=== PATIENT | female | born 1990 | race Caucasian/White ===

== ENCOUNTER → 2019-03-03 | Outpatient (CLI) | payer MEDICAID, SELFPAY ==
[2019-03-03 10:16] VITALS: BMI 28.4
[2019-03-03 11:43] LABS: Absolute Lymphocyte Count 1.71 X10^3/uL (0.83-4.51); Absolute Neutrophil Count 5.2 X10^3/uL (2.0-7.7); Basophil# 0.03 X10^3/uL; Basophil% 0.4 % (0-1); Eosinophil# 0.09 X10^3/uL; Eosinophils% 1.2 % (0-5); Hematocrit 38.6 % (37-47); Hemoglobin 13.1 g/dL (12.0-15.0); Lymphocyte # 1.71 X10^3/ul (4.0); Lymphocyte % 22.6 % (19-41); Mean Corp Hgb Conc 33.9 g/dL (32-36); Mean Corpuscular Hgb 29.9 pg (27.0-32.0); Mean Corpuscular Volume 88.1 fL (81-99); Mean Platelet Vol. 11.2 fl (6.2-12.0); Monocyte# 0.51 X10^3/uL; Monocyte% 6.7 % (0-10); NRBC Flagged by Analyzer 0 % (0-5); Neutrophil # 5.19 X10^3/uL (2.7-7.7); Neutrophil % 68.6 % (47-70); Platelet Count 182 K/mm3 (150-450); Red Blood Count 4.38 M/mm3 (4.2-5.4); White Blood Count 7.6 K/mm3 (4.4-11.0)
[2019-03-03 13:01] LABS: HIV - WCH Non-Reactive (Nonreactive); Rubella IgG 179.2 IU/mL
[2019-03-03 18:18] LABS: Chlamydia Trachomatis by PCR Negative (Negative); Neisserai gonorrhoeae by PCR Negative (Negative); Probe Check PASS; Sample Adequacy Control PASS; Specimen Processing Control PASS
[2019-03-06 00:53] LABS: Rapid Plasmin Reagin (RPR) NONREACTIVE (NONREACTIVE)
[2019-03-06 13:12] LABS: HPV Reflexed? NOT INDICATED
== END | disposition home or self-care (01) ==
PROVIDERS: Nurse Practitioner Women's Health; Family Provider Preventive Medicine Occupational Medicine; PCP Preventive Medicine Occupational Medicine; Referring Provider Obstetrics & Gynecology; Visit Provider Obstetrics & Gynecology
DX: O09.71 Supervision of high risk pregnancy due to social problems, first trimester (principal); Z3A.00 Weeks of gestation of pregnancy not specified
CPT/HCPCS: 36415; 85025; 86592; 86703; 86762; 86850; 86900; 86901; 87086; 87088; 87491; 87591; 87624; 88175; G0145

== ENCOUNTER 2019-06-01 16:36 | Outpatient (CLI) | payer MEDICAID, SELFPAY ==
[2019-05-11 08:25] VITALS: BMI 28.4
[2019-06-01 18:18] VITALS: BP 121/63; PULSE 74; RESP 20; TEMP 36.5; O2SAT 96; BMI 28.0
[2019-06-01 19:09] VITALS: BMI 28.0
--- NOTE | 2019-06-01 19:50 | OB.TRI.PN ---
Progress Notes Date of Service: 06/01/19 Progress Note: 21 week abdominal trauma- fht present finish evaluation in ER Multi Select Codes - Urinary/Genital Urinary/Genital CPT Codes: Other Procedure See Report - no charge
== END 2019-06-01 19:20 | disposition home or self-care (01) ==
LOC: WPOUT 18:41 → WP 18:50
PROVIDERS: Family Provider Preventive Medicine Occupational Medicine; PCP Preventive Medicine Occupational Medicine; Visit Provider Obstetrics & Gynecology
DX: O26.892 Other specified pregnancy related conditions, second trimester (principal); Z3A.21 21 weeks gestation of pregnancy; S39.91XA Unspecified injury of abdomen, initial encounter
CPT/HCPCS: 59025; 59050; 99218; G0378

== ENCOUNTER 2019-06-01 19:29 | Emergency (ER) | payer MEDICAID, SELFPAY ==
[2019-06-01 19:09] VITALS: BMI 28.0
[2019-06-01 19:30] VITALS: BP 97/62; PULSE 78; RESP 20; TEMP 36.9; O2SAT 98; BMI 28.0
--- NOTE | 2019-06-01 20:30 | ED.RN ---
PER DR. ASHBY COLLECTED URINE TOX SCREEN. DR. BAILEY AWARE.
--- NOTE | 2019-06-01 20:31 | RAD_ITS ---
STUDY: X-RAY - RIGHT KNEE REASON FOR EXAM: Female, 28 years old. Pain, fall TECHNIQUE: 4 view(s) of the knee. COMPARISON: None. FINDINGS: Normal visualized distal femur. Normal visualized proximal tibia and fibula. Normal proximal tibiofibular articulation. Normal medial femorotibial compartment. Normal lateral femorotibial compartment. Normal patellofemoral articulation. The soft tissue structures are unremarkable. RAD/Knee 4 or More Views IMPRESSION: Normal x-ray examination of the knee. Electronically Signed: Rock Ventura DO at 21:21 EST Tel [phone], Service support ,
--- NOTE | 2019-06-01 20:31 | RAD_ITS ---
STUDY: X-RAY - PELVIS AND RIGHT HIP REASON FOR EXAM: Female, 28 years old. Pain TECHNIQUE: 3 views of the pelvis and hip. COMPARISON: None. FINDINGS: There is a non-specific bowel gas pattern. Normal visualized soft tissue structures. There is a fetus noted over the pelvic region. Normal bilateral iliac wings, sacroiliac joints and visualized sacrum. Normal bilateral superior and inferior pubic rami. Normal pubic symphysis. Normal bilateral ischial tuberosities. Normal visualized femoral head. Possible small cyst at the right femoral neck. Normal acetabulum. Normal hip joint. RAD/HIP, UNI W/ Pelvis 2-3 Views IMPRESSION: No acute bony injury of the pelvis and hip. Electronically Signed: Rock Ventura DO at 21:20 EST Tel [phone], Service support ,
--- NOTE | 2019-06-01 20:45 | RAD_ITS ---
STUDY: X-RAY CHEST REASON FOR EXAM: Female, 28 years old. Fall TECHNIQUE: Frontal and lateral views COMPARISON: None. FINDINGS: The lungs are clear and expanded. There is no demonstrated pleural abnormality. Normal size heart. Normal mediastinum and jeana. Normal visualized pulmonary arteries. Normal visualized aortic arch and descending thoracic aorta. Normal visualized thoracic spine. Normal visualized ribs, clavicles, and shoulders. There is no demonstrated abnormality of the visualized soft tissue structures of the upper abdomen. RAD/Chest PA and Lateral IMPRESSION: Normal x-ray examination of the chest. Electronically Signed: Rock Ventura DO at 21:12 EST Tel [phone], Service support ,
[2019-06-01 20:49] LABS: Amphetamine Urine VISTA NEGATIVE (<1000 ng/mL); Barbiturate Urine VISTA NEGATIVE (< 200 ng/mL); Benzodiazepine Urine VISTA NEGATIVE (< 200 ng/mL); Cocaine Urine VISTA NEGATIVE (< 300 ng/mL); Ecstacy Urine VISTA NEGATIVE (< 500 ng/mL); Methadone Urine VISTA NEGATIVE (< 300 ng/mL); PCP Urine VISTA NEGATIVE (< 25 ng/mL); THC Urine VISTA NEGATIVE (< 50 ng/mL); Vista UDS pH Range 6
--- NOTE | 2019-06-01 21:44 | ED.DCSUM_ITS ---
- ER Visit Summary Date of Service: 06/01/19 Chief Complaint: [Fall with injury to right side of her body including right knee and right hip.] History of Present Illness: The patient is a 28 F [presents to the emergency department after sustaining a fall this afternoon. 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 Patient denies loss of consciousness. Patient denies any neck pain. She denies paresthesias. Patient initially went up to [facility] and they evaluated the baby. She was sent to the emergency department for further evaluation of her injuries. Patient states that she is having too much pain to walk onto her right leg. Patient complains of pain in the right hip and right knee mostly. She denies any pain or foot. She denies any back pain. She denies any abdominal pain. She denies any shortness of breath. Patient is 21 weeks .] Physical Examination: [HEENT-PERRLA, EOMI. Cranial nerves II through XII grossly intact. TMs clear. Mucous membranes moist. No adenopathy. No external evidence of trauma to her head. Patient has no C-spine tenderness on palpation and she has normal active range of motion is painless. Cardiovascular-regular rate and rhythm without murmur or ectopy Lungs-clear to auscultation, chest wall stable without crepitus or subcu emphysema. Patient has some tenderness to palpation over the right upper posterior ribs near the axilla. Patient has some faint ecchymosis to this area. Abdomen-normoactive bowel sounds, soft, nontender, no rebound or rigidity, no peritoneal signs. Extremities-intact ?4, normal range of motion, normal pulses. Right leg-patient has diffuse tenderness over the right hip as well as the right knee. Patient has pain with range of motion in the hip and knee. She has some diffuse areas of ecchymosis and bruising to the lateral aspect of the right upper leg and lower leg. No obvious deformity. Neurovascular intact.] Test Results: [Chest x-ray obtained was normal. Patient also had x-rays of the right hip and pelvis as well as the right knee and all were negative for fractures.] Emergency Department Course and Treatment: [She was given Tylenol in the department.] Treatment Plan: [Patient will be given crutches and advised use Tylenol for discomfort. Patient use ice to the area. Patient to follow-up with her [facility] within the next 5 to 7 days.] Disposition: [Discharged home in stable condition] Impression: [Mechanical fall Back contusion Right hip contusion Right lower extremity contusion] This note was generated with [employer] dictation software. It may contain incorrect words, spelling, and punctuation that were not noted in review of the chart prior to signing ED Disposition - Plan for ED Patient: Referrals: Abad Cooper DO [Primary Care Provider] -
[2019-06-01] MEDS: Acetaminophen 325 MG Tablet 650 MG PO (21:57)
--- NOTE | 2019-06-01 22:12 | ED.DEP ---
ED Disposition - Plan for ED Patient: Instructions: FALL, Mechanical, CONTUSION, Lower Extremity, Chest Wall Contusion Referrals: Abad Cooper DO [Primary Care Provider] - 5-7 Days
[2019-06-01 22:21] VITALS: BP 101/68; PULSE 76; RESP 16; O2SAT 99
== END 2019-06-01 22:21 | disposition home or self-care (01) ==
PROVIDERS: Emergency Provider Emergency Medicine; Family Provider Preventive Medicine Occupational Medicine; PCP Preventive Medicine Occupational Medicine
DX: O26.892 Other specified pregnancy related conditions, second trimester (principal); Z3A.21 21 weeks gestation of pregnancy; S20.229A Contusion of unspecified back wall of thorax, initial encounter; S70.01XA Contusion of right hip, initial encounter; S80.11XA Contusion of right lower leg, initial encounter; W10.8XXA Fall (on) (from) other stairs and steps, initial encounter; S39.91XA Unspecified injury of abdomen, initial encounter
CPT/HCPCS: 59025; 59050; 71046; 73502; 73564; 80307; 99218; 99283; G0378

== ENCOUNTER → 2019-07-07 08:55 | Outpatient (CLI) | payer MEDICAID, SELFPAY ==
[2019-07-07 08:13] VITALS: BMI 28.0
[2019-07-07 09:19] LABS: Absolute Lymphocyte Count 1.98 X10^3/uL (0.83-4.51); Absolute Neutrophil Count 5.3 X10^3/uL (2.0-7.7); Basophil# 0.04 X10^3/uL; Basophil% 0.5 % (0-1); Eosinophil# 0.14 X10^3/uL; Eosinophils% 1.7 % (0-5); Hematocrit 36.5 % (37-47); Hemoglobin 11.9 g/dL (12.0-15.0); Lymphocyte # 1.98 X10^3/ul (4.0); Lymphocyte % 24.4 % (19-41); Mean Corp Hgb Conc 32.6 g/dL (32-36); Mean Corpuscular Hgb 28.9 pg (27.0-32.0); Mean Corpuscular Volume 88.6 fL (81-99); Mean Platelet Vol. 11.2 fl (6.2-12.0); Monocyte# 0.56 X10^3/uL; Monocyte% 6.9 % (0-10); NRBC Flagged by Analyzer 0 % (0-5); Neutrophil # 5.31 X10^3/uL (2.7-7.7); Neutrophil % 65.4 % (47-70); Platelet Count 164 K/mm3 (150-450); RBC Distribution Width CV 12.8 % (11.6-14.6); RBC Distribution Width SD 41.3 fl (35.1-43.9); Red Blood Count 4.12 M/mm3 (4.2-5.4); White Blood Count 8.1 K/mm3 (4.4-11.0)
[2019-07-07 09:32] LABS: Glucose Challenge Gest 1H 50g 122 mg/dL (70-140)
[2019-07-07 10:28] LABS: Hepatitis B Surface Antigen Non-Reactive (Nonreactive); Hepatitis C Antibody Non-Reactive (Nonreactive)
== END ==
PROVIDERS: Referring Provider Obstetrics & Gynecology; Visit Provider Obstetrics & Gynecology
DX: O09.71 Supervision of high risk pregnancy due to social problems, first trimester (principal); Z3A.00 Weeks of gestation of pregnancy not specified
CPT/HCPCS: 36415; 82950; 85025; 86803; 87340

== ENCOUNTER → 2019-07-28 16:24 | Outpatient (CLI) | payer MEDICAID, SELFPAY ==
[2019-07-28 08:58] VITALS: BMI 28.0
[2019-07-28 18:46] LABS: Amphetamine Urine VISTA NEGATIVE (<1000 ng/mL); Barbiturate Urine VISTA NEGATIVE (< 200 ng/mL); Benzodiazepine Urine VISTA NEGATIVE (< 200 ng/mL); Cocaine Urine VISTA NEGATIVE (< 300 ng/mL); Ecstacy Urine VISTA NEGATIVE (< 500 ng/mL); Methadone Urine VISTA NEGATIVE (< 300 ng/mL); PCP Urine VISTA NEGATIVE (< 25 ng/mL); THC Urine VISTA NEGATIVE (< 50 ng/mL); Vista UDS pH Range 7
== END ==
PROVIDERS: Referring Provider Nurse Practitioner Women's Health; Visit Provider Nurse Practitioner Women's Health
DX: Z34.90 Encounter for supervision of normal pregnancy, unspecified, unspecified trimester (principal)
CPT/HCPCS: 80307

== ENCOUNTER → 2019-09-15 16:31 | Outpatient (CLI) | payer MEDICAID, SELFPAY ==
[2019-09-15 13:36] VITALS: BMI 28.0
== END ==
PROVIDERS: Referring Provider Obstetrics & Gynecology; Visit Provider Obstetrics & Gynecology
DX: R30.0 Dysuria (principal); Z3A.36 36 weeks gestation of pregnancy
CPT/HCPCS: 87081; 87086; 87088

== ENCOUNTER 2019-09-28 13:06 | Outpatient (CLI) | payer MEDICAID, SELFPAY ==
[2019-09-22 10:24] VITALS: BMI 28.0
[2019-09-28 13:20] VITALS: BMI 30.5
[2019-09-28 13:34] VITALS: BP 101/66; PULSE 72; TEMP 36.9; O2SAT 98
--- NOTE | 2019-09-30 07:12 | OB.TRI.PN_ITS ---
Progress Notes Date of Service: 09/28/19 Progress Note: Patient presents for triage evaluation secondary to false labor FHT: 140 Moderate variability reactive no decelerations category I tracing [place]: irregular Contractions Assessment and plan: False labor reactive NST, reassuring maternal and status patient discharged to home to follow-up as scheduled. See problem list details for additional plan information. Multi Select Codes - Urinary/Genital Urinary/Genital CPT Codes: 79801-78 non-stress test Interp
== END 2019-09-28 15:35 | disposition home or self-care (01) ==
LOC: WPOUT 13:08 → OBT 13:08
PROVIDERS: Referring Provider Obstetrics & Gynecology; Visit Provider Obstetrics & Gynecology
DX: O47.9 False labor, unspecified (principal); Z3A.00 Weeks of gestation of pregnancy not specified
CPT/HCPCS: 59025; 59050; 99218; G0378

== ENCOUNTER 2019-10-03 02:01 | Outpatient (CLI) | payer MEDICAID, SELFPAY ==
[2019-09-29 12:08] VITALS: BMI 30.5
[2019-10-03 02:24] VITALS: TEMP 36.3; O2SAT 98
[2019-10-03 02:25] VITALS: BP 117/71; PULSE 70; BMI 31.1
[2019-10-03 04:00] LABS: ROM Internal Control Test YES-OK TO RESULT pt. (Internal QC); ROM Patient Test Negative (Negative)
--- NOTE | 2019-10-03 05:15 | OB.TRI.PN ---
Progress Notes Date of Service: 10/03/19 Progress Note: Patient presents for triage evaluation secondary to decreased movement FHT: 140 Moderate variability reactive no decelerations category I tracing [place]: no regular Contractions Assessment and plan: decreased movement Reactive NST, reassuring maternal and status patient discharged to home to follow-up as scheduled. See problem list details for additional plan information. Laboratory Studies: Laboratory Tests 10/03/19 Range/Units 03:35 Vag Amniotic Fld Detect Negative (Negative) Multi Select Codes - Urinary/Genital Urinary/Genital CPT Codes: 04340-86 non-stress test Interp
== END 2019-10-03 04:33 | disposition home or self-care (01) ==
LOC: WPOUT 02:09 → WP 02:09
PROVIDERS: Visit Provider Obstetrics & Gynecology
DX: O36.8190 Decreased fetal movements, unspecified trimester, not applicable or unspecified (principal); Z3A.00 Weeks of gestation of pregnancy not specified
CPT/HCPCS: 59025; 59050; 84112; 99218; G0378

== ENCOUNTER 2019-10-04 07:00 | Inpatient (IN) | payer MEDICAID, SELFPAY ==
[2019-10-03 02:25] VITALS: BMI 31.1
[2019-10-04] VITALS (54 sets, daily range): BP systolic 94–122; BP diastolic 55–83; PULSE 58–117; RESP 16; TEMP 36.2–37.9; O2SAT 83–100; BMI 31.1
--- NOTE | 2019-10-04 07:24 | HP.PCM_ITS ---
- Problem List (1) Active labor at term Status: Acute (2) Contraception management Status: Acute Qualifiers: Comment: plan PPTL, title 19 signed 08/14/19 (3) Depression Status: Acute Qualifiers: Comment: 06/09 zoloft- 100 mg, encouraged counseling (4) Supervision of high risk due to social problems Status: Acute Qualifiers: Comment: PRR TIANNA: 10/07/19 girl- [facility] PC: Carmita Melgoza, Concha Milton(does not have custody of any). Now with visitations with Concha, Spouse:Brian(Concha Monik) (5) Status: Acute Qualifiers: Comment: NIPT, carrier, and ntd screening declined. nl Anatomy US (6) History of abnormal cervical Pap smear Status: Acute (7) History of LEEP (loop electrosurgical excision procedure) of cervix complicating Status: Acute Qualifiers: History Date of Admission: 10/04/19 Final TIANNA: 10/07/19 Gestational age: 39 Weeks and 4 Days History of this : This is a 29 year-old, at 39w4d weeks gestational age presents in active labor with regular contractions. she Is 4 cm. She has had a complicated by social issues having lost custody of her other children. She is working currently to regain this custody. Medical History: Medical History (Last Reviewed 09/29/19 @ 11:53 by Margaret Sethi) Abnormal Pap smear of cervix R87.619 Beta hemolytic streptococcus urinary tract infection affecting O23.40, B95.5 Surgical History: Surgical History (Last Reviewed 09/29/19 @ 11:53 by Margaret Sethi) H/O LEEP Z98.890 Allergies No Known Allergies Allergy (Verified 09/29/19 11:52) Home Medications: Home Medications Hydroxyzine Pamoate [Vistaril] 50 mg PO TID PRN PRN 09/28/19 [Prenate DHA] 1 cap PO .daily 10/03/19 Famotidine 20 mg PO DAILY 10/03/19 Sertraline HCl [Zoloft] 50 mg PO DAILY 10/03/19 Smoking Status: Never smoker NST - FHR Rate Baby A Baseline: 130 Variability:: Moderate Accelerations:: 15 x 15 Decelerations:: None NST Reactive:: Yes FHR Category:: Category I Uterine Activity:: q 3-5 History Past Pregnancies: Past Pregnancies Pregancy History 5 Elective abortions Hx Para 4 Spontaneous abortions Hx # Term Pregnancies 4 Ectopic pregnancies Hx # Pregnancies Multiple births # of living children 4 Past Pregnancies Del. Date Name GA/Weeks Outcome Route Bth Weight Infant Gen Labor Lgth Anesthesia Del Locatn Provider FOB 01/21/09 Abad 38 live - full term 5 lbs 8 o z. Male epidural [facility] Rachel Melgoza 09/20/11 Carmita 39 live - full term 6 lbs 8 o z. [facility] Yoan 40 live - full term 7 lbs 7 o z. Male epidural Angelika Morgan 07/06/17 Concha 40 live - full term 5 lbs 10 oz. Female epidural [facility] Brian Labs: Social History Smoking Status Never smoker Expected Infant Delivery Method: Spontaneous Vaginal Review of Systems Constitutional: Denies: Fever, Malaise Eyes: Denies: Blurred vision, Vision Change HEENT: Denies: Head Aches, Visual Changes Cardiovascular: Denies: Chest Pain, Palpitations Respiratory: Denies: Cough, Shortness of Breath, Wheezing Gastrointestinal: Denies: Abdominal Pain, Diarrhea, Nausea, Vomiting Genitourinary: Denies: Dysuria, Hematuria Musculoskeletal: Denies: Joint Pain, Muscle pain Skin: Denies: Lesions, Rash Neurological: Denies: Blurred vision, Focal weakness, Headaches Psychiatric: Denies: Anxiety, Depression Endocrine: Denies: Heat/ Cold Intolerance Hematologic/ Lymphatic: Denies: Easy Bruising, Easy Bleeding Physical Exam Vitals: Vital Signs Temp Pulse BP Pulse Ox 97.2 F L 65 115/66 99 10/04/19 05:51 10/04/19 05:51 10/04/19 05:51 10/04/19 05:51 General: Alert, Cooperative, No apparent distress HEENT: Atraumatic, Normocephalic. Negative for: Thyromegaly, Lymphadenopathy Cardiovascular: Regular rate Lungs: Normal air movement Abdomen: Soft, Non Tender, Gravid Neurological: Deep Tendon Reflexes 2+/4 and Symmetrical, Neuro grossly intact. Negative for: Clonus [employer]: Normal external genitalia. Negative for: Vulvar lesions Estimated gestational size: Appropriate for gestational size Presentation: Cephalic Cervix Dilation (cm): 4 Station: -1 Effacement (%): 80 Assessment/Plan All Active Problems (Last Reviewed 09/29/19 @ 11:53 by Margaret Sethi) Active labor at term (Acute) Sciatica of left side (Acute) Segmental and somatic dysfunction of sacral region (Acute) Segmental and somatic dysfunction of lumbar region (Acute) Contraception management (Acute) Depression (Acute) Supervision of high risk due to social problems (Acute) (Acute) History of abnormal cervical Pap smear (Acute) History of LEEP (loop electrosurgical excision procedure) of cervix complicating (Acute) This is a 29 year-old, at 39w4d weeks gestational age presents IAL. Patient presents IAL, plan expectant management for , Pitocin/AROM if needed. Pain management: Plans epidural. GBS negative. Management of any complications: social service agency director consult I have reviewed the [facility] and made any clinically relevant updates.
[2019-10-04] MEDS: Lactated Ringers 500 ML 999 ML IV ×2 (07:32→09:10)
[2019-10-04 07:59] LABS: Absolute Lymphocyte Count 1.73 X10^3/uL (0.83-4.51); Absolute Neutrophil Count 7.4 X10^3/uL (2.0-7.7); Basophil# 0.06 X10^3/uL; Basophil% 0.6 % (0-1); Eosinophil# 0.07 X10^3/uL; Eosinophils% 0.7 % (0-5); Hematocrit 37.1 % (37-47); Hemoglobin 12.2 g/dL (12.0-15.0); Lymphocyte # 1.73 X10^3/ul (4.0); Lymphocyte % 17.3 % (19-41); Mean Corp Hgb Conc 32.9 g/dL (32-36); Mean Corpuscular Hgb 28.7 pg (27.0-32.0); Mean Corpuscular Volume 87.3 fL (81-99); Monocyte# 0.65 X10^3/uL; Monocyte% 6.5 % (0-10); NRBC Flagged by Analyzer 0 % (0-5); Neutrophil # 7.38 X10^3/uL (2.7-7.7); Neutrophil % 73.9 % (47-70); Platelet Count 179 K/mm3 (150-450); RBC Distribution Width CV 13.1 % (11.6-14.6); RBC Distribution Width SD 40.8 fl (35.1-43.9); Red Blood Count 4.25 M/mm3 (4.2-5.4)
[2019-10-04] MEDS: Lactated Ringers 1,000 ML 150 ML IV (08:02)
[2019-10-04] MEDS: fentaNYL-bupivacaine (epidural) 100 ML BAG EPIDURAL (08:31)
[2019-10-04] MEDS: Mag Hydrox/Al Hydrox/Simeth 30 ML UDC PO (08:55)
[2019-10-04 09:36] LABS: Amphetamine Urine VISTA NEGATIVE (<1000 ng/mL); Barbiturate Urine VISTA NEGATIVE (< 200 ng/mL); Benzodiazepine Urine VISTA NEGATIVE (< 200 ng/mL); Cocaine Urine VISTA NEGATIVE (< 300 ng/mL); Ecstacy Urine VISTA NEGATIVE (< 500 ng/mL); Methadone Urine VISTA NEGATIVE (< 300 ng/mL); PCP Urine VISTA NEGATIVE (< 25 ng/mL); THC Urine VISTA NEGATIVE (< 50 ng/mL); Vista UDS pH Range 6
[2019-10-04] MEDS: Oxytocin 30 units/NS 500 ml 30 UNITS/500 ML IV.SOLN 334 UNITS IV (11:21)
--- NOTE | 2019-10-04 11:30 | PCM.OPRPT ---
Problem List (1) Active labor at term Status: Acute (2) Contraception management Status: Acute Qualifiers: Comment: plan PPTL, title 19 signed 08/14/19 (3) Depression Status: Acute Qualifiers: Comment: 06/09 zoloft- 100 mg, encouraged counseling (4) Supervision of high risk due to social problems Status: Acute Qualifiers: Comment: PRR TIANNA: 10/07/19 girl- [place] [facility]: Carmita Melgoza, Concha Milton(does not have custody of any). Now with visitations with Concha, Spouse:Brian(Concha Monik) (5) Status: Acute Qualifiers: Comment: NIPT, carrier, and ntd screening declined. nl Anatomy US (6) History of abnormal cervical Pap smear Status: Acute (7) History of LEEP (loop electrosurgical excision procedure) of cervix complicating Status: Acute Qualifiers: Vaginal Delivery Maternal Presentation: Active Labor 29 yo present IAL 6 cm Amniotic Membrane Rupture Type: Spontaneous at home Amniotic Fluid Description: Clear Final TIANNA: 10/07/19 Gestational age: 39 Weeks and 4 Days Date of Procedure: 10/04/19 Pre-Operative Diagnosis: ial Post-Operative Diagnosis: same Surgery/ Procedure Performed: Spontaneous Vaginal Delivery Type of Anesthesia: Epidural Description of Procedure: Patient began pushing and delivered the head in the YOSELIN presentation. The head was delivered atraumatically . The anterior and posterior shoulders delivered without complication followed by the rest of the and the was placed on the maternal abdomen. Delayed cord clamping was employed for approximately 60 seconds. Cord was clamped and cut and gentle traction was applied to the cord and the placenta delivered spontaneously immediately following it was noted to be intact with three-vessel cord. The perineum and vagina were inspected and noted to have no laceration. EBL was 100 cc. Patient and infant tolerated delivery well. Presentation: YOSELIN Placental Delivery Description: Spontaneous Placenta Disposition: [facility] Cord Entanglement: None Estimated Blood Loss: 100 A gender: Female Episiotomy Description: None Laceration: None Medications given after delivery: IV Pitocin Complications: None
[2019-10-04] MEDS: Famotidine 20 MG Tablet PO (13:18)
[2019-10-04] MEDS: Naproxen 250 MG Tablet 500 MG PO ×2 (13:18→22:25)
[2019-10-04] MEDS: 0.9% Saline Lock 10 ML Syringe IV (13:57)
[2019-10-04] MEDS: Prenatal Vits Tablet 1 TABLET PO (15:53)
[2019-10-04] MEDS: Sertraline 50 MG Tablet PO (15:53)
--- NOTE | 2019-10-04 16:48 | NURSING ---
Epidural cath removed at 1600, blue tip intact.
[2019-10-04] MEDS: Acetaminophen 500 MG Tablet 1000 MG PO (17:11)
[2019-10-05 04:00] VITALS: BP 107/67; PULSE 61; RESP 16; TEMP 36.7
[2019-10-05] MEDS: Naproxen 250 MG Tablet 500 MG PO ×2 (06:27→15:13)
--- NOTE | 2019-10-05 06:43 | PCM.PN.OB ---
Patient Problems: Active and Suspected Problems (Last Reviewed 09/29/19 @ 11:53 by Margaret Sethi) Active labor at term (Acute) Subjective: doing well no complaints pain controlled no CP SOB N V ambulating well tolerating po lochia moderate, going well - Physical Exam Vitals/I&O's: Vital Signs Temp Pulse Resp BP Pulse Ox 98.0 F 61 16 107/67 100 10/05/19 04:00 10/05/19 04:00 10/05/19 04:00 10/05/19 04:00 10/04/19 16:00 Oxygen Delivery Method Room Air Weight: 170 lb Body Mass Index (BMI) 31.1 Intake and Output for Last 24 Hours 10/03/19 10/04/19 10/05/19 23:59 23:59 23:59 Intake Total 2605.67 / 2605.67 Output Total 625 / 625 Balance 1979. / 1979. General: Alert, Oriented x3 Laboratory Results 10/04/19 07:30: Urine Opiates Screen NEGATIVE, Urine Methadone Screen NEGATIVE, Ur Barbiturates Screen NEGATIVE, Ur Phencyclidine Scrn NEGATIVE, Ur Amphetamines Screen NEGATIVE, U Methamphetamin-MDMA NEGATIVE, U Benzodiazepines Scrn NEGATIVE, Urine Cocaine Screen NEGATIVE, U Cannabinoids Screen NEGATIVE, Ur Drug Screen Comment 10/04/19 07:32: WBC 10.0, RBC 4.25, Hgb 12.2, Hct 37.1, MCV 87.3, MCH 28.7, MCHC 32.9, RDW Std Deviation 40.8, RDW Coeff of Raúl 13.1, Plt Count 179, MPV 12.0, Immature Gran % (Auto) 1.000 H, Neut % (Auto) 73.9 H, Lymph % (Auto) 17.3 L, Turner % (Auto) 6.5, Eos % (Auto) 0.7, Baso % (Auto) 0.6, Absolute Neuts (auto) 7.4, Absolute Lymphs (auto) 1.73, Nucleated RBC % 0 10/04/19 07:32: Blood Type O POSITIVE, Antibody Screen NEGATIVE Current Medications Acetaminophen (Tylenol) 1,000 mg PO Q8H PRN PRN PRN Reason: Pain Score 1-3/10 Last Admin: 10/04/19 17:11 Dose: 1,000 mg Documented by: Bisacodyl (Dulcolax) 10 mg RECTAL UD PRN PRN Reason: If no BM Dibucaine (Dibucaine) 1 applic TOPICAL TID PRN PRN; Protocol PRN Reason: Discomfort Famotidine (Pepcid) 20 mg PO DAILY [facility] Last Admin: 10/04/19 13:18 Dose: 20 mg Documented by: Hydrocortisone (Hytone) 1 applic TOPICAL TID PRN PRN; Protocol PRN Reason: Discomfort Hydroxyzine Pamoate (Vistaril Pamoate Capsule) 50 mg PO TID PRN PRN PRN Reason: STRESS/ANXIETY Methylergonovine Maleate (Methergine) 0.2 mg IM X1 PRN PRN Reason: Excess bleeding/uterine atony Naproxen (Naprosyn) 500 mg PO Q8H PRN PRN PRN Reason: Pain Score 1-3/10 Last Admin: 10/05/19 06:27 Dose: 500 mg Documented by: Ondansetron HCl (Zofran) 4 mg IV Q4H PRN PRN PRN Reason: Nausea Oxycodone HCl (Oxyir) 5 - 10 mg PO Q4H PRN PRN PRN Reason: Pain Score 4-10/10 Multivit/Folic Acid/Iron (Prenatabs Fa) 1 tablet PO DAILY@1200 [facility] Last Admin: 10/04/19 15:53 Dose: 1 tablet Documented by: Senna/Docusate Sodium (Senokot-S, Ching-Colace) 1 - 2 tablet PO DAILY PRN PRN PRN Reason: Constipation Sertraline HCl (Zoloft) 50 mg PO DAILY [facility] Last Admin: 10/04/19 15:53 Dose: 50 mg Documented by: Simethicone (Mylicon) 80 mg PO PCHS PRN PRN Reason: Indigestion/Stomach pain Sodium Chloride () 5 - 15 ml IV UD PRN PRN Reason: SALINE FLUSH Last Admin: 10/04/19 13:57 Dose: 10 ml Documented by: Medical Necessity - Tobacco Use Smoking Status: Former smoker Assessment/Plan All Active Problems (Last Reviewed 09/29/19 @ 11:53 by Margaret Sethi) Active labor at term (Acute) Sciatica of left side (Acute) Segmental and somatic dysfunction of sacral region (Acute) Segmental and somatic dysfunction of lumbar region (Acute) Contraception management (Acute) Depression (Acute) Supervision of high risk due to social problems (Acute) (Acute) History of abnormal cervical Pap smear (Acute) History of LEEP (loop electrosurgical excision procedure) of cervix complicating (Acute) s/p PPD # 1 1. routine post delivery care 2. breast feeding- support given 3. rh positive 4. rubella immune
--- NOTE | 2019-10-05 06:44 | DCINST_ITS ---
Discharge Diet: No Restrictions Discharge Activity: Return to Normal Activity, May not drive while taking narcotic pain medications., May Shower May resume sexual activity in: 4-6 weeks Call your doctor if your incision/area has: Continuous Slow Oozing, Sudden Increased Bleeding, Increased Pain/ Swelling, Increased Redness, Foul Smelling Discharge Additional Instructions: If you experience any of the following, contact your healthcare provider. * Bleeding that soaks a pad every hour for 2 hours * Fever 100.4 or higher * Unrelieved incision or abdominal pain * Swelling, redness, discharge or bleeding from your incision or episiotomy site * Your incision begins to separate * Problems urinating (including inability to urinate or burning while urinating). * Visual changes * Severe headache * Flu-like symptoms * Pain or redness in one of both of your breasts * Pain, warmth, tenderness or swelling in your legs, especially the calf area * Frequent nausea and vomiting * Symptoms of depression or anxiety If you experience any of the following, call 911 or go to the nearest Emergency Room. * Chest pain * Problems breathing * Seizure activity * Partial or complete paralysis of a body part, slurred speech, weakness or drooping of the face, or a sudden inability to walk or hold your balance Allergies/Adverse Reactions: Allergies No Known Allergies Allergy (Verified 10/04/19 07:56) Medications to take at Discharge Hydroxyzine Pamoate [Vistaril] 50 mg PO TID PRN PRN 09/28/19 [Prenate DHA] 1 cap PO .daily 10/03/19 Famotidine 20 mg PO DAILY 10/03/19 Sertraline HCl [Zoloft] 50 mg PO DAILY 10/03/19 Naproxen [Naprosyn] 250 - 500 mg PO Q8H PRN PRN #30 tab 10/05/19 The following prescriptions were given: Naproxen [Naprosyn] 250 - 500 mg PO Q8H PRN PRN #30 tab PRN Reason: MILD PAIN Transmission Status: Pending to [facility]/pharmacy #[id number] Please Follow Up With: Courtney Kuhn MD - [phone] When: Call to make an appointment with your doctor in 6 weeks. If you had elevated Blood pressure or 4th degree laceration you will need to be seen in 2 weeks. Primary Care Physician: Care Physician,No Primary [Primary Care Provider] - Test Results: Test results from this visit will be discussed in further detail at your follow- up appointment, if applicable.
[2019-10-05 08:00] VITALS: BP 111/69; PULSE 61; RESP 16; TEMP 36.2
[2019-10-05] MEDS: Sertraline 50 MG Tablet PO (10:54)
[2019-10-05] MEDS: Acetaminophen 500 MG Tablet 1000 MG PO (10:54)
[2019-10-05] MEDS: Famotidine 20 MG Tablet PO (10:55)
[2019-10-05] MEDS: MedroxyPROGESTERone 150 MG/ML Syringe IM (11:54)
[2019-10-05 15:15] VITALS: BP 112/70; PULSE 61; RESP 16; TEMP 36.8
--- NOTE | 2019-10-05 16:15 | CASEMGMT ---
Social Work Assessment Labor and Delivery Unit Patient Address: [address] [place], [place] [address] [id number] Phone number: [phone] Date of Referral: 10.04.2019 Time of Referral: 1506 Referred By: Dr. Kuhn Date of Intervention: 10.05.2019 Time of Intervention: 1400 Reason for Referral: maternal history of depression and non-custody of older 4 children. History obtained from: medical records and mother of baby (MOB) Dana Bansal; father of baby (FOB) Brian Bansal presented at the end of the conversation. Household composition: MOB and FOB live in a 2-bedroom apartment. Home situation is reported to be adequate. Patient's parent/guardian status: MOB is age 29 female, to Brian Bansal a Prydeinig/ male for almost 4 years. MOB reports have been with FOB for 5 years in total. Between MOB and FOB there are 6 children. MOB has 3 from prior relationships, 2 with FOB, an FOB has one from a prior relationship. FOB?s child from prior relationship is Monik, who is 3. MOB?s minor children: Abad (born 01.21.2009) and Carmita (born 09.20.2011) are living with their father, MOB?s ex- Richard. Milton (Born 02.15.2014) is living with his father Eddie. Concha Bansal (born 07.06[birth year]2017), is currently in the custody of [facility], reportedly set to reunify back into MOB and FOB?s home by October 19, 2019. [place] baby, Beti Bansal, born on 10.04.2019. Medical History: MOB is G5, P4 to 5 after delivering Beti. MOB with care starting at 8 weeks, gap in care until 15 weeks but then regular thereafter. MOB reports sought out chiropractic help during for back issues. Reports to have an old knee injury that causes pain and makes it difficult to stand for long periods of time. Educational Status: No reported issues with reading, writing, or learning comprehension. Financial Status: FOB is the only adult working outside of the home right now, which is at [employer] in [place]. MOB reports she has started the application for disability due to the old knee injury. Infant Supplies: MOB reports to have needed baby supplies including bassinet, 2 [id number], clothing, diapers, wipes, and is planning to breastfeed. Childcare/Caregiver(s): MOB. Transportation: MACK does not currently have a license. Relies on FOB for transportation. There is one vehicle for the family. Programs/Agencies Involved: Active with [facility] for food and medical. Active with WIC. Active with [facility] for self and okay with [facility] for the baby. Children Services/Legal Issues: MOB?s license is suspended though reasoning not discussed. MOB reports to have court on 10.19.2019 for final reunification of Concha back into MOB?s and FOB?s home. MOB reports active case with [facility] due to Concha suffering a hairline fracture of the arm at 6 months of age, while in the care of the FOB. Concha reported rolled off the bed. MOB reports all the children were on MOB?s custody until that time when children services remove al of the children, with the older children going to respective fathers and Concha into foster care. MOB reports [facility] did come out to home over the summer because a neighbor called in with some lies. MOB had been watching the oldest two kids for the summer at that point. Behavioral Health Issues: Mental Health History: MOB reports history of depression, anxiety, that has been diagnosed with OCD in the past, and reportedly with bipolar disorder. MOB reports depression after Carmita, Yoan and Concha, and with this setting in sooner after each delivery. MOB reports have been on medication and this has been helpful though admits was so frustrated with life stressors a couple of weeks ago just stopped her medication of Zoloft. MOB reports has restarted medication as of this hospitalization. Plans to remain on medications in the period. Substance Use History: MOB reports as a teen tried marijuana but nothing as an adult. Denies use or abuse of other substances. Family History: Reports to have an aunt and uncle with history of substance use issues. MOB reports belief that FOB ochoa depression. Drug Screens: Maternal drug screens negative on , 07.28.2019, and 10.04.2019. Family/Social Stressors: Loss of custody of MOB?s oldest 4 children and dealing with children services for the last 2 years. MOB reports to be so close to reunifying with Concha and once this is done will be seeking out obtaining custody back of the older children. MOB reports have been feeling down with all the roadblocks, as well as worry about Concha being in foster care that MACK stopped her antidepressant 2 weeks ago. Limited finances right now due to only one income and MACK feels unable to work due to knee pain from an old work injury. Limited support system in the area. MOB reports to feel that DEANA comes home from work and want to play video games, so sometimes feels alone. Support Systems: MOB reports a limited support system due to MOB?s mom living out of town, MOB not really getting along with her sisters, and FOB working long hours. MOB reports FOB is supportive though. MOB reports to have a good friend named Patti, who is a counselor, and that has been encouraging MOB to seek out counseling. MOB admits her fear and distrust due to issues that have happened with children services impede MOB?s willingness to seek out help for self through professional avenues. Depression/Shaken Baby/Safe Sleeping: MOB and FOB educated to depression, risk factors, with signs and symptoms reviewed. Educated that fathers are at risk. Discussed ways to support each other?s, as well as importance of letting others know when struggling. Prior to FOB coming in she did identify the OBGYN as a person to go to if symptoms worsen. MOB accepted having list of counseling options and plans to remain on antidepressant medication. [place] Depression Screen (EDPS): Screened MOB privately before FOB's arrival. MOB with a score of 23 this date. Refer to attached link for further details. MACK admits she has been feeling down and frustrated the last week, mostly about not seeing her kids with the last 2 years has been hard, feeling like MACK is not whole without all her kids. MOB reports a lot of worry, and blames self unnecessarily. MOB reports was not real excited to have the baby over the weekend when MOB did but does indicate to be happy about Beti and to have a connection to the baby. MACK further explains that she just wasn?t excited due to not having other children around. MOB endorses on question 10, that ?sometime? over the last week has thought of harming self. MOB went to clarify that did not want to kill self but felt like she may be better off . No planning, intent, or attempts endorsed by MOB. MOB reports when these low thoughts would pop into MOB?s head that MOB stopped and thought about her kids, about her baby, and that thoughts of the kids would help MOB to keep moving forward. No reports of any suicidal ideation or intent currently. MOB does report intent to stay on antidepressant medications and reports as soon as the children services case is closed that will be willing to seek out counseling at [facility]. Despite MOB seemingly to talk freely with this technical proposal writer, the MOB reports fear of talking too much to others, afraid that all said will be held against MOB in getting her kids back. Addressed with MOB the importance of seeking out care and help, that ignoring the issue has a greater potential to impact ability to reunify with children or safely parent. Encouraged MOB that while it is no ones fault when mental health issues are present, but that it is each person's own responsibility in care and management. Educated MOB to the risk for psychosis considering history of Bipolar disorder. Educated to what this means. MOB then went on to share that for about 3 months she has felt a bit more suspicious a times, like someone is watching MOB, sometimes shadows pop into MOB?s view. MOB reports she has not talked about this due to embarrassment. Encouraged MOB that this is nothing to be embarrassed about. MOB endorsed that could talk to OBGYN if these thoughts and feelings pop up again for MOB. MOB able to identify coping skills as cleaning, crafting, scrapbooking, and just ordered beads to bead a new weeding gown to renew wedding vows next year. ASSESSMENT: Met with MOB alone in room, and then near the end joined by FOB. MOB talkative during social work visit, often expanding on conversation without 7th grade social studies teacher asking much in the way of questions. MOB forthcoming at the onset abut history of depression as well a stressor from dealing with children services. community organization worker provided much supportive listening, encouragement, reflection. Discussion about taking time for self-care and communication with support system. MOB does admit having a lot of anger towards children services, that records all conversations even when told not to and that does this with a disregard to the rules. MOB voices seeing this to help protect her children as MOB has had concerns that Chanel has not been well taken care of in foster care. Discussed with MOB that this technical proposal writer plans to touch base with the OBGYN regarding MOB?s depression screening and endorsed symptoms over the last couple of months. MOB states agreement to this. MOB held good eye contact, thought quite talkative speech was within normal limits. Future oriented (getting daughter back, talked of seeking out a law suit against [facility], and getting beads for a wedding dress for renewal of vows next year). Motor activities appropriate. Thought process logical, no evidence of internal stimuli observed, answered questions to topic at hand, more so preoccupied with frustration regarding how the case with [facility] has bene handled. MOB and FOB report to understand what safe sleeping is and gave appropriate responses on shaken baby prevention. FOB did express interest in knowing what signs to look for in , so some signs reviewed, as well a resource for such. No voiced concerns by nursing staff in chart or voiced or voiced to this technical proposal writer regarding mother/child interactions or bonding. Did leave the room to gather some additional resource information. Returned to the room and spoke with MOB and FOB again. This technical proposal writer presented resources and reviewed. MOB and FOB talkative again and with how hard it has been to have the other children out of the home and how frustrating that the construction technician has not signed the paper yet for reunification of Concha into the home. Supportive listening offered again. Encouraged self-care and open communication. Let MOB and FOB know that children services may come out to see the family at the home due to having an open case with at least one older child. Let family know that uncertain but this could happen, so that parents would be aware. PLAN: MOB and baby to home. [facility] [place], notifying of baby?s . [facility] resources list given and handouts on [facility], shaken baby prevention, and safe sleeping. depression packet that includes online and local resources, national hotlines and local hotline numbers. Due to open children services case for older child, plan to call [facility] services to alert to of baby. Call into Dr. Kuhn to update on MOB?s EDPS, for continuity of care when MOB follows up with doctor?s office in two weeks. -FREDRICK Obregon, BRADLEY LINEBACKER CREWMEMBER
--- NOTE | 2019-10-05 17:37 | CASEMGMT ---
Social Work Labor and Delivery Unit Spoke with Jessica from [facility] this date. Referral due to the family otherwise being involved with another child services protection agency with at least one older child, reported plan for reunification, but due to nature of reason for removal determined need to call and alert for baby returning to parental home. Brief maternal and infant histories reported. -FREDRICK Obregon, PRODUCTION UTILITY WORKER
--- NOTE | 2019-10-06 10:10 | CASEMGMT ---
Social Work Labor and Delivery Unit Spoke with Dr. Kuhn, reviewed summary of this typewriter aligner's meeting with the mother of baby on 10.05.2019. Updated to EDPS score and other symptoms MOB endorsed over the last three months. Updated to resources provided to MOB. [facility] referral submitted via the [facility]'s secure web based referral system. No other services requested or indicated. -JOSE Obregon, SOCIAL MEDIA DIRECTOR
== END 2019-10-05 15:50 | disposition home or self-care (01) | DRG 560 ==
LOC: WPOUT 07:06 → WP 07:06
PROVIDERS: Admitting Provider Obstetrics & Gynecology; Visit Provider Obstetrics & Gynecology
DX: O99.344 Other mental disorders complicating childbirth (principal); O36.8190 Decreased fetal movements, unspecified trimester, not applicable or unspecified; F32.9 Major depressive disorder, single episode, unspecified; Z87.891 Personal history of nicotine dependence; Z3A.39 39 weeks gestation of pregnancy; Z37.0 Single live birth; Z79.899 Other long term (current) drug therapy
CPT/HCPCS: 59025; 59050; 80307; 84112; 85025; 86850; 86900; 86901; 99218; J7120; A4216; G0378

== ENCOUNTER → 2022-10-04 | Outpatient (CLI) | payer MEDICAID, SELFPAY ==
[2022-10-04 16:08] LABS: Mucous, Urine 0 SEEN /hpf (<or=2+); Red Blood Cells-Urine 0 SEEN /hpf (0-5)
[2022-10-04 16:38] LABS: Basophil# 0.01 X10^3/uL; Basophil% 0.2 % (0-1); Eosinophil# 0.05 X10^3/uL; Eosinophils% 0.9 % (0-5); Hematocrit 36.6 % (37-47); Hemoglobin 12.8 g/dL (12.0-15.0); Lymphocyte % 20.5 % (19-41); Mean Corpuscular Hgb 29.5 pg (27.0-32.0); Mean Corpuscular Volume 84.3 fL (81-99); Mean Platelet Vol. 10.9 fl (6.2-12.0); Monocyte# 0.57 X10^3/uL; Monocyte% 9.7 % (0-10); NRBC Flagged by Analyzer 0 % (0-5); Neutrophil # 3.98 X10^3/uL (2.7-7.7); Neutrophil % 67.8 % (47-70); Platelet Count 181 K/mm3 (150-450); RBC Distribution Width CV 12.5 % (11.6-14.6); RBC Distribution Width SD 38.4 fl (35.1-43.9); Red Blood Count 4.34 M/mm3 (4.2-5.4); White Blood Count 5.9 K/mm3 (4.4-11.0)
[2022-10-04 16:45] LABS: Color, Urine Yellow (Yellow); Glucose, Dipstick Normal (Normal); Leukocyte Esterase-Dipstick 500 /ul (Negative); Nitrite-Dipstick Negative (Negative); Occult Blood-Urine 10 /ul (Negative); Protein-Dipstick 30 mg/dl (Negative); Specific Gravity, Urine 1.025 (1.002-1.030); Urine Bilirubin Dipstick Negative (Negative); Urine Clarity Sl. Cloudy (Clear); Urine Urobilinogen 4 mg/dl (Normal)
[2022-10-04 16:54] LABS: Ketone-Dipstick 150 mg/dl (Negative)
[2022-10-04 16:56] LABS: Bacteria 2+ /hpf (None Seen); Squamous Epithelial Cells - UA 10-25 SEEN /hpf (5-10); White Blood Cells 10-25 SEEN /hpf (0-5)
[2022-10-04 17:18] LABS: ALB/GLOB Ratio 0.7 RATIO (0.9-2.4); AST(SGOT) 31 U/L (15-37); Alanine Aminotransfer ALT/SGPT 30 U/L (13-56); Alkaline Phosphatase 81 U/L (45-117); Anion Gap 7 (5-15); BUN 7 mg/dL (7-18); BUN/Creat Ratio 15.1 RATIO (10-20); Calcium,Total 8.9 mg/dL (8.5-10.1); Chloride 105 mmol/L (98-107); Creatinine, Serum 0.46 mg/dL (0.55-1.02); EST Glomerular Filtration Rate 166 mL/min (>60); Est Glom Filt Rate - Afr Amer 201 mL/min (>60); Globulin 4.4 g/dL (2.2-4.2); Glucose 110 mg/dL (74-106); Potassium 3.3 mmol/L (3.5-5.1); Protein, Total 7.4 g/dL (6.4-8.2); Sodium Level 136 mmol/L (136-145)
[2022-10-04 18:14] LABS: Hemoglobin A1c 4.9 % (3.8-5.6)
== END | disposition home or self-care (01) ==
LOC: BIMLAB 16:06
PROVIDERS: Visit Provider Internal Medicine
DX: O21.9 Vomiting of pregnancy, unspecified (principal); O99.810 Abnormal glucose complicating pregnancy; Z3A.14 14 weeks gestation of pregnancy
CPT/HCPCS: 36415; 80053; 81001; 83036; 85025

== ENCOUNTER 2023-04-22 16:46 | Outpatient (RCR) | payer MEDICAID, SELFPAY ==
--- NOTE | 2023-04-22 18:24 | HP.PTEVAL_ITS ---
Patient's Visit Information Visit Information Visit Information: PATSY REYES is a 32 year old F referred to Physical Therapy by Dr. Elena Osorio MD with a diagnosis of LUMBAGO WITH SCIATICA ,RIGHT SIDE. Date of Evaluation: 04/22/23 Physical Therapist: Alton Finnegan, PT, Cert MDT, OCS Visit Plan Frequency: 2x /Week Duration: 4 Weeks Plan: PT INTERVETIONS SHARON EX'S ,DLS ,POSTURAL EX'S ,BODY MECHANICS AND MODALTIES FOR PAIN Subjective Subjective: This 32 y/o female presents to physical therapy with lumbar pain with radiculopathy right side. Patient has lumbar pain with radicular symptoms for ~ 1month from epidural from . Next day getting up walking around noticed pain in leg and paresthesia in right leg. Located right Lumbar quad and hamstring to knee. Seen DR last week and recommended PT and possible plan for MRI. No pain medication. Aggravating factors bending /lifting ,walking and standing. Alleviating factors sitting and resting. Symptoms affects sleeping . Coughing/sneezing -. Incontinence +. Patient has no abnormal night pain. Patient has h/o left knee pain. Patient pain affects affects QOL and function. 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 Pain Right Back: Pain Intensity (Out of 10): 6 Pain Intensity Range: 10 Right Lower Extremity: Pain Intensity (Out of 10): 6 Pain Intensity Range: 10 Objective Objective: POSTURE: mild forward posture NEURO: c/o paresthesia/tingling, reflexes L3-4,L4-5,L5-S1 3/3 SYMMTRICAL : symmetrical GAIT: reciprocal pattern mild forward posture antalgic gait MMT: quads/hams 4/5 ,hip flexion 4-/5 ,ankle 4/5 FLEXABLITY: hamstrings WFL LUMBAR ROM: flexion mod loss ,extension mod loss ,side glides min loss FLEXABILITY: hamstrings mod tight + SLR ,min tight on left Special Tests L/S Slump test left side: Negative L/S Slump test right side: Positive L/S Left Straight Leg Raise: Negative L/S Right Straight Leg Raise: Positive Balance/Special Test Scores Oswestry Low Back Score: 26 Goals Goal 1:: Patient to be I with HEP Goal Time Frame: 4-6 Weeks Goal 2:: Patient to be I with posture/body for ADLS Goal Time Frame: 4-6 Weeks Goal 3:: Patient to improve lumbar ROM for function of recovery to lift baby and perform ADLS Goal Time Frame: 4-6 Weeks Goal 4:: Patient to improve back oswestry by 5 points to improve QOL and function Goal Time Frame: 4-6 Weeks Goal 5:: Patient to demonstrate 50% improvement with increase function with less pain Goal Time Frame: 4-6 Weeks Rehabilitation Potential Physical Therapy Diagnosis: This patient has lumbar radiculopathy with pain with positioning ,motion testing , along with flexion affects ADL's and housework tasks thus will benefit from skilled PT Rehabilitation Potential: Good Anticipated Interventions Patient/Client Instruction: Educate patient on: Condition and Plan of Care For the Purpose of:: To decrease pain, To increase ROM, To improve muscle performance and motor function, To improve ability to perform ADL's, To increase tolerance to activity/condition/position, To improve ability of physical actions for home/community/work/leisure, To improve health of tissue, To decrease soft tissue restriction, To increase flexibility/ROM and To prevent re-injury Therapeutic Exercise to Include: Strength training, Body mechanics, Postural training, Flexibilty training, Dynamic Lumbar Stabilization and Sharon Exercises For the Purpose of:: To decrease pain, To increase ROM, To improve muscle performance and motor function, To improve ability to perform ADL's, To increase tolerance to activity/condition/position, To improve ability of physical actions for home/community/work/leisure, To improve health of tissue, To decrease soft tissue restriction, To increase flexibility/ROM and To prevent re-injury Manual Therapy Techniques to Include: Mobilization For the Purpose of:: To decrease pain and To increase ROM TENS: Yes IF ES: Yes Cryotherapy (ice pack, ice massage): Yes Thermo therapy (hot pack): Yes Ultrasound (thermal/non thermal): Yes For the Purpose of:: To decrease pain, To increase ROM, To improve nutrient del елена to tissue, To increase oxygenation perfusion, To improve health of tissue, To decrease soft tissue restriction and To increase flexibility/ROM Text: Thank you for the opportunity to evaluate your patient. For Medicare and Medicare HMO plans, please review the plan of care and approve it. It will need to be FAXED BACK to us at [phone] for Medicare purposes. For Medicare only, by signing this I certify the plan of care. Please let me know if there are questions or concerns regarding this plan of care. Physician Sign ature: Date:
--- NOTE | 2023-10-18 12:15 | HP.PT.NRP ---
Patient Information Patient Information: PATSY REYES was seen in my office for initial evaluation on 04/22/23. The following Plan of Care was established for this patient: POC Established Initial Frequency: 2x /Week Initial Duration: 4 Weeks Anticipated Interventions Patient/Client Instruction: Educate patient on: Condition and Plan of Care For the Purpose of:: To decrease pain, To increase ROM, To improve muscle performance and motor function, To improve ability to perform ADL's, To increase tolerance to activity/condition/position, To improve ability of physical actions for home/community/work/leisure, To improve health of tissue, To decrease soft tissue restriction, To increase flexibility/ROM and To prevent re-injury Therapeutic Exercise to Include: Strength training, Body mechanics, Postural training, Flexibilty training, Dynamic Lumbar Stabilization and Jana Exercises For the Purpose of:: To decrease pain, To increase ROM, To improve muscle performance and motor function, To improve ability to perform ADL's, To increase tolerance to activity/condition/position, To improve ability of physical actions for home/community/work/leisure, To improve health of tissue, To decrease soft tissue restriction, To increase flexibility/ROM and To prevent re-injury Manual Therapy Techniques to Include: Mobilization For the Purpose of:: To decrease pain and To increase ROM TENS: Yes IF ES: Yes Cryotherapy (ice pack, ice massage): Yes Thermo therapy (hot pack): Yes Ultrasound (thermal/non thermal): Yes For the Purpose of:: To decrease pain, To increase ROM, To improve nutrient delivery to tissue, To increase oxygenation perfusion, To improve health of tissue, To decrease soft tissue restriction and To increase flexibility/ROM Last Seen Last Seen: This patient was last seen in our office . Pertinent comments regarding their Physical therapy will appear below: Patient was seen for PT for lumbar pain with HEP and D/C At this point I will be discontinuing this patient from physical therapy. I would be happy to see this patient again in the future if found appropriate by the physician. Thank you! Alton Finnegan, PT, Cert MDT, OCS Balance/Gait/Functional tests Balance/Special Test Scores Oswestry Low Back Score: 26
== END 2023-04-22 19:00 | disposition home or self-care (01) ==
LOC: PT 16:46
PROVIDERS: PCP Internal Medicine; Referring Provider Internal Medicine; Visit Provider Internal Medicine
DX: M54.41 Lumbago with sciatica, right side (principal)
CPT/HCPCS: 97162

== ENCOUNTER → 2023-05-10 | Outpatient (CLI) | payer MEDICAID, SELFPAY ==
--- NOTE | 2023-05-10 07:29 | MRI_ITS ---
STUDY: MRI LUMBAR SPINE WITHOUT CONTRAST REASON FOR EXAM: Female, 32 years old. Pain after epidural TECHNIQUE: Standardized fat and water weighted pulse sequences were obtained in the sagittal and axial planes. COMPARISON: None FINDINGS: T10-T11, T11-T12 and T12-L1: (Sagittal only). Normal endplates. Normal disc height, hydration and morphology. No ventral extradural defects. Normal central canal and bilateral intervertebral neural foramina. Normal lumbar lordosis. There is no substantial scoliosis. Normal conus medullaris that terminates at the mid T12 vertebral body level. L1-2: Normal endplates. Normal disc height, hydration and morphology. Normal bilateral facet joints. Normal central canal and bilateral lateral recesses. Normal bilateral intervertebral neural foramina. L2-3: Normal endplates. Normal disc height, hydration and morphology. Normal bilateral facet joints. Normal central canal and bilateral lateral recesses. Normal bilateral intervertebral neural foramina. L3-4: Normal endplates. Normal disc height, hydration and morphology. Normal bilateral facet joints. Normal central canal and bilateral lateral recesses. Normal bilateral intervertebral neural foramina. L4-5: Normal endplates. Normal disc height, hydration and morphology. Normal bilateral facet joints. Normal central canal and bilateral lateral recesses. Normal bilateral intervertebral neural foramina. L5-S1: Normal endplates. Normal disc height, hydration and morphology. Normal bilateral facet joints. Normal central canal and bilateral lateral recesses. Normal bilateral intervertebral neural foramina. Normal visualized sacral ala. Normal visualized paraspinous soft tissue structures. MRI/Spine Lumbar (Routine) IMPRESSION: 1. Normal unenhanced MR examination of the lumbar spine. 2. No MRI evidence of epidural hematoma or epidural fluid collection in the lumbar spine from epidural steroid injection. Electronically Signed: Parrish Braun MD at 9:52 EDT ,
== END | disposition home or self-care (01) ==
LOC: MRI 07:14
PROVIDERS: PCP Internal Medicine; Referring Provider Internal Medicine; Visit Provider Internal Medicine
DX: M54.41 Lumbago with sciatica, right side (principal)
CPT/HCPCS: 72148

== ENCOUNTER 2023-05-28 15:18 | Inpatient (IN) | payer MEDICAID, SELFPAY ==
[2023-05-28 15:19] VITALS: BP 109/74; PULSE 57; RESP 18; TEMP 36.9; O2SAT 99
[2023-05-28 15:25] VITALS: BMI 28.1
--- NOTE | 2023-05-28 15:54 | US_ITS ---
INDICATION: ruq pain EXAMINATION: US Abdomen RUQ (limited) TECHNIQUE: Aguila-scale and color Doppler imaging was performed of the right upper abdominal quadrant. COMPARISON: None. Findings: The liver is homogenous and normal in echogenicity and echotexture. There is no evidence of contour nodularity. No focal hepatic mass is identified. The main portal vein is normal in size and patent demonstrating hepatopetal flow. The gallbladder is remarkable for mobile, layering stones, and is distended. Sonographic Barclay''s tenderness is appreciated. There is no evidence of intrahepatic biliary ductal dilatation. The CBD is nondilated measuring 7 mm at the level of the charles hepatis. The visualized portions of the pancreas are unremarkable without evidence of focal or diffuse enlargement. Specifically, the tail is obscured by overlying bowel gas. Right kidney measures 10.4 cm in length. It is normal in echogenicity. No focal renal lesion is identified. There is no evidence of hydronephrosis. US/Gallbladder IMPRESSION: Findings equivocal for acute cholecystitis with possible choledocholithiasis. Recommend MRCP. Electronically Signed: Booker Goins MD at 17:23 EST ,
--- NOTE | 2023-05-28 15:55 | EDS_ITS ---
HPI <KELY Wallace - Last Filed: 05/28/23 18:06> History of Present Illness Chief Complaint: Abd Pain Narrative Narrative: 32-year-old female presents with upper abdominal pain that woke her up around 3 AM this morning. She has had nausea and vomiting and persistent pain. She was seen at [facility] ED states she had a chest x-ray and blood work which showed normal. She was told it was gallstones and was discharged but states her pain is severe. She took ibuprofen but thinks she may have vomited it up. She is having loose stool today but no melena or hematochezia. No urinary symptoms. She has had similar bouts of upper abdominal pain over the last 2 months that were evaluated. No abdominal surgical history. She states she drinks alcohol a couple times a year. PFS <KELY Wallace - Last Filed: 05/28/23 18:06> [facility] Medical History (Updated 05/28/23 @ 18:06 by KELY Wallace) Abnormal Pap smear of cervix Beta hemolytic streptococcus urinary tract infection affecting Generalized headaches Home Medications ibuprofen 600 mg tablet 600 mg PO Q6H PRN PAIN OR FEVER 04/16/23 [History Last Taken Unknown] sertraline 50 mg tablet 50 mg PO DAILY #30 tabs 05/23/23 [Rx Last Taken 05/27/23] Allergy/AdvReac Type Severity Reaction Status Date / Time No Known Allergies Allergy Verified 05/28/23 15:19 Family History Grandmother Epileptic Surgical History H/O LEEP Social History household members: spouse and children number of children: 4 current occupational status: other 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 CVS: Negative for chest pain, syncope. Respiratory: Negative for shortness of breath, cough. GI: Positive for abdominal pain, nausea, vomiting, diarrhea. Negative for constipation, melena, hematochezia. : Negative for dysuria, hematuria or frequency. EXAM <KELY Wallace - Last Filed: 05/28/23 18:06> Physical Exam Narrative Exam Narrative: CONST: Patient appears uncomfortable and is crying in bed. EYES: Normal inspection. NECK: Normal inspection. RESP: No respiratory distress, CTAB. CVS: Regular rate and rhythm, no murmur, no gallop. ABD: Soft, tender in epigastric and RUQ, positive Barclay sign, no guarding or rebound. SKIN: Color normal, no rash, warm, dry, intact. EXTREMITIES: Normal appearance, no pedal edema. NEURO: Oriented x4. PSYCH: Normal affect. Const Vital Signs: 05/28/23 15:19 05/28/23 17:18 Temperature 98.4 F 98.1 F Temperature Source Temporal Temporal Pulse Rate 57 L 72 Respiratory Rate 18 16 Blood Pressure 109/74 122/64 H Blood Pressure Mean 85 83 Pulse Ox 99 99 Oxygen Delivery Method Room Air Room Air <Dr. Willie Koo DO - Last Filed: 05/28/23 18:54> Physical Exam Const Vital Signs: 05/28/23 15:19 05/28/23 17:18 Temperature 98.4 F 98.1 F Temperature Source Temporal Temporal Pulse Rate 57 L 72 Respiratory Rate 18 16 Blood Pressure 109/74 122/64 H Blood Pressure Mean 85 83 Pulse Ox 99 99 Oxygen Delivery Method Room Air Room Air MDM <KELY Wallace - Last Filed: 05/28/23 18:06> [facility] Narrative Medical decision making narrative: Patient presents with nausea and vomiting and epigastric pain she appears uncomfortable but nontoxic. Vital signs stable. Normal cardiopulmonary exam. Abdomen is soft with tenderness in the RUQ with positive Barclay sign. No peritoneal signs. Differential includes gallbladder etiology, GERD, pancreatitis. Labs show white count of 6.3, total bilirubin 3.4, AST 937, ALT 579, alk phos 229, lipase 33 concerning for choledocholithiasis. Ultrasound shows findings equivocal for acute cholecystitis with possible choledocholithiasis. I ordered IV Zosyn and consulted general surgery. Dr. Acuna recommended admission to medicine and a GI consult. GI is not on- call today but the surgeon texted him and states he willl do an ERCP in the morning. Case was discussed with the hospitalist for admission. Lab Data Attestation: I reviewed the patient's lab results. Labs: Laboratory Results - last 24 hr 05/28/23 05/28/23 16:00 17:17 WBC 6.3 RBC 4.59 Hgb 12.8 Hct 39.4 MCV 85.8 MCH 27.9 MCHC 32.5 RDW Std Deviation 41.7 RDW Coeff of Raúl 13.3 Plt Count 192 MPV 11.3 Immature Gran % (Auto) 0.300 Neut % (Auto) 76.6 H Lymph % (Auto) 11.1 L [place] % (Auto) 10.6 H Eos % (Auto) 0.8 Baso % (Auto) 0.6 Absolute Neuts (auto) 4.8 Absolute Lymphs (auto) 0.70 L Nucleated RBC % 0 Sodium 140 Potassium 3.4 L Chloride 109 H Carbon Dioxide 28.0 Anion Gap 3 L BUN 9 Creatinine 0.80 Estim Creat Clear Calc 80.59 Est GFR (MDRD) Af Amer 107 Est GFR (MDRD) Non-Af 89 BUN/Creatinine Ratio 11.3 Glucose 99 Calcium 9.3 Total Bilirubin 3.40 H AST 937 H ALT 579 H Alkaline Phosphatase 229 H Total Protein 7.9 Albumin 3.9 Globulin 4.0 Albumin/Globulin Ratio 1.0 Lipase 33 Serum , Qual NEGATIVE Urine Color Yellow Urine Clarity Clear Urine pH 6.5 Ur Specific [place] 1.010 Urine Protein Negative Urine Glucose (UA) Normal Urine Ketones Negative Urine Occult Blood Negative Urine Nitrite Negative Urine Bilirubin Negative Urine Urobilinogen 1 H Ur Leukocyte Esterase Negative Urine RBC 0 SEEN Urine WBC 0 SEEN Ur Squamous Epith Cells 0 SEEN Urine Bacteria 0 SEEN Urine Mucus 0 SEEN Radiography Diagnostic Testing: Clinical Impression(s) from Imaging Studies Gallbladder Ultrasound 05/28/23 15:54 IMPRESSION: Findings equivocal for acute cholecystitis with possible choledocholithiasis. Recommend MRCP. Electronically Signed: Booker Goins MD at 17:23 EST , ADDENDUM: 05/28/23 1834 IMPRESSION: Findings equivocal for acute cholecystitis with possible choledocholithiasis. Recommend MRCP. N.B. : Scarlett Silverio PA, PA, confirmed on 05/28/2023 18:27:25 (ET) that the healthcare facility has received the radiology report. Electronically Signed: Booker Goins MD at 17:23 EST , <Dr. Willie Koo, DO - Last Filed: 05/28/23 18:54> [facility] Lab Data Labs: Laboratory Results - last 24 hr 05/28/23 05/28/23 16:00 17:17 WBC 6.3 RBC 4.59 Hgb 12.8 Hct 39.4 MCV 85.8 MCH 27.9 MCHC 32.5 RDW Std Deviation 41.7 RDW Coeff of Raúl 13.3 Plt Count 192 MPV 11.3 Immature Gran % (Auto) 0.300 Neut % (Auto) 76.6 H Lymph % (Auto) 11.1 L [place] % (Auto) 10.6 H Eos % (Auto) 0.8 Baso % (Auto) 0.6 Absolute Neuts (auto) 4.8 Absolute Lymphs (auto) 0.70 L Nucleated RBC % 0 Sodium 140 Potassium 3.4 L Chloride 109 H Carbon Dioxide 28.0 Anion Gap 3 L BUN 9 Creatinine 0.80 Estim Creat Clear Calc 80.59 Est GFR (MDRD) Af Amer 107 Est GFR (MDRD) Non-Af 89 BUN/Creatinine Ratio 11.3 Glucose 99 Calcium 9.3 Total Bilirubin 3.40 H AST 937 H ALT 579 H Alkaline Phosphatase 229 H Total Protein 7.9 Albumin 3.9 Globulin 4.0 Albumin/Globulin Ratio 1.0 Lipase 33 Serum , Qual NEGATIVE Urine Color Yellow Urine Clarity Clear Urine pH 6.5 Ur Specific [place] 1.010 Urine Protein Negative Urine Glucose (UA) Normal Urine Ketones Negative Urine Occult Blood Negative Urine Nitrite Negative Urine Bilirubin Negative Urine Urobilinogen 1 H Ur Leukocyte Esterase Negative Urine RBC 0 SEEN Urine WBC 0 SEEN Ur Squamous Epith Cells 0 SEEN Urine Bacteria 0 SEEN Urine Mucus 0 SEEN Radiography Diagnostic Testing: Clinical Impression(s) from Imaging Studies Gallbladder Ultrasound 05/28/23 15:54 IMPRESSION: Findings equivocal for acute cholecystitis with possible choledocholithiasis. Recommend MRCP. Electronically Signed: Booker Goins MD at 17:23 EST , ADDENDUM: 05/28/23 1834 IMPRESSION: Findings equivocal for acute cholecystitis with possible choledocholithiasis. Recommend MRCP. N.B. : Scarlett Silverio PA, PA, confirmed on 05/28/2023 18:27:25 (ET) that the healthcare facility has received the radiology report. Electronically Signed: Booker Goins MD at 17:23 EST , Management Discussion w/another healthcare provider: Hospitalist and Plumber Pipe Fitting (Surgery ([place])) Treatment and Re-Evaluation :: I have personally performed a face to face assessment of the patient and have reviewed the DEREK Note. I performed a substantive portion of the visit including all aspects of the following. My gallardo findings include: History is patient presenting with right upper quadrant pain. Patient was seen earlier today at outside hospital diagnosed with gallstones treated and released. She notes continued pain and nausea and vomiting. Exam is patient appears mildly jaundiced. Tender in the right upper quadrant with guarding and rebound Medical Decison Making patient has evidence of obstruction on liver panel. She has evidence of cholelithiasis and positive Barclay's. Case discussed with jesús blackwood who discussed it with gastroenterology. Plan is a medical admission with plan for intervention tomorrow. Zosyn was administered as well as pain and nausea medication. Patient will remain n.p.o. Discharge Plan Triage Chief Complaint: Abd Pain ED Midlevel Provider: Scarlett Silverio ED Provider: Willie Koo Dx/Rx/DC Orders Clinical Impression: Transaminitis, Choledocholithiasis, Abdominal pain Primary Care Provider: Elena Osorio
[2023-05-28] MEDS: 0.9% Normal Saline (1000mL) 1,000 ML 999 ML IV ×2 (16:01→21:30)
[2023-05-28] MEDS: Morphine 4 MG/ML Syringe IV (16:02)
[2023-05-28] MEDS: Ondansetron 4 MG/2 ML Vial IV (16:02)
[2023-05-28 16:15] LABS: Absolute Neutrophil Count 4.8 X10^3/uL (2.0-7.7); Basophil# 0.04 X10^3/uL; Basophil% 0.6 % (0-1); Eosinophil# 0.05 X10^3/uL; Eosinophils% 0.8 % (0-5); Hematocrit 39.4 % (37-47); Hemoglobin 12.8 g/dL (12.0-15.0); Lymphocyte % 11.1 % (19-41); Mean Corp Hgb Conc 32.5 g/dL (32-36); Mean Corpuscular Hgb 27.9 pg (27.0-32.0); Mean Corpuscular Volume 85.8 fL (81-99); Mean Platelet Vol. 11.3 fl (6.2-12.0); Monocyte# 0.67 X10^3/uL; Monocyte% 10.6 % (0-10); NRBC Flagged by Analyzer 0 % (0-5); Neutrophil # 4.83 X10^3/uL (2.7-7.7); Neutrophil % 76.6 % (47-70); Platelet Count 192 K/mm3 (150-450); RBC Distribution Width CV 13.3 % (11.6-14.6); RBC Distribution Width SD 41.7 fl (35.1-43.9); Red Blood Count 4.59 M/mm3 (4.2-5.4); White Blood Count 6.3 K/mm3 (4.4-11.0)
[2023-05-28 16:35] LABS: AST(SGOT) 937 U/L (15-37); Alanine Aminotransfer ALT/SGPT 579 U/L (13-56); Albumin, Serum 3.9 g/dL (3.2-5.0); Alkaline Phosphatase 229 U/L (45-117); Anion Gap 3 (5-15); BUN 9 mg/dL (7-18); BUN/Creat Ratio 11.3 RATIO (10-20); Calcium,Total 9.3 mg/dL (8.5-10.1); Chloride 109 mmol/L (98-107); EST Glomerular Filtration Rate 89 mL/min (>60); Est Glom Filt Rate - Afr Amer 107 mL/min (>60); Estimated Creatinine Clearance 80.59 ml/min; Glucose 99 mg/dL (74-106); Lipase 33 U/L (13-75); Potassium 3.4 mmol/L (3.5-5.1); Protein, Total 7.9 g/dL (6.4-8.2); Sodium Level 140 mmol/L (136-145)
[2023-05-28 16:41] LABS: Internal QC Validated? YES +Cl - CLEAR BKGD; Pregnancy, Serum, hCG Quali. NEGATIVE Negative
[2023-05-28 17:18] VITALS: BP 122/64; PULSE 72; RESP 16; TEMP 36.7; O2SAT 99
[2023-05-28 17:26] LABS: Bacteria 0 SEEN /hpf (None Seen); Mucous, Urine 0 SEEN /hpf (<or=2+); Red Blood Cells-Urine 0 SEEN /hpf (0-5); Squamous Epithelial Cells - UA 0 SEEN /hpf (5-10); White Blood Cells 0 SEEN /hpf (0-5)
[2023-05-28 17:28] LABS: Color, Urine Yellow (Yellow); Glucose, Dipstick Normal (Normal); Ketone-Dipstick Negative (Negative); Leukocyte Esterase-Dipstick Negative /ul (Negative); Nitrite-Dipstick Negative (Negative); Occult Blood-Urine Negative /ul (Negative); Protein-Dipstick Negative (Negative); Urine Bilirubin Dipstick Negative (Negative); Urine Clarity Clear (Clear); Urine Urobilinogen 1 mg/dl (Normal); Urine pH 6.5 (5.0 - 8.0)
[2023-05-28] MEDS: Piperacil/Tazobactam 3.375 GM in 0.9% Normal Saline (50mL MB+) 50 ML IV ×2 (17:56→22:57)
--- NOTE | 2023-05-28 18:13 | HP.PCM.HOS_ITS ---
HPI - General General Date of Admission: 05/28/23 Date of Service: 05/28/23 Chief Complaint: Abdominal pain HPI Narrative PATSY REYES, is a 32-year-old female history of headaches, depression, and is 2 months and presently breast-feeding presented to [facility] 05/28/2023 with upper abdominal pain that woke her up at 3 AM and had nausea and persistent pain since that time. She was seen at [facility] ED and had chest x-ray and blood work which reportedly were unremarkable. She was told it was gallstones and discharged but due to severe pain she came back to the hospital here in [place]. She had similar bouts of upper abdominal pain over the past 1 month that were evaluated but does not have appear to have any intervention, and has no abdominal surgical history. In the ED she had a total bilirubin of 3.40, AST 937, ALT 579 with alk phos of 229. Gallbladder ultrasound remarkable for distention with layering stones and reports findings equivocal for acute cholecystitis with possible won docholithiasis. Surgery and GI contacted in ED and will see patient in consultation with plans for ERCP tomorrow. Hospitalist contacted for admission. Patient seen at bedside and reports still having some of the epigastric/right upper quadrant pain albeit it is better than it was initially and nausea at this time is a little bit better. She does report off-and-on epigastric/right upper quadrant pain for the past month with unremarkable work-up and said this time it has been persistent since 3 AM with the pain primarily epigastric to right side and stabbing in nature and after normal work-up in [place] ED she called her PCPs office who advised she come to a different emergency department so she presented here. Patient tearful as she has a 2-month-old at home and is breast- feeding but understands importance of admission. Does have some chronic headaches but nothing new, no burning on urination, has had some intermittent diarrhea over the past couple of days with nausea and emesis only since this morning. Since her epidural is had some intermittent right lower extremity weakness and has been in physical therapy for that. No other acute complaints. [facility] Medical History (Updated 05/28/23 @ 18:06 by KELY Wallace) Abnormal Pap smear of cervix Beta hemolytic streptococcus urinary tract infection affecting Generalized headaches Home Medications ibuprofen 600 mg tablet 600 mg PO Q6H PRN PAIN OR FEVER 04/16/23 [History Last Taken Unknown] sertraline 50 mg tablet 50 mg PO DAILY #30 tabs 05/23/23 [Rx Last Taken 05/27/23] Allergy/AdvReac Type Severity Reaction Status Date / Time No Known Allergies Allergy Verified 05/28/23 15:19 Family History Grandmother Epileptic Surgical History H/O LEEP Social History household members: spouse and children number of children: 4 current occupational status: other 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 Smoking Status: Never smoker Electronic Cigarette Use: not used alcohol intake: never substance use type: does not use what type of physical activity do you participate in: none seatbelt use: always do you feel safe at home: Yes 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 JOSE GARCIA Narrative General: Denies fever/chills HENT: Chronic headaches, denies stuffy nose, denies sore throat EYES: Denies changes in vision Resp: Denies cough, denies shortness of breath Cardiac: Denies chest pain GI: Epigastric/right upper quadrant pain, has had some intermittent diarrhea, had earlier nausea and emesis : Denies changes in urination Extremity: Denies swelling MSK: Some intermittent right leg weakness after her epidural 2 months ago Neuro: Denies any numbness/tingling Heme: Denies any bleeding or bruising Skin: Denies rashes Psychiatric: Anxious being away from her 2-month-old Vital Signs Vital Signs Vital Signs: 05/28/23 15:19 05/28/23 17:18 Temperature 98.4 F 98.1 F Temperature Source Temporal Temporal Pulse Rate 57 L 72 Respiratory Rate 18 16 Blood Pressure 109/74 122/64 H Blood Pressure Mean 85 83 Pulse Ox 99 99 Oxygen Delivery Method Room Air Room Air Weight Weight: 69.899 kg Body Mass Index (BMI) 28.1 Physical Exam Narrative General: Alert, oriented, no apparent distress HEENT: Atraumatic, normocephalic Eyes: Anicteric, normal conjunctiva, extraocular movements grossly intact Neck: Supple Respiratory: Clear to auscultation bilaterally, normal respiratory effort Cardiovascular: Regular rate and rhythm GI: Soft, tender in right upper quadrant/epigastrium without rebound, guarding, rigidity Extremities: No edema Musculoskeletal: Moving all extremities Neuro: No overt focal neurological deficits Skin: No rashes appreciated Psych: Tearful but cooperative Results Lab / Micro Data 05/28/23 16:00 05/28/23 16:00 Labs: Laboratory Results - last 24 hr 05/28/23 16:00: WBC 6.3, RBC 4.59, Hgb 12.8, Hct 39.4, MCV 85.8, MCH 27.9, MCHC 32.5, RDW Std Deviation 41.7, RDW Coeff of Raúl 13.3, Plt Count 192, MPV 11.3, Immature Gran % (Auto) 0.300, Neut % (Auto) 76.6 H, Lymph % (Auto) 11.1 L, [place] % (Auto) 10.6 H, Eos % (Auto) 0.8, Baso % (Auto) 0.6, Absolute Neuts (auto) 4.8, Absolute Lymphs (auto) 0.70 L, Nucleated RBC % 0, Sodium 140, Potassium 3.4 L, Chloride 109 H, Carbon Dioxide 28.0, Anion Gap 3 L, BUN 9, Creatinine 0.80, Estim Creat Clear Calc 80.59, Est GFR (MDRD) Af Amer 107, Est GFR (MDRD) Non-Af 89, BUN/Creatinine Ratio 11.3, Glucose 99, Calcium 9.3, Total Bilirubin 3.40 H, AST 937 H, ALT 579 H, Alkaline Phosphatase 229 H, Total Protein 7.9, Albumin 3.9, Globulin 4.0, Albumin/Globulin Ratio 1.0, Lipase 33, Serum , Qual NEGATIVE 05/28/23 17:17: Urine Color Yellow, Urine Clarity Clear, Urine pH 6.5, Ur Specific [place] 1.010, Urine Protein Negative, Urine Glucose (UA) Normal, Urine Ketones Negative, Urine Occult Blood Negative, Urine Nitrite Negative, Urine Bilirubin Negative, Urine Urobilinogen 1 H, Ur Leukocyte Esterase Negative, Urine RBC 0 SEEN, Urine WBC 0 SEEN, Ur Squamous Epith Cells 0 SEEN, Urine Bacteria 0 SEEN, Urine Mucus 0 SEEN Imagaing Radiology Impression Gallbladder Ultrasound 11/21/23 15:54 IMPRESSION: Findings equivocal for acute cholecystitis with possible choledocholithiasis. Recommend MRCP. Electronically Signed: Booker Goins MD at 17:23 EST , Assessment & Plan Assessment/Plan (1) Abdominal pain: (2) Choledocholithiasis: (3) Transaminitis: (4) Depression: QUALIFIERS: Depression Type: major depressive disorder Major depression recurrence: recurrent Active/Remission status: in remission of unspecified degree Qualified Code(s): F33.40 - Major depressive disorder, recurrent, in remission, unspecified (5) Generalized headaches: PLAN: Plan #Right upper quadrant pain with hyperbilirubinemia and transaminitis, concern for choledocholithiasis +/- acute cholecystitis -Right upper quadrant ultrasound equivocal for acute cholecystitis with possible choledocholithiasis -Lipase 33 -Given lab findings and imaging surgery was contacted who also discussed with GI and it was advised to admit for likely ERCP tomorrow -NPO, IVF -Zosyn -Pain and nausea control #Recent , actively breast-feeding -Patient with 2-month-old and has been actively breast-feeding, understands the importance of admission and work-up as well as medications for underlying problem #Hypokalemia -Replace -A.m. BMP #Depression Continue home Zoloft #DVT ppx: SCDs Akua Capellan MD Charges/Coding Visit Charges Inpatient E&M: 46851 Init Hosp L2
[2023-05-28 18:42] VITALS: BP 126/72; PULSE 70; RESP 16; TEMP 36.7; O2SAT 99
[2023-05-28 19:00] VITALS: BP 120/68; PULSE 68; RESP 16; TEMP 36.7; O2SAT 98
[2023-05-28 19:49] VITALS: BMI 28.2
[2023-05-28 20:08] VITALS: BP 110/68; PULSE 40; RESP 16; TEMP 36.7; O2SAT 96
[2023-05-28] MEDS: 0.9% Normal Saline (1000mL) 1,000 ML 75 ML IV (20:50)
--- NOTE | 2023-05-28 21:13 | NURSING ---
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 This WP RN provided a double breast pump to pt. pt educated on pump set up, pumping, milk collection, pumping frequency, and washing instructions. pt verbalized understanding. WP phone number left on pts white board in room and encouraged to call if questions arise.
[2023-05-28 21:15] VITALS: BP 108/62; PULSE 43
[2023-05-28] MEDS: 0.9% Normal Saline (250mL Bag) 250 ML 15 ML IV (22:58)
--- NOTE | 2023-05-28 23:00 | EX.PCM.CON.G ---
HPI Consult Data Date of Consult: 05/28/23 HPI Narrative Reason for Consultation: Choledocholithiasis HPI Narrative: PATSY REYES, is a 32 F who presents with severe abdominal pain. She has a past medical history of headaches, depression, and is 2 months and presently breast-feeding presented to [facility] 05/28/2023 with upper abdominal pain that woke her up at 3 AM and had nausea and persistent pain since that time. She was seen at [facility] ED and had chest x-ray and blood work which reportedly were unremarkable. She was told it was gallstones and discharged but due to severe pain she came back to the hospital here in [place]. She had similar bouts of upper abdominal pain over the past 1 month that were evaluated but does not have appear to have any intervention, and has no abdominal surgical history. In the ED she had a total bilirubin of 3.40, AST 937, ALT 579 with alk phos of 229. Gallbladder ultrasound remarkable for distention with layering stones and reports findings equivocal for acute cholecystitis with possible choledocholithiasis. Surgery and and myself was contacted in ED and will see patient in consultation with plans for ERCP tomorrow. Hospitalist contacted for admission. Patient seen at bedside and reports still having some of the epigastric/right upper quadrant pain albeit it is better than it was initially and nausea at this time is a little bit better. She does report off-and-on epigastric/right upper quadrant pain for the past month with unremarkable work-up and said this time it has been persistent since 3 AM with the pain primarily epigastric to right side and stabbing in nature and after normal work-up in [place] ED she called her PCPs office who advised she come to a different emergency department so she presented here. Patient tearful as she has a 2-month-old at home and is breast-feeding but understands importance of admission. She does have some chronic headaches but nothing new, no burning on urination, has had some intermittent diarrhea over the past couple of days with nausea and emesis only since this morning. Since her epidural is had some intermittent right lower extremity weakness and has been in physical therapy for that. No other acute complaints. [facility] Medical History Abnormal Pap smear of cervix Anxiety Asthma Beta hemolytic streptococcus urinary tract infection affecting Generalized headaches Non-smoker Home Medications ibuprofen 600 mg tablet 600 mg PO Q6H PRN PAIN OR FEVER 10/10/23 [History Last Taken Unknown] sertraline 50 mg tablet 50 mg PO DAILY #30 tabs 05/23/23 [Rx Last Taken 05/27/23] Allergy/AdvReac Type Severity Reaction Status Date / Time No Known Allergies Allergy Verified 05/28/23 15:19 Family History Grandmother Epileptic Surgical History H/O LEEP Social History household members: spouse and children number of children: 4 current occupational status: other 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 Smoking Status: Never smoker Electronic Cigarette Use: not used alcohol intake: never substance use type: does not use what type of physical activity do you participate in: none seatbelt use: always do you feel safe at home: Yes 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 GARCIA Narrative General: Denies fever/chills HENT: Chronic headaches, denies stuffy nose, denies sore throat EYES: Denies changes in vision Resp: Denies cough, denies shortness of breath Cardiac: Denies chest pain GI: Epigastric/right upper quadrant pain, has had some intermittent diarrhea, had earlier nausea and emesis : Denies changes in urination Extremity: Denies swelling MSK: Some intermittent right leg weakness after her epidural 2 months ago Neuro: Denies any numbness/tingling Heme: Denies any bleeding or bruising Skin: Denies rashes Psychiatric: Anxious being away from her 2-month-old Physical Exam Narrative General: Alert, Oriented x3, Cooperative, No apparent distress HEENT: Atraumatic, PERRLA, EOMI, Normocephalic Oral: Moist Mucosa Neck: Supple, No JVD Lungs: Clear to auscultation, Normal air movement, No rhonchi, No wheeze, No rales Cardiovascular: Regular rate, Regular Rhythm, Normal S1, Normal S2, No murmurs Abdomen: Soft, right upper quadrant tender, Non-Distended, No Hepato-splenomegaly Extremities: No edema, Capillary Refill Less than 3 Seconds Skin: No rashes, No breakdown Musculoskeletal: No Tenderness to Palpation of Joints or Extremities Neurological: Cranial nerves II-XII grossly intact, Motor Exam 5/5 strength throughout, Sensory exam intact to light touch and pain Psych/Mental Status: Normal Affect, Appropriate Lab / Micro Data 05/29/23 06:12 05/29/23 06:12 Labs: Laboratory Results - last 24 hr 05/28/23 16:00: WBC 6.3, RBC 4.59, Hgb 12.8, Hct 39.4, MCV 85.8, MCH 27.9, MCHC 32.5, RDW Std Deviation 41.7, RDW Coeff of Raúl 13.3, Plt Count 192, MPV 11.3, Immature Gran % (Auto) 0.300, Neut % (Auto) 76.6 H, Lymph % (Auto) 11.1 L, [place] % (Auto) 10.6 H, Eos % (Auto) 0.8, Baso % (Auto) 0.6, Absolute Neuts (auto) 4.8, Absolute Lymphs (auto) 0.70 L, Nucleated RBC % 0, Sodium 140, Potassium 3.4 L, Chloride 109 H, Carbon Dioxide 28.0, Anion Gap 3 L, BUN 9, Creatinine 0.80, Estim Creat Clear Calc 80.59, Est GFR (MDRD) Af Amer 107, Est GFR (MDRD) Non-Af 89, BUN/Creatinine Ratio 11.3, Glucose 99, Calcium 9.3, Total Bilirubin 3.40 H, AST 937 H, ALT 579 H, Alkaline Phosphatase 229 H, Total Protein 7.9, Albumin 3.9, Globulin 4.0, Albumin/Globulin Ratio 1.0, Lipase 33, Serum , Qual NEGATIVE 05/28/23 17:17: Urine Color Yellow, Urine Clarity Clear, Urine pH 6.5, Ur Specific [place] 1.010, Urine Protein Negative, Urine Glucose (UA) Normal, Urine Ketones Negative, Urine Occult Blood Negative, Urine Nitrite Negative, Urine Bilirubin Negative, Urine Urobilinogen 1 H, Ur Leukocyte Esterase Negative, Urine RBC 0 SEEN, Urine WBC 0 SEEN, Ur Squamous Epith Cells 0 SEEN, Urine Bacteria 0 SEEN, Urine Mucus 0 SEEN 05/29/23 06:12: WBC 4.8, RBC 3.96 L, Hgb 11.1 L, Hct 35.2 L, MCV 88.9, MCH 28.0, MCHC 31.5 L, RDW Std Deviation 44.4 H, RDW Coeff of Raúl 13.6, Plt Count 171, MPV 11.1, Immature Gran % (Auto) 0.400, Neut % (Auto) 77.2 H, Lymph % (Auto) 13.5 L, [place] % (Auto) 7.9, Eos % (Auto) 0.6, Baso % (Auto) 0.4, Absolute Neuts (auto) 3.7, Absolute Lymphs (auto) 0.65 L, Nucleated RBC % 0, Sodium 144, Potassium 3.5, Chloride 117 H, Carbon Dioxide 19.0 L, Anion Gap 8, BUN 15, Creatinine 0.70, Estim Creat Clear Calc 92.10, Est GFR (MDRD) Af Amer 124, Est GFR (MDRD) Non-Af 103, BUN/Creatinine Ratio 21.3 H, Glucose 74, Calcium 8.2 L, Total Bilirubin 4.80 H, AST 579 H, ALT 529 H, Alkaline Phosphatase 258 H, C-React Prot Ext Range 13.60 H, Total Protein 5.9 L, Albumin 3.0 L, Globulin 2.9, Albumin/Globulin Ratio 1.0 Imagaing Radiology Impression Gallbladder Ultrasound 05/28/23 15:54 IMPRESSION: Findings equivocal for acute cholecystitis with possible choledocholithiasis. Recommend MRCP. Electronically Signed: Booker Goins MD at 17:23 EST Reading Location ID and State: [address] [place] [address] Tel , Service support , ADDENDUM: 05/28/23 1834 IMPRESSION: Findings equivocal for acute cholecystitis with possible choledocholithiasis. Recommend MRCP. N.B. : Scarlett Silverio PA, PA, confirmed on 05/28/2023 18:27:25 (ET) that the healthcare facility has received the radiology report. Electronically Signed: Booker Goins MD at 17:23 EST , Assessment & Plan Assessment/Plan (1) Abdominal pain: QUALIFIERS: Abdominal location: right upper quadrant Qualified Code(s): R10.11 - Right upper quadrant pain (2) Choledocholithiasis: (3) Transaminitis: (4) Depression: QUALIFIERS: Depression Type: major depressive disorder Major depression recurrence: recurrent Active/Remission status: in remission of unspecified degree Qualified Code(s): F33.40 - Major depressive disorder, recurrent, in remission, unspecified (5) Generalized headaches: PLAN: Plan #Right upper quadrant pain with hyperbilirubinemia and transaminitis, concern for choledocholithiasis +/- acute cholecystitis -Right upper quadrant ultrasound equivocal for acute cholecystitis with possible choledocholithiasis -Lipase 33 -Given lab findings recommending admit for likely ERCP tomorrow -NPO, IVF -Zosyn -Pain and nausea control She was explained alternatives, risk, benefits include not withstanding abdominal pain, infection, bleeding, sepsis, perforation, post ERCP pancreatitis, and . She gave verbal and written consent for the procedure. She will have an ASA of 2 for the procedure. Charges/Coding Visit Charges Inpatient E&M: 47474 Init Hosp L3
[2023-05-29] VITALS (8 sets, daily range): BP systolic 100–110; BP diastolic 45–70; PULSE 56–101; RESP 16–18; TEMP 36.4–37.2; O2SAT 96–100; BMI 28.2
[2023-05-29] MEDS: Piperacil/Tazobactam 3.375 GM in 0.9% Normal Saline (50mL MB+) 50 ML IV ×3 (05:55→23:02)
[2023-05-29 06:30] LABS: Absolute Lymphocyte Count 0.65 X10^3/uL (0.83-4.51); Absolute Neutrophil Count 3.7 X10^3/uL (2.0-7.7); Basophil# 0.02 X10^3/uL; Basophil% 0.4 % (0-1); Eosinophil# 0.03 X10^3/uL; Eosinophils% 0.6 % (0-5); Hematocrit 35.2 % (37-47); Hemoglobin 11.1 g/dL (12.0-15.0); Lymphocyte # 0.65 X10^3/ul (0.83-4.51); Lymphocyte % 13.5 % (19-41); Mean Corp Hgb Conc 31.5 g/dL (32-36); Mean Corpuscular Volume 88.9 fL (81-99); Mean Platelet Vol. 11.1 fl (6.2-12.0); Monocyte# 0.38 X10^3/uL; Monocyte% 7.9 % (0-10); NRBC Flagged by Analyzer 0 % (0-5); Neutrophil % 77.2 % (47-70); Platelet Count 171 K/mm3 (150-450); RBC Distribution Width CV 13.6 % (11.6-14.6); RBC Distribution Width SD 44.4 fl (35.1-43.9); Red Blood Count 3.96 M/mm3 (4.2-5.4); White Blood Count 4.8 K/mm3 (4.4-11.0)
[2023-05-29 07:03] LABS: AST(SGOT) 579 U/L (15-37); Alanine Aminotransfer ALT/SGPT 529 U/L (13-56); Alkaline Phosphatase 258 U/L (45-117); Anion Gap 8 (5-15); BUN 15 mg/dL (7-18); BUN/Creat Ratio 21.3 RATIO (10-20); Calcium,Total 8.2 mg/dL (8.5-10.1); Chloride 117 mmol/L (98-107); EST Glomerular Filtration Rate 103 mL/min (>60); Est Glom Filt Rate - Afr Amer 124 mL/min (>60); Globulin 2.9 g/dL (2.2-4.2); Glucose 74 mg/dL (74-106); Potassium 3.5 mmol/L (3.5-5.1); Protein, Total 5.9 g/dL (6.4-8.2); Sodium Level 144 mmol/L (136-145)
--- NOTE | 2023-05-29 10:36 | PN.HOSP_ITS ---
Subjective Subjective Still with some right upper quadrant abdominal pain today though it is a little bit improved from yesterday Objective Data Objective Data Vital Signs: Vital Signs Temp Pulse Resp BP Pulse Ox O2 Del Method 98.7 F 70 16 105/54 L 97 Room Air 05/29/23 08:11 05/29/23 08:11 05/29/23 08:11 05/29/23 08:11 05/29/23 08:11 05/29/23 09:12 Oxygen Delivery Method Room Air Weight: 154 lb 5.177 oz Body Mass Index (BMI) 28.2 Intake & Output: Intake and Output for Last 24 Hours 05/28/23 05/29/23 05/30/23 03:59 03:59 03:59 Intake Total 2149 / 2149 Balance 2149 Lab / Micro Data 05/29/23 06:12 05/29/23 06:12 Labs: Laboratory Results - last 24 hr 05/28/23 16:00: WBC 6.3, RBC 4.59, Hgb 12.8, Hct 39.4, MCV 85.8, MCH 27.9, MCHC 32.5, RDW Std Deviation 41.7, RDW Coeff of Raúl 13.3, Plt Count 192, MPV 11.3, Immature Gran % (Auto) 0.300, Neut % (Auto) 76.6 H, Lymph % (Auto) 11.1 L, [place] % (Auto) 10.6 H, Eos % (Auto) 0.8, Baso % (Auto) 0.6, Absolute Neuts (auto) 4.8, Absolute Lymphs (auto) 0.70 L, Nucleated RBC % 0, Sodium 140, Potassium 3.4 L, Chloride 109 H, Carbon Dioxide 28.0, Anion Gap 3 L, BUN 9, Creatinine 0.80, Estim Creat Clear Calc 80.59, Est GFR (MDRD) Af Amer 107, Est GFR (MDRD) Non-Af 89, BUN/Creatinine Ratio 11.3, Glucose 99, Calcium 9.3, Total Bilirubin 3.40 H, AST 937 H, ALT 579 H, Alkaline Phosphatase 229 H, Total Protein 7.9, Albumin 3.9, Globulin 4.0, Albumin/Globulin Ratio 1.0, Lipase 33, Serum , Qual NEGATIVE 05/28/23 17:17: Urine Color Yellow, Urine Clarity Clear, Urine pH 6.5, Ur Specific [place] 1.010, Urine Protein Negative, Urine Glucose (UA) Normal, Urine Ketones Negative, Urine Occult Blood Negative, Urine Nitrite Negative, Urine Bilirubin Negative, Urine Urobilinogen 1 H, Ur Leukocyte Esterase Negative, Urine RBC 0 SEEN, Urine WBC 0 SEEN, Ur Squamous Epith Cells 0 SEEN, Urine Bacteria 0 SEEN, Urine Mucus 0 SEEN 05/29/23 06:12: WBC 4.8, RBC 3.96 L, Hgb 11.1 L, Hct 35.2 L, MCV 88.9, MCH 28.0, MCHC 31.5 L, RDW Std Deviation 44.4 H, RDW Coeff of Raúl 13.6, Plt Count 171, MPV 11.1, Immature Gran % (Auto) 0.400, Neut % (Auto) 77.2 H, Lymph % (Auto) 13.5 L, [place] % (Auto) 7.9, Eos % (Auto) 0.6, Baso % (Auto) 0.4, Absolute Neuts (auto) 3.7, Absolute Lymphs (auto) 0.65 L, Nucleated RBC % 0, Sodium 144, Potassium 3.5, Chloride 117 H, Carbon Dioxide 19.0 L, Anion Gap 8, BUN 15, Creatinine 0.70, Estim Creat Clear Calc 92.10, Est GFR (MDRD) Af Amer 124, Est GFR (MDRD) Non-Af 103, BUN/Creatinine Ratio 21.3 H, Glucose 74, Calcium 8.2 L, Total Bilirubin 4.80 H, AST 579 H, ALT 529 H, Alkaline Phosphatase 258 H, Total Protein 5.9 L, Albumin 3.0 L, Globulin 2.9, Albumin/Globulin Ratio 1.0 Radiography Diagnostic Testing: Radiology Impression Gallbladder Ultrasound 05/28/23 15:54 IMPRESSION: Findings equivocal for acute cholecystitis with possible choledocholithiasis. Recommend MRCP. Electronically Signed: Booker Goins MD at 17:23 EST , ADDENDUM: 05/28/23 1591 IMPRESSION: Findings equivocal for acute cholecystitis with possible choledocholithiasis. Recommend MRCP. N.B. : Scarlett Silverio PA, PA, confirmed on 05/28/2023 18:27:25 (ET) that the healthcare facility has received the radiology report. Electronically Signed: Booker Goins MD at 17:23 EST , Physical Exam Narrative General: Alert, Oriented x3, Cooperative, No apparent distress HEENT: Atraumatic, PERRLA, EOMI, Normocephalic Oral: Moist Mucosa Neck: Supple, No JVD Lungs: Clear to auscultation, Normal air movement, No rhonchi, No wheeze, No rales Cardiovascular: Regular rate, Regular Rhythm, Normal S1, Normal S2, No murmurs Abdomen: Soft, right upper quadrant tender, Non-Distended, No Hepato-splenomeg thierry Extremities: No edema, Capillary Refill Less than 3 Seconds Skin: No rashes, No breakdown Musculoskeletal: No Tenderness to Palpation of Joints or Extremities Neurological: Cranial nerves II-XII grossly intact, Motor Exam 5/5 strength throughout, Sensory exam intact to light touch and pain Psych/Mental Status: Normal Affect, Appropriate Assessment & Plan Assessment/Plan (1) Abdominal pain: (2) Choledocholithiasis: (3) Transaminitis: PLAN: Plan 1. Right upper quadrant abdominal pain with signs consistent of choledocholithiasis ? Continue with ERCP today ? N.p.o. ? IV fluids ? Continue with antibiotics pending ERCP evaluation ? Appreciate GI and general surgery's assistance ? She did give 2 months ago and is currently breast-feeding 2. Anxiety/depression ? Stable ? Continue with Zoloft DVT: SCDs Charges/Coding Visit Charges Inpatient E&M: 70232 Subs Hosp L2
--- NOTE | 2023-05-29 10:52 | CASEMGMT ---
DEV PENA Assessment: Face to Face with pt for initial transition planning/care coordination assessment. RN BECKY introduced self and role at [facility], pt voices understanding and consents to assessment. Pt is A&O x4 and answers all questions appropriately at this time. Pt lying in bed in no distress. Care providers, pharmacy, and demographics verified/updated. Admitting Dx: concern for cholecystitis with choledocholithiasis PCP:[place] Specialists:Pt report she will be seeing a counselor but does not know where. 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 Preferred [facility]acy: [facility] Insurance: [facility] Prescription Benefit: yes LNOK: Brian Bansal, ; Scarlett Wu, mother Living Arrangements: Pt lives with and 3 children in a two story home with 2 steps to enter. Pt reports she is I in ADL's and denies concerns at home. Transportation: Pt drives self and denies concerns with transportation. DME:denies HHC/SNF: denies hx of Pt states no concerns with going home at time of dc. Pt states she has been going to [facility] for outpt PT and would like to continue this. Pt denies any further homegoing needs. Pt states no further concerns/needs. CM to follow. Advised pt to ask CM if any further question/concerns/needs arise, voices understanding. Pt Goal: Home with resuming outpt PT at [facility] Plan: Home with resuming outpt PT at [facility]
--- NOTE | 2023-05-29 11:53 | NURSING ---
IBCLC calling to MS3 unit to speak with primary RN, Corina. Pt. has been using breast pump independently, and it is her 5th child. RN Corina also did not have any questions or concerns at this time for this IBCLC. Breast milk being stored in [facility] fridge until discharge or family needs it.
[2023-05-29] MEDS: 0.9% Normal Saline (1000mL) 1,000 ML 15 ML IV (13:12)
--- NOTE | 2023-05-29 14:30 | RAD_ITS ---
ERCP INDICATION: Abdominal pain TECHNIQUE: Utilizing fluoroscopic guidance ERCP was performed by weatherization specialist in normal fashion. 57.2 seconds of fluoroscopic time were utilized during the exam FINDINGS: 6 fluoroscopic guided images were obtained in the anterior projection during the study to document findings during the procedure. For more complete information recommend correlation with gastroenterology procedural notes. RAD/ERCP Biliary/Pancreas IMPRESSION: Fluoroscopic guided ERCP Electronically Signed: Grady Braun MD at 17:08 EST ,
--- NOTE | 2023-05-29 15:12 | CHAPLAIN ---
Type of Pastoral Visit ___ Initial Visit ___ Follow-up Visit ___ On-call Visit ___ General Patient Visit ___ Spiritual Assessment ___ Family Conference ___ Bereavement ___ Rapid Response ___ Code Blue ___ Other (describe below) Pastoral Care Referral From ___ Patient ___ Family ___ Nurse ___ Physician ___ Academic Dean ___ Brainer ___ Other (describe below) Sacrament/Intervention ___ Active listening ___ Anointing ___ Presybeterian ___ Bereavement ___ Communion ___ Brittany exploration ___ ___ Life review ___ Prayer ___ Reconciliation ___ Sacrament of Sick ___ Supportive presence ___ Wedding ___ Other (describe below) Pastoral Comments patient and bed were out of the room; left a calling card
--- NOTE | 2023-05-29 15:13 | OP.CCLET_ITS ---
05/29/2023 Elena Osorio Md Re : ERCP procedure for Dana Bansal Dear Jo This procedure was performed on Monday, May 29, 2023. My impressions and recommendations are as follows: Impressions : - The entire main bile duct was mildly dilated, with a stone causing an obstruction. - Choledocholithiasis was found. Complete removal was accomplished by biliary sphincterotomy and balloon extraction. - A biliary sphincterotomy was performed. - The biliary tree was swept. - One temporary stent was placed into the common bile duct. Recommendations : My findings are described in the full procedure note, which is enclosed. If I can be of further assistance, please feel free to contact me at . Sincerely, John Lei, 05/29/2023 3:13:12 PM This report has been signed electronically.
--- NOTE | 2023-05-29 15:13 | OP.ERCP_ITS ---
Patient Name: Dana Bansal Procedure Date: 05/29/2023 2:04 PM Date of : 1990 Age: 32 Procedure: ERCP Indications: Common bile duct stone(s), Abdominal pain of suspected biliary origin, Suspected bile duct stone(s), Elevated aspartate transaminase (AST), Elevated alanine transaminase (ALT), Elevated bilirubin, Elevated alkaline phosphatase Providers: John Lei DO Medicines: Monitored Anesthesia Care Patient Profile: This is a 32 year old female. Refer to note in patient chart for documentation of history and physical. Patient has symptoms of acute right upper quadrant abdominal pain and acute jaundice. This patient has no history of previous ERCP. Complications: No immediate complications. Procedure: Pre-Anesthesia Assessment: - Prior to the procedure, a History and Physical was performed, and patient medications and allergies were reviewed. The patient is competent. The risks and benefits of the procedure and the sedation options and risks were discussed with the patient. All questions were answered and informed consent was obtained. Patient identification and proposed procedure were verified by the physician in the pre-procedure area. Mental Status Examination: alert and oriented. Airway Examination: normal oropharyngeal airway and neck mobility. Respiratory Examination: clear to auscultation. CV Examination: normal. Prophylactic Antibiotics: The patient does not require prophylactic antibiotics. Prior Anticoagulants: The patient has taken no anticoagulant or antiplatelet agents. ASA Grade Assessment: II - A patient with mild systemic disease. After reviewing the risks and benefits, the patient was deemed in satisfactory condition to undergo the procedure. The anesthesia plan was to use monitored anesthesia care (MAC). Immediately prior to administration of medications, the patient was re-assessed for adequacy to receive sedatives. The heart rate, respiratory rate, oxygen saturations, blood pressure, adequacy of pulmonary ventilation, and response to care were monitored throughout the procedure. The physical status of the patient was re-assessed after the procedure. After obtaining informed consent, the scope was passed under direct vision. Throughout the procedure, the patient's blood pressure, pulse, and oxygen saturations were monitored continuously. The Duodenoscope was introduced through the mouth, and advanced to the duodenum and used to inject contrast into the bile duct. The ERCP was accomplished without difficulty. The patient tolerated the procedure well. Scope In: 2:37:42 PM Scope Out: 2:54:59 PM Total Procedure Duration Time 0 hours 17 minutes 17 seconds Findings: The marine propulsion technician film was normal. The esophagus was successfully intubated under direct vision. The scope was advanced to a normal major papilla in the descending duodenum without detailed examination of the pharynx, larynx and associated structures, and upper GI tract. The upper GI tract was grossly normal. The bile duct was deeply cannulated with the short-nosed traction sphincterotome. Contrast was injected. I personally interpreted the bile duct images. There was brisk flow of contrast through the ducts. Image quality was excellent. Contrast extended to the entire biliary tree. Opacification of the entire opacified area and main bile duct was successful. The maximum diameter of the ducts was 7 mm. The lower third of the main bile duct contained one stone, which was 3 mm in diameter. The main bile duct was mildly dilated and segmentally dilated, with a stone causing an obstruction. The largest diameter was 7 mm. Placement of a 0.035 inch x 260 cm angled Hydra Jagwire into the biliary tree was attempted. This passed successfully. A 5 mm biliary sphincterotomy was made with a braided traction (standard) sphincterotome using ERBE electrocautery. There was no post-sphincterotomy bleeding. The biliary tree was swept with a 12 mm balloon starting at the bifurcation. Sludge was swept from the duct. All stones were removed. One 10 Fr by 5 cm temporary stent was placed 5 cm into the common bile duct. Bile flowed through the stent. The stent was in good position. Impression: - The entire main bile duct was mildly dilated, with a stone causing an obstruction. - Choledocholithiasis was found. Complete removal was accomplished by biliary sphincterotomy and balloon extraction. - A biliary sphincterotomy was performed. - The biliary tree was swept. - One temporary stent was placed into the common bile duct. Procedure Code(s): --- Professional --- 06030, Endoscopic retrograde cholangiopancreatography (ERCP); with placement of endoscopic stent into biliary or pancreatic duct, including pre- and post-dilation and guide wire passage, when performed, including sphincterotomy, when performed, each stent [id number], Endoscopic retrograde cholangiopancreatography (ERCP); with removal of calculi/debris from biliary/pancreatic duct(s) 40475, 26, Endoscopic catheterization of the biliary ductal system, radiological supervision and interpretation CPT copyright 2021 [employer]. All rights reserved. The codes documented in this report are preliminary and upon tile ditcher review may be revised to meet current compliance requirements. John Lei DO 05/29/2023 3:13:12 PM This report has been signed electronically. Number of Addenda: 0 Note Initiated On: 05/29/2023 2:04 PM
[2023-05-29] MEDS: 0.9% Saline Lock 10 ML Syringe IV (16:28)
[2023-05-29] MEDS: Pantoprazole Sodium 40 MG in 0.9% Normal Saline (100mL MB+) 100 ML 330 MG IV ×2 (16:29→22:28)
[2023-05-29 17:07] LABS: Erythrocyte Sedimentation Rate 7 mm/hr (0-30)
[2023-05-29] MEDS: 0.9% Normal Saline (1000mL) 1,000 ML 250 ML IV ×2 (17:42→22:05)
[2023-05-29] MEDS: Acetaminophen 325 MG Tablet 650 MG PO (22:43)
[2023-05-30] MEDS: 0.9% Normal Saline (1000mL) 1,000 ML 250 ML IV ×2 (02:16→05:28)
[2023-05-30 03:00] VITALS: BP 128/70; PULSE 43; RESP 16; TEMP 37.1; O2SAT 97
[2023-05-30] MEDS: Morphine 2 MG/ML Syringe IV ×4 (05:20→18:08)
[2023-05-30] MEDS: Piperacil/Tazobactam 3.375 GM in 0.9% Normal Saline (50mL MB+) 50 ML IV ×3 (05:26→23:25)
[2023-05-30 06:28] LABS: Absolute Lymphocyte Count 0.93 X10^3/uL (0.83-4.51); Absolute Neutrophil Count 5.9 X10^3/uL (2.0-7.7); Basophil# 0.01 X10^3/uL; Basophil% 0.1 % (0-1); Eosinophil# 0.01 X10^3/uL; Eosinophils% 0.1 % (0-5); Hematocrit 32.1 % (37-47); Hemoglobin 10.1 g/dL (12.0-15.0); Lymphocyte # 0.93 X10^3/ul (0.83-4.51); Lymphocyte % 12.4 % (19-41); Mean Corp Hgb Conc 31.5 g/dL (32-36); Mean Corpuscular Hgb 27.9 pg (27.0-32.0); Mean Corpuscular Volume 88.7 fL (81-99); Mean Platelet Vol. 12.1 fl (6.2-12.0); Monocyte# 0.61 X10^3/uL; Monocyte% 8.1 % (0-10); NRBC Flagged by Analyzer 0 % (0-5); Neutrophil # 5.93 X10^3/uL (2.7-7.7); Neutrophil % 78.8 % (47-70); Platelet Count 156 K/mm3 (150-450); RBC Distribution Width SD 45.6 fl (35.1-43.9); Red Blood Count 3.62 M/mm3 (4.2-5.4); White Blood Count 7.5 K/mm3 (4.4-11.0)
[2023-05-30 06:57] LABS: ALB/GLOB Ratio 0.9 RATIO (0.9-2.4); AST(SGOT) 215 U/L (15-37); Alanine Aminotransfer ALT/SGPT 329 U/L (13-56); Albumin, Serum 2.7 g/dL (3.2-5.0); Alkaline Phosphatase 199 U/L (45-117); Anion Gap 3 (5-15); BUN 5 mg/dL (7-18); BUN/Creat Ratio 6.8 RATIO (10-20); Calcium,Total 7.6 mg/dL (8.5-10.1); Chloride 119 mmol/L (98-107); Creatinine, Serum 0.74 mg/dL (0.55-1.02); EST Glomerular Filtration Rate 97 mL/min (>60); Est Glom Filt Rate - Afr Amer 117 mL/min (>60); Estimated Creatinine Clearance 87.12 ml/min; Globulin 2.9 g/dL (2.2-4.2); Glucose 190 mg/dL (74-106); Potassium 3.7 mmol/L (3.5-5.1); Protein, Total 5.6 g/dL (6.4-8.2); Sodium Level 143 mmol/L (136-145)
--- NOTE | 2023-05-30 08:00 | PN.SURG_ITS ---
Subjective Subjective Patient had ERCP yesterday with Dr. Lei. Did previously discussed with Dr. Acuna possibly outpatient cholecystectomy if patient is doing well enough to be DC'd. Currently patient is still complaining of epigastric abdominal pain about the same. Patient's LFTs are improving. Objective Data Objective Data Vital Signs: Vital Signs Temp Pulse Resp BP Pulse Ox O2 Del Method 98.7 F 43 L 16 128/70 H 97 Room Air 05/30/23 03:00 05/30/23 03:00 05/30/23 03:00 05/30/23 03:00 05/30/23 03:00 05/30/23 05:50 Oxygen Delivery Method Room Air Weight: 154 lb 5.177 oz Body Mass Index (BMI) 28.2 Intake & Output: Intake and Output for Last 24 Hours 05/28/23 05/29/23 05/30/23 23:59 23:59 23:59 Intake Total 2099 / 2099 2753 / 3553 2750 / 2750 Balance 2099 / 2100 2753 / 3553 2750 / 2750 Lab / Micro Data 05/30/23 05:30 05/30/23 05:30 Labs: Laboratory Results - last 24 hr 05/29/23 06:12: ESR 7, C-React Prot Ext Range 13.60 H 05/30/23 05:30: WBC 7.5, RBC 3.62 L, Hgb 10.1 L, Hct 32.1 L, MCV 88.7, MCH 27.9, MCHC 31.5 L, RDW Std Deviation 45.6 H, RDW Coeff of Raúl 14.0, Plt Count 156, MPV 12.1 H, Immature Gran % (Auto) 0.500, Neut % (Auto) 78.8 H, Lymph % (Auto) 12.4 L, [place] % (Auto) 8.1, Eos % (Auto) 0.1, Baso % (Auto) 0.1, Absolute Neuts (auto) 5.9, Absolute Lymphs (auto) 0.93, Nucleated RBC % 0, Sodium 143, Potassium 3.7, Chloride 119 H, Carbon Dioxide 21.0, Anion Gap 3 L, BUN 5 L, Creatinine 0.74, Estim Creat Clear Calc 87.12, Est GFR (MDRD) Af Amer 117, Est GFR (MDRD) Non-Af 97, BUN/Creatinine Ratio 6.8 L, Glucose 190 H, Calcium 7.6 L, Total Bilirubin 1.30 H, AST 215 H, ALT 329 H, Alkaline Phosphatase 199 H, Total Protein 5.6 L, Albumin 2.7 L, Globulin 2.9, Albumin/Globulin Ratio 0.9 Radiography Diagnostic Testing: Radiology Impression Endo Retro Cholangiopancreatogram 05/29/23 14:30 IMPRESSION: Fluoroscopic guided ERCP Electronically Signed: Grady Braun MD at 17:08 EST , Physical Exam Const oriented x3 and no apparent distress Resp normal respiratory effort Cardio regular rate GI soft to palpation GI Narrative: Tender in epigastric, no peritoneal signs Inspection: Negative for abdominal distention Assessment & Plan Assessment/Plan (1) Cholelithiasis: (2) Choledocholithiasis: PLAN: Plan Plan to continue with clear diet and see how patient does with this. If patient's pain improves may be able to go home for an outpatient cholecystectomy if not may need 1 more urgently- can add for tomorrow. Continue to monitor LFTs currently trending down Continue IV Zosyn. Reviewed the anatomy with the patient and discussed the procedure: laparoscopic cholecystectomy with possible cholangiograms, possible open. Review risks including but not limited to bleeding, infection, hernia, bile leak, retained gallstones requiring another procedure ERCP- Endoscopic Retrograde Cholangiop ancreatography, injury to another organ (bile ducts, common bile duct, small bowel, etc.) and conversion to an open procedure. All questions were answered. Estella Jimenez M.D. Pager: [phone] [facility] [address] [place] [address], [facility], [address] [place] [address] Office: [phone]
--- NOTE | 2023-05-30 08:25 | PN.HOSP_ITS ---
Reason for Visit Reason for Visit: Abdominal pain Subjective Subjective Patient is a 32-year-old white female who presents emergency department on 05/28/2023 complaining of abdominal pain. On presentation she reported upper abdominal pain that woke her up at 3 AM on the morning of presentation that was associated with nausea. She had persistent pain ever since that point time and was seen in the [facility] ED and a chest x-ray and blood work which were reportedly unremarkable. She was told she had gallstones and was discharged home. Due to ongoing severe pain she came back to the hospital here in [place]. She had similar bouts of upper abdominal pain over the past 1 month. In the emergency department she was noted to have a total bilirubin of 3.4 with an AST of 937 and ALT of 579 with an alk phos of 229. Gallbladder ultrasound revealed remarkable distention with layering stones and reported findings is equivocal for acute cholecystitis with possible choledocholithiasis. General surgery and GI were consulted and an ERCP was done on on 05/29/2023 which revealed dilation of the entire main bile duct due to a stone. Biliary sphincterotomy and balloon extraction was performed with 1 temporary stent being placed in the common bile duct. Patient was placed on a clear liquid diet and tolerated this okay however she was complaining of ongoing pain and general surgery thought we ought to continue a clear liquid diet and monitor clinically for improvement in her pain over the next 24 hours. If her pain does not improve she may require surgical intervention for cholecystectomy. Patient stated she felt a little bit better this morning and was able to sit up however she ate some clear liquids and then started having worsening abdominal pain following. She was evaluated by general surgery this morning and the plan is to take her to the OR tomorrow for cholecystectomy to help with her pain. Objective Data Objective Data Vital Signs: Vital Signs Temp Pulse Resp BP Pulse Ox O2 Del Method 98.7 F 43 L 16 128/70 H 97 Room Air 05/30/23 03:00 05/30/23 03:00 05/30/23 03:00 05/30/23 03:00 05/30/23 03:00 05/30/23 05:50 Oxygen Delivery Method Room Air Weight: 70 kg Body Mass Index (BMI) 28.2 Intake & Output: Intake and Output for Last 24 Hours 05/28/23 05/29/23 05/30/23 23:59 23:59 23:59 Intake Total 2099 2753 / 3553 2750 / 2750 Balance 2099 2753 / 3553 2750 / 2750 Lab / Micro Data 05/30/23 05:30 05/30/23 05:30 Labs: Laboratory Results - last 24 hr 05/29/23 06:12: ESR 7, C-React Prot Ext Range 13.60 H 05/30/23 05:30: WBC 7.5, RBC 3.62 L, Hgb 10.1 L, Hct 32.1 L, MCV 88.7, MCH 27.9, MCHC 31.5 L, RDW Std Deviation 45.6 H, RDW Coeff of Raúl 14.0, Plt Count 156, MPV 12.1 H, Immature Gran % (Auto) 0.500, Neut % (Auto) 78.8 H, Lymph % (Auto) 12.4 L, [place] % (Auto) 8.1, Eos % (Auto) 0.1, Baso % (Auto) 0.1, Absolute Neuts (auto) 5.9, Absolute Lymphs (auto) 0.93, Nucleated RBC % 0, Sodium 143, Potassium 3.7, Chloride 119 H, Carbon Dioxide 21.0, Anion Gap 3 L, BUN 5 L, Creatinine 0.74, Estim Creat Clear Calc 87.12, Est GFR (MDRD) Af Amer 117, Est GFR (MDRD) Non-Af 97, BUN/Creatinine Ratio 6.8 L, Glucose 190 H, Calcium 7.6 L, Total Bilirubin 1.30 H, AST 215 H, ALT 329 H, Alkaline Phosphatase 199 H, Total Protein 5.6 L, Albumin 2.7 L, Globulin 2.9, Albumin/Globulin Ratio 0.9 Radiography Diagnostic Testing: Radiology Impression Endo Retro Cholangiopancreatogram 05/29/23 14:30 IMPRESSION: Fluoroscopic guided ERCP Electronically Signed: Grady Braun MD at 17:08 EST , Physical Exam Const alert, oriented x3, no apparent distress and well nourished Constitutional Narrative: Young, white female, sitting up in bed, appears somewhat uncomfortable, affect is slightly flat HEENT head/scalp atraumatic, moist oral mucous membranes and oropharynx normal Resp normal respiratory effort, no retractions, no use of accessory muscles and clear to auscultation bilaterally Auscultation: Negative for rales, rhonchi or wheezes Cardio regular rate, regular rhythm, S1 normal heart sound, S2 normal heart sound, no murmurs, no rub, no gallops and no clicks GI normal to inspection, nondistended, normoactive bowel sounds and soft to palpation GI Narrative: Tenderness noted in the epigastric and right upper quadrant region Extremity no clubbing, cyanosis or edema Extremity Narrative: Pedal pulses are 2+ Neuro oriented x3, moves all extremities and no focal motor deficits Speech: speech normal Psych Psych Narrative: Tearful at times Assessment & Plan Assessment/Plan (1) Choledocholithiasis: (2) Transaminitis: (3) Cholelithiasis: (4) Abdominal pain: QUALIFIERS: Abdominal location: right upper quadrant Qualified Code(s): R10.11 - Right upper quadrant pain (5) Anemia: (6) Hyperglycemia: PLAN: Plan Acute transaminitis due to acute choledocholithiasis with cholelithiasis -Lab is improving with reduction in bilirubin, AST, ALT, and alk phos however patient is still having considerable pain -Continue clear liquid diet -Ongoing evaluation for possible surgical intervention prior to discharge -If pain does not improve per discussion with general surgery plan will be for OR tomorrow -Continue IV Zosyn for now -Appreciate GI/general surgery input Abdominal pain -Secondary to the above -Ongoing monitoring and possible cholecystectomy prior to discharge depending on pain -Appreciate general surgery input Acute anemia -Hemoglobin has dropped since admission -Baseline appears between 12 and 13 -Current hemoglobin is 10.1 -Suspect may be somewhat dilutional as she is on IV fluids -Will decrease IV fluids to 75 cc/h from 250 cc/h -Repeat CBC in a.m. Acute hyperglycemia -Patient had hemoglobin A1c recently that was normal -Likely rest response -Continue to monitor Depression -Continue home sertraline DVT prophylaxis -Continue enoxaparin CODE STATUS Full code Charges/Coding Visit Charges Inpatient E&M: 60042 Subs Hosp L2
[2023-05-30 08:27] VITALS: BP 137/82; PULSE 61; RESP 16; TEMP 37; O2SAT 100
[2023-05-30] MEDS: Acetaminophen 325 MG Tablet 650 MG PO ×2 (08:55→20:05)
[2023-05-30] MEDS: 0.9% Saline Lock 10 ML Syringe IV ×3 (09:22→23:27)
[2023-05-30] MEDS: Sertraline 50 MG Tablet PO (09:34)
[2023-05-30] MEDS: Pantoprazole Sodium 40 MG in 0.9% Normal Saline (100mL MB+) 100 ML 330 MG IV ×2 (09:34→22:56)
[2023-05-30] MEDS: Enoxaparin 40 MG/0.4 ML Syringe SC (09:34)
[2023-05-30] MEDS: 0.9% Normal Saline (1000mL) 1,000 ML 75 ML IV ×2 (09:45→22:41)
[2023-05-30 14:21] VITALS: BP 127/81; PULSE 60; RESP 16; TEMP 37.3; O2SAT 99
--- NOTE | 2023-05-30 18:27 | EX.PCM.PN.GI ---
Subjective Subjective Patient underwent ERCP yesterday for obstructive jaundice. She had stone removed and stent placed. She is complaining of some abdominal pain. She remains on antibiotics and getting pain medicine. Objective Data Objective Data Vital Signs: Vital Signs Temp Pulse Resp BP Pulse Ox O2 Del Method 99.2 F H 60 16 127/81 H 99 Room Air 05/30/23 14:21 05/30/23 14:21 05/30/23 14:21 05/30/23 14:21 05/30/23 14:21 05/30/23 14:21 Oxygen Delivery Method Room Air Weight: 154 lb 5.177 oz Body Mass Index (BMI) 28.2 Intake & Output: Intake and Output for Last 24 Hours 05/28/23 05/29/23 05/30/23 23:59 23:59 23:59 Intake Total 2099 2753 / 3553 3910 / 3910 Balance 2099 2753 / 3553 3910 / 3910 Lab / Micro Data 05/30/23 05:30 05/30/23 05:30 Labs: Laboratory Results - last 24 hr 05/30/23 05:30: WBC 7.5, RBC 3.62 L, Hgb 10.1 L, Hct 32.1 L, MCV 88.7, MCH 27.9, MCHC 31.5 L, RDW Std Deviation 45.6 H, RDW Coeff of Raúl 14.0, Plt Count 156, MPV 12.1 H, Immature Gran % (Auto) 0.500, Neut % (Auto) 78.8 H, Lymph % (Auto) 12.4 L, [place] % (Auto) 8.1, Eos % (Auto) 0.1, Baso % (Auto) 0.1, Absolute Neuts (auto) 5.9, Absolute Lymphs (auto) 0.93, Nucleated RBC % 0, Sodium 143, Potassium 3.7, Chloride 119 H, Carbon Dioxide 21.0, Anion Gap 3 L, BUN 5 L, Creatinine 0.74, Estim Creat Clear Calc 87.12, Est GFR (MDRD) Af Amer 117, Est GFR (MDRD) Non-Af 97, BUN/Creatinine Ratio 6.8 L, Glucose 190 H, Calcium 7.6 L, Total Bilirubin 1.30 H, AST 215 H, ALT 329 H, Alkaline Phosphatase 199 H, Total Protein 5.6 L, Albumin 2.7 L, Globulin 2.9, Albumin/Globulin Ratio 0.9 Physical Exam Const alert, oriented x3, no apparent distress and well nourished HEENT head/scalp atraumatic, moist oral mucous membranes and oropharynx normal Resp normal respiratory effort, no retractions, no use of accessory muscles and clear to auscultation bilaterally Auscultation: Negative for rales, rhonchi or wheezes Cardio regular rate, regular rhythm, S1 normal heart sound, S2 normal heart sound, no murmurs, no rub, no gallops and no clicks GI normal to inspection, nondistended, normoactive bowel sounds and soft to palpation GI Narrative: Tenderness noted in the epigastric and right upper quadrant region Extremity no clubbing, cyanosis or edema Extremity Narrative: Pedal pulses are 2+ Neuro oriented x3, moves all extremities and no focal motor deficits Speech: speech normal Psych Psych Narrative: Tearful at times Assessment & Plan Assessment/Plan (1) Abdominal pain: QUALIFIERS: Abdominal location: right upper quadrant Qualified Code(s): R10.11 - Right upper quadrant pain (2) Choledocholithiasis: (3) Transaminitis: (4) Depression: QUALIFIERS: Depression Type: major depressive disorder Major depression recurrence: recurrent Active/Remission status: in remission of unspecified degree Qualified Code(s): F33.40 - Major depressive disorder, recurrent, in remission, unspecified (5) Generalized headaches: PLAN: Plan Right upper quadrant pain with hyperbilirubinemia and transaminitis secondary to choledocholithiasis and acute cholecystitis -Right upper quadrant ultrasound equivocal for acute cholecystitis with choledocholithiasis status post ERCP with stone removal and stent placement. -Continue IV fluids -Patient possibly scheduled for surgery tomorrow -Zosyn -Pain and nausea control Charges/Coding Visit Charges Inpatient E&M: [id number] [place] [address]
[2023-05-30 22:30] VITALS: BP 122/77; PULSE 60; RESP 16; TEMP 37.2; O2SAT 96
[2023-05-30] MEDS: Morphine 4 MG/ML Syringe IV (22:55)
[2023-05-30] MEDS: Ondansetron 4 MG/2 ML Vial IV (23:24)
[2023-05-31] VITALS (9 sets, daily range): BP systolic 105–156; BP diastolic 54–95; PULSE 50–73; RESP 16–18; TEMP 36.2–37.5; O2SAT 93–99; BMI 28.3
[2023-05-31] MEDS: Piperacil/Tazobactam 3.375 GM in 0.9% Normal Saline (50mL MB+) 50 ML IV ×2 (05:16→14:22)
[2023-05-31 05:50] LABS: Absolute Lymphocyte Count 1.41 X10^3/uL (0.83-4.51); Absolute Neutrophil Count 5.8 X10^3/uL (2.0-7.7); Basophil# 0.02 X10^3/uL; Basophil% 0.3 % (0-1); Eosinophil# 0.08 X10^3/uL; Hematocrit 30.2 % (37-47); Hemoglobin 9.5 g/dL (12.0-15.0); Lymphocyte # 1.41 X10^3/ul (0.83-4.51); Lymphocyte % 17.6 % (19-41); Mean Corp Hgb Conc 31.5 g/dL (32-36); Mean Corpuscular Hgb 27.9 pg (27.0-32.0); Mean Corpuscular Volume 88.8 fL (81-99); Mean Platelet Vol. 11.4 fl (6.2-12.0); Monocyte# 0.66 X10^3/uL; Monocyte% 8.3 % (0-10); NRBC Flagged by Analyzer 0 % (0-5); Neutrophil % 72.5 % (47-70); Platelet Count 147 K/mm3 (150-450); RBC Distribution Width CV 14.3 % (11.6-14.6); RBC Distribution Width SD 46.7 fl (35.1-43.9)
[2023-05-31 06:31] LABS: Internal QC Validated? YES +Cl - CLEAR BKGD; Pregnancy, Urine Negative Negative
[2023-05-31 06:39] LABS: AST(SGOT) 98 U/L (15-37); Alanine Aminotransfer ALT/SGPT 233 U/L (13-56); Albumin, Serum 2.7 g/dL (3.2-5.0); Alkaline Phosphatase 159 U/L (45-117); Anion Gap 3 (5-15); BUN 3 mg/dL (7-18); BUN/Creat Ratio 4.5 RATIO (10-20); Calcium,Total 7.5 mg/dL (8.5-10.1); Chloride 113 mmol/L (98-107); Creatinine, Serum 0.66 mg/dL (0.55-1.02); EST Glomerular Filtration Rate 110 mL/min (>60); Est Glom Filt Rate - Afr Amer 133 mL/min (>60); Globulin 2.8 g/dL (2.2-4.2); Glucose 113 mg/dL (74-106); Magnesium 1.5 mg/dL (1.6-2.6); Protein, Total 5.5 g/dL (6.4-8.2); Sodium Level 142 mmol/L (136-145)
--- NOTE | 2023-05-31 06:44 | PCM.PN.SRG ---
Subjective Subjective Patient still with epigastric tenderness will go for lap won this morning Objective Data Objective Data Vital Signs: Vital Signs Temp Pulse Resp BP Pulse Ox O2 Del Method 99.5 F H 50 L 18 124/74 H 96 Room Air 05/31/23 06:17 05/31/23 06:17 05/31/23 06:17 05/31/23 06:17 05/31/23 06:17 05/31/23 06:17 Oxygen Delivery Method Room Air Weight: 154 lb 5.177 oz Body Mass Index (BMI) 28.3 Intake & Output: Intake and Output for Last 24 Hours 05/29/23 05/30/23 05/31/23 23:59 23:59 23:59 Intake Total 2753 / 3553 5040 / 5040 620 / 620 Balance 2753 / 3553 5040 / 5040 620 / 620 Lab / Micro Data 05/31/23 05:05 05/31/23 05:05 Labs: Laboratory Results - last 24 hr 05/30/23 05:30: Sodium 143, Potassium 3.7, Chloride 119 H, Carbon Dioxide 21.0, Anion Gap 3 L, BUN 5 L, Creatinine 0.74, Estim Creat Clear Calc 87.12, Est GFR (MDRD) Af Amer 117, Est GFR (MDRD) Non-Af 97, BUN/Creatinine Ratio 6.8 L, Glucose 190 H, Calcium 7.6 L, Total Bilirubin 1.30 H, AST 215 H, ALT 329 H, Alkaline Phosphatase 199 H, Total Protein 5.6 L, Albumin 2.7 L, Globulin 2.9, Albumin/Globulin Ratio 0.9 05/31/23 05:05: WBC 8.0, RBC 3.40 L, Hgb 9.5 L, Hct 30.2 L, MCV 88.8, MCH 27.9, MCHC 31.5 L, RDW Std Deviation 46.7 H, RDW Coeff of Raúl 14.3, Plt Count 147 L, MPV 11.4, Immature Gran % (Auto) 0.300, Neut % (Auto) 72.5 H, Lymph % (Auto) 17.6 L, [place] % (Auto) 8.3, Eos % (Auto) 1.0, Baso % (Auto) 0.3, Absolute Neuts (auto) 5.8, Absolute Lymphs (auto) 1.41, Nucleated RBC % 0, Sodium 142, Potassium 3.0 L, Chloride 113 H, Carbon Dioxide 26.0, Anion Gap 3 L, BUN 3 L, Creatinine 0.66, Estim Creat Clear Calc 93.20, Est GFR (MDRD) Af Amer 133, Est GFR (MDRD) Non-Af 110, BUN/Creatinine Ratio 4.5 L, Glucose 113 H, Calcium 7.5 L, Phosphorus 2.0 L, Magnesium 1.5 L, Total Bilirubin 1.40 H, AST 98 H, ALT 233 H, Alkaline Phosphatase 159 H, Total Protein 5.5 L, Albumin 2.7 L, Globulin 2.8, Albumin/Globulin Ratio 1.0 05/31/23 06:00: Urine Test Negative Physical Exam Const oriented x3 and no apparent distress Resp normal respiratory effort Cardio regular rate GI soft to palpation GI Narrative: Tender in epigastric, no peritoneal signs Inspection: Negative for abdominal distention Assessment & Plan Assessment/Plan (1) Cholelithiasis: (2) Choledocholithiasis: PLAN: Plan Lap won this morning Reviewed the anatomy with the patient and discussed the procedure: laparoscopic cholecystectomy with possible cholangiograms, possible open. Review risks including but not limited to bleeding, infection, hernia, bile leak, retained gallstones requiring another procedure ERCP- Endoscopic Retrograde Cholangiopancreatography, injury to another organ (bile ducts, common bile duct, small bowel, etc.) and conversion to an open procedure. All questions were answered. Estella Jimenez M.D. Pager: [phone] [facility] [address] [place] [address], [address] [place] [address] Office: [phone]
[2023-05-31] MEDS: Magnesium 2 GM for ERAS IV (07:05)
[2023-05-31] MEDS: 0.9% Normal Saline (1000mL) 1,000 ML 15 ML IV (07:08)
--- NOTE | 2023-05-31 07:30 | GALL_PTH ---
PATIENT: PATSY REYES LOC: MS3 U#:[id number] AGE/SX: 32/F ROOM: MS315 RE05/28/[address]: Dr. Caitie Reeves DO : 1990 BED: 1 DIS: 05/31/2023 SPEC #: [id number] RECD: 05/31/23 10:21 STATUS: JEIMY REQ #: [id number] HUGH: 05/31/23 07:[address]: Estella Jimenez DEPT: SURGICAL PATHOLOGY RECD BY: Velia Gonzalez ENTERED: 05/31/23 14:34 SP TYPE: GALLBLADDE OTHR DR: MD Dr. Elena Onofre MD Dr. Kathryn Lee, DO Dr. Nicholas F Kotsonis, MD Dr. Paige Pierce, MD Tissues: Gallbladder, NOS Procedures: Surgery Specimen Level III Comments: @ Ordering doctor for III edited from to @ by ALANOD at 05/31/23 1523 @ Submitting doctor edited from to @ by RGOOD at 05/31/23 1523 HEADER OPERATION: Laparoscopic cholecystectomy with IOC PRE-OP DIAGNOSIS: Cholelithiasis, choledocholithiasis TISSUE SUBMITTED: Gallbladder MICROSCOPIC DIAGNOSIS Gallbladder, cholecystectomy: Chronic cholecystitis and cholelithiasis. AM:vannesa 06/03/2023 MICROSCOPIC DESCRIPTION Slides are reviewed. GROSS DESCRIPTION Received is one container labeled with the patient's name and designated gallbladder. The specimen consists of a gallbladder measuring 8.5 x 3.0 x 3.0 cm. The external surface is smooth and glistening. Focally, it is granular, hemorrhagic and contains cautery artifact. The lumen of the gallbladder contains yellow-green mucoid bile and multiple irregular chalky, yellow calculi ranging in size from <0.1 to 0.3 cm in greatest dimension. The mucosa is bile-stained and without any mass lesions. The gallbladder wall averages 0.4 cm in thickness and is free of mass lesions. Timekeeper Supervisor sections of the gallbladder and the cystic duct at margin of resection are submitted in one cassette. / AM:vannesa 05/31/2023 TC:3 CPT: 96135
[2023-05-31] MEDS: Potassium Chloride IVPB 40 MEQ 100 MEQ IV BOLUS ×3 (08:07→10:38)
[2023-05-31] MEDS: Sodium Phosphate/Na Biphos 21 MMOL in 0.9% Normal Saline (250mL Bag) 250 ML 84 MMOL IV (08:20)
[2023-05-31] MEDS: Bupivacaine Mpf 0.5% 30 ML VIAL (08:50)
--- NOTE | 2023-05-31 08:51 | OP.PCM_ITS ---
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 Post-Operative Diagnosis: Same Surgery/Procedure Performed:: Laparoscopic cholecystectomy Surgeon: Estella Jimenez health care technician: Basilio Panda Type of Anesthesia: General/Supplemental Anesthesiologist: Pawel Sparrow Special Medications: Zosyn 3.375 g IV every 8 hours for choledocholithiasis/acute cholecystitis Specimen's removed: Gallbladder and stones, intra-abdominal fluid Estimated Blood Loss (mL): 10 cc Description of Procedure: Indications: this is a 32 year-old female who developed abdominal pain/nausea/vomiting and on workup was found to have choledocholithiasis elevated LFTs status post ERCP with continued epigastric pain, cholelithiasis, with a normal common bile duct. Laparoscopic cholecystectomy was elected. Description procedure: The patient was placed on operating table in supine position. A timeout was completed verifying correct patient, procedure, site, position and special equipment prior to beginning procedure. General Anesthesia was induced. The abdomen was prepped and draped in usual sterile fashion. An incision was made in the natural skin line above the umbilicus. The fascia was elevated and incised. The peritoneum was elevated and incised. Entry into the peritoneum was confirmed visually and no bowel was noted in the vicinity of the incision. Brown trocar was placed. The abdomen was insufflated with carbon dioxide to a pressure of 12-15 mmHg. Patient tolerated insufflation well. The laparoscope was then inserted and abdomen inspected. No injuries from initial trocar placement were noted. Additional trochars were then inserted in the following locations 5 mm trocar in the epigastrium and 2 more 5 mm trochars along the right costal margin. The abdomen was inspected possible tannish fluid was found lateral to the liver upon getting the fluid out of with the lugi tube it was more of a yellowish color sent for deep culture likely just due to the inflammation. The table is placed in reverse Trendelenburg position with the right side up. The dome of the gallbladder was grasped with atraumatic grasper passed through the lateral port and retracted over the dome of the liver. Infundibulum was then grasped with atraumatic grasper through the midclavicular port and retracted to the right lower quadrant. This maneuver exposed Calot's triangle. The peritoneum overlying the gallbladder infundibulum was then incised and cystic duct and artery identified and circumferentially dissected. The cystic duct and artery were then doubly clipped and divided close to the gallbladder. The gallbladder then dissected from its peritoneal attachments by electrocautery. Hemostasis was checked and the gallbladder and contained stones were removed using the endoscopic retrieval bag through the umbilical port. The gallbladder is passed off table as specimen. The gallbladder fossa was irrigated with saline and hemostasis obtained. There is no evidence of bleeding from the gallbladder fossa or cystic artery leakage of bile from the cystic duct stump. Secondary trochars removed under direct vision. No bleeding was noted the trocar sites. The laparoscope was withdrawn and umbilical trocar removed. The abdomen was allowed to collapse. The fascia of the 12 mm trocar was closed with a [id number] 0 Vicryl suture. The skin was closed with sutures of 4-0 Monocryl and Steri-Strips. The patient was extubated. The patient tolerated procedure well and was taken to the postanesthesia care unit in stable condition. Complications none
--- NOTE | 2023-05-31 08:56 | DCINST_ITS ---
Discharge Instructions Diet Discharge Diet: Light diet - advance as tolerated Activity Discharge Activity: May Not Drive (while taking narcotic pain medications.) May shower in (days): 1 Lifting Restrictions: no lifting >20 lbs x 2 wks, no strenuous exercise for 4 wks Dressing / Incision Call your doctor if your incision/area has: Continuous Slow Oozing, Sudden Increased Bleeding, Increased Pain/ Swelling, Increased Redness, Foul Smelling Discharge and Swelling at the incision site Call your doctor if you observe: Fever of 101 or Higher Remove Dressing in: 2 days Cleanse incision/area with: Soap & Water Additional Dressing/Incision Instructions:: Steri-Strips will fall off in 7 to 10 days, if they do not fall off okay to remove after 10 days. Follow Up Care Please Follow Up With: Estella Jimenez MD When: Call the office for a follow-up appointment 2 weeks; after 5 PM and on the weekends call [phone] with any concerns. Test Results: Test results from this visit will be discussed in further detail at your follow- up appointment, if applicable. Discharge Plan Admission Admit Date/Time: 05/28/23 18:15 Attending Provider: Caitie Reeves Primary Care Provider: Elena Osorio Consulting Providers: Isaías Acuna; Akua Capellan; Jose Todd Discharge Orders/Prescriptions Prescriptions: New oxycodone-acetaminophen 5-325 mg tablet 1 - 2 tab PO Q6H PRN (Reason: pain) 3 Days Qty: 14 0RF Continued ibuprofen 600 mg tablet 600 mg PO Q6H PRN (Reason: PAIN OR FEVER) sertraline 50 mg tablet 50 mg PO DAILY Qty: 30 2RF Referrals / Follow Up: Elena Osorio MD [Primary Care Provider] -
[2023-05-31] MEDS: Sertraline 50 MG Tablet PO (10:38)
[2023-05-31] MEDS: Pantoprazole Sodium 40 MG in 0.9% Normal Saline (100mL MB+) 100 ML 330 MG IV (10:43)
[2023-05-31] MEDS: Potassium Chloride IVPB 40 MEQ 80 MEQ IV BOLUS (12:16)
--- NOTE | 2023-05-31 13:59 | DS.PCM_ITS ---
Providers Date of Admission: 05/28/23 Date of Discharge: 05/31/23 Primary Care Physician: Dr. Elena Osorio MD Consultations 05/28/23 20:21 Consult: Gastroenterology Routine Consulting Provider: [facility] Reason for Consult: concern for choledocholithiasis, elevated bili and transaminases, ?ercp EMERGENT Consult: No Notified: Yes Date Notified: 05/28/23 Time Notified: 20:22 Method of Notification: Text Consult: General Surgery Routine Consulting Provider: Isaías Acuna Reason for Consult: cholecystitis w/ concerns for choledocholithiasis EMERGENT Consult: No Notified: Yes Date Notified: 05/28/23 Time Notified: 18:18 Method of Notification: ED Physician Initiated Reason For Visit: CONCERN FOR CHOLECYSTITIS WITH CHOLEDOCOLITHIASIS Diagnosis Discharge Diagnosis (1) Cholelithiasis: Status: Acute Code(s): K80.20 - Calculus of gallbladder without cholecystitis without obstruction (2) Choledocholithiasis: Status: Acute Code(s): K80.50 - Calculus of bile duct without cholangitis or cholecystitis without obstruction Plan Acute transaminitis due to acute choledocholithiasis with cholelithiasis -Lab is improving with reduction in bilirubin, AST, ALT, and alk phos however patient is still having considerable pain -Continue clear liquid diet -Ongoing evaluation for possible surgical intervention prior to discharge -If pain does not improve per discussion with general surgery plan will be for OR tomorrow -Continue IV Zosyn for now -Appreciate GI/general surgery input Abdominal pain -Secondary to the above -Ongoing monitoring and possible cholecystectomy prior to discharge depending on pain -Appreciate general surgery input Acute anemia -Hemoglobin has dropped since admission -Baseline appears between 12 and 13 -Current hemoglobin is 10.1 -Suspect may be somewhat dilutional as she is on IV fluids -Will decrease IV fluids to 75 cc/h from 250 cc/h -Repeat CBC in a.m. Acute hyperglycemia -Patient had hemoglobin A1c recently that was normal -Likely rest response -Continue to monitor Depression -Continue home sertraline DVT prophylaxis -Continue enoxaparin CODE STATUS Full code Medications at Discharge Home Medications ibuprofen 600 mg tablet 600 mg PO Q6H PRN PAIN OR FEVER 04/16/23 sertraline 50 mg tablet 50 mg PO DAILY #30 tabs 05/23/23 amoxicillin 875 mg-potassium clavulanate 125 mg tablet 1 tab PO BID #10 tabs 05/31/23 oxycodone-acetaminophen 5 mg-325 mg tablet 1 - 2 tab PO Q6H PRN pain 3 days #14 tabs 05/31/23 Hospital Course Operations cholecystecomy Procedures - (Gallbladder ultrasound/ERCP) Summary of Care Provided Minutes Spent on Discharge: 33 Hospital Course: Ms Bansal is a 32-year-old white female who presented emergency department on 05/28/2023 complaining of abdominal pain. On presentation, she reported upper abdominal pain that woke her up at 3 AM on the morning of presentation that was associated with nausea. She had persistent pain ever since that point time and was seen in the [facility] ED and a chest x-ray and blood work which were reportedly unremarkable. She was told she had gallstones and was discharged home. Due to ongoing severe pain she came back to the hospital here in [place]. She had similar bouts of upper abdominal pain over the past 1 month. In the emergency department she was noted to have a total bilirubin of 3.4 with an AST of 937 and ALT of 579 with an alk phos of 229. Gallbladder ultrasound revealed remarkable distention with layering stones and reported findings is equivocal for acute cholecystitis with possible choledocholithiasis. General surgery and GI were consulted and an ERCP was done on on 05/29/2023 which revealed dilation of the entire main bile duct due to a stone. Biliary sphincterotomy and balloon extraction was performed with 1 temporary stent being placed in the common bile duct. Patient was placed on a clear liquid diet and tolerated this okay however she was complaining of ongoing pain and general surgery thought we ought to continue a clear liquid diet and monitor clinically for improvement in her pain over the next 24 hours. She unfortunately had persistent ongoing pain and was taken to the OR on the a.m. of 05/31/2023 at which time a laparoscopic cholecystectomy was performed. She tolerated the procedure quite well and was able to tolerate a regular diet following. Her pain was well-controlled and she felt ready to go home. I discussed the case with general surgery and they felt she was stable and she was discharged home in stable condition on 05/31/2023. She was discharged with medications for pain control and a 5-day course of Augmentin to complete antibiotic status post and placement. She will require follow-up with general surgery in 2 weeks and of asked her to follow-up with gastroenterology within the next 2 to 4 months. Of asked the patient to call to schedule appointments on 06/03/2023. Physical Exam Narrative Patient returned from surgery and states she is feeling better. Was able to eat and indicates her pain is fairly well-controlled. Will plan to discharge home. Const alert, oriented x3, no apparent distress and well nourished Constitutional Narrative: Overweight, young, white female, lying in bed sleeping, appears comfortable and nontoxic, awakens easily General Appearance: cooperative, comfortable, well kempt and well developed Exam Limitations: no limitations Nutritional Appearance: overweight HEENT normocephalic, head/scalp atraumatic, hearing grossly normal bilaterally, moist oral mucous membranes and oropharynx normal HEENT Narrative: Mallampati 2, no thrush Resp normal respiratory effort, no retractions, no use of accessory muscles and clear to auscultation bilaterally Auscultation: Negative for rales, rhonchi or wheezes Cardio regular rate, regular rhythm, S1 normal heart sound, S2 normal heart sound, no murmurs, no rub, no gallops and no clicks GI normal to inspection, nondistended, normoactive bowel sounds and soft to palpation GI Narrative: Mild diffuse tenderness related to postoperative tenderness but no focal pain and epigastric/right upper quadrant pain is resolved Extremity no clubbing, cyanosis or edema Extremity Narrative: Pedal pulses are 2+ Neuro oriented x3, moves all extremities and no focal motor deficits Speech: speech normal Psych affect normal Psych Narrative: Sleepy but affect is normal and patient seems less labile with regards to mood Weight / BMI Weight Weight: 70 kg Body Mass Index (BMI) 28.3 ABG / Lab / Microbiology Data 05/31/23 05:05 05/31/23 05:05 Laboratory: Laboratory Results - last 24 hr 05/31/23 05:05: WBC 8.0, RBC 3.40 L, Hgb 9.5 L, Hct 30.2 L, MCV 88.8, MCH 27.9, MCHC 31.5 L, RDW Std Deviation 46.7 H, RDW Coeff of Raúl 14.3, Plt Count 147 L, MPV 11.4, Immature Gran % (Auto) 0.300, Neut % (Auto) 72.5 H, Lymph % (Auto) 17.6 L, Otero % (Auto) 8.3, Eos % (Auto) 1.0, Baso % (Auto) 0.3, Absolute Neuts (auto) 5.8, Absolute Lymphs (auto) 1.41, Nucleated RBC % 0, Sodium 142, Potassium 3.0 L, Chloride 113 H, Carbon Dioxide 26.0, Anion Gap 3 L, BUN 3 L, Creatinine 0.66, Estim Creat Clear Calc 93.20, Est GFR (MDRD) Af Amer 133, Est GFR (MDRD) Non-Af 110, BUN/Creatinine Ratio 4.5 L, Glucose 113 H, Calcium 7.5 L, Phosphorus 2.0 L, Magnesium 1.5 L, Total Bilirubin 1.40 H, AST 98 H, ALT 233 H, Alkaline Phosphatase 159 H, Total Protein 5.5 L, Albumin 2.7 L, Globulin 2.8, Albumin/Globulin Ratio 1.0 05/31/23 06:00: Urine Test Negative Microbiology: Microbiology 05/31/23 08:17 Aspirate - Abdominal Gram Stain - Final D/C Instructions Discharge Diet: Light diet - advance as tolerated Discharge Activity: Return to Normal Activity Return to work on: 06/03/23 May shower in (days): 1 Call your doctor if your incision/area has: Continuous Slow Oozing, Sudden Increased Bleeding, Increased Pain/ Swelling, Increased Redness, Foul Smelling Discharge and Swelling at the incision site Call your doctor if you observe: Fever of 101 or Higher Cleanse incision/area with: Soap & Water Additional Dressing/Incision Instructions: Steri-Strips will fall off in 7 to 10 days, if they do not fall off okay to remove after 10 days. Please Follow Up With: Estella Jimenez MD When: Call the office for a follow-up appointment 2 weeks; after 5 PM and on the weekends call [phone] with any concerns. Meaningful Use Info Meaningful Use Diagnoses (Choose all that apply): None applicable Discharge Plan Admission Admit Date/Time: 05/28/23 18:15 Primary Reason for Your Visit: Abdominal pain Attending Provider: Caitie Reeves Primary Care Provider: Elena Osorio Consulting Providers: Isaías Acuna; Akua Capellan; Jose Todd Discharge Orders/Prescriptions Prescriptions: New oxycodone-acetaminophen 5-325 mg tablet 1 - 2 tab PO Q6H PRN (Reason: pain) 3 Days Qty: 14 0RF amoxicillin-pot clavulanate 875-125 mg tablet 1 tab PO BID Qty: 10 0RF Continued ibuprofen 600 mg tablet 600 mg PO Q6H PRN (Reason: PAIN OR FEVER) sertraline 50 mg tablet 50 mg PO DAILY Qty: 30 2RF Referrals / Follow Up: Elena Osorio MD [Primary Care Provider] - See Referral Note (As needed) Estella Jimenez MD [Med Staff - Active Staff] - Within 2 Weeks (Call office for appointment) John Lei DO [Med Staff - Active Staff] - Within 3 Months (call for appt on Saturday) Disposition Disposition (needs filled in before D/C Order can be placed): Home, Self Care Charges/Coding Visit Charges Inpatient E&M: 11999 Disch Hosp
--- NOTE | 2023-05-31 14:18 | CHAPLAIN ---
Type of Pastoral Visit _x__ Initial Visit ___ Follow-up Visit ___ On-call Visit ___ General Patient Visit ___ Spiritual Assessment ___ Family Conference ___ Bereavement ___ Rapid Response ___ Code Blue ___ Other (describe below) Pastoral Care Referral From _x__ Patient ___ Family ___ Nurse ___ Physician ___ Hospice Clinical Marketer ___ [employer] Worker ___ Other (describe below) Sacrament/Intervention _x__ Active listening ___ Anointing ___ Restoration ___ Bereavement ___ Communion _x__ Brittany exploration ___ _x__ Life review _x__ Prayer ___ Reconciliation ___ Sacrament of Sick _x__ Supportive presence ___ Wedding ___ Other (describe below) Pastoral Comments patient gives her reason for wanting to see the sys dir as still dealing with God taking my son 13 years ago when he was just six months old; pt relates her thoughts and anger; pt also suggests that 'there may be an explanation for that but I don't really want to accept it yet; pt gives much life review, including statements of being wounded in life; she speaks thoughtfully of her children and ; pt has a large family and acknowledges that she has good support; pt welcomes prayer and states that she has fond memories of going to [place] every Saturday and Saturday; pt was talkative and expressed thanks for the visit and support
[2023-05-31] MEDS: oxyCODONE 5 MG Tablet PO (14:22)
[2023-06-03 13:07] LABS: Anti-Centromere B Ab <0.2 AI (0.0-0.9); Anti-Chromatin <0.2 AI (0.0-0.9); Anti-Jo <0.2 AI (0.0-0.9); Anti-Mitochondrial AB <20.0 Units (0.0-20.0); Anti-Scleroderma-70 AB <0.2 AI (0.0-0.9); Anti-dsDNA Ab <1 IU/mL (0-9); RNP Ab <0.2 AI (0.0-0.9); SJOGREN'S Anti-SS-A test < 0.2 AI (0.0-0.9); SJOGREN'S Anti-SS-B test < 0.2 AI (0.0-0.9); Smith Ab <0.2 AI (0.0-0.9)
[2023-06-03 14:07] LABS: Albumin 2.9 g/dL (2.9-4.4); Alpha-1-Globulins 0.3 g/dL (0.0-0.4); Alpha-2-Globulins 0.6 g/dL (0.4-1.0); Anti-Smooth Muscle ABS 6 Units (0-19); Cytoplasmic Ab (C-ANCA) <1:20 titer (Neg:<1:20); Gamma Globulin 0.8 g/dL (0.4-1.8); HEPATITIS B SURFACE AG Negative (Negative); Hep C Antibodies Non Reactive (Non Reactive); Hepatitis A IgM Antibody Negative (Negative); Hepatitis B Core AB IgM Negative (Negative); Immunoglobulin A 204 mg/dL (87-352); Immunoglobulin G 854 mg/dL (586-1602); Immunoglobulin M 98 mg/dL (26-217); PROEL- TOTAL PROTEIN 5.3 g/dL (6.0-8.5); Perinuclear Ab (P-ANCA) <1:20 titer (Neg:<1:20)
== END 2023-05-31 16:00 | disposition home or self-care (01) | DRG 263 ==
LOC: ED 17:31 → MS3 18:38
PROVIDERS: Anesthesiology; Family Medicine; Internal Medicine Gastroenterology; Surgery; Admitting Provider Internal Medicine; Emergency Provider Emergency Medicine; PCP Internal Medicine; Visit Provider Internal Medicine
PROC: 0FC98ZZ Extirpation of Matter from Common Bile Duct, Via Natural or Artificial Opening Endoscopic (ICD-10-PCS; CPT 43260; principal; 2023-05-29 15:50)
PROC: 0FT44ZZ Resection of Gallbladder, Percutaneous Endoscopic Approach (ICD-10-PCS; CPT 47610; principal; 2023-05-31 07:10)
DX: K80.63 Calculus of gallbladder and bile duct with acute cholecystitis with obstruction (principal); D64.89 Other specified anemias; F33.40 Major depressive disorder, recurrent, in remission, unspecified; E87.6 Hypokalemia; F41.9 Anxiety disorder, unspecified; E66.3 Overweight; Z68.28 Body mass index [BMI] 28.0-28.9, adult; Z79.899 Other long term (current) drug therapy
CPT/HCPCS: 36415; 74330; 76000; 76705; 80053; 80074; 81001; 81025; 82784; 83516; 83690; 83735; 84100; 84165; 84703; 85025; 85652; 86140; 86225; 86235; 86256; 86334; 87070; 87075; 87205; 88304; 93005; 99284; J7030; J7050; A4216; J2405

== ENCOUNTER → 2023-06-04 | Outpatient (CLI) | payer MEDICAID, SELFPAY ==
[2023-06-04 12:16] LABS: Absolute Lymphocyte Count 1.81 X10^3/uL (0.83-4.51); Absolute Neutrophil Count 4.2 X10^3/uL (2.0-7.7); Basophil# 0.05 X10^3/uL; Basophil% 0.7 % (0-1); Eosinophil# 0.26 X10^3/uL; Eosinophils% 3.8 % (0-5); Hematocrit 38.7 % (37-47); Hemoglobin 12.2 g/dL (12.0-15.0); Lymphocyte # 1.81 X10^3/ul (0.83-4.51); Lymphocyte % 26.4 % (19-41); Mean Corp Hgb Conc 31.5 g/dL (32-36); Mean Platelet Vol. 12.1 fl (6.2-12.0); Monocyte# 0.45 X10^3/uL; Monocyte% 6.6 % (0-10); NRBC Flagged by Analyzer 0 % (0-5); Neutrophil # 4.24 X10^3/uL (2.7-7.7); Neutrophil % 61.8 % (47-70); Platelet Count 250 K/mm3 (150-450); RBC Distribution Width CV 13.4 % (11.6-14.6); RBC Distribution Width SD 43.5 fl (35.1-43.9); Red Blood Count 4.35 M/mm3 (4.2-5.4); White Blood Count 6.9 K/mm3 (4.4-11.0)
[2023-06-04 12:31] LABS: ALB/GLOB Ratio 0.9 RATIO (0.9-2.4); AST(SGOT) 22 U/L (15-37); Alanine Aminotransfer ALT/SGPT 107 U/L (13-56); Albumin, Serum 3.5 g/dL (3.2-5.0); Alkaline Phosphatase 140 U/L (45-117); Anion Gap 6 (5-15); BUN 6 mg/dL (7-18); BUN/Creat Ratio 9.1 RATIO (10-20); Chloride 106 mmol/L (98-107); Creatinine, Serum 0.66 mg/dL (0.55-1.02); EST Glomerular Filtration Rate 110 mL/min (>60); Est Glom Filt Rate - Afr Amer 134 mL/min (>60); Glucose 85 mg/dL (74-106); Potassium 4.2 mmol/L (3.5-5.1); Protein, Total 7.5 g/dL (6.4-8.2); Sodium Level 140 mmol/L (136-145)
== END | disposition home or self-care (01) ==
LOC: BIMLAB 11:11
PROVIDERS: PCP Internal Medicine; Referring Provider Internal Medicine; Visit Provider Internal Medicine
DX: K81.0 Acute cholecystitis (principal); Z90.49 Acquired absence of other specified parts of digestive tract
CPT/HCPCS: 36415; 80053; 85025

== ENCOUNTER → 2023-06-13 | Outpatient (CLI) | payer MEDICAID, SELFPAY ==
[2023-06-13 10:33] LABS: Absolute Lymphocyte Count 2.01 X10^3/uL (0.83-4.51); Absolute Neutrophil Count 4.2 X10^3/uL (2.0-7.7); Basophil# 0.06 X10^3/uL; Basophil% 0.8 % (0-1); Eosinophil# 0.24 X10^3/uL; Eosinophils% 3.3 % (0-5); Hematocrit 36.9 % (37-47); Hemoglobin 11.5 g/dL (12.0-15.0); Lymphocyte # 2.01 X10^3/ul (0.83-4.51); Mean Corp Hgb Conc 31.2 g/dL (32-36); Mean Corpuscular Hgb 27.2 pg (27.0-32.0); Mean Corpuscular Volume 87.2 fL (81-99); Mean Platelet Vol. 10.6 fl (6.2-12.0); Monocyte# 0.58 X10^3/uL; Monocyte% 8.1 % (0-10); NRBC Flagged by Analyzer 0 % (0-5); Neutrophil # 4.24 X10^3/uL (2.7-7.7); Neutrophil % 59.1 % (47-70); Platelet Count 318 K/mm3 (150-450); RBC Distribution Width CV 13.2 % (11.6-14.6); RBC Distribution Width SD 42.1 fl (35.1-43.9); Red Blood Count 4.23 M/mm3 (4.2-5.4); White Blood Count 7.2 K/mm3 (4.4-11.0)
[2023-06-13 11:02] LABS: ALB/GLOB Ratio 0.9 RATIO (0.9-2.4); AST(SGOT) 25 U/L (15-37); Alanine Aminotransfer ALT/SGPT 44 U/L (13-56); Albumin, Serum 3.5 g/dL (3.2-5.0); Alkaline Phosphatase 125 U/L (45-117); Anion Gap 3 (5-15); BUN 9 mg/dL (7-18); BUN/Creat Ratio 13.2 RATIO (10-20); Calcium,Total 8.5 mg/dL (8.5-10.1); Chloride 110 mmol/L (98-107); Creatinine, Serum 0.68 mg/dL (0.55-1.02); EST Glomerular Filtration Rate 107 mL/min (>60); Est Glom Filt Rate - Afr Amer 129 mL/min (>60); Globulin 3.9 g/dL (2.2-4.2); Glucose 84 mg/dL (74-106); Potassium 4.2 mmol/L (3.5-5.1); Protein, Total 7.4 g/dL (6.4-8.2); Sodium Level 140 mmol/L (136-145); Thyroid Stim Hormone (TSH) 1.32 uIU/mL (0.358-3.74)
[2023-06-13 11:10] LABS: Vitamin D,25 Hydroxy 12.7 ng/mL
== END | disposition home or self-care (01) ==
LOC: PAVLAB 10:15
PROVIDERS: PCP Internal Medicine; Visit Provider Physician Assistant
DX: F41.9 Anxiety disorder, unspecified (principal); F32.1 Major depressive disorder, single episode, moderate; R07.9 Chest pain, unspecified
CPT/HCPCS: 36415; 80053; 82306; 84443; 85025

== ENCOUNTER → 2023-06-20 | Outpatient (CLI) | payer MEDICAID, SELFPAY ==
--- NOTE | 2023-06-20 10:19 | ECHOD_ITS ---
Reason For Study: CHEST PAIN Procedure This was a 2D Doppler, Color Flow transthoracic echocardiogram. Exam performed in department. Left Ventricle Normal LV size. The estimated ejection fraction is 60 %. No evidence for diastolic dysfunction. No regional wall motion abnormalities noted. Right Ventricle Normal RV size. Normal systolic function. Atria Normal left atrium. Normal right atrium. No doppler evidence for ASD. Mitral Valve There is no mitral valve stenosis. No mitral valve insufficiency. Tricuspid Valve There is no tricuspid stenosis. No tricuspid valve insufficiency. Unable to estimate RV systolic pressure due to inadequate jet, pulmonary artery pressure probably normal. Aortic Valve Trisinus/trileaflet aortic valve. There is no aortic stenosis. No aortic valve insufficiency. Pulmonic Valve There is no pulmonic valvular stenosis. No pulmonic valve insufficiency. Great Vessels Normal aortic root. Pericardium/Pleural No pericardial effusion. MMode/2D Measurements & Calculations LVIDd: 4.5 cm IVSd: 0.73 cm Ao root diam: 3.2 cm LVIDs: 2.8 cm LVPWd: 0.71 cm FS: 36.9 % LAV(MOD-bp): 33.0 ml LVAd ap4: 23.4 cm2 LVAd ap2: 19.1 cm2 LAV(MOD-bp) Indexed: 19.0 ml/m2 LVLd ap4: 7.1 cm LVLd ap2: 7.2 cm LAV(MOD-sp2): 32.7 ml EDV(MOD-sp4): 64.2 ml EDV(MOD-sp2): 45.4 ml LAV(MOD-sp4): 29.6 ml EDV(sp4-el): 65.3 ml EDV(sp2-el): 43.2 ml LVAs ap4: 12.5 cm2 LVAs ap2: 10.7 cm2 LVLs ap4: 5.7 cm LVLs ap2: 5.6 cm ESV(MOD-sp4): 23.7 ml ESV(MOD-sp2): 18.6 ml ESV(sp4-el): 23.3 ml ESV(sp2-el): 17.4 ml EF(MOD-sp4): 63.1 % EF(MOD-sp2): 59.0 % EF(sp4-el): 64.3 % SV(MOD-sp4): 40.5 ml SV(MOD-sp2): 26.8 ml SV(sp4-el): 42.0 ml LA dimension(2D): 3.2 cm LA A4 area: 12.0 cm2 RA A4 area: 9.3 cm2 TAPSE: 2.4 cm Time Measurements MV dec time: 0.20 sec Doppler Measurements & Calculations MV E max laron: 75.9 cm/sec Lat Peak E' Laron: 16.0 cm/sec Med Peak E' Laron: 12.8 cm/sec MV A max laron: 56.2 cm/sec E/E' lat: 4.7 E/E' med: 5.9 MV E/A: 1.4 MV V2 max: 96.4 cm/sec MV P1/2t max laron: 97.6 cm/sec Ao V2 max: 104.5 cm/sec MV max P.7 mmHg MV P1/2t: 53.8 msec Ao max P.4 mmHg MV V2 mean: 53.7 cm/sec MV dec slope: 531.3 cm/sec2 Ao V2 mean: 83.5 cm/sec MV mean P.3 mmHg Ao mean P.0 mmHg MV V2 VTI: 26.6 cm MVA(P1/2t): 4.1 cm2 Ao V2 VTI: 24.2 cm AV (velocity ratio): 0.80 LV V1 max: 90.8 cm/sec PA V2 max: 119.2 cm/sec LV V1 max P.3 mmHg PA V2 mean: 79.8 cm/sec LV V1 mean P.9 mmHg LV V1 mean: 65.3 cm/sec LV V1 VTI: 19.3 cm ECHO/Echo Complete Interpretation Summary The estimated ejection fraction is 60 %. No evidence for diastolic dysfunction. Ordering Physician: Elena Osorio Referring Physician: Elena Osorio Performed By: Rut Medrano, RDCS, RVT
== END | disposition home or self-care (01) ==
LOC: CVS 10:16
PROVIDERS: PCP Internal Medicine; Referring Provider Internal Medicine; Visit Provider Internal Medicine
DX: R07.9 Chest pain, unspecified (principal)
CPT/HCPCS: 93306

== ENCOUNTER 2023-06-22 13:02 | Emergency (ER) | payer MEDICAID, SELFPAY ==
[2023-06-22 13:03] VITALS: BP 113/83; PULSE 108; RESP 15; TEMP 36.3; O2SAT 96
--- NOTE | 2023-06-22 13:10 | EKG12_ITS ---
Test Reason : cp Blood Pressure : / mmHG Vent. Rate : 087 BPM Atrial Rate : 087 BPM P-R Int : 124 ms QRS Dur : 076 ms QT Int : 348 ms P-R-T Axes : 018 073 058 degrees QTc Int : 418 ms Sinus rhythm with Premature atrial complexes Otherwise normal ECG Confirmed by MORENA HOLT, JAMIE ([id number]), map editor PATSY SCHWAB ([id number]) on 06/24/2023 1:21:24 PM Referred By: Stephani Confirmed By:JAMIE BERG MD
--- NOTE | 2023-06-22 14:24 | EX.ED.DYSGE1 ---
HPI <KELY Batres - Last Filed: 06/22/23 18:22> History of Present Illness Chief Complaint: Chest Pain Narrative Narrative: Patient presenting today due to pain below her right breast that started early this afternoon. She reports that the pain is a sharp tight and constant pain. The pain is waxing and waning, when it is severe it is hard for her to take a deep breath but she denies feeling short of breath. She reports that over the past several days she has felt nauseous, weak, lightheaded, has a headache, and has had multiple episodes of vomiting. She reports all of her children are sick with similar symptoms. She reports a recent cholecystectomy on 05/31/2023. She denies any surgical complications or postop complications. She denies any fever, chills, hematemesis, blood in stool, cardiac history, and history of blood clots. PFSH <KELY Batres - Last Filed: 06/22/23 18:22> PFS Medical History Abnormal Pap smear of cervix Anxiety Asthma Beta hemolytic streptococcus urinary tract infection affecting Cholecystectomy planned Choledocholithiasis Cholelithiasis Depression Generalized headaches Non-smoker Home Medications ibuprofen 600 mg tablet 600 mg PO Q6H PRN PAIN OR FEVER 04/16/23 [History Last Taken Unknown] sertraline 50 mg tablet 50 mg PO DAILY #30 tabs 05/23/23 [Rx Last Taken 06/22/23] docusate sodium 100 mg capsule 100 mg PO BID #20 caps 06/04/23 [Rx Last Taken Unknown] esomeprazole magnesium 20 mg capsule,delayed release (Nexium) 20 mg PO DAILY #20 caps 06/04/23 [Rx Last Taken Unknown] cholecalciferol (vitamin D3) 125 mcg (5,000 unit) capsule 125 mcg PO DAILY 8 weeks #56 caps 06/13/23 [Rx Last Taken Unknown] ondansetron 4 mg disintegrating tablet 4 mg PO Q8H PRN PRN Nausea #10 tabs 06/22/23 [Rx Last Taken Unknown] sumatriptan succinate 25 mg tablet (Imitrex) 25 mg PO Q2H PRN migraine headache #8 tabs 06/22/23 [Rx Last Taken Unknown] Allergy/AdvReac Type Severity Reaction Status Date / Time No Known Allergies Allergy Verified 06/22/23 13:05 Family History Grandmother Epileptic Surgical History H/O LEEP Social History household members: spouse and children number of children: 4 current occupational status: other 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 Smoking Status: Never smoker Electronic Cigarette Use: not used alcohol intake: never substance use type: does not use what type of physical activity do you participate in: none seatbelt use: always do you feel safe at home: Yes 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 <KELY Batres - Last Filed: 06/22/23 18:22> ROS ED Constitutional Constitutional ED: Denies chills or fever(s) Eyes Eyes: Denies blurry vision or diplopia Cardiovascular Cardiovascular: Reports chest pain; Denies palpitations Respiratory/Chest Respiratory/Chest: Reports dyspnea; Denies cough Gastrointestinal Gastrointestinal: Reports diarrhea and nausea; Denies abdominal pain or vomiting Genitourinary Genitourinary ED: Denies dysuria, hematuria or urinary urgency Musculoskeletal Musculoskeletal: Denies arthralgias or myalgias Integumentary Denies rash Neurologic Neurologic: Denies weakness EXAM <KELY Batres - Last Filed: 06/22/23 18:22> Physical Exam Const Vital Signs: 06/22/23 13:03 06/22/23 14:21 06/22/23 16:35 Temperature 97.4 F L Temperature Source Temporal Pulse Rate 108 H 74 Respiratory Rate 15 17 Respiratory Effort Normal Non-Labored Blood Pressure 113/83 H 115/69 Blood Pressure Mean 93 84 Pulse Ox 96 96 Oxygen Delivery Method Room Air Room Air 06/22/23 18:15 Temperature Temperature Source Pulse Rate 68 Respiratory Rate 15 Respiratory Effort Blood Pressure 124/79 H Blood Pressure Mean 94 Pulse Ox 98 Oxygen Delivery Method Positive well nourished, well developed and no apparent distress General Appearance ED: well developed HEENT Reports normocephalic and head/scalp atraumatic Mouth ED: Yes moist mucous membranes normal Eyes PERRL and EOMs intact bilaterally Neck full ROM and supple Chest Wall inspection of chest normal Chest Narrative: Slight tenderness below the right breast Resp normal respiratory effort and clear to auscultation bilaterally Cardio regular rate and regular rhythm GI soft to palpation, non-tender, non-distended and no masses Back/Spine normal ROM and normal to inspection Extremity normal to inspection and full ROM Neuro oriented x3, CN's II-XII intact bilaterally, moves all extremities, no focal motor deficits and no sensory deficits noted Sensorium / Orientation: awake and alert Psych mental status grossly normal and thought process normal Skin no rashes or lesions noted and no wounds <Dr. Delgado Gutierrez MD - Last Filed: 06/22/23 14:54> Physical Exam Const Vital Signs: 06/22/23 13:03 06/22/23 14:21 06/22/23 16:35 Temperature 97.4 F L Temperature Source Temporal Pulse Rate 108 H 74 Respiratory Rate 15 17 Respiratory Effort Normal Non-Labored Blood Pressure 113/83 H 115/69 Blood Pressure Mean 93 84 Pulse Ox 96 96 Oxygen Delivery Method Room Air Room Air 06/22/23 18:15 Temperature Temperature Source Pulse Rate 68 Respiratory Rate 15 Respiratory Effort Blood Pressure 124/79 H Blood Pressure Mean 94 Pulse Ox 98 Oxygen Delivery Method MDM <KELY Batres - Last Filed: 06/22/23 18:22> [facility] Narrative Medical decision making narrative: Patient presenting due to pain below her right breast that started this afternoon suddenly. She reports that she has had nausea, vomiting, diarrhea over the past several days as all of her children are sick with similar symptoms. However, she did recently have her gallbladder removed at the end of May. Patient is slightly tachycardic at 108 bpm, given this, D-dimer was obtained to rule out PE. Labs obtained to rule out leukocytosis, anemia, electrolyte abnormality, hepatobiliary etiology, and ACS. She will be given IV fluids, Reglan, and Toradol. Tenderness to her right lower rib cage without any crepitus, consistent with chest wall strain. On reexamination she reports improvement of her symptoms, she is no longer tachycardic. Chest x-ray does not show any acute cardiopulmonary abnormality. CBC unremarkable, D-dimer WNL, CMP shows a bilirubin of 1.7, this was normal on 06/13. Given this, right upper quadrant ultrasound will be obtained. This shows no evidence of bile duct distention. She does have a history of migraines after a head injury that occurred several years ago. I will give her a prescription for Imitrex and she has been encouraged to follow-up with her PCP for further treatment. I have also encouraged her to follow-up with her surgeon regarding the bilirubin elevation. She will be discharged home in stable condition and is comfortable with plan. Lab Data Attestation: I reviewed the patient's lab results. Labs: Laboratory Results - last 24 hr 06/22/23 14:39 WBC 5.6 RBC 4.80 Hgb 13.5 Hct 41.6 MCV 86.7 MCH 28.1 MCHC 32.5 RDW Std Deviation 41.3 RDW Coeff of Raúl 13.2 Plt Count 238 MPV 11.2 Immature Gran % (Auto) 0.400 Neut % (Auto) 62.5 Lymph % (Auto) 24.7 [place] % (Auto) 10.7 H Eos % (Auto) 1.3 Baso % (Auto) 0.4 Absolute Neuts (auto) 3.5 Absolute Lymphs (auto) 1.38 Nucleated RBC % 0 D-Dimer Quant (PE/DVT) 0.28 Sodium 139 Potassium 3.5 Chloride 108 H Carbon Dioxide 26.0 Anion Gap 5 BUN 14 Creatinine 0.72 Estim Creat Clear Calc 89.54 Est GFR (MDRD) Af Amer 122 Est GFR (MDRD) Non-Af 101 BUN/Creatinine Ratio 19.6 Glucose 116 H Calcium 9.1 Total Bilirubin 1.70 H AST 23 ALT 34 Alkaline Phosphatase 125 H Troponin I High Sens 6 Total Protein 7.7 Albumin 3.8 Globulin 3.9 Albumin/Globulin Ratio 1.0 Lipase 24 Radiography Diagnostic Testing: Clinical Impression(s) from Imaging Studies Chest X-Ray 06/22/23 15:21 IMPRESSION: Normal x-ray examination of the chest. Electronically Signed: Lee Guzman MD at 15:57 EST , Gallbladder Ultrasound 06/22/23 15:24 IMPRESSION: No definite acute abnormality status post cholecystectomy. No evidence of bile duct distention. Electronically Signed: Lee Guzman MD at 18:04 EST , EKG Initial EKG: Comments: 87 bpm, sinus rhythm with PACs, no ST elevation, reviewed and interpreted by attending ED physician <Dr. Delgado Gutierrez MD - Last Filed: 06/22/23 14:54> [facility] Lab Data Labs: Laboratory Results - last 24 hr 06/22/23 14:39 WBC 5.6 RBC 4.80 Hgb 13.5 Hct 41.6 MCV 86.7 MCH 28.1 MCHC 32.5 RDW Std Deviation 41.3 RDW Coeff of Raúl 13.2 Plt Count 238 MPV 11.2 Immature Gran % (Auto) 0.400 Neut % (Auto) 62.5 Lymph % (Auto) 24.7 [place] % (Auto) 10.7 H Eos % (Auto) 1.3 Baso % (Auto) 0.4 Absolute Neuts (auto) 3.5 Absolute Lymphs (auto) 1.38 Nucleated RBC % 0 D-Dimer Quant (PE/DVT) 0.28 Sodium 139 Potassium 3.5 Chloride 108 H Carbon Dioxide 26.0 Anion Gap 5 BUN 14 Creatinine 0.72 Estim Creat Clear Calc 89.54 Est GFR (MDRD) Af Amer 122 Est GFR (MDRD) Non-Af 101 BUN/Creatinine Ratio 19.6 Glucose 116 H Calcium 9.1 Total Bilirubin 1.70 H AST 23 ALT 34 Alkaline Phosphatase 125 H Troponin I High Sens 6 Total Protein 7.7 Albumin 3.8 Globulin 3.9 Albumin/Globulin Ratio 1.0 Lipase 24 Radiography Diagnostic Testing: Clinical Impression(s) from Imaging Studies Chest X-Ray 06/22/23 15:21 IMPRESSION: Normal x-ray examination of the chest. Electronically Signed: Lee Guzman MD at 15:57 EST , Gallbladder Ultrasound 06/22/23 15:24 IMPRESSION: No definite acute abnormality status post cholecystectomy. No evidence of bile duct distention. Electronically Signed: Lee Guzman MD at 18:04 EST , Treatment and Re-Evaluation Comments:: I have personally performed a face to face assessment of the patient and have reviewed the DEREK Note. I performed a substantive portion of the visit including all aspects of the following. My gallardo findings include: History is right-sided chest discomfort that is worse with very deep inspiration but not regular tidal breaths. No cough or dyspnea. Has had vomiting and diarrhea as have had multiple family members in this past week and she has been dealing with a headache, she has been having recurrent headaches for the past 10 years since she had head injury, has not discussed this with her PCP but they are debilitating when she has them, often last a week or 2, associated with photophobia and nausea sometimes vomiting. She has had that headache for the past week. No abdominal pain. Exam is tender right anterior lower chest wall inframammary without crepitance, reproducing the patient's pain. Abdomen soft nontender nondistended no tenderness at the ribs of the costal margin. No subcutaneous emphysema. Equal breath sounds bilaterally. Conversive in full sentences. Medical Decison Making mild resting tachycardia in triage. More likely due to mild dehydration, but given the pleuritic nature of the discomfort, recent cholecystectomy, and also possibility of lower lobe pneumonia, we are obtaining cardiac workup, D-dimer to evaluate for pulmonary embolism, chest x-ray to rule out pneumonia, and liver enzymes to rule out biliary obstruction/process. Highest on the differential is musculoskeletal intercostal strain due to lots of recent vomiting. Will also treat her headache that is consistent with a migraine. We discussed follow-up regarding this. Other additions or changes: [None] Discharge Plan Triage Chief Complaint: Chest Pain ED Midlevel Provider: Minal Hawk ED Provider: Delgado Gutierrez Dx/Rx/DC Orders Clinical Impression: Chest wall muscle strain, Acquired hyperbilirubinemia Instructions: ED Chest Wall Strain Prescriptions: New sumatriptan succinate [Imitrex] 25 mg tablet 25 mg PO Q2H PRN (Reason: migraine headache) Qty: 8 0RF Rx Instructions: do not exceed 8 doses per 24 hrs ondansetron 4 mg tablet,disintegrating 4 mg PO Q8H PRN PRN (Reason: Nausea) Qty: 10 0RF No Action ibuprofen 600 mg tablet 600 mg PO Q6H PRN (Reason: PAIN OR FEVER) sertraline 50 mg tablet 50 mg PO DAILY Qty: 30 2RF docusate sodium 100 mg capsule 100 mg PO BID Qty: 20 0RF esomeprazole magnesium [Nexium] 20 mg capsule,delayed release(DR/EC) 20 mg PO DAILY Qty: 20 0RF cholecalciferol (vitamin D3) 125 mcg (5,000 unit) capsule 125 mcg PO DAILY 56 Days Qty: 56 0RF Primary Care Provider: Elena Osorio Referrals: Elena Osorio MD [Primary Care Provider] - 5-7 Days Activity Restrictions/Additional Instructions: Please follow-up with your surgeon given your elevated bilirubin level. Return for any worsening of your symptoms. Disposition Disposition: Home, Self Care Discharge Date/Time: 06/22/23 18:17
[2023-06-22] MEDS: 0.9% Normal Saline (1000mL) 1,000 ML 999 ML IV (14:37)
[2023-06-22] MEDS: Ketorolac 15 MG/ML Vial IV (14:37)
[2023-06-22 14:50] LABS: Absolute Lymphocyte Count 1.38 X10^3/uL (0.83-4.51); Absolute Neutrophil Count 3.5 X10^3/uL (2.0-7.7); Basophil# 0.02 X10^3/uL; Basophil% 0.4 % (0-1); Eosinophil# 0.07 X10^3/uL; Eosinophils% 1.3 % (0-5); Hematocrit 41.6 % (37-47); Hemoglobin 13.5 g/dL (12.0-15.0); Lymphocyte # 1.38 X10^3/ul (0.83-4.51); Lymphocyte % 24.7 % (19-41); Mean Corp Hgb Conc 32.5 g/dL (32-36); Mean Corpuscular Hgb 28.1 pg (27.0-32.0); Mean Corpuscular Volume 86.7 fL (81-99); Mean Platelet Vol. 11.2 fl (6.2-12.0); Monocyte% 10.7 % (0-10); NRBC Flagged by Analyzer 0 % (0-5); Neutrophil % 62.5 % (47-70); Platelet Count 238 K/mm3 (150-450); RBC Distribution Width CV 13.2 % (11.6-14.6); RBC Distribution Width SD 41.3 fl (35.1-43.9); White Blood Count 5.6 K/mm3 (4.4-11.0)
[2023-06-22 15:04] LABS: D-Dimer Quantitative (DVT/PE) 0.28 FEU/ug/m (0.27-0.49)
[2023-06-22 15:08] LABS: AST(SGOT) 23 U/L (15-37); Alanine Aminotransfer ALT/SGPT 34 U/L (13-56); Albumin, Serum 3.8 g/dL (3.2-5.0); Alkaline Phosphatase 125 U/L (45-117); Anion Gap 5 (5-15); BUN 14 mg/dL (7-18); BUN/Creat Ratio 19.6 RATIO (10-20); Calcium,Total 9.1 mg/dL (8.5-10.1); Chloride 108 mmol/L (98-107); Creatinine, Serum 0.72 mg/dL (0.55-1.02); EST Glomerular Filtration Rate 101 mL/min (>60); Est Glom Filt Rate - Afr Amer 122 mL/min (>60); Estimated Creatinine Clearance 89.54 ml/min; Globulin 3.9 g/dL (2.2-4.2); Glucose 116 mg/dL (74-106); Potassium 3.5 mmol/L (3.5-5.1); Protein, Total 7.7 g/dL (6.4-8.2); Sodium Level 139 mmol/L (136-145); Troponin-I HS 6 pg/mL (3.0-54.0)
[2023-06-22] MEDS: Metoclopramide 10 MG/2 ML Vial 5 MG IV (15:20)
--- NOTE | 2023-06-22 15:21 | RAD_ITS ---
STUDY: X-RAY CHEST REASON FOR EXAM: Female, 32 years old. chest pain TECHNIQUE: Single AP portable view of the chest. COMPARISON: 06/01/2019. FINDINGS: The lungs are clear and expanded. There is no demonstrated pleural abnormality. Normal size heart. Normal mediastinum and jeana. Normal visualized pulmonary arteries. Normal visualized aortic arch and descending thoracic aorta. Normal visualized thoracic spine. Normal visualized ribs, clavicles, and shoulders. There is no demonstrated abnormality of the visualized soft tissue structures of the upper abdomen. RAD/Chest 1 View (Portable) IMPRESSION: Normal x-ray examination of the chest. Electronically Signed: Lee Guzman MD at 15:57 EST ,
--- NOTE | 2023-06-22 15:24 | US_ITS ---
STUDY: ABDOMINAL ULTRASOUND - RIGHT UPPER QUADRANT REASON FOR VISIT: Female, 32 years old pain, elevated bilirubin reason cholecystectomy. TECHNIQUE: Ultrasound evaluation of the right upper quadrant was performed with real-time and static mendenhall-scale imaging. TECHNICAL QUALITY: Limited. Examination limited due to a combination of factors including obesity and bowel gas. COMPARISON: 05/28/2023. FINDINGS: Liver: The liver measures 16.1 cm. There is normal echogenicity of the liver. The bile ducts are within normal limits. There is hepatic color flow. The direction of portal flow is hepatopetal. There is no demonstrated mass lesion. Gallbladder: The patient is status post cholecystectomy. Common Bile Duct (C.B.D.): The common bile duct measures 4 mm. Echogenic structure consistent with common bile duct stent seen. Pancreas: Normal size of the head, body and tail of the pancreas. There is normal echogenicity of the pancreas. There is no demonstrated pancreatic mass or cyst. Right Kidney: Normal size of the right kidney. The right kidney measures 10.1 cm. Normal renal cortex. The right cortex measures 1.1 cm. There is no demonstrated renal mass or cyst. There is no right hydronephrosis. US/Gallbladder IMPRESSION: No definite acute abnormality status post cholecystectomy. No evidence of bile duct distention. Electronically Signed: Lee Guzman MD at 18:04 EST ,
[2023-06-22 15:42] LABS: Lipase 24 U/L (13-75)
[2023-06-22 16:35] VITALS: BP 115/69; PULSE 74; RESP 17; O2SAT 96
[2023-06-22 18:15] VITALS: BP 124/79; PULSE 68; RESP 15; O2SAT 98
== END 2023-06-22 18:17 | disposition home or self-care (01) ==
PROVIDERS: Physician Assistant; Emergency Provider Emergency Medicine; PCP Internal Medicine; Visit Provider Emergency Medicine
DX: S29.011A Strain of muscle and tendon of front wall of thorax, initial encounter (principal); F41.9 Anxiety disorder, unspecified; F32.A Depression, unspecified; Z79.899 Other long term (current) drug therapy; E80.7 Disorder of bilirubin metabolism, unspecified
CPT/HCPCS: 71045; 76705; 80053; 83690; 84484; 85025; 85379; 93005; 96374; 96375; 99283; J7030; A4216

== ENCOUNTER 2023-09-02 07:56 | Day surgery (SDC) | payer MEDICAID, SELFPAY ==
[2023-09-02] VITALS (7 sets, daily range): BP systolic 105–135; BP diastolic 58–91; PULSE 51–94; RESP 16; TEMP 36.1–36.6; O2SAT 99–100; BMI 29.4
--- NOTE | 2023-09-02 08:08 | EKG12_ITS ---
Test Reason : PRE OP Blood Pressure : / mmHG Vent. Rate : 050 BPM Atrial Rate : 050 BPM P-R Int : 144 ms QRS Dur : 078 ms QT Int : 438 ms P-R-T Axes : 015 061 044 degrees QTc Int : 399 ms Sinus bradycardia Otherwise normal ECG When compared with ECG of 22-JUN-2023 13:10, Premature atrial complexes are no longer Present Vent. rate has decreased BY 37 BPM T wave inversion now evident in Anterior leads Confirmed by EMILIA HOLT, SUSHILA ([id number]), newspaper managing editor PATSY SCHWAB ([id number]) on 09/09/2023 2:15:24 PM Referred By: John Lei Confirmed By:MARIYA NIETO MD
[2023-09-02 08:21] LABS: Internal QC Validated? YES +Cl - CLEAR BKGD; Pregnancy, Urine Negative Negative; Record Kit Lot#,Urine Preg HCG0000718086
--- OUTSIDE RECORDS SUMMARY | 2023-09-02 08:21 | XMS RPT_ITS | CCD ---
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 Name Role Phone CONSUELO HURTADO Unavailable Unavailable ANGELIKA MONREAL Unavailable Unavailable ANGELIKA MONREAL Unavailable Unavailable ANGELIKA MONREAL Unavailable Unavailable [facility] Unavailable U navailable Mian Brock Unavailable Unavailable Irene Hook Unavailable Unavailable Katya Yeager Unavailable Unavail able Angelika Monreal Unavailable Unavailable Angelika Monreal Attending Unavailable Angelika Monreal Primary Care Unavailable Angelika Monreal Consulting Unavailable Katya Yeager Attending Unavailab le Family Physician Unavailable Primary Care Lizzie vailable Family Physician Unavailable Consulting Lizzie vailable PHYSICIAN, NONE Primary Care Physician Unavailab le Unavailable Primary Care Provider Unavailabl e PROVIDER, UNKNOWN Attending Unavailable PROVIDER, UNKNOWN Admitting Unavailable NAZARIO MALIK Attending Unavailable PHYSICIAN, NONE Primary Care Unavailable Austin RIVERA - RUMA, Rambo Primary Care Provider [phone] Avila 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-RUMA, Rambo A Primary Care Provider [phone] Avila 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 - RUMA, Rambo Primary Care Provider [phone] CRIS ADAMS Referring Unavailable DESIREE BRASHER Attending Unavailable AUSTIN, RAMBO A Primary Care Unavailable RADHA AGUILAR Attending Unavailable CRIS ADAMS Referring Unavailable AVILA, RAMOB A Primary Care Unavailable RADHA AGUILAR Referring Unavailable AVILA, RAMBO A Primary Care Unavailable RADHA AGUILAR Attending Unavailable AUSTIN, RAMBO Primary Care Unavailable YAJAIRA AMOR Attending Unavailable KOSTAS, CRIS Attending Unavailable SEDLAK, WENDY Attending Unavailable AVILA, RAMBO Primary Care Unavailable FELIPE GARCIA Attending Unavailable AVILA, RAMBO Primary Care Unavailable FELIPE GARCIA Referring Unavailable AVILA, RAMBO Primary Care Unavailable YAJAIRA AMOR C Attending Unavailable SARA AMORNA C Admitting Unavailable KOSTAS, CRIS Admitting Unavailable AVILA, RAMBO Primary Care Unavailable KOSTAS, CRIS Attending Unavailable SEDLAK, WENDY Attending Unavailable AVILA, RAMBO Primary Care Unavailable AVILA, RAMBO Primary Care Unavailable SEDLAK, WENDY Attending Unavailable AVILA, RAMBO Primary Care Unavailable SAFFELL, CELESTE Attending Unavailable AVILA, RAMBO Primary Care Unavailable KOSTAS, CRIS Attending Unavailable AVILA, RAMBO Primary Care Unavailable SHELLEY FERGUSON Referring Unavailable AVILA, RAMBO Primary Care Unavailable SHELLEY FERGUSON Referring Unavailable AVILA, RAMBO Primary Care Unavailable OSMAN BRENNAN Referring Unavailable KOSTAS, CRIS Attending Unavailable KOSTAS, CRIS Admitting Unavailable AVILA, RAMBO Primary Care Unavailable AVILA, RAMBO Primary Care Unavailable WELLOCKSHELLEY Attending Unavailable ALAS RADHA Attending Unavailable AVILA, RAMBO Primary Care Unavailable ALAS, RADHA Admitting Unavailable AVILA, RAMBO Primary Care Unavailable WELLOCK, SHELLEY Attending Unavailable AVILA, RAMBO Primary Care Unavailable DOM BROWN Attending Unavailable SAFFELL, CELESTE Attending Unavailable AVILA, RAMBO Primary Care Unavailable SAFFELL, CELESTE Attending Unavailable AVILA, RAMBO Primary Care Unavailable SAFFELL, CELESTE Attending Unavailable AVILA, RAMBO Primary Care Unavailable AVILA, RAMBO Primary Care Unavailable AMANDA COELLO Attending Unavailable AVILA, RAMBO Primary Care Unavailable AVILA, RAMBO Primary Care Unavailable SEDLAK, WENDY Attending Unavailable SEDLAK, WENDY Referring Unavailable AVILA, RAMBO Primary Care Unavailable SAFFELL, CELESTE Attending Unavailable SAFFELL, CELESTE Attending Unavailable AVILA, RAMBO Primary Care Unavailable SAFFELL, CELESTE Attending Unavailable AVILA, RAMBO Primary Care Unavailable AVILA, RAMBO Primary Care Unavailable KOSTAS, CRIS Attending Unavailable AVILA, RAMBO Primary Care Unavailable KOSTAS, CRIS Attending Unavailable MARTA CEBALLOS Referring Unavailabl e AVILA, RAMBO Primary Care Unavailable AVILA, RAMBO Primary Care Unavailable AVILA, RAMBO Primary Care Unavailable SAFFELL, CELESTE Attending Unavailable AVILA, RAMBO Primary Care Unavailable SAFFELL, CELESTE Attending Unavailable RILEY JOY Attending Unavailable RAMBO AVILA Primary Care Unavailable WENYD THIBODEAUX Attending Unavailable MARTA CEBALLOS Attending Unavailkami e RAMBO AVILA [facility] Unavailable Medications Current Medications Medication Drug Class(es) Dates Sig (Normalized) Sig (Original) amoxicillin 500 mg oral capsule (1 source) Penicillin-class Antibacterial Start: 06-19-2022 End: 06-29-2022 amoxicillin 500 mg oral capsule Dose : 500 mg = 1 cap(s), Oral, BID, X 10 day(s), # 20 cap(s), 0 Refill(s), 06/29/22 13:39:00 EST, Pharyngitis Start Date: 06/19/22 Stop Date: 06/29/22 Status: Ordered Blood Glucose Monitoring Suppl kit (20 sources) Start: 01-17-2023 Blood Glucose Monitoring Suppl kit Indications: Abnormal glucose tolerance affecting , antepartum , 29 weeks gestation of Check blood sugar 4 times daily and prn 1 kit 0 01/17/2023 Suspended Completed/Discontinued Medications Medication Drug Class(es) Dates Sig (Normalized) Sig (Original) acetaminophen 325 mg oral tablet (20 sources) Start: 03-21-2023 End: 03-22-2023 take 1 tablet by mouth every six hours as needed 650 mg, Oral, Every 6 hours PRN, other, pain (1-10), Starting on Rachel 03/21/23 at 0641 Give in addition to any other pain medication ordered at same time for any pain indication. &n bsp;Maximum dose of acetaminophen is 4000 mg from all sources in 24 hours. A lternate ibuprofen and acetaminophen every 3 hours. G enedina ibuprofen first in the sequence. Problems Active Problems Problem Classification Problem Date Documented Date Episodic/Chronic Abdominal pain (4 sources) Upper abdominal pain; Translations: [Upper abdominal pain, unspecified] Onset: 04-25-2023 04-25-2023 Episodic Administrative/socia l admission (1 source) Discussed with patient; Translations: [Other specified counseling] Onset: 11-14-2022 11-14-2022 Episodic Anxiety disorders (4 sources) Anxiety; Translations: [Anxiety disorder, unspecified] Onset: 04-25-2023 04-25-2023 Chronic Biliary tract disease (4 sources) Cholelithiasis without obstruction; Translations: [Calculus of gallbladder without cholecystitis without obstruction] Onset: 04-25-2023 04-25-2023 Episodic Coagulation and hemorrhagic disorders (3 sources) Thrombocytopenic disorder; Translations: [Thrombocytopenia, unspecified] Onset: 01-14-2023 04-08-2023 Chronic Diabetes or abnormal glucose tolerance complicating ; childbirth; or the puerperium (20 sources) Abnormal glucose tolerance in mother complicating , childbirth AND/OR puerperium; Translations: [Abnormal glucose complicating ] Onset: 01-14-2023 Resolved: 04-08-2023 01-14-2023 Episodic Immunizations and screening for infectious disease (2 sources) Encounter for screening for human papillomavirus (HPV); Translations: [Encounter for screening for human papillomavirus (HPV)] Onset: 05-05-2018 Episodic Menstrual disorders (2 sources) Amenorrhea, unspecified; Translations: [Amenorrhea, unspecified] Onset: 08-24-2022 Chronic Miscellaneous mental health disorders (1 source) depression; Translations: [ depression] 04-08-2023 Episodic Nonspecific chest pain (6 sources) Chest wall pain; Translations: [Other chest pain] Onset: 04-25-2023 04-25-2023 Episodic Other complications of (5 sources) High risk ; Translations: [Supervision of high risk , unspecified, first trimester] Episodic Other complications of (1 source) ultrasound scan abnormal; Translations: [Abnormal ultrasonic finding on screening of mother] 11-14-2022 Episodic Other complications of (1 source) Anxiety; Translations: [Other mental disorders complicating the puerperium] 04-08-2023 Episodic Other complications of (2 sources) Supervision of with grand multiparity, unspecified trimester; Translations: [Supervision of with grand multiparity, unspecified trimester] Onset: 09-07-2022 Episodic Other complications of (2 sources) Other diseases of the blood and blood-forming organs and certain disorders involving the immune mechanism complicating , unspecified trimester; Translations: [Other diseases of the blood and blood-forming organs and certain disorders involving the immune mechanism complicating , unspecified trimester] Onset: 01-14-2023 Episodic Other complications of (2 sources) Low weight gain in , third trimester; Translations: [Low weight gain in , third trimester] Onset: 01-14-2023 Episodic Other female genital disorders (2 sources) Vaginal bleeding; Translations: [Vaginal Bleeding] Onset: 02-23-2023 Chronic Other and delivery including normal (20 sources) Patient encounter status; Translations: [Encounter for supervision of normal , unspecified, unspecified trimester] Onset: 09-07-2022 Resolved: 04-08-2023 09-07-2022 Episodic Other screening for suspected conditions (not mental disorders or infectious disease) (9 sources) Unspecified abnormal cytological findings in specimens from cervix uteri; Translations: [Patient encounter status] Onset: 05-05-2018 Episodic Other upper respiratory infections (1 source) Acute pharyngitis; Translations: [Acute pharyngitis, unspecified] Onset: 06-19-2022 Episodic Otitis media and related conditions (1 source) Acute suppurative otitis media without spontaneous rupture of ear drum; Translations: [Acute suppurative otitis media without spontaneous rupture of ear drum, bilateral] Episodic Residual codes; unclassified (1 source) Gestation period, 29 weeks; Translations: [29 weeks gestation of ] 01-17-2023 Episodic Residual codes; unclassified (3 sources) Gestation period, 35 weeks; Translations: [35 weeks gestation of ] Onset: 03-01-2023 03-01-2023 Episodic Residual codes; unclassified (6 sources) Gestation period, 37 weeks; Translations: [37 weeks gestation of ] Onset: 03-15-2023 03-15-2023 Episodic Residual codes; unclassified (18 sources) Gestation period, 38 weeks; Translations: [38 weeks gestation of ] Onset: 03-20-2023 Resolved: 04-08-2023 03-20-2023 Episodic Residual codes; unclassified (1 source) 38 weeks gestation of ; Translations: [38 weeks gestation of ] Onset: 03-20-2023 Episodic Residual codes; unclassified (2 sources) Genetic carrier of other disease; 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] Onset: 01-14-2023 Episodic Residual codes; unclassified (1 source) 37 weeks gestation of ; Translations: [37 weeks gestation of ] Onset: 03-15-2023 Episodic Residual codes; unclassified (1 source) 35 weeks gestation of ; Translations: [35 weeks gestation of ] Onset: 03-01-2023 Episodic Unclassified (1 source) High grade intrepith lesion cyto smr crvx (HGSIL) / R87.613(ICD-10) Onset: 08-26-2017 Unclassified (1 source) Moderate cervical dysplasia / N87.1(ICD-10) Onset: 06-25-2017 Unclassified (2 sources) [employer]MED SECURITY PROFESSIONAL VISIT Onset: 05-05-2018 Unclassified (2 sources) Laboring; Translations: [Laboring] Onset: 03-13-2023 Unclassified (2 sources) Routine Visit; Translations: [Routine Visit] Onset: 03-04-2023 Unclassified (2 sources) Decreased Movement; Translations: [Decreased Movement] Onset: 02-23-2023 Unclassified (2 sources) Weakness, Gen; Translations: [Weakness, Gen] Onset: 02-10-2023 Past or Other Problems Problem Classification Problem Date Documented Da te Episodic/Chronic Cancer of cervix (1 source) High grade squamous intraepithelial lesion on cytologic smear of cervix (HGSIL); Translations: [High grade intrepith lesion cyto smr crvx (HGSIL)] Onset: 8 Episodic Contraceptive and procreative management (2 sources) Encounter for removal of intrauterine contraceptive device; Translations: [Encounter for removal of intrauterine contraceptive device] Onset: 2 Episodic Other complications of (20 sources) care: grand multiparity; Translations: [Supervision of with grand multiparity, unspecified trimester] Onset: 3 Resolved: 3 09-07-2022 Episodic Other complications of (20 sources) Hyperemesis gravidarum; Translations: [Vomiting of , unspecified] Onset: 3 Resolved: 3 09-07-2022 Episodic Other complications of (20 sources) Headache; Translations: [Other specified related conditions, unspecified trimester] Onset: 2 Resolved: 3 09-07-2022 Episodic Other complications of (2 sources) ; Translations: [ with inconclusive viability, not applicable or unspecified] Onset: 3 Episodic Other complications of (20 sources) Low maternal weight gain; Translations: [Low weight gain in , third trimester] Onset: 3 Resolved: 3 01-14-2023 Episodic Other complications of (20 sources) Heartburn; Translations: [Other specified related conditions, unspecified trimester] Onset: 3 Resolved: 3 01-14-2023 Episodic Other complications of (20 sources) Pain in female pelvis; Translations: [Other specified related conditions, unspecified trimester] Onset: 3 Resolved: 3 01-14-2023 Episodic Other complications of (20 sources) Thrombocytopenic disorder; Translations: [Other diseases of the blood and blood-forming organs and certain disorders involving the immune mechanism complicating , unspecified trimester] Onset: 3 Resolved: 3 01-14-2023 Episodic Other complications of (19 sources) Vaginal discharge; Translations: [Other specified related conditions, third trimester] Onset: 3 Resolved: 3 03-18-2023 Episodic Other complications of (2 sources) Supervision of high risk , unspecified, third trimester; Translations: [Supervision of high risk , unspecified, third trimester] Onset: 3 Episodic Other complications of (2 sources) Other specified related conditions, unspecified trimester; Translations: [Other specified related conditions, unspecified trimester] Onset: 3 Episodic Other complications of (2 sources) Supervision of high risk , unspecified, first trimester; Translations: [Supervision of high risk , unspecified, first trimester] Onset: 3 Episodic Other complications of (2 sources) Vomiting of , unspecified; Translations: [Vomiting of , unspecified] Onset: 3 Episodic Other complications of (1 source) with inconclusive viability, not applicable or unspecified; Translations: [ with inconclusive viability, not applicable or unspecified] Onset: 3 Episodic Other female genital disorders (1 source) Moderate cervical dysplasia; Translations: [Moderate cervical dysplasia] Onset: 7 Episodic Other gastrointestinal disorders (2 sources) Heartburn; Translations: [Heartburn] Onset: 3 Episodic Residual codes; unclassified (3 sources) Gestation period, 19 weeks; Translations: [19 weeks gestation of ] Onset: 3 Episodic Residual codes; unclassified (2 sources) Gestation period, 23 weeks; Translations: [23 weeks gestation of ] Onset: 3 Episodic Residual codes; unclassified (20 sources) Carrier of fragile X chromosome; 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] Onset: 3 01-14-2023 Episodic Residual codes; unclassified (2 sources) Gestation period, 28 weeks; Translations: [28 weeks gestation of ] Onset: 3 01-14-2023 Episodic Residual codes; unclassified (20 sources) Insomnia; Translations: [Insomnia, unspecified] Onset: 3 Resolved: 3 01-28-2023 Episodic Residual codes; unclassified (2 sources) Gestation period, 33 weeks; Translations: [33 weeks gestation of ] Onset: 3 02-18-2023 Episodic Residual codes; unclassified (1 source) 33 weeks gestation of ; Translations: [33 weeks gestation of ] Onset: 3 Episodic Residual codes; unclassified (2 sources) Insomnia, unspecified; Translations: [Insomnia, unspecified] Onset: 3 Episodic Residual codes; unclassified (1 source) 28 weeks gestation of ; Translations: [28 weeks gestation of ] Onset: 3 Episodic Residual codes; unclassified (1 source) 23 weeks gestation of ; Translations: [23 weeks gestation of ] Onset: 3 Episodic Residual codes; unclassified (1 source) 19 weeks gestation of ; Translations: [19 weeks gestation of ] Onset: 3 Episodic Residual codes; unclassified (2 sources) 10 weeks gestation of ; Translations: [10 weeks gestation of ] Onset: 3 Episodic Screening and history of mental health and substance abuse codes (20 sources) H/O: depression; Translations: [Personal history of other mental and behavioral disorders] Onset: 09-07-2022 Episodic Results Test Name Value Interpretation Reference Range Facil ity Vital Signs Date Time Vital Sign Value Performing Clinician Yasmeen desouza 04-25-2023 15:55-0400 Diastolic blood pressure 66 mm[Hg] Shelley Ferguson MD Work Phone: [facility] 04-25-2023 15:55-0400 Heart rate 49 /min Shelley Ferguson MD Work Phone: [facility] 04-25-2023 15:55-0400 Respiratory rate 16 /min Shelley Ferguson MD Work Phone: [facility] 04-25-2023 15:55-0400 SaO2% (BldA) [Mass fraction] 99 % Shelley Ferguson MD Work Phone: [facility] 04-25-2023 15:55-0400 Systolic blood pressure 124 mm[Hg] Shelley Ferguson MD Work Phone: [facility] 04-25-2023 11:09-0400 Body mass index (BMI) [Ratio] 27.44 kg/m2 Shelley Ferguson MD Work Phone: [facility] 04-25-2023 11:09-0400 Body temperature 98.2 [degF] Shelley Ferguson MD Work Phone: [facility] 04-25-2023 11:09-0400 Body weight 68.04 kg Shelley Ferguson MD Work Phone: [facility] 04-25-2023 07:51-0400 Diastolic blood pressure 76 mm[Hg] Osman Gombash DO Work Phone: [facility] 04-25-2023 07:51-0400 Heart rate 45 /min Osman Gombash DO Work Phone: [facility] 04-25-2023 07:51-0400 SaO2% (BldA) [Mass fraction] 100 % Osman Gombash DO Work Phone: [facility] 04-25-2023 07:51-0400 Systolic blood pressure 124 mm[Hg] Osman Brennan DO Work Phone: [facility] [employer] 04-25-2023 05:56-0400 Respiratory rate 15 /min Osman Brennan DO Work Phone: [facility] [employer] 04-08-2023 13:20-0400 Body mass index (BMI) [Ratio] 27.55 kg/m2 Celeste Saffell 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 Work Phone: [facility] [employer] 04-08-2023 13:20-0400 Body weight 68.31 kg Celeste Saffell 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 Work Phone: [facility] [employer] 04-08-2023 13:20-0400 Diastolic blood pressure 80 mm[Hg] Celeste Saffell 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 Work Phone: [facility] [employer] 04-08-2023 13:20-0400 Heart rate 87 /min Celeste Jeffyfell 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 Work Phone: [facility] [employer] 04-08-2023 13:20-0400 Systolic blood pressure 110 mm[Hg] Celeste Jeffyfell 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 Work Phone: [facility] [employer] 03-22-2023 07:32-0400 Body temperature 97.5 [degF] Cris Adams MD Work Phone: [facility] [employer] 03-22-2023 07:32-0400 Diastolic blood pressure 67 mm[Hg] Cris Adams MD Work Phone: [facility] [employer] 03-22-2023 07:32-0400 Heart rate 68 /min Cris Adams MD Work Phone: [facility] [employer] 03-22-2023 07:32-0400 Respiratory rate 18 /min Cris Adams MD Work Phone: [facility] [employer] 03-22-2023 07:32-0400 SaO2% (BldA) [Mass fraction] 100 % Cris Adams MD Work Phone: [facility] [employer] 03-22-2023 07:32-0400 Systolic blood pressure 106 mm[Hg] Cris Adams MD Work Phone: [facility] [employer] 03-20-2023 14:38-0400 Body height 157.5 cm Cris Adams MD Work Phone: [facility] [employer] 03-20-2023 14:38-0400 Body mass index (BMI) [Ratio] 29.81 kg/m2 Cris Adams MD Work Phone: [facility] [employer] 03-20-2023 14:38-0400 Body weight 73.94 kg Cris Adams MD Work Phone: [facility] [employer] 03-18-2023 11:51-0400 Body mass index (BMI) [Ratio] 29.92 kg/m2 Celeste Saffell 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 Work Phone: [facility] [employer] 03-18-2023 11:51-0400 Body weight 74.21 kg Celeste Saffell 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 Work Phone: [facility] [employer] 03-18-2023 11:51-0400 Diastolic blood pressure 84 mm[Hg] Celeste Saffell 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 Work Phone: [facility] [employer] 03-18-2023 11:51-0400 Heart rate 60 /min Celeste Saffell 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 Work Phone: [facility] [employer] 03-18-2023 11:51-0400 Systolic blood pressure 114 mm[Hg] Celeste Saffell 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 Work Phone: [facility] [employer] 03-15-2023 08:42-0400 Body mass index (BMI) [Ratio] 29.89 kg/m2 Wendy Sedlak 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 CNM Work Phone: [facility] [employer] 03-15-2023 08:42-0400 Body weight 74.12 kg Wendy Sedlak 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 CN[employer] Work Phone: [facility] [employer] 03-15-2023 08:42-0400 Diastolic blood pressure 72 mm[Hg] Wendy Sedlak 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 CN[employer] Work Phone: [facility] [employer] 03-15-2023 08:42-0400 Systolic blood pressure 116 mm[Hg] Wendy Crouchk 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 CN[employer] Work Phone: [facility] [employer] 03-13-2023 18:21-0400 Diastolic blood pressure 69 mm[Hg] Cris Adams MD Work Phone: [facility] [employer] 03-13-2023 18:21-0400 Heart rate 98 /min Cris Adams MD Work Phone: [facility] [employer] 03-13-2023 18:21-0400 Systolic blood pressure 114 mm[Hg] Cris Adams MD Work Phone: [facility] [employer] 03-13-2023 18:20-0400 Body temperature 98.1 [degF] Cris Adams MD Work Phone: [facility] [employer] 03-13-2023 18:20-0400 Respiratory rate 20 /min Cris Adams MD Work Phone: [facility] [employer] 03-01-2023 13:00-0400 Body mass index (BMI) [Ratio] 29.41 kg/m2 Wendy Crouchk 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 CN[employer] Work Phone: [facility] [employer] 03-01-2023 13:00-0400 Body weight 72.94 kg Wendy Crouchk 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 CNM Work Phone: [facility] [employer] 03-01-2023 13:00-0400 Diastolic blood pressure 74 mm[Hg] Wendy Crouchk 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 CN[employer] Work Phone: [facility] [employer] 03-01-2023 13:00-0400 Heart rate 76 /min Wendy Crouchk 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 CN[employer] Work Phone: [facility] [employer] 03-01-2023 13:00-0400 Systolic blood pressure 107 mm[Hg] Wendy Crouchk 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 Work Phone: [facility] [employer] 02-23-2023 17:00-0400 Heart rate 82 /min Yajaira Amor MD Work Phone: [facility] [employer] 02-18-2023 08:53-0400 Body mass index (BMI) [Ratio] 29.08 kg/m2 Marta Ceballos MD Work Phone: [facility] [employer] 02-18-2023 08:53-0400 Body weight 72.12 kg Marta Ceballos MD Work Phone: [facility] [employer] 02-18-2023 08:53-0400 Diastolic blood pressure 75 mm[Hg] Marta Ceballos MD Work Phone: [facility] [employer] 02-18-2023 08:53-0400 Heart rate 70 /min Marta Ceballos MD Work Phone: [facility] [employer] 02-18-2023 08:53-0400 Systolic blood pressure 113 mm[Hg] Marta Ceballos MD Work Phone: [facility] [employer] 02-10-2023 14:35-0400 Heart rate 80 /min Radha Alas DO Work Phone: [facility] [employer] 02-10-2023 14:35-0400 SaO2% (BldA) [Mass fraction] 99 % Radha Alas DO Work Phone: [facility] [employer] 02-10-2023 13:48-0400 Diastolic blood pressure 74 mm[Hg] Radha Alas DO Work Phone: [facility] [employer] 02-10-2023 13:48-0400 Systolic blood pressure 106 mm[Hg] Radha Alas DO Work Phone: [facility] [employer] 02-06-2023 13:31-0400 Body mass index (BMI) [Ratio] 29.08 kg/m2 Yajaira Amor MD Work Phone: [facility] [employer] 02-06-2023 13:31-0400 Body weight 72.12 kg Yajaira Amor MD Work Phone: [facility] [employer] 02-06-2023 13:31-0400 Diastolic blood pressure 82 mm[Hg] Yajaira Amor MD Work Phone: [facility] [employer] 02-06-2023 13:31-0400 Systolic blood pressure 124 mm[Hg] Yajaira Amor MD Work Phone: [facility] [employer] 01-14-2023 07:58-0400 Body mass index (BMI) [Ratio] 29.04 kg/m2 Celeste Saffell 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 Work Phone: [facility] [employer] 01-14-2023 07:58-0400 Body weight 72.03 kg Celeste Saffell 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 Work Phone: [facility] [employer] 01-14-2023 07:58-0400 Diastolic blood pressure 65 mm[Hg] Celeste Saffell 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 Work Phone: [facility] [employer] 01-14-2023 07:58-0400 Heart rate 67 /min Celeste Saffell 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 Work Phone: [facility] [employer] 01-14-2023 07:58-0400 Systolic blood pressure 103 mm[Hg] Celeste Saffell 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 Work Phone: [facility] [employer] 12-07-2022 10:23-0400 Body mass index (BMI) [Ratio] 27.98 kg/m2 Cris Adams MD Work Phone: [facility] [employer] 12-07-2022 10:23-0400 Body weight 69.4 kg Cris Adams MD Work Phone: [facility] [employer] 12-07-2022 10:23-0400 Diastolic blood pressure 59 mm[Hg] Cris Adams MD Work Phone: [facility] [employer] 12-07-2022 10:23-0400 Heart rate 74 /min Cris Adams MD Work Phone: [facility] [employer] 12-07-2022 10:23-0400 Systolic blood pressure 94 mm[Hg] Cris Adams MD Work Phone: [facility] [employer] 11-06-2022 12:21-0400 Body mass index (BMI) [Ratio] 27.62 kg/m2 Cris Adams MD Work Phone: [facility] [employer] 11-06-2022 12:21-0400 Body weight 68.49 kg Cris Adams MD Work Phone: [facility] [employer] 11-06-2022 12:21-0400 Diastolic blood pressure 64 mm[Hg] Cris Adams MD Work Phone: [facility] [employer] 11-06-2022 12:21-0400 Heart rate 88 /min Cris Adams MD Work Phone: [facility] [employer] 11-06-2022 12:21-0400 Systolic blood pressure 104 mm[Hg] Cris Adams MD Work Phone: [facility] [employer] 10-18-2022 09:01-0400 Body mass index (BMI) [Ratio] 27.44 kg/m2 Amanda Coello MD Work Phone: [facility] [employer] 10-18-2022 09:01-0400 Body weight 68.04 kg Amanda Coello MD Work Phone: [facility] [employer] 10-18-2022 09:01-0400 Diastolic blood pressure 76 mm[Hg] Amanda Coello MD Work Phone: [facility] [employer] 10-18-2022 09:01-0400 Heart rate 68 /min Amanda Coello MD Work Phone: [facility] [employer] 10-18-2022 09:01-0400 Systolic blood pressure 116 mm[Hg] Amanda Coello MD Work Phone: [facility] [employer] 06-19-2022 13:02-0500 Body temperature 98.6 [degF] NAZARIO KING VILLALOBOS [facility] 06-19-2022 13:02-0500 Diastolic Blood Pressure Non-Invasive 84 1 NAZARIO ALIRIOErika [facility] 06-19-2022 13:02-0500 Heart rate 67 /min NAZARIO MALIK DO [facility] 06-19-2022 13:02-0500 Respiratory rate 20 /min NAZARIO MALIK DO [facility] 06-19-2022 13:02-0500 Systolic Blood Pressure Non-Invasive 124 1 [facility] VILLALOBOS [facility] 06-18-2021 18:39-0500 Body height 157.5 cm Nael Mccollum MD Work Phone: [facility] 06-18-2021 18:39-0500 Body mass index (BMI) [Ratio] 29.26 kg/m2 Nael Mccollum MD Work Phone: [facility] 06-18-2021 18:39-0500 Body temperature 98.01 [degF] Nael Mccollum MD Work Phone: [facility] 06-18-2021 18:39-0500 Body weight 72.58 kg Nael Mccollum MD Work Phone: [facility] 06-18-2021 18:39-0500 Diastolic blood pressure 86 mm[Hg] Nael Mccollum MD Work Phone: [facility] 06-18-2021 18:39-0500 Heart rate 64 /min Nael Mccollum MD Work Phone: [facility] 06-18-2021 18:39-0500 Respiratory rate 14 /min Nael Mccollum MD Work Phone: [facility] 06-18-2021 18:39-0500 SaO2% (BldA) [Mass fraction] 100 % Nael Mccollum MD Work Phone: [facility] 06-18-2021 18:39-0500 Systolic blood pressure 156 mm[Hg] Nael Mccollum MD Work Phone: [facility] 04-22-2021 22:02-0400 Body temperature 98.42 [degF] VICKI DRUMMOND MD [facility] 04-22-2021 22:02-0400 Diastolic blood pressure 79 mm[Hg] VICKI DRUMMOND MD [facility] 04-22-2021 22:02-0400 Heart rate 68 /min VICKI DRUMMOND MD [facility] 04-22-2021 22:02-0400 Respiratory rate 20 /min VICKI DRUMMOND MD [facility] 04-22-2021 22:02-0400 Systolic blood pressure 118 mm[Hg] VICKI DRUMMOND MD [facility] Encounters Encounter Date Encounter Type Care Provider Facility Start: 05-28-2023 End: 05-29-2023 Emergency department patient visit [facility] Start: 05-28-2023 End: 05-28-2023 Subsequent hospital visit by physician [facility] Radiology Procedures Date Procedure Procedure Detail Performing Clinician Start: 05-28-2023 Radiologic exam ches t single view Felipe Garcia MD Work Phone: Start: 04-25-2023 Us abdominal real ti me w/image limited Shelley Ferguson MD Work Phone: Start: 04-25-2023 Ct abdomen & pelvis w/contrast material Shelley Ferguson MD Work Phone: Start: 04-25-2023 Radiologic exam ches t single view Osman Maiash DO Work Phone: Start: 04-25-2023 End: 04-25-2023 Comprehensive metabolic panel Osman A Gombash DO Work Phone: Start: 04-25-2023 Ecg routine ecg w/le ast 12 lds trcg only w/o i&r Osman A Gombash DO Work Phone: Start: 03-20-2023 Glucose quantitative blood xcpt reagent strip Cris Adams MD Work Phone: Start: 03-20-2023 Antibody screen RAMBO TAVERA KRISTI Plan of Treatment Date Care Activity Detail Author Start: 2051 RSV Immunization aged 60 or older (1 - 1-dose 60+ series) RSV Immunization aged 60 or older (1 - 1-dose 60+ series) [facility] Start: 2041 Zoster Vaccines (1 of 2) Zoster Vaccines (1 of 2) [facility] Start: 02-06-2027 Screening for malignant neoplasm of cervix [facility] Start: 02-06-2025 Screening for malignant neoplasm of cervix Pap Smear [facility] Start: 05-07-2023 End: 05-07-2023 ambulatory 05/07/2023 10:45 AM EDT Visit [facility] [address] [place] [address] Cris Adams MD [address] [place], [place] [id number] [facility] Start: 04-22-2023 End: 04-22-2023 ambulatory 04/22/2023 9:40 AM EDT [facility] [address] [place] [address] Celeste Randle, 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 [address] [place] [address] [address] [place], [place] [id number] [facility] Start: 04-08-2023 End: 04-08-2024 CBC panel - Blood by Automated count CBC Lab Routine Thrombocytopenia (HCC) Expected: 04/08/2023, Expires: 04/08/2024 [facility] Work Phone: Immunizations Immunization Date Immunization Notes Care Provider Fa cili 03-21-2023 diphtheria, tetanus toxoids and acellular pertussis vaccine, unspecified formulation Cris Adams MD Work Phone: [facility] Work Phone: 03-21-2023 measles, mumps and rubella virus vaccine Cris Adams MD Work Phone: [facility] [employer] NEGATED: Highlighted row has not occurred!03-21-2023 RHO(D) immune globulin - IM Cris Adams MD Work Phone: [facility] Payers Date Payer Category Payer Unknown [id number] 2022 Medicaid [id number] 2021 Unknown [facility] [id number] 2021-Present [address] [place] [address] [id number] 2013 Unknown [id number] 1991 Unknown [id number] 1991 Unknown [id number] 1991 Unknown [id number] 1991 Unknown [id number] 1991 Unknown [id number] 1991 Unknown [id number] 1991 Unknown [id number] 1991 Unknown [id number] 1991 Unknown [id number] 1991 Unknown [id number] Unknown [id number] Unknown [id number] Social History Date Type Detail Facility Start: 09-22-2018 End: 11-14-2022 Never smoked tobacco (finding) [facility] Sex Assigned At Female [facility] Start: 06-16-2021 End: 11-14-2022 Tobacco use and exposure Smokeless tobacco [facility]-user [facility] Work Phone: Start: 06-18-2021 End: 05-28-2023 Alcohol intake Ex-drinker (finding) [facility] Work Phone: Start: 1990 Sex Assigned At Not on file S [facility] Work Phone: Start: 10-08-2022 End: 03-20-2023 Exposure to SARS-CoV-2 (event) Not sure [facility] Start: [facility]-10-2022 [facility] Start: 07-27-2022 Alcohol intake Current drinke r of alcohol (finding) [facility] History of tobacco use Passive smoker [facility] Start: 11-14-2022 End: 04-08-2023 History of Social function [facility] Start: 11-14-2022 End: 04-08-2023 Tobacco use panel [facility] The thought of mesfini ng myself has occurred to me Sometimes [facility] How often to you hav e a drink containing alcohol? Never [facility] How many standard dr inks containing alcohol do you have on a typical day? Patient does not drink [facility] Medical Equipment Procedure Code Equipment Code Equipment Origin al Text Equipment Identifier Dates Use as instructed [id number] Start: 01-17-2023 End: 03-22-2023 Check blood suga r 4 times daily and prn [id number] Start: 01-17-2023 Functional Status Date Assessment Result Facility 06-19-2022 Functional Status Independent [email or web address] 06-19-2022 Functional Status Standard Safet y ID band on, Call device within reach, Bed in low position, Wheels locked [facility] Mental Status Date Assessment Result Facility 06-19-2022 Mental Status Orientation Oriented x 4 [facility] Clinical Notes 04-23-2021 to 04-25-2023 Shelley Ferguson MD - 04/25/2023 11:02 AM Selam Lui RN - 04/25/2023 11:02 AM Selam Lui RN - 04/25/2023 11:02 AM Jordy Ferguson MD - 04/25/2023 11:02 AM EDT Note Date & Type Note Facility 04-25-2023 Note 1. Gallbladder dilat ation with trace gallbladder wall thickening. Consider further evaluation with ultrasound if acute cholecystitis is a clinical concern. 2. Trace periportal edema. 3. Mild to moderate amount retained colonic stool. Report Dictated on Electronically Signed By: Zhang Borges MD Electronically Signed Date/Time: 04/25/2023 2:11 PM EDT [facility] EMERGENCY DEPARTMENT RADIOLOGY SYSTEM 04-25-2023 Emergency department Note EMERGENCY DEPARTMENT ENCOUNTER Pt Name: Dana Bansal Birthdate 1990 Date of evaluation: 04/25/2023 ED Provider: Shelley Ferguson MD CHIEF COMPLAINT Chief Complaint Patient presents with Abdominal Pain HISTORY OF PRESENT ILLNESS (Location/Symptom, Timing/Onset, Context/Setting, Quality, Duration, Modifying Factors, Severity) Note limiting factors. I wore appropriate PPE for the entirety of this encounter. HPI Dana Bansal is a 32 y.o. who presents to the emergency department with epigastric abdominal pain, I saw her earlier this morning and when she was there for chest pain at that time and had a completely normal work-up. She went home, slept and then woke up and still had pain so she came back. Of note when I entered the room she was sleeping Nursing Notes were reviewed. Limitations to history: None Outside historians: EMS REVIEW OF SYSTEMS Review of Systems Pertinent positives and negatives as per HPI PAST MEDICAL HISTORY Past Medical History: Diagnosis Date Anxiety Depression SURGICAL HISTORY No past surgical history on file. CURRENT MEDICATIONS Previous Medications ACETAMINOPHEN (TYLENOL) 325 MG TABLET Take by mouth. BLOOD GLUCOSE MONITORING SUPPL KIT Check blood sugar 4 times daily and prn ELASTIC BANDAGES & SUPPORTS (FUTURO ABDOMINAL SUPPORT) MISC Wear as needed Size medium ESOMEPRAZOLE (NEXIUM) [address] CAPSULE Take 1 capsule (20 mg) by mouth every morning (before breakfast). Do not open capsule. HYDROCORTISONE 2.5 % OINTMENT Apply topically 2 times daily. To affected area IBUPROFEN 600 MG TABLET Take 1 tablet (600 mg) by mouth every 6 hours as needed for mild pain (1-3) for up to 7 days. LANCETS MICRO THIN 33G MISC Check blood sugar 4 times daily and prn 27-1 MG TABLET Take 1 tablet by mouth daily. SERTRALINE (ZOLOFT) 25 MG TABLET Take 1 tablet (25 mg) by mouth daily. ALLERGIES Patient has no known allergies. FAMILY HISTORY Family History Problem Relation Name Age of Onset Ovarian cancer Neg Hx Breast cancer Neg Hx Colon cancer Neg Hx Uterine cancer Neg Hx SOCIAL HISTORY Social History Socioeconomic History Marital status: Tobacco Use Smoking status: Never Smokeless tobacco: Never Vaping Use Vaping Use: Never used Substance and Sexual Activity Alcohol use: Not Currently Drug use: Not Currently Sexual activity: Not Currently Partners: Male Comment: recent SCREENINGS PHYSICAL EXAM ED Triage Vitals [04/25/23 1109] Temp Heart Rate Resp BP 36.8 C (98.2 F) 52 16 121/75 SpO2 Temp Source Heart Rate Source Patient Position 100 % Oral Monitor Sitting BP Location FiO2 (%) Right arm -- Physical Exam Minimally tender in the epigastrium, heart regular rate and rhythm DIAGNOSTIC RESULTS RADIOLOGY (Per Emergency Physician): Interpretation per the Radiologist below, if available at the time of this note: US abdomen limited Final Result Cholelithiasis. Report Dictated on Electronically Signed By: Conner Morris DO Electronically Signed Date/Time: 04/25/2023 3:[address] abdomen pelvis w contrast Final Result 1. Gallbladder dilatation with trace gallbladder wall thickening. Consider further evaluation with ultrasound if acute cholecystitis is a clinical concern. 2. Trace periportal edema. 3. Mild to moderate amount retained colonic stool. Report Dictated on Electronically Signed By: Zhang Borges MD Electronically Signed Date/Time: 04/25/2023 2:11 PM EDT LABS: Labs Reviewed - No data to display All other labs were within normal range or not returned as of this dictation. EMERGENCY DEPARTMENT COURSE and DIFFERENTIAL DIAGNOSIS/MDM: Vitals: Vitals: 04/25/23 1130 04/25/23 1200 04/25/23 1230 04/25/23 1330 BP: 125/75 122/80 124/68 121/67 BP Location: Right arm Right arm Patient Position: Lying Lying Pulse: 50 (!) 48 (!) 48 (!) 46 Resp: 16 16 Temp: TempSrc: SpO2: 100% 99% 98% 98% Weight: Medications - No data to display MDM elements: The patient presented with chief complaint of with epigastric abdominal pain, was seen earlier this morning with chest pain and normal work-up and felt better after GI cocktail Motrin and Ativan. The differential diagnosis associated with this patient's presentation includes epigastric pain, gastritis, peptic ulcer disease. Our workup consisted of ordering/reviewing: CT abdomen pelvis. To aid in management, I performed an independent interpretation of CT scan(s) interpreted by me shows some gallbladder wall thickening and some distention, ultrasound to rule out cholecystitis shows no evidence of cholecystitis but does show cholelithiasis. The patient will be Discharged. Patient is in agreement with this plan. Referred patient for outpatient surgical evaluation. PROCEDURES: Unless otherwise noted below, none Procedures CRITICAL CARE TIME None FINAL IMPRESSION 1. Calculus of gallbladder without cholecystitis without obstruction 2. Pain of upper abdomen DISPOSITION Discharge 04/25/2023 03:36:14 PM PATIENT REFERRED TO: Felipe Galarza MD [address] [place] [address] DISCHARGE MEDICATIONS: New Prescriptions No medications on file (Comment: Please note this report has been produced using speech recognition software and may contain errors related to that system including errors in grammar, punctuation, and spelling, as well as words and phrases that may be inappropriate. If there are any questions or concerns please feel free to contact the dictating provider for clarification.) Shelley Ferguson MD (electronically signed) Emergency Medicine Provider Shelley Ferguson MD 04/25/23 1539 [facility] with complaint of abd pain. States she was seen here earlier this morning for chest pain. Had a full workup and was discharged home. Pt states burning abd pain across her abdomen after she got home from ER. Pain is diffuse. Denies nausea, vomiting, diarrhea, urinary symptoms. Pt is 1 month post- after vaginal delivery. Denies and vaginal discharge or bleeding at this time. Rates pain 10/10. Pt is tearful during triage. Alert and oriented x 4 . Skin warm and dry. Respirations even and unlabored documented in this encounter [facility] 04-25-2023 Emergency department Triage note [facility] with complaint of abd pain. States she was seen here earlier this morning for chest pain. Had a full workup and was discharged home. Pt states burning abd pain across her abdomen after she got home from ER. Pain is diffuse. Denies nausea, vomiting, diarrhea, urinary symptoms. Pt is 1 month post- after vaginal delivery. Denies and vaginal discharge or bleeding at this time. Rates pain 10/10. Pt is tearful during triage. Alert and oriented x 4 . Skin warm and dry. Respirations even and unlabored [facility] 04-25-2023 Physician Emergency department Note EMERGENCY DEPARTMENT ENCOUNTER Pt Name: Dana Bansal Birthdate 1990 Date of evaluation: 04/25/2023 ED Provider: Shelley Ferguson MD CHIEF COMPLAINT Chief Complaint Patient presents with Abdominal Pain HISTORY OF PRESENT ILLNESS (Location/Symptom, Timing/Onset, Context/Setting, Quality, Duration, Modifying Factors, Severity) Note limiting factors. I wore appropriate PPE for the entirety of this encounter. HPI Dana Bansal is a 32 y.o. who presents to the emergency department with epigastric abdominal pain, I saw her earlier this morning and when she was there for chest pain at that time and had a completely normal work-up. She went home, slept and then woke up and still had pain so she came back. Of note when I entered the room she was sleeping Nursing Notes were reviewed. Limitations to history: None Outside historians: EMS REVIEW OF SYSTEMS Review of Systems Pertinent positives and negatives as per HPI PAST MEDICAL HISTORY Past Medical History: Diagnosis Date Anxiety Depression SURGICAL HISTORY No past surgical history on file. CURRENT MEDICATIONS Previous Medications ACETAMINOPHEN (TYLENOL) 325 MG TABLET Take by mouth. BLOOD GLUCOSE MONITORING SUPPL KIT Check blood sugar 4 times daily and prn ELASTIC BANDAGES & SUPPORTS (FUTURO ABDOMINAL SUPPORT) MISC Wear as needed Size medium ESOMEPRAZOLE (NEXIUM) [address] CAPSULE Take 1 capsule (20 mg) by mouth every morning (before breakfast). Do not open capsule. HYDROCORTISONE 2.5 % OINTMENT Apply topically 2 times daily. To affected area IBUPROFEN 600 MG TABLET Take 1 tablet (600 mg) by mouth every 6 hours as needed for mild pain (1-3) for up to 7 days. LANCETS MICRO THIN 33G MISC Check blood sugar 4 times daily and prn 27-1 MG TABLET Take 1 tablet by mouth daily. SERTRALINE (ZOLOFT) 25 MG TABLET Take 1 tablet (25 mg) by mouth daily. ALLERGIES Patient has no known allergies. FAMILY HISTORY Family History Problem Relation Name Age of Onset Ovarian cancer Neg Hx Breast cancer Neg Hx Colon cancer Neg Hx Uterine cancer Neg Hx SOCIAL HISTORY Social History Socioeconomic History Marital status: Tobacco Use Smoking status: Never Smokeless tobacco: Never Vaping Use Vaping Use: Never used Substance and Sexual Activity Alcohol use: Not Currently Drug use: Not Currently Sexual activity: Not Currently Partners: Male Comment: recent SCREENINGS PHYSICAL EXAM ED Triage Vitals [04/25/23 1109] Temp Heart Rate Resp BP 36.8 C (98.2 F) 52 16 121/75 SpO2 Temp Source Heart Rate Source Patient Position 100 % Oral Monitor Sitting BP Location FiO2 (%) Right arm -- Physical Exam Minimally tender in the epigastrium, heart regular rate and rhythm DIAGNOSTIC RESULTS RADIOLOGY (Per Emergency Physician): Interpretation per the Radiologist below, if available at the time of this note: US abdomen limited Final Result Cholelithiasis. Report Dictated on Electronically Signed By: Conner Morris DO Electronically Signed Date/Time: 04/25/2023 3:[address] abdomen pelvis w contrast Final Result 1. Gallbladder dilatation with trace gallbladder wall thickening. Consider further evaluation with ultrasound if acute cholecystitis is a clinical concern. 2. Trace periportal edema. 3. Mild to moderate amount retained colonic stool. Report Dictated on Electronically Signed By: Zhang Borges MD Electronically Signed Date/Time: 04/25/2023 2:11 PM EDT LABS: Labs Reviewed - No data to display All other labs were within normal range or not returned as of this dictation. EMERGENCY DEPARTMENT COURSE and DIFFERENTIAL DIAGNOSIS/MDM: Vitals: Vitals: 04/25/23 1130 04/25/23 1200 04/25/23 1230 04/25/23 1330 BP: 125/75 122/80 124/68 121/67 BP Location: Right arm Right arm Patient Position: Lying Lying Pulse: 50 (!) 48 (!) 48 (!) 46 Resp: 16 16 Temp: TempSrc: SpO2: 100% 99% 98% 98% Weight: Medications - No data to display MDM elements: The patient presented with chief complaint of with epigastric abdominal pain, was seen earlier this morning with chest pain and normal work-up and felt better after GI cocktail Motrin and Ativan. The differential diagnosis associated with this patient's presentation includes epigastric pain, gastritis, peptic ulcer disease. Our workup consisted of ordering/reviewing: CT abdomen pelvis. To aid in management, I performed an independent interpretation of CT scan(s) interpreted by me shows some gallbladder wall thickening and some distention, ultrasound to rule out cholecystitis shows no evidence of cholecystitis but does show cholelithiasis. The patient will be Discharged. Patient is in agreement with this plan. Referred patient for outpatient surgical evaluation. PROCEDURES: Unless otherwise noted below, none Procedures CRITICAL CARE TIME None FINAL IMPRESSION 1. Calculus of gallbladder without cholecystitis without obstruction 2. Pain of upper abdomen DISPOSITION Discharge 04/25/2023 03:36:14 PM PATIENT REFERRED TO: Felipe Galarza MD [address] [place] [address] DISCHARGE MEDICATIONS: New Prescriptions No medications on file (Comment: Please note this report has been produced using speech recognition software and may contain errors related to that system including errors in grammar, punctuation, and spelling, as well as words and phrases that may be inappropriate. If there are any questions or concerns please feel free to contact the dictating provider for clarification.) Shelley Ferguson MD (electronically signed) Emergency Medicine Provider Shelley Ferguson MD 04/25/23 1539 [facility] 04-25-2023 Emergency department Note EMERGENCY DEPARTMENT ENCOUNTER Pt Name: Dana Bansal Birthdate 1990 Date of evaluation: 04/25/2023 ED Provider: Osman Brennan DO CHIEF COMPLAINT Chief Complaint Patient presents with Chest Pain HISTORY OF PRESENT ILLNESS (Location/Symptom, Timing/Onset, Context/Setting, Quality, Duration, Modifying Factors, Severity) Note limiting factors. I wore appropriate PPE for the entirety of this encounter. HPI Dana Bansal is a 32 y.o. female who presents to the emergency department with sharp substernal chest pain. Woke up with the pain this morning. Associated with some mild shortness of breath. Patient delivered child 1 month ago. Has had an uncomplicated course. States pushing on her chest resolves the pain. Denies any other fevers chills radiation symptoms, abdominal pain nausea vomiting, lower extremity edema, headaches or weakness or numbness. Nursing Notes were reviewed. REVIEW OF SYSTEMS 14 systems reviewed and otherwise acutely negative except as in the IGIUG[facility]. PAST MEDICAL HISTORY Past Medical History: Diagnosis Date Anxiety Depression SURGICAL HISTORY No past surgical history on file. CURRENT MEDICATIONS Previous Medications ACETAMINOPHEN (TYLENOL) 325 MG TABLET Take by mouth. BLOOD GLUCOSE MONITORING SUPPL KIT Check blood sugar 4 times daily and prn ELASTIC BANDAGES & SUPPORTS (FUTURO ABDOMINAL SUPPORT) MISC Wear as needed Size medium ESOMEPRAZOLE (NEXIUM) [address] CAPSULE Take 1 capsule (20 mg) by mouth every morning (before breakfast). Do not open capsule. HYDROCORTISONE 2.5 % OINTMENT Apply topically 2 times daily. To affected area LANCETS MICRO THIN 33G MISC Check blood sugar 4 times daily and prn 27-1 MG TABLET Take 1 tablet by mouth daily. SERTRALINE (ZOLOFT) 25 MG TABLET Take 1 tablet (25 mg) by mouth daily. ALLERGIES Patient has no known allergies. FAMILY HISTORY Family History Problem Relation Name Age of Onset Ovarian cancer Neg Hx Breast cancer Neg Hx Colon cancer Neg Hx Uterine cancer Neg Hx SOCIAL HISTORY Social History Socioeconomic History Marital status: Tobacco Use Smoking status: Never Smokeless tobacco: Never Vaping Use Vaping Use: Never used Substance and Sexual Activity Alcohol use: Not Currently Drug use: Not Currently Sexual activity: Not Currently Partners: Male Comment: recent SCREENINGS PHYSICAL EXAM ED Triage Vitals Temp Heart Rate Resp BP -- 04/25/2356 04/25/2356 04/25/23 0558 58 15 (!) 122/99 SpO2 Temp src Heart Rate Source Patient Position 04/25/23555 -- -- -- 100 % BP Location FiO2 (%) -- -- CONSTITUTIONAL: AOx4, no apparent distress, appears stated age HEAD: normocephalic, atraumatic EYES: PERRL, EOMI ENT: moist mucous membranes, uvula midline NECK: supple, symmetric BACK: symmetric LUNGS: clear to auscultation bilaterally CARDIOVASCULAR: regular rate and rhythm, no murmurs, rubs or gallops ABDOMEN: soft, non-tender, non-distended with normal active bowel sounds : deferred NEUROLOGIC: MAEx4, no focal sensory or motor deficits MUSCULOSKELETAL: no clubbing, cyanosis or edema SKIN: no exposed rash DIAGNOSTIC RESULTS Procedures/EKG: EKG was reviewed by myself. Physician EKG interpretation can be found in [facility] RADIOLOGY (Per Emergency Physician): Interpretation per the Radiologist below, if available at the time of this note: XR chest 1 view Final Result No acute cardiopulmonary abnormality identified. Report Dictated on Electronically Signed By: Booker Torres MD Electronically Signed Date/Time: 04/25/2023 6:37 AM EDT ED BEDSIDE ULTRASOUND: Performed by ED Physician - none LABS: Labs Reviewed CBC WITH AUTO DIFFERENTIAL - Abnormal Result Value Auto WBC 7.4 RBC 4.77 Hemoglobin 13.3 Hematocrit 41.3 MCV 86.6 MCH 27.9 MCHC 32.2 RDW 13.0 Platelets 222 MPV 11.3 Neutrophils Relative 47.4 Lymphocytes Relative 38.8 Monocytes Relative 9.5 Eosinophils Relative 3.4 Basophils Relative 0.5 Immature Grans % 0.4 (*) Neutrophils Absolute 3.5 Lymphocytes Absolute 2.9 Monocytes Absolute 0.7 Eosinophils Absolute 0.3 Basophils Absolute 0.0 Immature Grans Absolute 0.0 BASIC METABOLIC PANEL - Normal SODIUM 142 POTASSIUM 3.8 CHLORIDE 106 CARBON DIOXIDE 25 UREA NITROGEN 17 CREATININE 0.71 GLUCOSE 70 CALCIUM 9.3 ANION GAP 11 eGFR >90.0 TROPONIN, WITH SERIAL REFLEX - Normal TROPONIN I <0.012 Narrative: Patients with high levels of Biotin oral intake (ie >5 mg/day) may have falsely decreased Troponin levels. NT PRO BNP - Normal NT PRO BNP 72 LIPASE HEPATIC FUNCTION PANEL D-DIMER,QUANTITATIVE All other labs were within normal range or not returned as of this dictation. EMERGENCY DEPARTMENT COURSE and DIFFERENTIAL DIAGNOSIS/MDM: Vitals: Vitals: 04/25/23 0556 04/25/23557 BP: (!) 122/99 Pulse: 58 Resp: 15 SpO2: 100% EMERGENCY DEPARTMENT COURSE and DIFFERENTIAL DIAGNOSIS/MDM: Vitals: Vitals: 04/25/23 0556 04/25/23557 BP: (!) 122/99 Pulse: 58 Resp: 15 SpO2: 100% The patient presented with a chief complaint of chest pain. Woke up with sharp substernal chest pain this morning. Pushing on the substernal border resolves the pain. Patient states she had a history of pericarditis approximately 16 years ago.. The differential diagnosis associated with this patient's presentation includes pericarditis, myocarditis, heart failure, ACS, GERD, musculoskeletal pain. Our workup consisted of ordering/reviewing EKG which showed a sinus bradycardia with no ischemic changes. No signs of pericarditis. No signs or symptoms of eclampsia or preeclampsia. PERC negative pain seems very musculoskeletal in nature, feels better when pushing the area of concern. Possibly GERD related as well. Will administer aspirin Maalox and Pepcid, check CBC, BMP, troponin, BNP and reassess.. CBC, BMP, troponin, BNP normal. Patient with no improvement after Maalox, Pepcid, aspirin. Patient does not wish to try NSAIDs due to breast-feeding. On reevaluation the patient states the pain has traveled somewhat more down into her abdomen. We will add on hepatic function test, lipase as well as a D-dimer. Patient signed out to oncoming physician for final disposition. Diagnostic tests considered but not performed: External records reviewed: Inpatient notes delivery note reviewed from 03/20/2023 Diagnostics interpreted by me: EKG(s) no ischemic changes Discussions with other clinicians: none Chronic conditions impacting care: Anxiety, prior history reported of pericarditis Social determinants of health affecting care: none ED Medications managed: Medications aspirin chewable tablet 324 mg (324 mg Oral Given 04/25/23616) aluminum & magnesium hydroxide-simethicone (Mylanta) 200-200-20 MG/5ML oral suspension 10 mL (10 mL Oral Given 04/25/23616) famotidine (Pepcid) tablet 20 mg (20 mg Oral Given 04/25/23616) CONSULTS: None PROCEDURES: Unless otherwise noted below, none Procedures Patients symptoms are consistent with sepsis, severe sepsis, or septic shock (If yes use .sepsiscoremeasure ): FINAL IMPRESSION 1. Chest pain, unspecified type DISPOSITION/PLAN Signout to oncoming physician PATIENT REFERRED TO: No follow-up provider specified. DISCHARGE MEDICATIONS: New Prescriptions No medications on file (Comment: Please note this report has been produced using speech recognition software and may contain errors related to that system including errors in grammar, punctuation, and spelling, as well as words and phrases that may be inappropriate. If there are any questions or concerns please feel free to contact the dictating provider for clarification.) Osman Brennan DO (electronically signed) Emergency Medicine Provider Osman Brennan DO 04/25/23652 Emergency Department Encounter Location: [facility] ED Patient: Dana Bansal : 1990 Date of evaluation: 04/25/2023 ED Provider: Shelley Ferguson MD Time received sign-out: 0700 Dana Bansal was checked out to me by Dr Brennan. Please see his/her initial documentation for details of the patient's initial ED presentation, physical exam and completed studies. In brief, Dana Bansal is a 32 y.o. adult that presented to the emergency department with chest pain in the midline, anxiety, 6wks ppm. After her first she had pericarditis, this was her sixth . Nonpleuritic, no leg swelling I have reviewed and interpreted all of the currently available lab results and diagnostics from this visit: Results for orders placed or performed during the hospital encounter of 04/25/23 Basic metabolic panel Result Value Ref Range SODIUM 142 135 - 145 mmol/L POTASSIUM 3.8 3.5 - 5.1 mmol/L CHLORIDE 106 98 - 107 mmol/L CARBON DIOXIDE 25 22 - 30 mmol/L UREA NITROGEN 17 7 - 17 mg/dL CREATININE 0.71 0.52 - 1.04 mg/dL GLUCOSE 70 70 - 100 mg/dL CALCIUM 9.3 8.4 - 10.4 mg/dL ANION GAP 11 3 - 13 mmol/L eGFR >90.0 >60.0 mL/min/1.73m*2 CBC auto differential Result Value Ref Range Auto WBC 7.4 3.6 - 10.7 10*3/uL RBC 4.77 3.8 - 5.20 10*6/uL Hemoglobin 13.3 11.7 - 16.0 g/dL Hematocrit 41.3 35.0 - 47.0 % MCV 86.6 80.0 - 98.0 fL MCH 27.9 26.0 - 34.0 pg MCHC 32.2 32.0 - 36.0 % RDW 13.0 11.5 - 14.5 % Platelets 222 140 - 440 10*3/uL MPV 11.3 7.4 - 12.4 fL Neutrophils Relative 47.4 40.0 - 80.0 % Lymphocytes Relative 38.8 20.0 - 40.0 % Monocytes Relative 9.5 2.0 - 10.0 % Eosinophils Relative 3.4 1.0 - 6.0 % Basophils Relative 0.5 0.0 - 2.0 % Immature Grans % 0.4 (H) <=0.0 % Neutrophils Absolute 3.5 1.8 - 7.0 10*3/uL Lymphocytes Absolute 2.9 1.0 - 4.3 10*3/uL Monocytes Absolute 0.7 0.0 - 0.8 10*3/uL Eosinophils Absolute 0.3 0.0 - 0.5 10*3/uL Basophils Absolute 0.0 0.0 - 0.2 10*3/uL Immature Grans Absolute 0.0 <=0.0 10*3/uL Troponin, with Serial Reflex Result Value Ref Range TROPONIN I <0.012 <0.034 ng/mL NT PRO BNP Result Value Ref Range NT PRO BNP 72 <20 - 100 pg/mL Lipase Result Value Ref Range LIPASE 135 23 - 300 U/L Hepatic function panel Result Value Ref Range BILIRUBIN, TOTAL 0.5 0.2 - 1.3 mg/dL BILIRUBIN, DIRECT 0.0 0.0 - 0.3 mg/dL ALKALINE PHOSPHATASE 114 38 - 126 U/L AST (SGOT) 33 15 - 46 U/L ALT 22 0 - 34 U/L ALBUMIN 4.4 3.5 - 5.0 g/dL TOTAL PROTEIN 8.2 6.3 - 8.2 g/dL D-dimer, quantitative Result Value Ref Range D-DIMER, INNOVANCE 0.49 <0.50 mg/L ECG 12 lead Result Value Ref Range Heart Rate 53 bpm QRSD Interval 85 ms QT Interval 417 ms QTC Interval 391 ms P Wheeler 31 degrees QRS Wheeler 81 degrees T Wave Wheeler 60 degrees AL Interval 159 ms XR chest 1 view Final Result No acute cardiopulmonary abnormality identified. Report Dictated on Electronically Signed By: Booker Torres MD Electronically Signed Date/Time: 04/25/2023 6:37 AM EDT Final ED Course and MDM: In brief, Dana Bansal is a 32 y.o. whose care was signed out to me by the outgoing provider. In brief, labs are unremarkable including negative D-dimer and troponin, chest x-ray interpreted by me shows no acute abnormality, EKG interpreted by me shows no obvious evidence of pericarditis, see [facility] for full interpretation. Patient was given oral Ativan and Motrin as well as GI cocktail and she feels better. She is comfortable going home, will discharge with oral ibuprofen for the potential that this could be pericarditis despite the normal EKG since she has a history of this in the past. I do think there is an anxiety component as she feels much better after the Ativan HEART score 0 Medications aspirin chewable tablet 324 mg (324 mg Oral Given 04/25/23616) aluminum & magnesium hydroxide-simethicone (Mylanta) 200-200-20 MG/5ML oral suspension 10 mL (10 mL Oral Given 04/25/23616) famotidine (Pepcid) tablet 20 mg (20 mg Oral Given 04/25/23 0617) ibuprofen tablet 600 mg (600 mg Oral Given 04/25/23 0716) LORazepam (Ativan) tablet 1 mg (1 mg Oral Given 04/25/23 0716) I Shelley Ferguson MD am the curriculum and assessment coordinator of record. Final Impression 1. Chest wall pain 2. Anxiety DISPOSITION Discharge 04/25/2023 08:00:00 AM (Please note that portions of this note may have been completed with a voice recognition program. Efforts were made to edit the dictations but occasionally words are mis-transcribed.) Shelley Ferguson MD Acute Care [facility] Shelley Ferguson MD 04/25/23758 Shelley Ferguson MD 04/25/23758 Shelley Ferguson MD 04/25/23800 Pt comes into ED for central chest pain rating 10/10. Pt states the pain began 2 days ago which lasted 20 min. Then it reoccurred tonight which lasted the whole night. Pt states she has had a recent sep 14. PT a/ox3 documented in this encounter [facility] 04-25-2023 Emergency department Triage note Pt comes into ED for central chest pain rating 10/10. Pt states the pain began 2 days ago which lasted 20 min. Then it reoccurred tonight which lasted the whole night. Pt states she has had a recent sep 14. PT a/ox3 [facility] 04-25-2023 Physician Emergency department Note EMERGENCY DEPARTMENT ENCOUNTER Pt Name: Dana Bansal Birthdate 1990 Date of evaluation: 04/25/2023 ED Provider: Osman Brennan DO CHIEF COMPLAINT Chief Complaint Patient presents with Chest Pain HISTORY OF PRESENT ILLNESS (Location/Symptom, Timing/Onset, Context/Setting, Quality, Duration, Modifying Factors, Severity) Note limiting factors. I wore appropriate PPE for the entirety of this encounter. HPI Dana Bansal is a 32 y.o. female who presents to the emergency department with sharp substernal chest pain. Woke up with the pain this morning. Associated with some mild shortness of breath. Patient delivered child 1 month ago. Has had an uncomplicated course. States pushing on her chest resolves the pain. Denies any other fevers chills radiation symptoms, abdominal pain nausea vomiting, lower extremity edema, headaches or weakness or numbness. Nursing Notes were reviewed. REVIEW OF SYSTEMS 14 systems reviewed and otherwise acutely negative except as in the IGI[facility]. PAST MEDICAL HISTORY Past Medical History: Diagnosis Date Anxiety Depression SURGICAL HISTORY No past surgical history on file. CURRENT MEDICATIONS Previous Medications ACETAMINOPHEN (TYLENOL) 325 MG TABLET Take by mouth. BLOOD GLUCOSE MONITORING SUPPL KIT Check blood sugar 4 times daily and prn ELASTIC BANDAGES & SUPPORTS (FUTURO ABDOMINAL SUPPORT) MISC Wear as needed Size medium ESOMEPRAZOLE (NEXIUM) [address] CAPSULE Take 1 capsule (20 mg) by mouth every morning (before breakfast). Do not open capsule. HYDROCORTISONE 2.5 % OINTMENT Apply topically 2 times daily. To affected area LANCETS MICRO THIN 33G MISC Check blood sugar 4 times daily and prn 27-1 MG TABLET Take 1 tablet by mouth daily. SERTRALINE (ZOLOFT) 25 MG TABLET Take 1 tablet (25 mg) by mouth daily. ALLERGIES Patient has no known allergies. FAMILY HISTORY Family History Problem Relation Name Age of Onset Ovarian cancer Neg Hx Breast cancer Neg Hx Colon cancer Neg Hx Uterine cancer Neg Hx SOCIAL HISTORY Social History Socioeconomic History Marital status: Tobacco Use Smoking status: Never Smokeless tobacco: Never Vaping Use Vaping Use: Never used Substance and Sexual Activity Alcohol use: Not Currently Drug use: Not Currently Sexual activity: Not Currently Partners: Male Comment: recent SCREENINGS PHYSICAL EXAM ED Triage Vitals Temp Heart Rate Resp BP -- 04/25/23 0556 04/25/23 0556 04/25/23 0558 58 15 (!) 122/99 SpO2 Temp src Heart Rate Source Patient Position 04/25/23555 -- -- -- 100 % BP Location FiO2 (%) -- -- CONSTITUTIONAL: AOx4, no apparent distress, appears stated age HEAD: normocephalic, atraumatic EYES: PERRL, EOMI ENT: moist mucous membranes, uvula midline NECK: supple, symmetric BACK: symmetric LUNGS: clear to auscultation bilaterally CARDIOVASCULAR: regular rate and rhythm, no murmurs, rubs or gallops ABDOMEN: soft, non-tender, non-distended with normal active bowel sounds : deferred NEUROLOGIC: MAEx4, no focal sensory or motor deficits MUSCULOSKELETAL: no clubbing, cyanosis or edema SKIN: no exposed rash DIAGNOSTIC RESULTS Procedures/EKG: EKG was reviewed by myself. Physician EKG interpretation can be found in [facility] RADIOLOGY (Per Emergency Physician): Interpretation per the Radiologist below, if available at the time of this note: XR chest 1 view Final Result No acute cardiopulmonary abnormality identified. Report Dictated on Electronically Signed By: Booker Torres MD Electronically Signed Date/Time: 04/25/2023 6:37 AM EDT ED BEDSIDE ULTRASOUND: Performed by ED Physician - none LABS: Labs Reviewed CBC WITH AUTO DIFFERENTIAL - Abnormal Result Value Auto WBC 7.4 RBC 4.77 Hemoglobin 13.3 Hematocrit 41.3 MCV 86.6 MCH 27.9 MCHC 32.2 RDW 13.0 Platelets 222 MPV 11.3 Neutrophils Relative 47.4 Lymphocytes Relative 38.8 Monocytes Relative 9.5 Eosinophils Relative 3.4 Basophils Relative 0.5 Immature Grans % 0.4 (*) Neutrophils Absolute 3.5 Lymphocytes Absolute 2.9 Monocytes Absolute 0.7 Eosinophils Absolute 0.3 Basophils Absolute 0.0 Immature Grans Absolute 0.0 BASIC METABOLIC PANEL - Normal SODIUM 142 POTASSIUM 3.8 CHLORIDE 106 CARBON DIOXIDE 25 UREA NITROGEN 17 CREATININE 0.71 GLUCOSE 70 CALCIUM 9.3 ANION GAP 11 eGFR >90.0 TROPONIN, WITH SERIAL REFLEX - Normal TROPONIN I <0.012 Narrative: Patients with high levels of Biotin oral intake (ie >5 mg/day) may have falsely decreased Troponin levels. NT PRO BNP - Normal NT PRO BNP 72 LIPASE HEPATIC FUNCTION PANEL D-DIMER,QUANTITATIVE All other labs were within normal range or not returned as of this dictation. EMERGENCY DEPARTMENT COURSE and DIFFERENTIAL DIAGNOSIS/MDM: Vitals: Vitals: 04/25/2356 04/25/23 0558 BP: (!) 122/99 Pulse: 58 Resp: 15 SpO2: 100% EMERGENCY DEPARTMENT COURSE and DIFFERENTIAL DIAGNOSIS/MDM: Vitals: Vitals: 04/25/23 0556 04/25/23 0558 BP: (!) 122/99 Pulse: 58 Resp: 15 SpO2: 100% The patient presented with a chief complaint of chest pain. Woke up with sharp substernal chest pain this morning. Pushing on the substernal border resolves the pain. Patient states she had a history of pericarditis approximately 16 years ago.. The differential diagnosis associated with this patient's presentation includes pericarditis, myocarditis, heart failure, ACS, GERD, musculoskeletal pain. Our workup consisted of ordering/reviewing EKG which showed a sinus bradycardia with no ischemic changes. No signs of pericarditis. No signs or symptoms of eclampsia or preeclampsia. PERC negative pain seems very musculoskeletal in nature, feels better when pushing the area of concern. Possibly GERD related as well. Will administer aspirin Maalox and Pepcid, check CBC, BMP, troponin, BNP and reassess.. CBC, BMP, troponin, BNP normal. Patient with no improvement after Maalox, Pepcid, aspirin. Patient does not wish to try NSAIDs due to breast-feeding. On reevaluation the patient states the pain has traveled somewhat more down into her abdomen. We will add on hepatic function test, lipase as well as a D-dimer. Patient signed out to oncoming physician for final disposition. Diagnostic tests considered but not performed: External records reviewed: Inpatient notes delivery note reviewed from 03/20/2023 Diagnostics interpreted by me: EKG(s) no ischemic changes Discussions with other clinicians: none Chronic conditions impacting care: Anxiety, prior history reported of pericarditis Social determinants of health affecting care: none ED Medications managed: Medications aspirin chewable tablet 324 mg (324 mg Oral Given 04/25/23616) aluminum & magnesium hydroxide-simethicone (Mylanta) 200-200-20 MG/5ML oral suspension 10 mL (10 mL Oral Given 04/25/23616) famotidine (Pepcid) tablet 20 mg (20 mg Oral Given 04/25/23616) CONSULTS: None PROCEDURES: Unless otherwise noted below, none Procedures Patients symptoms are consistent with sepsis, severe sepsis, or septic shock (If yes use .sepsiscoremeasure ): FINAL IMPRESSION 1. Chest pain, unspecified type DISPOSITION/PLAN Signout to oncoming physician PATIENT REFERRED TO: No follow-up provider specified. DISCHARGE MEDICATIONS: New Prescriptions No medications on file (Comment: Please note this report has been produced using speech recognition software and may contain errors related to that system including errors in grammar, punctuation, and spelling, as well as words and phrases that may be inappropriate. If there are any questions or concerns please feel free to contact the dictating provider for clarification.) Osman Brennan DO (electronically signed) Emergency Medicine Provider Osman Brennan DO 04/25/23 0653 [employer] Phone: 04-25-2023 Physician Emergency department Note Emergency Department Encounter Location: [facility] ED Patient: Dana Bansal : 1990 Date of evaluation: 04/25/2023 ED Provider: Shelley Ferguson MD Time received sign-out: 0700 Dana Bansal was checked out to me by Dr Brennan. Please see his/her initial documentation for details of the patient's initial ED presentation, physical exam and completed studies. In brief, Dana Bansal is a 32 y.o. adult that presented to the emergency department with chest pain in the midline, anxiety, 6wks ppm. After her first she had pericarditis, this was her sixth . Nonpleuritic, no leg swelling I have reviewed and interpreted all of the currently available lab results and diagnostics from this visit: Results for orders placed or performed during the hospital encounter of 04/25/23 Basic metabolic panel Result Value Ref Range SODIUM 142 135 - 145 mmol/L POTASSIUM 3.8 3.5 - 5.1 mmol/L CHLORIDE 106 98 - 107 mmol/L CARBON DIOXIDE 25 22 - 30 mmol/L UREA NITROGEN 17 7 - 17 mg/dL CREATININE 0.71 0.52 - 1.04 mg/dL GLUCOSE 70 70 - 100 mg/dL CALCIUM 9.3 8.4 - 10.4 mg/dL ANION GAP 11 3 - 13 mmol/L eGFR >90.0 >60.0 mL/min/1.73m*2 CBC auto differential Result Value Ref Range Auto WBC 7.4 3.6 - 10.7 10*3/uL RBC 4.77 3.8 - 5.20 10*6/uL Hemoglobin 13.3 11.7 - 16.0 g/dL Hematocrit 41.3 35.0 - 47.0 % MCV 86.6 80.0 - 98.0 fL MCH 27.9 26.0 - 34.0 pg MCHC 32.2 32.0 - 36.0 % RDW 13.0 11.5 - 14.5 % Platelets 222 140 - 440 10*3/uL MPV 11.3 7.4 - 12.4 fL Neutrophils Relative 47.4 40.0 - 80.0 % Lymphocytes Relative 38.8 20.0 - 40.0 % Monocytes Relative 9.5 2.0 - 10.0 % Eosinophils Relative 3.4 1.0 - 6.0 % Basophils Relative 0.5 0.0 - 2.0 % Immature Grans % 0.4 (H) <=0.0 % Neutrophils Absolute 3.5 1.8 - 7.0 10*3/uL Lymphocytes Absolute 2.9 1.0 - 4.3 10*3/uL Monocytes Absolute 0.7 0.0 - 0.8 10*3/uL Eosinophils Absolute 0.3 0.0 - 0.5 10*3/uL Basophils Absolute 0.0 0.0 - 0.2 10*3/uL Immature Grans Absolute 0.0 <=0.0 10*3/uL Troponin, with Serial Reflex Result Value Ref Range TROPONIN I <0.012 <0.034 ng/mL NT PRO BNP Result Value Ref Range NT PRO BNP 72 <20 - 100 pg/mL Lipase Result Value Ref Range LIPASE 135 23 - 300 U/L Hepatic function panel Result Value Ref Range BILIRUBIN, TOTAL 0.5 0.2 - 1.3 mg/dL BILIRUBIN, DIRECT 0.0 0.0 - 0.3 mg/dL ALKALINE PHOSPHATASE 114 38 - 126 U/L AST (SGOT) 33 15 - 46 U/L ALT 22 0 - 34 U/L ALBUMIN 4.4 3.5 - 5.0 g/dL TOTAL PROTEIN 8.2 6.3 - 8.2 g/dL D-dimer, quantitative Result Value Ref Range D-DIMER, INNOVANCE 0.49 <0.50 mg/L ECG 12 lead Result Value Ref Range Heart Rate 53 bpm QRSD Interval 85 ms QT Interval 417 ms QTC Interval 391 ms P Wheeler 31 degrees QRS Wheeler 81 degrees T Wave Wheeler 60 degrees AL Interval 159 ms XR chest 1 view Final Result No acute cardiopulmonary abnormality identified. Report Dictated on Electronically Signed By: Booker Torres MD Electronically Signed Date/Time: 04/25/2023 6:37 AM EDT Final ED Course and MDM: In brief, Dana Bansal is a 32 y.o. whose care was signed out to me by the outgoing provider. In brief, labs are unremarkable including negative D-dimer and troponin, chest x-ray interpreted by me shows no acute abnormality, EKG interpreted by me shows no obvious evidence of pericarditis, see [facility] for full interpretation. Patient was given oral Ativan and Motrin as well as GI cocktail and she feels better. She is comfortable going home, will discharge with oral ibuprofen for the potential that this could be pericarditis despite the normal EKG since she has a history of this in the past. I do think there is an anxiety component as she feels much better after the Ativan HEART score 0 Medications aspirin chewable tablet 324 mg (324 mg Oral Given 04/25/23616) aluminum & magnesium hydroxide-simethicone (Mylanta) 200-200-20 MG/5ML oral suspension 10 mL (10 mL Oral Given 04/25/23616) famotidine (Pepcid) tablet 20 mg (20 mg Oral Given 04/25/23616) ibuprofen tablet 600 mg (600 mg Oral Given 04/25/23715) LORazepam (Ativan) tablet 1 mg (1 mg Oral Given 04/25/23715) I Shelley Ferguson MD am the curriculum and assessment coordinator of record. Final Impression 1. Chest wall pain 2. Anxiety DISPOSITION Discharge 04/25/2023 08:00:00 AM (Please note that portions of this note may have been completed with a voice recognition program. Efforts were made to edit the dictations but occasionally words are mis-transcribed.) Shelley Ferguson MD [employer] Shelley Ferguson MD 04/25/23758 Shelley Ferguson MD 04/25/239 Shelley Ferguson MD 04/25/23800 [facility] 04-08-2023 History of Presen t illness Narrative VISIT Dana Bansal is a 32 y.o. female Presents today for routine visit S/P Vaginal, Spontaneous Delivery on 03/21/23 of female infant (Jeff Rosenberg) who is doing well. She is accompanied by her baby. Patient with B/L labial lacerations that were not repaired. Patient is breast feeding without any problems. She denies any breast lumps, redness, edema or signs of infection on the breast. Depression score 18. Patient denies SI/HI even though she answered sometimes to the question in the screen. Just feels like the blues and also has some anxiety. She has a lot of stress from multiple social situations. Does not have support of her partner. He doesn't believe in PPD. She came alone today so she could discuss treatment with medication. She has been on Zoloft in the past with good results. Declines counseling at this time. May consider in the future. Declined flu vaccine. H/O thrombocytopenia. CBC ordered. SUBJECTIVE: Patient had a Vaginal, Spontaneous Delivery. Denies problems with voiding, BM's, eating or drinking. Patient is breast feeding. Patient's bleeding is: no bleeding. Occ spotting Patient is not sexually active. Patient plans vasectomy for contraception. Partner scheduled for vasectomy 04/26. She would also like a mirena IUD. She has had one in the past. depression screening: positive REVIEW OF SYSTEMS: Review of Systems Constitutional: Negative for fever. Genitourinary: Negative for difficulty urinating, frequency, menstrual problem, pelvic pain, vaginal bleeding, vaginal discharge and vaginal pain. Psychiatric/Behavioral: Negative for self-injury and suicidal ideas. The patient is nervous/anxious. Depression symptoms PHYSICAL EXAM: BP 110/80 Pulse 87 Wt 150 lb 9.6 oz (68.3 kg) LMP 06/26/2022 (Exact Date) Yes BMI 27.55 kg/m Physical Exam Vitals reviewed. Constitutional: Appearance: Normal appearance. Neurological: Mental Status: She is alert. Psychiatric: Mood and Affect: Mood normal. Behavior: Behavior normal. Thought Content: Thought content normal. Judgment: Judgment normal. ASSESSMENT/PLAN: Dana was seen today for care. Diagnoses and all orders for this visit: care and examination (Primary) Thrombocytopenia (HCC) - CBC; Future - CBC depression - sertraline (Zoloft) 25 MG tablet; Take 1 tablet (25 mg) by mouth daily. anxiety - sertraline (Zoloft) 25 MG tablet; Take 1 tablet (25 mg) by mouth daily. Signs and symptoms of breast and uterine infection discussed. Advised patient to contact the office with signs of infection. Patient would like to go back on Zoloft. Zoloft 25mg sent to pharmacy. Advised to contact patient is symptoms worsen with medication. She is aware it may take 2 weeks to notice a difference and that full therapeutic effect can take up to 6 weeks. Advised can increase dose as needed every 2 weeks. She declined counseling. RTO 2 weeks for recheck. To ER with any thoughts of harming herself, baby or others. Did not have patient sign mirena form prior to leaving office. Will have her sign next visit or have her come to office to sign if she prefers. H/O thrombocytopenia. CBC ordered. RTO 2 weeks for PPD and anxiety check. Contact the office with any questions or concerns prior to next scheduled visit. Patient agrees with plan of care. Follow up in about 2 weeks (around 04/22/2023) for visit PP depression. MIGUEL Durant CNP documented in this encounter [facility] 03-22-2023 Note Department of Obstet rics and Gynecology Delivery Discharge Summary Admission on 03/20/2023 9:16 AM Reason for admission: active labor Intrapartum Course: Her labor course consisted of AROM and pitocin. Patient progressed to complete and delivered spontaneously. 38w2d PC-01 Indications for Delivery: Was patient delivered between 37w0d - [id number]? No Surgical Operations & Procedures: Date of delivery: 03/21/2023 Delivery Type: Vaginal, Spontaneous Delivery Anesthesia: Epidural anesthesia Laceration(s): labial Delivery Complications: none EBL: 100 cc Pertinent Findings & Procedures: Information for the patient's : Ayah Bansal [[id number]] female 7 lb 5.6 oz (3.335 kg) Apgars: Information for the patient's : Ayah Bansal [[id number]] Course: Uncomplicated Infant: girl Blood Type/Rh: O Antibody Screen: No results found for: LABANTI Rubella: No results found for: RUBELLAIGG Contraception: no method : no VTE Prophylaxis: Not Indicated Meds: Medication List START taking these medications ibuprofen 600 MG tablet Take 1 tablet (600 mg) by mouth every 6 hours as needed for moderate pain (4-6) for up to 10 days. CHANGE how you take these medications 27-1 MG tablet Take 1 tablet by mouth daily. What changed: Another medication with the same name was removed. Continue taking this medication, and follow the directions you see here. CONTINUE taking these medications acetaminophen 325 MG tablet Commonly known as: Tylenol Blood Glucose Monitoring Suppl kit Check blood sugar 4 times daily and prn esomeprazole [address] capsule Commonly known as: NexIUM Take 1 capsule (20 mg) by mouth every morning (before breakfast). Do not open capsule. Futuro Abdominal Support misc Wear as needed Size medium hydrocortisone 2.5 % ointment Apply topically 2 times daily. To affected area Lancets Micro Thin 33G misc Check blood sugar 4 times daily and prn STOP taking these medications doxylamine 25 MG tablet Commonly known as: Unisom SleepTabs Glucose Meter Test test strip Generic drug: glucose blood magnesium oxide 400 mg tablet Commonly known as: Mag-Ox metoclopramide 10 MG tablet Commonly known as: Reglan ondansetron ODT 4 MG disintegrating tablet Commonly known as: Zofran-ODT Where to Get Your Medications These medications were sent to [id number] - [place] [address] [id number] ibuprofen 600 MG tablet Activity: Activity as tolerated Diet: Regular diet Follow up Care: Follow up appointment in 2 weeks with OBGYN Condition on discharge: Stable Discharge to: Home Discharge date: 03/22/2023 Discharge Dx: s/p Instructions to Patient:: Pelvic Rest (no intercourse, tampons, douching, etc) x 6 weeks Specific discharge instruction printed 38 weeks gestation of [Z3A.38] Patient Active Problem List Diagnosis care, antepartum Grand multiparity, antepartum, unspecified trimester Nausea and vomiting of , antepartum Headache in , antepartum History of depression History of anxiety Carrier of fragile X chromosome Poor weight gain of , third trimester Heartburn during , antepartum Pelvic pressure in Thrombocytopenia affecting (HCC) Abnormal glucose tolerance affecting , antepartum Insomnia Vaginal discharge during in third trimester 38 weeks gestation of Comments: Home care, Follow-up care and control were reviewed. Signs and symptoms of mastitis and Post Depression were reviewed. The patient is to notify her physician if any of these occur. Amanda Coello MD on 03/22/2023 at 12:09 PM [facility] 03-22-2023 History of Presen t illness Narrative Pt discharged to private residence at this time with all belongings. Patient is wheeled off the unit in wheel chair with on lap. Significant other is with patient. Nutrition rescreen completed. Chart reviewed. 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 DARIELA Benavidez Images from the original note were not included. VAGINAL DELIVERY POST DAY # 1 Dana Bansal, 32 y.o. This patient was seen & examined today. Her was complicated by: Patient Active Problem List Diagnosis care, antepartum Grand multiparity, antepartum, unspecified trimester Nausea and vomiting of , antepartum Headache in , antepartum History of depression History of anxiety Carrier of fragile X chromosome Poor weight gain of , third trimester Heartburn during , antepartum Pelvic pressure in Thrombocytopenia affecting (HCC) Abnormal glucose tolerance affecting , antepartum Insomnia Vaginal discharge during in third trimester 38 weeks gestation of Today she is doing well without any chief complaint. Her lochia is light. She denies Headache, Chest Pain, Vision Changes, and Shortness of Breath. She is ambulating well. She is tolerating solids. Vital Signs: Vitals: 03/21/23 0625 03/21/23 0641 03/21/23 0944 03/21/23 1914 BP: 94/62 101/67 107/63 114/79 BP Location: Left arm Patient Position: Sitting Pulse: 68 79 Resp: 16 16 Temp: 36.8 C (98.3 F) 36.2 C (97.2 F) TempSrc: Temporal Temporal SpO2: 97% 100% Weight: Height: Physical Exam: GENERAL APPEARANCE: alert, well appearing, in no apparent distress ABDOMEN : benign non-tender, without masses or organomegaly palpable EXTREMITIES: no redness or tenderness in the calves or thighs, trace edema NEUROLOGIC: alert, oriented, normal speech, no focal findings or movement disorder noted UTERUS : normal size, well involuted, firm, non-tender Lab: Lab Results Component Value Date HGB 12.7 03/20/2023 Lab Results Component Value Date HCT 38.2 03/20/2023 O Antibody Screen: No results found for: LABANTI No results found for: RUBELLAIGG LABOR DELIVERY ??? SCD's ONLY (labor through ambulation) SCD's PLUS Prophylactic Anticoagulation until discharge SCD's PLUS Prophylactic Anticoagulation for 6 weeks SCD's PLUS Therapeutic Anticoagulation for 6 weeks Vaginal Delivery [] BMI ? 40 kg/m2 Delivery All patients Vaginal Delivery [] BMI ? 40 kg/m2 AND [] Antepartum hospitalization ? 72 hours within the past month Delivery 1 Major Risk Factor: [] BMI ? 35 kg/m2 [] Low Risk Thrombophilia [] PPH+RBCs, IR, or operation [] Infection+Antibiotics [] Antepartum hospitalization ? 72 hours within the past month [] PMH: Sickle Cell, SLE, Cardiac Dz, Active IBD, Active Cancer, Nephrotic Syndrome OR 2 Minor Risk Factors: [] Multiple gestation [] Age > 40 [] PPH ? 1,000cc [] (+)FMH of VTE [] Smoker [] Preeclampsia [] BMI ? 40 kg/m2 AND [] Low Risk Thrombophilia OR ANY OF THE FOLLOWING: [] High Risk Thrombophilia without prior VTE [] Low Risk Thrombophilia with (+)FMH of VTE [] Any single prior VTE ANY OF THE FOLLOWING: [] Already on LMWH/UFH [] Multiple prior VTE [] High Risk Thrombophilia with prior VTE Low Risk Thrombophilia: FVL (heterozygous), Prothrombin (heterozygous), Protein C, Protein S High Risk Thrombophilia: FVL (homozygous), Prothrombin (homozygous), FVL+Prothrombin (heterozygous), Antithrombin III, APLS Assessment/Plan: Dana Bansal is PPD # 1 s/p Care - Doing well, VSS - Female - breast feeding - Contraception: Per Private Attending - Encourage ambulation - VTE Prophylaxis: Not Indicated Abnormal GTT - Abnormal 1 hr - Trending Bgs at home - POCT Glucose 84 on admission Gestational Thrombocytopenia - Plts 139 on admission Disposition: Continue current care. Based on my clinical assessment, this patient is safe for self discharge (does not need transport by wheelchair) if she so chooses. Provider's Name: MD Genie Peña MD 03/22/2023, 5:49 AM Images from the original note were not included. Labor Progress Note Date: 03/20/2023 Time: 4:57 PM Subjective: Dana Bansal is a 32 y.o. female at 38w1d admitted for active labor Complications: Carrier for fragile c Abnormal gtt SVE on admission: /-3 GBS: []Pos [x]Neg []Unknown Cx: /-3 FHP: defer FHT: Cat I Navarino: q4min A/P: 1. Cat I with moderate variability and spontaneous accelerations. Patient had to get two epidurals. Now comfortable. Discussed AROM in 1 hour. Shes agreeable. Cx:/-3 FHP: defer FHT: Cat I Navarino: rare min A/P: 1. Active. FHR Cat I with a baseline of 120 's, moderate variability, accelerations present, and no decelerations. Patient unaugmented at this time. AROM without difficulty. BP's normotensive. Continue to monitor. CCM. Dr Adams updated at this time. Ailyn Shultz DO 03/20/2023 6:49 PM Cx: unchanged FHP: defer FHT: Cat I Navarino: q 6 min A/P: 1. Active FHR Cat I with a baseline of 120 's, moderate variability, accelerations present, and no decelerations. Pitocin ordered to to start at this time. Continue to titrate per protocol. BP's normotensive Continue to monitor. KYLE Shultz, 03/20/2023 9:19 PM Cx: defer FHT: Cat I Navarino: q 5 min A/P: 1. Active. FHT Cat I, baseline 120 moderate variability and spontaneous accelerations, no decelerations noted. FHT not archiving starting at 0015, Paper strips of FHT running in room, reviewed strip at this time in room, Cat I. Pitocin at 4 ml/hr. Bps NT. Cx: unchanged FHP: defer FHT: Cat I Navarino: poorly tracing A/P: 1. Active FHR Cat I with a baseline of 125 's, moderate variability, accelerations present, and no decelerations. Pitocin at 6cc/hr. IUPC placed at this time without difficulty. Continue to titrate per protocol. BP's normotensive. Continue to monitor. [facility] Ailyn Shultz, 03/21/2023 1:37 AM Cx: 4/80/-2 FHP: defer FHT: Cat I Navarino: q 2 min A/P: 1. Active. FHT Cat II for rare variable decelerations, baseline 125, reassuring with moderate variability and spontaneous accelerations. SVE 4 cm dilated, does feel stretchier and and thinner. Pitcoin at 8 ml/hr. MVUs 136. BPS NT. Patient repositioned to left side at this time. Will continue to monitor. Cx:9.5/90/-1 FHP: defer FHT: Cat II Navarino:2-3min A/P: 1. Active FHR Cat II for intermittent late decelerations. Overall reassuring with moderate variability and baseline of 120's. Patient uncomfortable and progressed to 9.[address] Adams notified. Anesthesia to redose epidural. Pitocin at 8cc/hr. Continue to titrate per protocol. BP's normotensive. Continue to monitor. [facility] Celio Nelson, 03/21/2023 5:23 AM Patient progressed to complete and delivered spontaneously. See delivery note for details. Celio Nelson DO 03/21/2023 6:38 AM Pt. Requested epidural, upon arrival to room, pt. IV not working, Replaced under ultrasound guidance successfully. Fluid bolus started. Epidural attempt unsuccessful. Pt. Stated she would like to take a break and try again later. Department of Obstetrics and Gynecology Labor and Delivery Triage Note CHIEF COMPLAINT: R/o Labor HISTORY OF PRESENT ILLNESS: The patient is a 32 y.o. 38w1d. OB History 6 Para 5 Term 5 AB Living 5 SAB IAB Ectopic Multiple Live Births 5 Patient presents with a chief complaint as above. Endorses Ctx that began at 0700 and are now q1-2 mins. Reports she is very painful. Denies DFM/VB/LOF/RUIZ/Vision Changes/Chest Pain/SOB Estimated Due Date: Estimated Date of Delivery: 04/02/23 PAST MEDICAL HISTORY: Past Medical History: Diagnosis Date Anxiety Depression PAST SURGICAL HISTORY: No past surgical history on file. SOCIAL HISTORY: reports that she has never smoked. She has never used smokeless tobacco. She reports that she does not currently use alcohol. She reports that she does not currently use drugs. MEDICATIONS: Prior to Admission medications Medication Sig Start Date End Date Taking? Authorizing Provider acetaminophen (Tylenol) 325 MG tablet Take by mouth. Historical Provider, Blood Glucose Monitoring Suppl kit Check blood sugar 4 times daily and prn 01/17/23 MIGUEL Doshi CNP doxylamine (Unisom SleepTabs) 25 MG tablet Take 1 tablet (25 mg) by mouth Nightly. Patient not taking: Reported on 03/20/2023 01/28/23 MIGUEL Doshi CNP doxylamine (Unisom) 25 MG tablet Take 1 tablet (25 mg) by mouth Nightly as needed for sleep. 07/27/22 03/15/23 MIGUEL Tinsley CNM Elastic Bandages & Supports (Futuro Abdominal Support) misc Wear as needed Size medium 01/14/23 MIGUEL Doshi CNP esomeprazole (NexIUM) [address] capsule Take 1 capsule (20 mg) by mouth every morning (before breakfast). Do not open capsule. 02/18/23 02/18/24 Marta Ceballos MD glucose blood (Glucose Meter Test) test strip Use as instructed 01/17/23 MIGUEL Doshi CNP hydrocortisone 2.5 % ointment Apply topically 2 times daily. To affected area 11/06/22 Cris Adams MD Lancets Micro Thin 33G misc Check blood sugar 4 times daily and prn 01/17/23 MIGUEL Doshi CNP magnesium oxide (Mag-Ox) 400 mg tablet Take 1 tablet (400 mg) by mouth daily. Patient not taking: Reported on 03/20/2023 01/17/23 MIGUEL Doshi CNP metoclopramide (Reglan) 10 MG tablet Take 1 tablet (10 mg) by mouth every 6 hours as needed (Headache and nausea and vomiting. Take with tylenol for headache). Take with tylenol for a headache Patient not taking: Reported on 03/20/2023 01/17/23 MIGUEL Doshi CNP ondansetron ODT (Zofran-ODT) 4 MG disintegrating tablet Take 1 tablet (4 mg) by mouth every 8 hours as needed for nausea or vomiting for up to 5 doses. Patient not taking: Reported on 03/20/2023 08/15/22 Dom Brown MD 27-1 MG tablet Take 1 tablet by mouth daily. 10/10/22 MIGUEL Doshi CNP Vit-Fe Fumarate-FA ( Vitamins) 28-0.8 MG tablet Take 1 tablet by mouth daily. Patient not taking: Reported on 03/20/2023 10/10/22 10/10/23 MIGUEL Doshi CNP CARE: Complicated by: Migraines, Hx anxiety/depression, thrombocytopenia, abnormal 1 hr GTT REVIEW OF SYSTEMS: Pertinent items are noted in HPI. APPEARANCE: Pain: Yes: plan for epidural on admission PHYSICAL EXAM: Vital Signs: VS wnl-reviewed/Respirations normal effort There were no vitals filed for this visit. Abdomen: soft, NT, ND, no rebound/guarding Uterus: gravid/non-tender LE Edema: trace heart rate: Category I Cervix: 70/-3 Contraction frequency: q1-2mins per patient Membranes: Intact RESULTS: NST: Reactive GENERAL LABS: No results found for this or any previous visit (from the past 24 hour(s)). TRIAGE COURSE: Pt presented for r/o labor. Initial SVE 70/-3 unchanged from office. Vertex positioning confirmed on BSUS. FHT is Cat I and reactive. 2 hour recheck was 80/-3. Pt is still uncomfortable and amenable to additional 2 hour recheck. Genie Dukes MD 03/20/2023 11:51 AM Recheck SVE per Dr. Solares 80/-3. Plan for admission to L&D. IMPRESSION: Active Labor Pain assessment and plan: None DISCUSSED WITH PNC PROVIDER: Dr. Adams DISPOSITION: Admit to L&D documented in this encounter [facility] 03-22-2023 Hospital course Narrative Department of Obstetrics and Gynecology Delivery Discharge Summary Admission on 03/20/2023 9:16 AM Reason for admission: active labor Intrapartum Course: Her labor course consisted of AROM and pitocin. Patient progressed to complete and delivered spontaneously. 38w2d PC-01 Indications for Delivery: Was patient delivered between 37w0d - [id number]? No Surgical Operations & Procedures: Date of delivery: 03/21/2023 Delivery Type: Vaginal, Spontaneous Delivery Anesthesia: Epidural anesthesia Laceration(s): labial Delivery Complications: none EBL: 100 cc Pertinent Findings & Procedures: Information for the patient's : Ayah Bansal [[id number]] female 7 lb 5.6 oz (3.335 kg) Apgars: Information for the patient's : Ayah Bansal [[id number]] Course: Uncomplicated Infant: girl Blood Type/Rh: O Antibody Screen: No results found for: LABANTI Rubella: No results found for: RUBELLAIGG Contraception: no method : no VTE Prophylaxis: Not Indicated Meds: Medication List START taking these medications ibuprofen 600 MG tablet Take 1 tablet (600 mg) by mouth every 6 hours as needed for moderate pain (4-6) for up to 10 days. CHANGE how you take these medications 27-1 MG tablet Take 1 tablet by mouth daily. What changed: Another medication with the same name was removed. Continue taking this medication, and follow the directions you see here. CONTINUE taking these medications acetaminophen 325 MG tablet Commonly known as: Tylenol Blood Glucose Monitoring Suppl kit Check blood sugar 4 times daily and prn esomeprazole [address] capsule Commonly known as: NexIUM Take 1 capsule (20 mg) by mouth every morning (before breakfast). Do not open capsule. Futuro Abdominal Support misc Wear as needed Size medium hydrocortisone 2.5 % ointment Apply topically 2 times daily. To affected area Lancets Micro Thin 33G misc Check blood sugar 4 times daily and prn STOP taking these medications doxylamine 25 MG tablet Commonly known as: Unisom SleepTabs Glucose Meter Test test strip Generic drug: glucose blood magnesium oxide 400 mg tablet Commonly known as: Mag-Ox metoclopramide 10 MG tablet Commonly known as: Reglan ondansetron ODT 4 MG disintegrating tablet Commonly known as: Zofran-ODT Where to Get Your Medications These medications were sent to [id number] - [place], [place] - [address] [facility] [id number] ibuprofen 600 MG tablet Activity: Activity as tolerated Diet: Regular diet Follow up Care: Follow up appointment in 2 weeks with OBGYN Condition on discharge: Stable Discharge to: Home Discharge date: 03/22/2023 Discharge Dx: s/p Instructions to Patient:: Pelvic Rest (no intercourse, tampons, douching, etc) x 6 weeks Specific discharge instruction printed 38 weeks gestation of [Z3A.38] Patient Active Problem List Diagnosis care, antepartum Grand multiparity, antepartum, unspecified trimester Nausea and vomiting of , antepartum Headache in , antepartum History of depression History of anxiety Carrier of fragile X chromosome Poor weight gain of , third trimester Heartburn during , antepartum Pelvic pressure in Thrombocytopenia affecting (HCC) Abnormal glucose tolerance affecting , antepartum Insomnia Vaginal discharge during in third trimester 38 weeks gestation of Comments: Home care, Follow-up care and control were reviewed. Signs and symptoms of mastitis and Post Depression were reviewed. The patient is to notify her physician if any of these occur. Amanda Coello MD on 03/22/2023 at 12:09 PM documented in this encounter [facility] 03-22-2023 Hospital Discharg e instructions Amanda Coello MD - 03/22/2023 12:08 PM EDT Thank you for allowing us to care of you at [facility]. This time can be one of many emotional ups and downs and many changes in your life. In these first weeks try to take good care of yourself because you will likely feel very tired. It may take 4 to 6 weeks to feel like yourself again, and possibly longer if you had a . FOLLOW-UP: Your follow-up care is a gallardo part of your treatment and safety. Follow-up with your OB provider in 4 weeks or as specified by your OB provider. If you had high blood pressure, visit your OB provider within 3-5 days after being home. Most women's blood pressure will return to pre- levels after delivery. However, some patients continue to have problems with their blood pressure, and some even get worse. Very high blood pressure can lead to seizures or stroke which can be life threatening. If ordered by your provider, take your blood pressure at home and call your OB provider if you have a high reading. Your OB provider can write you a prescription for a blood pressure monitor if you do not have one. Be sure to make and go to all appointments, and call your OB provider if you are having problems. It's also a good idea to know your test results and keep a list of the medicines you take. BLEEDING Vaginal bleeding will decrease in amount over the next few weeks. Bleeding may seed cone picker and then decrease again around 7-10 days . Use pads instead of tampons for the bloody flow that may last as long as 2 weeks. You will notice that as your activity increases, your flow may increase. Call your provider if you are saturating one maxi pad in an hour & passing large clots for 3 hours or more. ACTIVITY NO SEXUAL activity for 6 weeks or until advised by your OB provider; Nothing in vagina: intercourse, tampons, or douching. Begin to think about your reproductive life plan. Talk to your OB provider about if and when you would like another baby in the future. The recommendation for safe spacing is 18-24 months. Showering is okay; NO tub baths, swimming, or hot tubs. Gradually increase your activity. Resume exercise regimen only after advised by your )OB provider. Avoid lifting anything heavier than ten pounds or a gallon of milk for six weeks. Avoid driving 1 week for vaginal delivery and 2 weeks for section, or longer if you are on prescription pain medicine unless otherwise instructed by your OB provider. Rise slowly from a lying to sitting and then a standing position. Climb stairs carefully. You may feel tired or have a lack of energy. You may continue your vitamin to replenish nutrients post-delivery. Nap when whenever you can to catch up on sleep. EMOTIONS You may feel esteves, sad, teary, & overwhelmed for the first 2 weeks ; however, feelings of depression may occur any time within the first year after delivery. Contact your OB provider if you feel you may be showing signs of depression, or have thoughts of harming yourself or anyone. WOUND CARE For Vaginal Delivery: Shower daily, and cleanse your perineum (bottom) with mild soap from front to back. Use the plastic squirt bottle until bleeding stops each time you use the restroom instead of wiping with toilet paper. Ease soreness of hemorrhoids and the area between your vagina and rectum with ice compresses or witch karan pads. If used, stitches will dissolve in 4-6 weeks on their own. You may use a sitz bath or soak in a clean tub with drain open and water running for comfort. Kegel exercises will help restore bladder control. To do these tighten your muscles as if you were stopping your urine flow. Hold for a few seconds and then relax. Do these throughout the day. For Section Delivery: Keep your incision clean and dry. If you had steri-strips you may remove these once they start falling off. If you have boyd they need to be removed 3-10 daysafter delivery. If you have steri-strips, remove after 7 - 10 days. Do not wear clothing that irritates the incision line. If your incision is in a crease that is not dry, use a hair-dryer to dry the area 3 times a day. If you develop fever, shaking chills, redness, swelling, drainage or discharge from your wound, or if your wound looks like it is coming apart call your provider immediately. BREAST CARE If you develop a warm, red, tender area on your breast or develop a fever contact your OB provider. If your breasts become engorged ask your provider because treatment can vary according to your needs. DIET & CONSTIPATION Eat a well-balanced diet focusing on foods high in fiber and protein such as: whole grain cereals and breads, fruits and vegetables and legumes (eg, beans, lentils) Drink 8-10 glasses of fluids daily, especially water. Limit caffeine. To avoid constipation you may take a mild [id number] stool softener (such as colace) as recommended by your OB provider. SWELLING Try to keep your legs elevated when you are sitting or lying down. Stay hydrated and take walks. If you had high blood pressure, weigh yourself at the same time each day. Write down your weight and take the record to your OB provider appointment. MEDICATIONS Take all medications prescribed for you exactly as ordered. Don't take any drugs not prescribed to you or over the counter medicines unless recommended by your provider. Don't smoke. WHEN TO CALL THE OB PROVIDER Signs of infection, including fever and chills Increased bleeding: soaking more than one pad an hour or passing clots the size of an egg or larger. Wounds that become red, swollen or drain pus Vaginal discharge that smells foul New pain, swelling, or tenderness in your legs Pain that you can't control with the medications you've been given Pain, burning, urgency or frequency of urination, or persistent bleeding in the urine Cough, shortness of breath, or serious difficulty catching your breath Chest pain or pain in the upper right area of your belly Headache (very painful) or vision changes like blurry or double vision, seeing spots or 'auras' Swelling that is worse or weight gain of more than 3 pounds in 3 days Depression, suicidal thoughts, or feelings of harming someone else Breasts that are hot, red and accompanied by fever Any cracking or bleeding from the nipple or areola (the dark-colored area of the breast) You may have been given a magnet with similar information. If so, we encourage you to use it on your refrigerator as a reminder of when to call your OB provider. In case of an emergency, call 911 immediately. documented in this encounter [facility] 03-22-2023 Miscellaneous Notes This is mom's sixth baby. She nursed them all for 1 year each, the last baby she baby she nursed for 1 1/2. Mom has breast pump for home. Shown section of Taking Care of Yourself and Baby' Booklet. Reviewed baby-led, cue based feedings (8-12x/day), how to know baby is getting enough, output parameters and milk storage guidelines. Discussed engorgement, plugged ducts and mastitis. Patient encouraged to seek help JENNIFER for any concerns. phone number and [facility] Support Group information shared from booklet. Mom voiced understanding. No further questions. Instructed mom on hand expression and demonstrated spoon feeding. Observed mom latching baby, latches and nurses with good suck and swallow ratio. Images from the original note were not included. Notified by RN that patient was having severe abdominal pain and cramping. She was given Tylenol, ibuprofen, oxycodone, flexeril, and a lidocaine patch. She has been using heating pad with little relief. Pain is likely 2/2 to after pains as patient is . She reports that she experienced pain like this during her last but states that this pain is more severe. She is also . Upon assessment, she was sitting in bed baby and stated that her pain was improved from earlier. Describes it as a cramping pain that comes and goes. Abdominal exam was appropriately tender for state. She reported that palpation did not worsen the pain she was having. Low suspicion for infection as a cause for her pain at this time. Denies fevers, chills, N/V. VSS, afebrile. Pain is most likely due to after pains. Questions and concerns addressed. Patient reassured. Will continue to closely monitor. Celio Nelson DO 03/21/2023 11:38 PM Date: 03/21/2023 Name: Dana Bansal : Formerly [facility] Patient Information Primary Caregiver: Self Accompanied by/Relationship: S/O;Family Marital Status: Support System: SO/Family Synagogue/Cultural Factors: none Activities of Daily Living Communication: See demographics Living Arrangements Current Residence: Private residence Lives With: S/O; Family Support System: S/O; Family Income Information Income Source: Employed Financial Resource Strain How hard is it for you to pay for the very basics like food, housing, medical care and heating? N/A Housing Stability In the last 12 months, was there a time when you did not have a steady place to sleep or slept in a snf (including now)? No Transportation Needs Has the lack of Transportation kept you from medical appointments? No In the past 12 months, has the lack of transportation kept you from meetings, work, or from getting things needed for daily living? No Food Insecurity Within the past 12 months, have you worried that your food would run out before you got the money to buy more? No Stress Do you feel stress - tense, restless, nervous, or anxious, or unable to sleep at night because you mind is troubled all the time? Mood stable Referral To Financial Resources: N/A Community Resources: Admission folder given upon admission to PP Unit Social Work: N/A CLP: N/A Medical Information- 32 year old admitted for active labor at 38/1 weeks. Vaginal delivery. Discharge Plan Home or Community Resources: Admission folder given upon admission to PP unit Equipment: N/A Education Given: [employer] Education- ( safe sleep, depression, post warning signs) Additional Information: Patient is independent and has insurance. Mental Health Services: Resources in discharge folder Equipment: Developmental Delay: N/A Children's Services: N/A Images from the original note were not included. Vaginal Delivery Note Department of Obstetrics and Gynecology Patient: Dana Bansal : 1990 Date of delivery: 03/21/2023 Pre-operative Diagnosis: Dana Bansal at 38w2d 1. Term 2. Carrier for Fragile X 3. Abnormal GTT 4. Gestational Thrombocytopenia Post-operative Diagnosis: Live Born female Delivering Rn Utilization Management Um & Tax Analyst(s): Dr. Adams; Dr. Nelson Infant Information: Information for the patient's : Ayah Bansal [[id number]] Information for the patient's : Ayah Bansal [[id number]] Description: normal Meconium Noted: No Anesthesia: epidural anesthesia Complications: None Application and Delivery: Dana Bansal at 38w2d admitted for active labor. Her labor course consisted of AROM and pitocin. Patient progressed to complete and delivered spontaneously. She was known to be GBS negative. After pushing with contractions the head delivered Cephalic, right occiput anterior over an intact perineum. A nuchal cord was not present. The anterior, then posterior shoulder delivered easily and atraumatically followed by the rest of the . The was placed on the maternal abdomen and attended by the RN for evaluation. The was stimulated and dried. The cord was clamped and cut. The delivery of the placenta was spontaneous and appeared intact. Pitocin was started. The vagina was swept of all clots and debris. The perineum and vagina were evaluated. Bilateral labial lacerations were identified, found to be hemostatic, and did not require repair. All counts were correct. Mother and baby tolerated procedure well. No uterotonics were required during delivery. EBL: 100ml QBL: VTE Prophylaxis: Not Indicated LABOR DELIVERY ??? SCD's ONLY (labor through ambulation) SCD's PLUS Prophylactic Anticoagulation until discharge SCD's PLUS Prophylactic Anticoagulation for 6 weeks SCD's PLUS Therapeutic Anticoagulation for 6 weeks Vaginal Delivery [] BMI ? 40 kg/m2 Delivery All patients Vaginal Delivery [] BMI ? 40 kg/m2 AND [] Antepartum hospitalization ? 72 hours within the past month Delivery 1 Major Risk Factor: [] BMI ? 35 kg/m2 [] Low Risk Thrombophilia [] PPH+RBCs, IR, or operation [] Infection+Antibiotics [] Antepartum hospitalization ? 72 hours within the past month [] PMH: Sickle Cell, SLE, Cardiac Dz, Active IBD, Active Cancer, Nephrotic Syndrome OR 2 Minor Risk Factors: [] Multiple gestation [] Age > 40 [] PPH ? 1,000cc [] (+)FMH of VTE [] Smoker [] Preeclampsia [] BMI ? 40 kg/m2 AND [] Low Risk Thrombophilia OR ANY OF THE FOLLOWING: [] High Risk Thrombophilia without prior VTE [] Low Risk Thrombophilia with (+)FMH of VTE [] Any single prior VTE ANY OF THE FOLLOWING: [] Already on LMWH/UFH [] Multiple prior VTE [] High Risk Thrombophilia with prior VTE Low Risk Thrombophilia: FVL (heterozygous), Prothrombin (heterozygous), Protein C, Protein S High Risk Thrombophilia: FVL (homozygous), Prothrombin (homozygous), FVL+Prothrombin (heterozygous), Antithrombin III, APLS Delivery Summary: Specimen: None Blood Type and Rh: O pos Rubella Immunity Status: Immune Celio Nelson DO 03/21/2023, 6:28 AM Associated attestation - Cris Adams MD - 03/22/2023 5:50 PM EDT Procedures or Surgery: I was present for all gallardo elements of the procedure or surgery as described in the resident note. documented in this encounter [facility] 03-22-2023 Obstetrics Note This is mom's sixth baby. She nursed them all for 1 year each, the last baby she baby she nursed for 1 1/2. Mom has breast pump for home. Shown section of Taking Care of Yourself and Baby' Booklet. Reviewed baby-led, cue based feedings (8-12x/day), how to know baby is getting enough, output parameters and milk storage guidelines. Discussed engorgement, plugged ducts and mastitis. Patient encouraged to seek help JENNIFER for any concerns. phone number and [facility] Support Group information shared from booklet. Mom voiced understanding. No further questions. Instructed mom on hand expression and demonstrated spoon feeding. Observed mom latching baby, latches and nurses with good suck and swallow ratio. T [facility] 03-21-2023 Note Formatting of this n ote might be different from the original. Images from the original note were not included. Notified by RN that patient was having severe abdominal pain and cramping. She was given Tylenol, ibuprofen, oxycodone, flexeril, and a lidocaine patch. She has been using heating pad with little relief. Pain is likely 2/2 to after pains as patient is . She reports that she experienced pain like this during her last but states that this pain is more severe. She is also . Upon assessment, she was sitting in bed baby and stated that her pain was improved from earlier. Describes it as a cramping pain that comes and goes. Abdominal exam was appropriately tender for state. She reported that palpation did not worsen the pain she was having. Low suspicion for infection as a cause for her pain at this time. Denies fevers, chills, N/V. VSS, afebrile. Pain is most likely due to after pains. Questions and concerns addressed. Patient reassured. Will continue to closely monitor. Celio Nelson DO 03/21/2023 11:38 PM T [facility] 03-21-2023 Note Formatting of this n ote might be different from the original. Images from the original note were not included. Notified by RN that patient was having severe abdominal pain and cramping. She was given Tylenol, ibuprofen, oxycodone, flexeril, and a lidocaine patch. She has been using heating pad with little relief. Pain is likely 2/2 to after pains as patient is . She reports that she experienced pain like this during her last but states that this pain is more severe. She is also . Upon assessment, she was sitting in bed baby and stated that her pain was improved from earlier. Describes it as a cramping pain that comes and goes. Abdominal exam was appropriately tender for state. She reported that palpation did not worsen the pain she was having. Low suspicion for infection as a cause for her pain at this time. Denies fevers, chills, N/V. VSS, afebrile. Pain is most likely due to after pains. Questions and concerns addressed. Patient reassured. Will continue to closely monitor. Celio Nelson DO 03/21/2023 11:38 PM [facility] 03-21-2023 Note Formatting of this n ote might be different from the original. Date: 03/21/2023 Name: Dana Bansal : Formerly [facility] Patient Information Primary Caregiver: Self Accompanied by/Relationship: S/O;Family Marital Status: Support System: SO/Family Synagogue/Cultural Factors: none Activities of Daily Living Communication: See demographics Living Arrangements Current Residence: Private residence Lives With: S/O; Family Support System: S/O; Family Income Information Income Source: Employed Financial Resource Strain How hard is it for you to pay for the very basics like food, housing, medical care and heating? N/A Housing Stability In the last 12 months, was there a time when you did not have a steady place to sleep or slept in a snf (including now)? No Transportation Needs Has the lack of Transportation kept you from medical appointments? No In the past 12 months, has the lack of transportation kept you from meetings, work, or from getting things needed for daily living? No Food Insecurity Within the past 12 months, have you worried that your food would run out before you got the money to buy more? No Stress Do you feel stress - tense, restless, nervous, or anxious, or unable to sleep at night because you mind is troubled all the time? Mood stable Referral To Financial Resources: N/A Community Resources: Admission folder given upon admission to PP Unit Social Work: N/A CLP: N/A Medical Information- 32 year old admitted for active labor at 38/1 weeks. Vaginal delivery. Discharge Plan Home or Community Resources: Admission folder given upon admission to PP unit Equipment: N/A Education Given: [employer] Education- ( safe sleep, depression, post warning signs) Additional Information: Patient is independent and has insurance. Mental Health Services: Resources in discharge folder Equipment: Developmental Delay: N/A Children's Services: N/A [facility] 03-21-2023 Note Formatting of this n ote might be different from the original. Date: 03/21/2023 Name: Dana Bansal : Formerly [facility] Patient Information Primary Caregiver: Self Accompanied by/Relationship: S/O;Family Marital Status: Support System: SO/Family Synagogue/Cultural Factors: none Activities of Daily Living Communication: See demographics Living Arrangements Current Residence: Private residence Lives With: S/O; Family Support System: S/O; Family Income Information Income Source: Employed Financial Resource Strain How hard is it for you to pay for the very basics like food, housing, medical care and heating? N/A Housing Stability In the last 12 months, was there a time when you did not have a steady place to sleep or slept in a snf (including now)? No Transportation Needs Has the lack of Transportation kept you from medical appointments? No In the past 12 months, has the lack of transportation kept you from meetings, work, or from getting things needed for daily living? No Food Insecurity Within the past 12 months, have you worried that your food would run out before you got the money to buy more? No Stress Do you feel stress - tense, restless, nervous, or anxious, or unable to sleep at night because you mind is troubled all the time? Mood stable Referral To Financial Resources: N/A Community Resources: Admission folder given upon admission to PP Unit Social Work: N/A CLP: N/A Medical Information- 32 year old admitted for active labor at 38/1 weeks. Vaginal delivery. Discharge Plan Home or Community Resources: Admission folder given upon admission to PP unit Equipment: N/A Education Given: [employer] Education- ( safe sleep, depression, post warning signs) Additional Information: Patient is independent and has insurance. Mental Health Services: Resources in discharge folder Equipment: Developmental Delay: N/A Children's Services: N/A [facility] 03-21-[address] Solares and Dr. Drew notified IV removed d/t infiltration. Pt difficult IV access and had multiple attempts prior to US guided IV placement on admission. Pt currently refusing IV at this time. VB stable at this time. Per Dr. Drew pt does not need IV replaced at this time if VB remains stable. [facility] 03-21-[address] Solares and Dr. Drew notified IV removed d/t infiltration. Pt difficult IV access and had multiple attempts prior to US guided IV placement on admission. Pt currently refusing IV at this time. VB stable at this time. Per Dr. Drew pt does not need IV replaced at this time if VB remains stable. documented in this encounter [facility] 03-21-2023 Labor and deliver y summary note Images from the original note were not included. Vaginal Delivery Note Department of Obstetrics and Gynecology Patient: Dana Bansal : 1990 Date of delivery: 03/21/2023 Pre-operative Diagnosis: Dana Bansal at 38w2d 1. Term 2. Carrier for Fragile X 3. Abnormal GTT 4. Gestational Thrombocytopenia Post-operative Diagnosis: Live Born female Delivering Rn Utilization Management Um & Tax Analyst(s): Dr. Adams; Dr. Nelson Infant Information: Information for the patient's : Ayah Bansal [[id number]] Information for the patient's : Ayah Bansal [[id number]] Description: normal Meconium Noted: No Anesthesia: epidural anesthesia Complications: None Application and Delivery: Dana Bansal at 38w2d admitted for active labor. Her labor course consisted of AROM and pitocin. Patient progressed to complete and delivered spontaneously. She was known to be GBS negative. After pushing with contractions the head delivered Cephalic, right occiput anterior over an intact perineum. A nuchal cord was not present. The anterior, then posterior shoulder delivered easily and atraumatically followed by the rest of the infant. The was placed on the maternal abdomen and attended by the RN for evaluation. The was stimulated and dried. The cord was clamped and cut. The delivery of the placenta was spontaneous and appeared intact. Pitocin was started. The vagina was swept of all clots and debris. The perineum and vagina were evaluated. Bilateral labial lacerations were identified, found to be hemostatic, and did not require repair. All counts were correct. Mother and baby tolerated procedure well. No uterotonics were required during delivery. EBL: 100ml QBL: VTE Prophylaxis: Not Indicated LABOR DELIVERY ??? SCD's ONLY (labor through ambulation) SCD's PLUS Prophylactic Anticoagulation until discharge SCD's PLUS Prophylactic Anticoagulation for 6 weeks SCD's PLUS Therapeutic Anticoagulation for 6 weeks Vaginal Delivery [] BMI ? 40 kg/m2 Delivery All patients Vaginal Delivery [] BMI ? 40 kg/m2 AND [] Antepartum hospitalization ? 72 hours within the past month Delivery 1 Major Risk Factor: [] BMI ? 35 kg/m2 [] Low Risk Thrombophilia [] PPH+RBCs, IR, or operation [] Infection+Antibiotics [] Antepartum hospitalization ? 72 hours within the past month [] PMH: Sickle Cell, SLE, Cardiac Dz, Active IBD, Active Cancer, Nephrotic Syndrome OR 2 Minor Risk Factors: [] Multiple gestation [] Age > 40 [] PPH ? 1,000cc [] (+)FMH of VTE [] Smoker [] Preeclampsia [] BMI ? 40 kg/m2 AND [] Low Risk Thrombophilia OR ANY OF THE FOLLOWING: [] High Risk Thrombophilia without prior VTE [] Low Risk Thrombophilia with (+)FMH of VTE [] Any single prior VTE ANY OF THE FOLLOWING: [] Already on LMWH/UFH [] Multiple prior VTE [] High Risk Thrombophilia with prior VTE Low Risk Thrombophilia: FVL (heterozygous), Prothrombin (heterozygous), Protein C, Protein S High Risk Thrombophilia: FVL (homozygous), Prothrombin (homozygous), FVL+Prothrombin (heterozygous), Antithrombin III, APLS Delivery Summary: Specimen: None Blood Type and Rh: O pos Rubella Immunity Status: Immune Celio Nelson DO 03/21/2023, 6:28 AM Associated attestation - Cris Adams MD - 03/22/2023 5:50 PM EDT Procedures or Surgery: I was present for all gallardo elements of the procedure or surgery as described in the resident note. [facility] 03-20-2023 Note Labor Progress Note Date: 03/20/2023 Time: 4:57 PM Subjective: Dana Bansal is a 32 y.o. female at 38w1d admitted for active labor Complications: Carrier for fragile c Abnormal gtt SVE on admission: /-3 GBS: []Pos [x]Neg []Unknown Cx: /-3 FHP: defer FHT: Cat I Navarino: q4min A/P: 1. Cat I with moderate variability and spontaneous accelerations. Patient had to get two epidurals. Now comfortable. Discussed AROM in 1 hour. Shes agreeable. Cx:/-3 FHP: defer FHT: Cat I Navarino: rare min A/P: 1. Active. FHR Cat I with a baseline of 120 's, moderate variability, accelerations present, and no decelerations. Patient unaugmented at this time. AROM without difficulty. BP's normotensive. Continue to monitor. CCM. Dr Adams updated at this time. Ailyn Shultz DO 03/20/2023 6:49 PM Cx: unchanged FHP: defer FHT: Cat I Navarino: q 6 min A/P: 1. Active FHR Cat I with a baseline of 120 's, moderate variability, accelerations present, and no decelerations. Pitocin ordered to to start at this time. Continue to titrate per protocol. BP's normotensive Continue to monitor. KYLE Shultz DO 03/20/2023 9:19 PM Cx: defer FHT: Cat I Navarino: q 5 min A/P: 1. Active. FHT Cat I, baseline 120 moderate variability and spontaneous accelerations, no decelerations noted. FHT not archiving starting at 0015, Paper strips of FHT running in room, reviewed strip at this time in room, Cat I. Pitocin at 4 ml/hr. Bps NT. Cx: unchanged FHP: defer FHT: Cat I Navarino: poorly tracing A/P: 1. Active FHR Cat I with a baseline of 125 's, moderate variability, accelerations present, and no decelerations. Pitocin at 6cc/hr. IUPC placed at this time without difficulty. Continue to titrate per protocol. BP's normotensive. Continue to monitor. KYLE Shultz DO 03/21/2023 1:37 AM Cx: 4/80/-2 FHP: defer FHT: Cat I Navarino: q 2 min A/P: 1. Active. FHT Cat II for rare variable decelerations, baseline 125, reassuring with moderate variability and spontaneous accelerations. SVE 4 cm dilated, does feel stretchier and and thinner. Pitcoin at 8 ml/hr. MVUs 136. BPS NT. Patient repositioned to left side at this time. Will continue to monitor. Cx:9.5/90/-1 FHP: defer FHT: Cat II Navarino:2-3min A/P: 1. Active FHR Cat II for intermittent late decelerations. Overall reassuring with moderate variability and baseline of 120's. Patient uncomfortable and progressed to 9.[address] Adams notified. Anesthesia to redose epidural. Pitocin at 8cc/hr. Continue to titrate per protocol. BP's normotensive. Continue to monitor. [facility] Celio Nelson, DO 03/21/2023 5:23 AM Patient progressed to complete and delivered spontaneously. See delivery note for details. Celio Nelson, DO 03/21/2023 6:38 AM [facility] 03-20-2023 Note Epidural Block Time Out: 03/20/2023 4:26 PM Patient location during procedure: OB Start time: 03/20/2023 4:28 PM End time: 03/20/2023 4:46 PM Reason for block: labor analgesia Staffing Performed: PAVING MACHINE OPERATOR Resident/PAVING MACHINE OPERATOR: MIGUEL Cartagena CRNA Performed by: IMGUEL Cartagena CRNA Authorized by: MIGUEL Cartagena CRNA Preanesthetic Checklist Completed: patient identified, IV checked, site marked, risks and benefits discussed, surgical consent, monitors and equipment checked, pre-op evaluation, timeout performed, IV bolus and anesthesia consent given Block Placement Patient position: sitting Prep: ChloraPrep Sterility prep: drape, gloves, cap, hand and mask Sedation level: no sedation Patient monitoring: heart rate Approach: midline Location: lumbar Lumbar location: L3-L4 Epidural Loss of resistance technique: saline Guidance: landmark technique Needle Needle type: Tara Needle gauge: 17 G Needle length: 9 cm Needle insertion depth: 6 cm Catheter type: multi-orifice Catheter size: 19 G Catheter at skin depth: 11 cm Catheter securement method: surgical tape, liquid medical adhesive and clear occlusive dressing Test dose: negative Medications Administered lidocaine-EPINEPHrine (Xylocaine W/EPI) 1.5 %-1:[id number] injection - Epidural 3 mL - 03/20/2023 4:35:00 PM 2 mL - 03/20/2023 4:37:00 PM ropivacaine (Naropin) 0.2 % epidural bolus - Epidural 6 mL - 03/20/2023 4:42:00 PM 6 mL - 03/20/2023 4:46:00 PM Assessment Block outcome: pain improved Number of attempts: 1 Procedure assessment: patient tolerated procedure well with no immediate complications [facility] 03-20-2023 Note Patient: Dana hubbard Procedure Information Date: 03/20/23 Procedure: Labor Analgesia Relevant Problems Anesthesia (+) History of anxiety (+) History of depression Neuro/Psych (+) Headache in , antepartum Other (+) 38 weeks gestation of Clinical information reviewed: Allergies Meds Physical Exam Airway Mallampati: II TM distance: >3 FB Neck ROM: full Mouth Open: normal Cardiovascular Dental dentition normal Pulmonary Abdominal Anesthesia Plan patient is NPO appropriate Any family history or previous problems with anesthesia no ASA 2 epidural Any family history or previous problems with anesthesia no The patient is not a current smoker. Anesthetic plan and risks discussed with patient. Use of blood products discussed with who consented to blood products. Additional Equipment Requests [facility] 03-20-2023 Note Obstetrical History and Physical CHIEF COMPLAINT: Active Labor HISTORY OF PRESENT ILLNESS: The patient is a 32 y.o. female at 38w1d OB History 6 Para 5 Term 5 AB Living 5 SAB IAB Ectopic Multiple Live Births 5 Patient presents with a chief complaint as above and is being admitted for active phase labor Denies DFM/VB/LOF/RUIZ/EpigastricPain/Vi sual changes Estimated Due Date: Estimated Date of Delivery: 04/02/23 -01 [facility]. Current EGA is 38w1d Is this patient being delivered between 63u0n-39i0t weeks with an acceptable medical indication (obstetric, maternal, and/or )? YES: This patient is between 26r4i-19l7z and DOES have an acceptable indication(s) for delivery: (rambo all that apply) OBSTETRIC INDICATIONS: Active, early, or spontaneous labor, INDICATIONS: N/A: indications not applicable to this patient. See obstetrical or maternal, N/A: maternal indications not applicable for this patient. See or obstetrical CARE: Complications: See Below PAST OB HISTORY: OB History Para Term AB Living 6 5 5 5 SAB IAB Ectopic Multiple Live Births 5 # Outcome Date GA Lbr Sarwat/2nd Weight Sex Delivery Anes PTL Lv 6 Current 5 Term 10/04/19 7 lb 6 oz (3.345 kg) F Vag-Spont EPI N MYESHA 4 Term 05/06/17 5 lb 10 oz (2.551 kg) F Vag-Spont EPI N MYESHA 3 Term 02/15/14 7 lb 7 oz (3.374 kg) M Vag-Spont EPI N MYESHA Comments: GBS + 2 Term 09/20/11 6 lb 8 oz (2.948 kg) F Vag-Spont EPI N MYESHA 1 Term 01/21/09 5 lb 8 oz (2.495 kg) M Vag-Spont EPI N MYESHA Detailed OB History G1 - uncomplicated G2 - uncomplicated G3 - uncomplicated G4 - uncomplicated G5 - uncomplicated G6 Current Past Medical History: Past Medical History: Diagnosis Date Anxiety Depression Past Surgical History: No past surgical history on file. Allergies: Patient has no known allergies. Social History: Social History Socioeconomic History Marital status: Spouse name: Not on file Number of children: Not on file Years of education: Not on file Highest education level: Not on file Occupational History Not on file Tobacco Use Smoking status: Never Smokeless tobacco: Never Vaping Use Vaping Use: Never used Substance and Sexual Activity Alcohol use: Not Currently Drug use: Not Currently Sexual activity: Yes Partners: Male Comment: Currently Other Topics Concern Not on file Social History Narrative Not on file Social Determinants of Health Financial Resource Strain: Not on file Food Insecurity: Not on file Transportation Needs: Not on file Physical Activity: Not on file Stress: Not on file Social Connections: Not on file Intimate Partner Violence: Not on file Housing Stability: Not on file Family History: Family History Problem Relation Name Age of Onset Ovarian cancer Neg Hx Breast cancer Neg Hx Colon cancer Neg Hx Uterine cancer Neg Hx Medications Prior to Admission: Medications Prior to Admission Medication Sig Dispense Refill Last Dose acetaminophen (Tylenol) 325 MG tablet Take by mouth. Blood Glucose Monitoring Suppl kit Check blood sugar 4 times daily and prn 1 kit 0 doxylamine (Unisom SleepTabs) 25 MG tablet Take 1 tablet (25 mg) by mouth Nightly. (Patient not taking: Reported on 03/20/2023) 30 tablet 1 More than a month doxylamine (Unisom) 25 MG tablet Take 1 tablet (25 mg) by mouth Nightly as needed for sleep. 30 tablet 5 Elastic Bandages & Supports (Futuro Abdominal Support) misc Wear as needed Size medium 1 each 0 esomeprazole (NexIUM) [address] capsule Take 1 capsule (20 mg) by mouth every morning (before breakfast). Do not open capsule. 30 capsule 11 glucose blood (Glucose Meter Test) test strip Use as instructed 200 each 2 hydrocortisone 2.5 % ointment Apply topically 2 times daily. To affected area 20 g 0 Lancets Micro Thin 33G misc Check blood sugar 4 times daily and prn 200 each 2 magnesium oxide (Mag-Ox) 400 mg tablet Take 1 tablet (400 mg) by mouth daily. (Patient not taking: Reported on 03/20/2023) 30 tablet 2 More than a month metoclopramide (Reglan) 10 MG tablet Take 1 tablet (10 mg) by mouth every 6 hours as needed (Headache and nausea and vomiting. Take with tylenol for headache). Take with tylenol for a headache (Patient not taking: Reported on 03/20/2023) 30 tablet 1 More than a month ondansetron ODT (Zofran-ODT) 4 MG disintegrating tablet Take 1 tablet (4 mg) by mouth every 8 hours as needed for nausea or vomiting for up to 5 doses. (Patient not taking: Reported on 03/20/2023) 5 tablet 0 More than a month 27-1 MG tablet Take 1 tablet by mouth daily. 30 tablet 3 03/19/2023 Vit-Fe Fumarate-FA ( Vitamins) 28-0.8 MG tablet Take 1 tablet by mouth daily. (Patient not taking: Reported on 03/20/2023) 30 tablet 3 More than a month REVIEW OF SYSTEMS: Const: Negative GLORIA (more content not included)... [facility] 03-20-2023 History and physical note Obstetrical History and Physical CHIEF COMPLAINT: Active Labor HISTORY OF PRESENT ILLNESS: The patient is a 32 y.o. female at 38w1d OB History 6 Para 5 Term 5 AB Living 5 SAB IAB Ectopic Multiple Live Births 5 Patient presents with a chief complaint as above and is being admitted for active phase labor Denies DFM/VB/LOF/RUIZ/EpigastricPain/Vi sual changes Estimated Due Date: Estimated Date of Delivery: 04/02/23 PC-01 [facility]. Current EGA is 38w1d Is this patient being delivered between 59a1j-19y4b weeks with an acceptable medical indication (obstetric, maternal, and/or )? YES: This patient is between 13h2n-36v0j and DOES have an acceptable indication(s) for delivery: (rambo all that apply) OBSTETRIC INDICATIONS: Active, early, or spontaneous labor, INDICATIONS: N/A: indications not applicable to this patient. See obstetrical or maternal, N/A: maternal indications not applicable for this patient. See or obstetrical CARE: Complications: See Below PAST OB HISTORY: OB History Para Term AB Living 6 5 5 5 SAB IAB Ectopic Multiple Live Births 5 # Outcome Date GA Lbr Sarwat/2nd Weight Sex Delivery Anes PTL Lv 6 Current 5 Term 10/04/19 7 lb 6 oz (3.345 kg) F Vag-Spont EPI N MYESHA 4 Term 05/06/17 5 lb 10 oz (2.551 kg) F Vag-Spont EPI N MYESHA 3 Term 02/15/14 7 lb 7 oz (3.374 kg) M Vag-Spont EPI N MYESHA Comments: GBS + 2 Term 09/20/11 6 lb 8 oz (2.948 kg) F Vag-Spont EPI N MYESHA 1 Term 01/21/09 5 lb 8 oz (2.495 kg) M Vag-Spont EPI N MYESHA Detailed OB History G1 - uncomplicated G2 - uncomplicated G3 - uncomplicated G4 - uncomplicated G5 - uncomplicated G6 Current Past Medical History: Past Medical History: Diagnosis Date Anxiety Depression Past Surgical History: No past surgical history on file. Allergies: Patient has no known allergies. Social History: Social History Socioeconomic History Marital status: Spouse name: Not on file Number of children: Not on file Years of education: Not on file Highest education level: Not on file Occupational History Not on file Tobacco Use Smoking status: Never Smokeless tobacco: Never Vaping Use Vaping Use: Never used Substance and Sexual Activity Alcohol use: Not Currently Drug use: Not Currently Sexual activity: Yes Partners: Male Comment: Currently Other Topics Concern Not on file Social History Narrative Not on file Social Determinants of Health Financial Resource Strain: Not on file Food Insecurity: Not on file Transportation Needs: Not on file Physical Activity: Not on file Stress: Not on file Social Connections: Not on file Intimate Partner Violence: Not on file Housing Stability: Not on file Family History: Family History Problem Relation Name Age of Onset Ovarian cancer Neg Hx Breast cancer Neg Hx Colon cancer Neg Hx Uterine cancer Neg Hx Medications Prior to Admission: Medications Prior to Admission Medication Sig Dispense Refill Last Dose acetaminophen (Tylenol) 325 MG tablet Take by mouth. Blood Glucose Monitoring Suppl kit Check blood sugar 4 times daily and prn 1 kit 0 doxylamine (Unisom SleepTabs) 25 MG tablet Take 1 tablet (25 mg) by mouth Nightly. (Patient not taking: Reported on 03/20/2023) 30 tablet 1 More than a month doxylamine (Unisom) 25 MG tablet Take 1 tablet (25 mg) by mouth Nightly as needed for sleep. 30 tablet 5 Elastic Bandages & Supports (Futuro Abdominal Support) misc Wear as needed Size medium 1 each 0 esomeprazole (NexIUM) [address] capsule Take 1 capsule (20 mg) by mouth every morning (before breakfast). Do not open capsule. 30 capsule 11 glucose blood (Glucose Meter Test) test strip Use as instructed 200 each 2 hydrocortisone 2.5 % ointment Apply topically 2 times daily. To affected area 20 g 0 Lancets Micro Thin 33G misc Check blood sugar 4 times daily and prn 200 each 2 magnesium oxide (Mag-Ox) 400 mg tablet Take 1 tablet (400 mg) by mouth daily. (Patient not taking: Reported on 03/20/2023) 30 tablet 2 More than a month metoclopramide (Reglan) 10 MG tablet Take 1 tablet (10 mg) by mouth every 6 hours as needed (Headache and nausea and vomiting. Take with tylenol for headache). Take with tylenol for a headache (Patient not taking: Reported on 03/20/2023) 30 tablet 1 More than a month ondansetron ODT (Zofran-ODT) 4 MG disintegrating tablet Take 1 tablet (4 mg) by mouth every 8 hours as needed for nausea or vomiting for up to 5 doses. (Patient not taking: Reported on 03/20/2023) 5 tablet 0 More than a month 27-1 MG tablet Take 1 tablet by mouth daily. 30 tablet 3 03/19/2023 Vit-Fe Fumarate-FA ( Vitamins) 28-0.8 MG tablet Take 1 tablet by mouth daily. (Patient not taking: Reported on 03/20/2023) 30 tablet 3 More than a month REVIEW OF SYSTEMS: Const: Negative HEENT: Negative Resp: Negative CVS: Negative GI: Negative : Negative MSK: Negative Breast: Negative Skin: Negative Heme/Lymph:Negative Endo: Negative Neuro: Negative Psych: Negative PHYSICAL EXAM: Vitals: 03/20/23 0936 BP: 109/75 Pulse: 91 Resp: 22 Temp: 36.9 C (98.5 F) TempSrc: Oral General appearance: awake, alert, cooperative, no apparent distress, and appears stated age Neurologic: Awake, alert, oriented to name, place and time. Lungs: No increased work of breathing, good air exchange Abdomen: Soft, non tender, gravid, consistent with her gestational age Sterile Speculum Exam: Membranes: Intact HSV Lesions:not applicable Cervix: 4/80/-3 Contraction frequency: q1-2mins per patient Labs: CBC: No results found for: WBC, RBC, HGB, HCT, MCV, MCH, MCHC, RDW, PLT, MPV Blood Type/Rh: No results found for: RH Group B Strep: No components found for: GRPBPCR Fetus: EFW: 3312g (57%), AC 73% by 03/18 US Presentation: vertex by U/S Huitron Score: 8 0 1 2 3 Position Posterior Mid Anterior - Consistency Firm Medium Soft - Effacement 0-30% 40-50% 60-70% 80% or > Dilation 0cm 1-2cm 3-4cm 5cm or > Station -3 -2 -1, 0 +1, +2 LABOR DELIVERY ??? SCD's ONLY (labor through ambulation) SCD's PLUS Prophylactic Anticoagulation until discharge SCD's PLUS Prophylactic Anticoagulation for 6 weeks SCD's PLUS Therapeutic Anticoagulation for 6 weeks Vaginal Delivery [] BMI ? 40 kg/m2 Delivery All patients Vaginal Delivery [] BMI ? 40 kg/m2 AND [] Antepartum hospitalization ? 72 hours within the past month Delivery 1 Major Risk Factor: [] BMI ? 35 kg/m2 [] Low Risk Thrombophilia [] PPH+RBCs, IR, or operation [] Infection+Antibiotics [] Antepartum hospitalization ? 72 hours within the past month [] PMH: Sickle Cell, SLE, Cardiac Dz, Active IBD, Active Cancer, Nephrotic Syndrome OR 2 Minor Risk Factors: [] Multiple gestation [] Age > 40 [] PPH ? 1,000cc [] (+)FMH of VTE [] Smoker [] Preeclampsia [] BMI ? 40 kg/m2 AND [] Low Risk Thrombophilia OR ANY OF THE FOLLOWING: [] High Risk Thrombophilia without prior VTE [] Low Risk Thrombophilia with (+)FMH of VTE [] Any single prior VTE ANY OF THE FOLLOWING: [] Already on LMWH/UFH [] Multiple prior VTE [] High Risk Thrombophilia with prior VTE Low Risk Thrombophilia: FVL (heterozygous), Prothrombin (heterozygous), Protein C, Protein S High Risk Thrombophilia: FVL (homozygous), Prothrombin (homozygous), FVL+Prothrombin (heterozygous), Antithrombin III, APLS ASSESSMENT AND PLAN: 1. 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 Genie Dukes MD 03/20/2023, 2:01 PM T [facility] 03-20-2023 History and physical note Obstetrical History and Physical CHIEF COMPLAINT: Active Labor HISTORY OF PRESENT ILLNESS: The patient is a 32 y.o. female at 38w1d OB History 6 Para 5 Term 5 AB Living 5 SAB IAB Ectopic Multiple Live Births 5 Patient presents with a chief complaint as above and is being admitted for active phase labor Denies DFM/VB/LOF/RUIZ/EpigastricPain/Vi sual changes Estimated Due Date: Estimated Date of Delivery: 04/02/23 PC-01 [facility]. Current EGA is 38w1d Is this patient being delivered between 81e1n-76r4z weeks with an acceptable medical indication (obstetric, maternal, and/or )? YES: This patient is between 48j0n-13k6x and DOES have an acceptable indication(s) for delivery: (rambo all that apply) OBSTETRIC INDICATIONS: Active, early, or spontaneous labor, INDICATIONS: N/A: indications not applicable to this patient. See obstetrical or maternal, N/A: maternal indications not applicable for this patient. See or obstetrical CARE: Complications: See Below PAST OB HISTORY: OB History Para Term AB Living 6 5 5 5 SAB IAB Ectopic Multiple Live Births 5 # Outcome Date GA Lbr Sarwat/2nd Weight Sex Delivery Anes PTL Lv 6 Current 5 Term 10/04/19 7 lb 6 oz (3.345 kg) F Vag-Spont EPI N MYESHA 4 Term 05/06/17 5 lb 10 oz (2.551 kg) F Vag-Spont EPI N MYESHA 3 Term 02/15/14 7 lb 7 oz (3.374 kg) M Vag-Spont EPI N MYESHA Comments: GBS + 2 Term 09/20/11 6 lb 8 oz (2.948 kg) F Vag-Spont EPI N MYESHA 1 Term 01/21/09 5 lb 8 oz (2.495 kg) M Vag-Spont EPI N MYESHA Detailed OB History G1 - uncomplicated G2 - uncomplicated G3 - uncomplicated G4 - uncomplicated G5 - uncomplicated G6 Current Past Medical History: Past Medical History: Diagnosis Date Anxiety Depression Past Surgical History: No past surgical history on file. Allergies: Patient has no known allergies. Social History: Social History Socioeconomic History Marital status: Spouse name: Not on file Number of children: Not on file Years of education: Not on file Highest education level: Not on file Occupational History Not on file Tobacco Use Smoking status: Never Smokeless tobacco: Never Vaping Use Vaping Use: Never used Substance and Sexual Activity Alcohol use: Not Currently Drug use: Not Currently Sexual activity: Yes Partners: Male Comment: Currently Other Topics Concern Not on file Social History Narrative Not on file Social Determinants of Health Financial Resource Strain: Not on file Food Insecurity: Not on file Transportation Needs: Not on file Physical Activity: Not on file Stress: Not on file Social Connections: Not on file Intimate Partner Violence: Not on file Housing Stability: Not on file Family History: Family History Problem Relation Name Age of Onset Ovarian cancer Neg Hx Breast cancer Neg Hx Colon cancer Neg Hx Uterine cancer Neg Hx Medications Prior to Admission: Medications Prior to Admission Medication Sig Dispense Refill Last Dose acetaminophen (Tylenol) 325 MG tablet Take by mouth. Blood Glucose Monitoring Suppl kit Check blood sugar 4 times daily and prn 1 kit 0 doxylamine (Unisom SleepTabs) 25 MG tablet Take 1 tablet (25 mg) by mouth Nightly. (Patient not taking: Reported on 03/20/2023) 30 tablet 1 More than a month doxylamine (Unisom) 25 MG tablet Take 1 tablet (25 mg) by mouth Nightly as needed for sleep. 30 tablet 5 Elastic Bandages & Supports (Futuro Abdominal Support) misc Wear as needed Size medium 1 each 0 esomeprazole (NexIUM) [address] capsule Take 1 capsule (20 mg) by mouth every morning (before breakfast). Do not open capsule. 30 capsule 11 glucose blood (Glucose Meter Test) test strip Use as instructed 200 each 2 hydrocortisone 2.5 % ointment Apply topically 2 times daily. To affected area 20 g 0 Lancets Micro Thin 33G misc Check blood sugar 4 times daily and prn 200 each 2 magnesium oxide (Mag-Ox) 400 mg tablet Take 1 tablet (400 mg) by mouth daily. (Patient not taking: Reported on 03/20/2023) 30 tablet 2 More than a month metoclopramide (Reglan) 10 MG tablet Take 1 tablet (10 mg) by mouth every 6 hours as needed (Headache and nausea and vomiting. Take with tylenol for headache). Take with tylenol for a headache (Patient not taking: Reported on 03/20/2023) 30 tablet 1 More than a month ondansetron ODT (Zofran-ODT) 4 MG disintegrating tablet Take 1 tablet (4 mg) by mouth every 8 hours as needed for nausea or vomiting for up to 5 doses. (Patient not taking: Reported on 03/20/2023) 5 tablet 0 More than a month 27-1 MG tablet Take 1 tablet by mouth daily. 30 tablet 3 03/19/2023 Vit-Fe Fumarate-FA ( Vitamins) 28-0.8 MG tablet Take 1 tablet by mouth daily. (Patient not taking: Reported on 03/20/2023) 30 tablet 3 More than a month REVIEW OF SYSTEMS: Const: Negative HEENT: Negative Resp: Negative CVS: Negative GI: Negative : Negative MSK: Negative Breast: Negative Skin: Negative Heme/Lymph:Negative Endo: Negative Neuro: Negative Psych: Negative PHYSICAL EXAM: Vitals: 03/20/23 0936 BP: 109/75 Pulse: 91 Resp: 22 Temp: 36.9 C (98.5 F) TempSrc: Oral General appearance: awake, alert, cooperative, no apparent distress, and appears stated age Neurologic: Awake, alert, oriented to name, place and time. Lungs: No increased work of breathing, good air exchange Abdomen: Soft, non tender, gravid, consistent with her gestational age Sterile Speculum Exam: Membranes: Intact HSV Lesions:not applicable Cervix: 4/80/-3 Contraction frequency: q1-2mins per patient Labs: CBC: No results found for: WBC, RBC, HGB, HCT, MCV, MCH, MCHC, RDW, PLT, MPV Blood Type/Rh: No results found for: RH Group B Strep: No components found for: GRPBPCR Fetus: EFW: 3312g (57%), AC 73% by 03/18 US Presentation: vertex by U/S Huitron Score: 8 0 1 2 3 Position Posterior Mid Anterior - Consistency Firm Medium Soft - Effacement 0-30% 40-50% 60-70% 80% or > Dilation 0cm 1-2cm 3-4cm 5cm or > Station -3 -2 -1, 0 +1, +2 LABOR DELIVERY ??? SCD's ONLY (labor through ambulation) SCD's PLUS Prophylactic Anticoagulation until discharge SCD's PLUS Prophylactic Anticoagulation for 6 weeks SCD's PLUS Therapeutic Anticoagulation for 6 weeks Vaginal Delivery [] BMI ? 40 kg/m2 Delivery All patients Vaginal Delivery [] BMI ? 40 kg/m2 AND [] Antepartum hospitalization ? 72 hours within the past month Delivery 1 Major Risk Factor: [] BMI ? 35 kg/m2 [] Low Risk Thrombophilia [] PPH+RBCs, IR, or operation [] Infection+Antibiotics [] Antepartum hospitalization ? 72 hours within the past month [] PMH: Sickle Cell, SLE, Cardiac Dz, Active IBD, Active Cancer, Nephrotic Syndrome OR 2 Minor Risk Factors: [] Multiple gestation [] Age > 40 [] PPH ? 1,000cc [] (+)FMH of VTE [] Smoker [] Preeclampsia [] BMI ? 40 kg/m2 AND [] Low Risk Thrombophilia OR ANY OF THE FOLLOWING: [] High Risk Thrombophilia without prior VTE [] Low Risk Thrombophilia with (+)FMH of VTE [] Any single prior VTE ANY OF THE FOLLOWING: [] Already on LMWH/UFH [] Multiple prior VTE [] High Risk Thrombophilia with prior VTE Low Risk Thrombophilia: FVL (heterozygous), Prothrombin (heterozygous), Protein C, Protein S High Risk Thrombophilia: FVL (homozygous), Prothrombin (homozygous), FVL+Prothrombin (heterozygous), Antithrombin III, APLS ASSESSMENT AND PLAN: 1. 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 Genie Dukes MD 03/20/2023, 2:01 PM documented in this encounter [facility] 03-18-2023 Evaluation + Plan note Associated Problem(s): Vaginal discharge during in third trimester ? LOF clear in color x 24 hour. Thinks its probably urine. Denies vaginal itching odor or burning Normal EKATERINA SSE negative Vag culture and urine culture collected Will notify patient of lab results and any indicated treatment. [facility] 03-18-2023 Miscellaneous Notes Associated Problem(s): Vaginal discharge during in third trimester ? LOF clear in color x 24 hour. Thinks its probably urine. Denies vaginal itching odor or burning Normal EKATERINA SSE negative Vag culture and urine culture collected Will notify patient of lab results and any indicated treatment. documented in this encounter [facility] 03-18-2023 History of Presen t illness Narrative PLAN: care, antepartum Patient advised to call with labor contractions, LOF, bleeding or decreased movement GBS negative RH+ Previously declined Tdap Prelim US: Single live IUP in a vertex presentation. Cardiac activity and movement are present. EFW is 3312gr = 7lbs 5oz, 57% (Jonathan). EKATERINA = 15.2cm. anatomy appears normal BS normal at home Elective IOL at 39 weeks scheduled next week MAUDE 1 week Abnormal glucose tolerance affecting , antepartum Reports normal BS at home Thrombocytopenia affecting (HCC) Platelets [id number] 03/04/23 CBC ordered Poor weight gain of , third trimester Prelim US normal growth: Single live IUP in a vertex presentation. Cardiac activity and movement are present. EFW is 3312gr = 7lbs 5oz, 57% (Jonathan). EKATERINA = 15.2cm. anatomy appears normal Vaginal discharge 3rd trimester ? LOF clear in color x 24 hour. Thinks its probably urine. Denies vaginal itching odor or burning Normal EKATERINA SSE negative Vag culture and urine culture collected Will notify patient of lab results and any indicated treatment. ASSESSESMENT: Diagnosis Plan 1. High-risk supervision, third trimester POCT urinalysis dipstick manually resulted Urine culture 2. Grand multiparity, antepartum, unspecified trimester 3. Poor weight gain of , third trimester 4. Thrombocytopenia affecting (HCC) CBC 5. Vaginal discharge during in third trimester Sureswab(R) Advanced Vaginitis Plus, TMA ([facility]) 6. Abnormal glucose tolerance affecting , antepartum 7. 37 weeks gestation of POCT urinalysis dipstick manually resulted Urine culture Sureswab(R) Advanced Vaginitis Plus, TMA ([facility]) She is here for 37w6d OB visit accompanied by her partner and daughter. Denies cramping, or bleeding. She is having contractions off and on. ? LOF clear in color x 24 hour. Thinks its probably urine. Denies vaginal itching odor or burning. Prelim US results reviewed with patient and partner: Single live IUP in a vertex presentation. Cardiac activity and movement are present. EFW is 3312gr = 7lbs 5oz, 57% (Jonathan). EKATERINA = 15.2cm. anatomy appears normal, as noted above. PHYSICAL EXAM: BP 114/84 Pulse 60 Wt 163 lb 9.6 oz (74.2 kg) LMP 06/26/2022 (Exact Date) BMI 29.92 kg/m I have reviewed her pertinent history, lab results, medications and problem list. See episode for any changes. Well appearing, Alert & oriented Skin warm & dry Normal range of motion in all extremities. Abdomen soft nontender Normal resp effort Cervix 2+/70%/-3 EXTERNAL GENITALIA: Normal. VAGINA: Normal, no lesions. White vaginal discharge noted Negative pooling, Nitrazine and ferning. Vag culture done CERVIX: Cervical exam 2+/70%/-3 MIGUEL Durant CNP 03/18/23 No follow-ups on file. documented in this encounter [facility] 03-15-2023 History of Presen t illness Narrative She is here for 37w3d OB visit. Denies cramping leaking or bleeding or LOF PHYSICAL EXAM: BP 116/72 Wt 163 lb 6.4 oz (74.1 kg) LMP 06/26/2022 (Exact Date) BMI 29.89 kg/m I have reviewed her pertinent history, lab results, medications and problem list. See episode for any changes. Denies cramping leaking or bleeding or LOF Well appearing, Alert & oriented Skin warm & dry Normal range of motion in all extremities. Abdomen soft nontender Normal resp effort ASSESSESMENT: Diagnosis Plan 1. Grand multiparity, antepartum, unspecified trimester Urine culture 2. Thrombocytopenia affecting (HCC) 3. Abnormal glucose tolerance affecting , antepartum 4. Poor weight gain of , third trimester 5. Carrier of fragile X chromosome 6. 37 weeks gestation of PLAN: Patient Active Problem List Diagnosis care, antepartum Grand multiparity, antepartum, unspecified trimester Nausea and vomiting of , antepartum Headache in , antepartum History of depression History of anxiety Carrier of fragile X chromosome Poor weight gain of , third trimester Heartburn during , antepartum Pelvic pressure in Thrombocytopenia affecting (HCC) Abnormal glucose tolerance affecting , antepartum Insomnia Grand multiparity, antepartum, unspecified trimester Having a couple of painful ctx per hour for 3 days. Denies lof or bleeding. Is having urinary frequency and urgency. Urine cx sent. GBS neg IOL scheduled for 39 wks. Poor weight gain of , third trimester Growth us nv MIGUEL Tinsley CNM 03/15/23 Follow up in about 1 week (around 03/22/2023) for MAUDE. documented in this encounter [facility] 03-15-2023 Evaluation + Plan note Associated Problem(s): Poor weight gain of , third trimester Growth us nv [facility] 03-15-2023 Miscellaneous Notes Associated Problem(s): Poor weight gain of , third trimester Growth us nv Associated Problem(s): Grand multiparity, antepartum, unspecified trimester Having a couple of painful ctx per hour for 3 days. Denies lof or bleeding. Is having urinary frequency and urgency. Urine cx sent. GBS neg IOL scheduled for 39 wks. documented in this encounter [facility] 03-15-2023 Evaluation + Plan note Associated Problem(s): Grand multiparity, antepartum, unspecified trimester Having a couple of painful ctx per hour for 3 days. Denies lof or bleeding. Is having urinary frequency and urgency. Urine cx sent. GBS neg IOL scheduled for 39 wks. [facility] 03-13-2023 Nurse Note Discharged to home with copy of homegoing instructions Verbalizes understanding. No acute distress noted [facility] 03-13-2023 Nurse Note Discharged to home with copy of homegoing instructions Verbalizes understanding. No acute distress noted documented in this encounter [facility] 03-13-2023 Hospital Discharg e instructions Joselyn Sky DO - 03/13/2023 8:59 PM EDT Follow up appointment with your doctor/family services worker - {Blank single:09779:: Keep next scheduled appointment , Call office for appointment in days , Call office to be seen tomorrow } Activity - {Blank single:90343:: Normal Activity , Bedrest , Pelvic Rest , Off feet as much as possible } Call your doctor/family services worker if you have: - leaking fluid - vaginal bleeding - regular contractions: {Blank single:83975:: Every 5 minutes or closer for one hour , More than 6 contractions in one hour } - decreased movement - worsening abdominal (belly) pain - headache, blurry vision, increased swelling, upper abdominal pain If you are going home with contractions that are uncomfortable/painful- we recommend these coping strategies: rhythmic breathing, hydrotherapy, imagery or visualization, gentle massage, walking and changing your position. Treatment Verification: Dana Bansal was assessed on Labor and Delivery for a related visit on 03/13/23 . Joselyn Sky DO [facility] documented in this encounter [facility] 03-13-2023 Telephone encounter Note S: Patient spoke with [facility] nurse regarding pain and vaginal pressure. B: Sent patient to this morning; unable to find ride. A: Patient is calling back with worsening symptoms from this morning. She has increased, severe, constant abdominal cramping with occasional sharp pains to the low back. She now has developed what she believes is a migraine or headache with nausea to the point she feels like vomiting. Baby continues to be active. She is having increased vaginal pressure with standing and ambulating. R: Advised Labor and Delivery evaluation this morning. Discussed if her cannot take her then at this point she may need to call EMS. Patient is at 's work, waiting for him to clock out and then they are heading to [facility] Labor and delivery. Second level triage with Dr. Coello, via phone and she agreed with evaluation in the labor and delivery and that sometimes patient's just want to hear it from the physician. Called patient back and she is in agreement and is heading to hospital now. No further needs at this time. Reason for Disposition [1] SEVERE headache AND [2] not relieved with acetaminophen (e.g., Tylenol) Protocols used: - Abdominal Pain Greater Than 20 Weeks [id number] [facility] 03-13-2023 Miscellaneous Notes S: Patient spoke with [facility] nurse regarding pain and vaginal pressure. B: Sent patient to this morning; unable to find ride. A: Patient is calling back with worsening symptoms from this morning. She has increased, severe, constant abdominal cramping with occasional sharp pains to the low back. She now has developed what she believes is a migraine or headache with nausea to the point she feels like vomiting. Baby continues to be active. She is having increased vaginal pressure with standing and ambulating. R: Advised Labor and Delivery evaluation this morning. Discussed if her cannot take her then at this point she may need to call EMS. Patient is at 's work, waiting for him to clock out and then they are heading to [facility] Labor and delivery. Second level triage with Dr. Coello, via phone and she agreed with evaluation in the labor and delivery and that sometimes patient's just want to hear it from the physician. Called patient back and she is in agreement and is heading to hospital now. No further needs at this time. Reason for Disposition [1] SEVERE headache AND [2] not relieved with acetaminophen (e.g., Tylenol) Protocols used: - Abdominal Pain Greater Than 20 Weeks [id number] documented in this encounter [facility] 03-13-2023 Telephone encounter Note S: Patient spoke with [facility] nurse regarding moderate to severe abdominal pian. B: Onset of symptoms/concern 2 am this morning. A: Patient is 37 weeks with an estimated due date of 04/02/23. Patient is experiencing some cramping pain in her lower left side that began at 2 am. Pain is constant and moderate until she stands to walk and the pain becomes severe, takes her breath away and she has tears. Upon standing and walking patient has increased vaginal pressure. Baby is moving and when she moves pain increases. She has had increased urination. She said this does not feel like her last deliveries and labor. Denies rupture of membranes or vaginal bleeding. Unsure if she lost the mucus plug. R: Advised evaluation in Labor and Delivery. Patient is going to have sister or friend come and get her as is not home until 5 this evening. No further needs at this time. Reason for Disposition Having contractions or other symptoms of labor (such as vaginal pressure) and 37 or more weeks (i.e., term ) MODERATE-SEVERE abdominal pain Protocols used: - Abdominal Pain Greater Than 20 Weeks [id number], - [id number] [facility] 03-13-2023 Miscellaneous Notes S: Patient spoke with [facility] nurse regarding moderate to severe abdominal pian. B: Onset of symptoms/concern 2 am this morning. A: Patient is 37 weeks with an estimated due date of 04/02/23. Patient is experiencing some cramping pain in her lower left side that began at 2 am. Pain is constant and moderate until she stands to walk and the pain becomes severe, takes her breath away and she has tears. Upon standing and walking patient has increased vaginal pressure. Baby is moving and when she moves pain increases. She has had increased urination. She said this does not feel like her last deliveries and labor. Denies rupture of membranes or vaginal bleeding. Unsure if she lost the mucus plug. R: Advised evaluation in Labor and Delivery. Patient is going to have sister or friend come and get her as is not home until 5 this evening. No further needs at this time. Reason for Disposition Having contractions or other symptoms of labor (such as vaginal pressure) and 37 or more weeks (i.e., term ) MODERATE-SEVERE abdominal pain Protocols used: - Abdominal Pain Greater Than 20 Weeks [id number], - [id number] documented in this encounter [facility] 03-01-2023 Evaluation + Plan note Associated Problem(s): Thrombocytopenia affecting (HCC) Recheck plt today [facility] 03-01-2023 Evaluation + Plan note Associated Problem(s): Abnormal glucose tolerance affecting , antepartum BS have been normal at home BLTL consent signed today Is wanting 39 wk iol GBS nv Has growth us scheduled in 2 wks. [facility] 03-01-2023 Miscellaneous Notes Associated Problem(s): Thrombocytopenia affecting (HCC) Recheck plt today Associated Problem(s): Abnormal glucose tolerance affecting , antepartum BS have been normal at home BLTL consent signed today Is wanting 39 wk iol GBS nv Has growth us scheduled in 2 wks. documented in this encounter [facility] 03-01-2023 Miscellaneous Notes Associated Problem(s): Thrombocytopenia affecting (HCC) Recheck plt today Associated Problem(s): Abnormal glucose tolerance affecting , antepartum BS have been normal at home BLTL consent signed today Is wanting 39 wk iol GBS nv Has growth us scheduled in 2 wks. Addended by: RAMOS WORTHINGTON on: 03/04/2023 10:49 AM Modules accepted: Orders documented in this encounter [facility] 03-01-2023 History of Presen t illness Narrative She is here for 35w3d OB visit. Denies cramping leaking or bleeding or LOF PHYSICAL EXAM: BP 107/74 Pulse 76 Wt 160 lb 12.8 oz (72.9 kg) LMP 06/26/2022 (Exact Date) BMI 29.41 kg/m I have reviewed her pertinent history, lab results, medications and problem list. See episode for any changes. Denies cramping leaking or bleeding or LOF Well appearing, Alert & oriented Skin warm & dry Normal range of motion in all extremities. Abdomen soft nontender Normal resp effort ASSESSESMENT: Diagnosis Plan 1. Grand multiparity, antepartum, unspecified trimester 2. Thrombocytopenia affecting (HCC) CBC CBC 3. Abnormal glucose tolerance affecting , antepartum 4. Carrier of fragile X chromosome 5. 35 weeks gestation of PLAN: Patient Active Problem List Diagnosis care, antepartum Grand multiparity, antepartum, unspecified trimester Nausea and vomiting of , antepartum Headache in , antepartum History of depression History of anxiety Carrier of fragile X chromosome Poor weight gain of , third trimester Heartburn during , antepartum Pelvic pressure in Thrombocytopenia affecting (HCC) Abnormal glucose tolerance affecting , antepartum Insomnia Abnormal glucose tolerance affecting , antepartum BS have been normal at home BLTL consent signed today Is wanting 39 wk iol GBS nv Has growth us scheduled in 2 wks. Thrombocytopenia affecting (HCC) Recheck plt today MIGUEL Tinsley CNM 03/01/23 Follow up in about 1 week (around 03/08/2023) for MAUDE. documented in this encounter [facility] 03-01-2023 History of Presen t illness Narrative She is here for 35w3d OB visit. Denies cramping leaking or bleeding or LOF PHYSICAL EXAM: BP 107/74 Pulse 76 Wt 160 lb 12.8 oz (72.9 kg) LMP 06/26/2022 (Exact Date) BMI 29.41 kg/m I have reviewed her pertinent history, lab results, medications and problem list. See episode for any changes. Denies cramping leaking or bleeding or LOF Well appearing, Alert & oriented Skin warm & dry Normal range of motion in all extremities. Abdomen soft nontender Normal resp effort ASSESSESMENT: Diagnosis Plan 1. Grand multiparity, antepartum, unspecified trimester 2. Thrombocytopenia affecting (HCC) CBC CBC 3. Abnormal glucose tolerance affecting , antepartum 4. Carrier of fragile X chromosome 5. 35 weeks gestation of PLAN: Patient Active Problem List Diagnosis care, antepartum Grand multiparity, antepartum, unspecified trimester Nausea and vomiting of , antepartum Headache in , antepartum History of depression History of anxiety Carrier of fragile X chromosome Poor weight gain of , third trimester Heartburn during , antepartum Pelvic pressure in Thrombocytopenia affecting (HCC) Abnormal glucose tolerance affecting , antepartum Insomnia Abnormal glucose tolerance affecting , antepartum BS have been normal at home BLTL consent signed today Is wanting 39 wk iol GBS nv Has growth us scheduled in 2 wks. Thrombocytopenia affecting (HCC) Recheck plt today MIGUEL Tinsley CNM 03/01/23 Follow up in about 1 week (around 03/08/2023) for MAUDE. documented in this encounter [facility] 03-01-2023 Note Addended by: RAMOS WORTHINGTON on: 03/04/2023 10:49 AM Modules accepted: Orders [facility] 02-23-2023 Hospital Discharg e instructions Wendy Merritt MD - 02/23/2023 5:44 PM EDT Follow up appointment with your doctor/family services worker - Keep next scheduled appointment Activity - Normal Activity Call your doctor/family services worker if you have: - leaking fluid - vaginal bleeding - regular contractions: Every 5 minutes or closer for one hour - decreased movement - worsening abdominal (belly) pain - headache, blurry vision, increased swelling, upper abdominal pain If you are going home with contractions that are uncomfortable/painful- we recommend these coping strategies: rhythmic breathing, hydrotherapy, imagery or visualization, gentle massage, walking and changing your position. Treatment Verification: Dana Bansal was assessed on Labor and Delivery for a related visit on @[email or web address]. Wendy Merritt MD [facility] documented in this encounter [facility] 02-23-2023 History of Presen t illness Narrative Images from the original note were not included. Department of Obstetrics and Gynecology Labor and Delivery Triage Note CHIEF COMPLAINT: VB HISTORY OF PRESENT ILLNESS: The patient is a 32 y.o. 34w4d. OB History 6 Para 5 Term 5 AB Living 5 SAB IAB Ectopic Multiple Live Births 5 Patient presents with a chief complaint as above. Noted to have few spots of bright red vaginal bleeding with wiping. Stated that there has been changes in movements as she is now 34 weeks and feels baby has grown. She is still getting kick counts. She has occasional cramping noted, no change from previous. She denies contractions. Denies DFM/VB/LOF/CTX Estimated Due Date: Estimated Date of Delivery: 04/02/23 PAST MEDICAL HISTORY: Past Medical History: Diagnosis Date Anxiety Depression PAST SURGICAL HISTORY: No past surgical history on file. SOCIAL HISTORY: Social History Socioeconomic History Marital status: Tobacco Use Smoking status: Never Smokeless tobacco: Never Vaping Use Vaping Use: Never used Substance and Sexual Activity Alcohol use: Not Currently Drug use: Not Currently Sexual activity: Yes Partners: Male Comment: Currently MEDICATIONS: No current facility-administered medications for this encounter. CARE: Complicated by: gestational thrombocytopenia REVIEW OF SYSTEMS: Pertinent items are noted in HPI. APPEARANCE: Pain: No PHYSICAL EXAM: Vital Signs: VS wnl-reviewed/Respirations normal effort BP 111/73 HR 74 Abdomen: soft, gravid, nontender, nondistended, no abnormal masses, no epigastric pain Uterus: gravid/non-tender LE Edema: trace Speculum Exam: no pooling of fluid seen, no vaginal bleeding noted heart rate: Category I Cervix: Visually 2cm Contraction frequency: none Membranes: Intact TRIAGE COURSE: Patient with no vaginal bleeding noted on exam. FHT reactive and Cat 1. RH+. ESSION: Bleeding and Decreased Movement Pain assessment and plan: None DISCUSSED WITH [facility] PROVIDER: Dr. Amor DISPOSITION: Discharge to Home Associated attestation - Marta Ceballos MD - 02/23/2023 9:10 PM EDT Procedures or Surgery: I was present for all gallardo elements of the procedure or surgery as described in the resident note. documented in this encounter [facility] 02-18-2023 History of Presen t illness Narrative PLAN: No problem-specific Assessment & Plan notes found for this encounter. ASSESSESMENT: Diagnosis Plan 1. care, antepartum 2. Grand multiparity, antepartum, unspecified trimester 3. 33 weeks gestation of 4. Encounter for follow-up ultrasound of anatomy US OB follow up transabdominal approach She is here for 33w6d OB visit. Denies cramping, leaking of fluid, or bleeding PHYSICAL EXAM: BP 113/75 Pulse 70 Wt 159 lb (72.1 kg) LMP 06/26/2022 (Exact Date) BMI 29.08 kg/m I have reviewed her pertinent history, lab results, medications and problem list. See episode for any changes. Well appearing, Alert & oriented Skin warm & dry Normal range of motion in all extremities. Abdomen soft nontender Normal resp effort Marta Ceballos MD 02/18/23 Follow up in about 2 weeks (around 03/04/2023) for MAUDE. documented in this encounter [facility] 02-10-2023 Hospital Discharg e instructions Neyda Mcmullen MD - 02/10/2023 4:03 PM EDT Follow up appointment with your doctor/family services worker - Keep next scheduled appointment Activity - Normal Activity Call your doctor/family services worker if you have: - leaking fluid - vaginal bleeding - regular contractions: More than 6 contractions in one hour - decreased movement - worsening abdominal (belly) pain - headache, blurry vision, increased swelling, upper abdominal pain If you are going home with contractions that are uncomfortable/painful- we recommend these coping strategies: rhythmic breathing, hydrotherapy, imagery or visualization, gentle massage, walking and changing your position. Treatment Verification: Dana Bansal was assessed on Labor and Delivery for a related visit on 02/10/23 . Neyda Mcmullen MD [facility] documented in this encounter [facility] 02-10-2023 History of Presen t illness Narrative Department of Obstetrics and Gynecology Labor and Delivery Triage Note CHIEF COMPLAINT: Restless legs/arms HISTORY OF PRESENT ILLNESS: The patient is a 32 y.o. 32w5d. OB History 6 Para 5 Term 5 AB Living 5 SAB IAB Ectopic Multiple Live Births 5 Patient presents with a chief complaint as above. Patient says that she has been having restless legs and arms for the past few days. States that it feels better in a cool room compared to the hot room. However has not gotten much relief from movement, warm bath, and other conservative measures that she tried at home. Patient has been trending blood sugars for abnormal 1 hour glucose tolerance test and states that her fastings have been between 88 and 90, and her 1 hour postprandials have been less than 140. Denies DFM/VB/LOF/CTX Estimated Due Date: Estimated Date of Delivery: 04/02/23 PAST MEDICAL HISTORY: Past Medical History: Diagnosis Date Anxiety Depression PAST SURGICAL HISTORY: No past surgical history on file. SOCIAL HISTORY: reports that she has never smoked. She has never used smokeless tobacco. She reports that she does not currently use alcohol. She reports that she does not currently use drugs. MEDICATIONS: Prior to Admission medications Medication Sig Start Date End Date Taking? Authorizing Provider Blood Glucose Monitoring Suppl kit Check blood sugar 4 times daily and prn 01/17/23 MIGUEL Doshi CNP doxylamine (Unisom SleepTabs) 25 MG tablet Take 1 tablet (25 mg) by mouth Nightly. 01/28/23 MIGUEL Doshi CNP doxylamine (Unisom) 25 MG tablet Take 1 tablet (25 mg) by mouth Nightly as needed for sleep. 07/27/22 02/06/23 MIGUEL Tinsley CNM Elastic Bandages & Supports (Futuro Abdominal Support) misc Wear as needed Size medium 01/14/23 MIGUEL Doshi CNP famotidine (Pepcid) 20 MG tablet Take 1 tablet (20 mg) by mouth 2 times daily. 01/14/23 MIGUEL Doshi CNP glucose blood (Glucose Meter Test) test strip Use as instructed 01/17/23 MIGUEL Doshi CNP hydrocortisone 2.5 % ointment Apply topically 2 times daily. To affected area 11/06/22 Cris Adams MD Lancets Micro Thin 33G [facility] Check blood sugar 4 times daily and prn 01/17/23 MIGUEL Doshi CNP magnesium oxide (Mag-Ox) 400 mg tablet Take 1 tablet (400 mg) by mouth daily. 01/17/23 MIGUEL Doshi CNP metoclopramide (Reglan) 10 MG tablet Take 1 tablet (10 mg) by mouth every 6 hours as needed (Headache and nausea and vomiting. Take with tylenol for headache). Take with tylenol for a headache 01/17/23 MIGUEL Doshi CNP metroNIDAZOLE (Metrogel) 0.75 % vaginal gel Insert into the vagina daily for 5 days. 02/07/23 02/12/23 Yajaira Amor MD ondansetron ODT (Zofran-ODT) 4 MG disintegrating tablet Take 1 tablet (4 mg) by mouth every 8 hours as needed for nausea or vomiting for up to 5 doses. 2/8/23 Dom Brown MD 27-1 MG tablet Take 1 tablet by mouth daily. 10/10/22 MIGUEL Doshi CNP Vit-Fe Fumarate-FA ( Vitamins) 28-0.8 MG tablet Take 1 tablet by mouth daily. 10/10/22 10/10/23 MIGUEL Doshi CNP CARE: Complicated by: Abnormal glucose tolerance test, gestational thrombocytopenia REVIEW OF SYSTEMS: Pertinent items are noted in HPI. APPEARANCE: Pain: No PHYSICAL EXAM: Vital Signs: VS wnl-reviewed/Respirations normal effort Vitals: 02/10/23 1420 02/10/23 1425 02/10/23 1430 02/10/23 1435 BP: Pulse: 75 74 66 80 SpO2: 100% 100% 100% 99% Abdomen: soft, NT, ND, no rebound/guarding Uterus: gravid/non-tender LE Edema: trace Speculum Exam: Defer heart rate: Category I Cervix: Deferred Contraction frequency: Irritable Membranes: Intact RESULTS: Procedures GENERAL LABS: Recent Results (from the past 24 hour(s)) POCT glucose meter Collection Time: 02/10/23 1:46 PM Result Value Ref Range Glucose 103 (H) 70 - 100 mg/dL ECG 12 lead Collection Time: 02/10/23 2:24 PM Result Value Ref Range Heart Rate 70 bpm QRSD Interval 85 ms QT Interval 361 ms QTC Interval 388 ms P Wheeler 25 degrees QRS Wheeler 26 degrees T Wave Wheeler -19 degrees AL Interval 140 ms TRIAGE COURSE: Patient seen and examined. Vertex on bedside ultrasound. Blood glucose on admission was 107. Low concern for hypoglycemia or DKA. Will obtain an EKG due to complaint of weakness. We will also offer patient Vistaril as there may be an anxiety component to her symptoms. Celio Girard Omar, DO 02/10/2023 3:19 PM Pt desires to go home at this time, declined vistaril. Given overall reassuring clinical status, and no concerning signs, will discharge home with return precautions. IMPRESSION: Restless leg Pain assessment and plan: None DISCUSSED WITH PNC PROVIDER: Dr. Adams DISPOSITION: Discharge to Home Associated attestation - Brianna Mcmullen MD - 02/10/2023 4:15 PM EDT Hospital Care (Independent): I independently saw and evaluated the patient. I agree with the findings and plan of care as documented in the resident's note. documented in this encounter [facility] 02-10-2023 Telephone encounter Note S: Patient called the clinical access center with complaint of weakness B: 32 weeks , she feels shaky A:Multi , complaint of feeling weak and shaky with decreased movement. She denies abdominal pain , cramping or leaking fluid. R: She is going to L&D for evaluation, Patient instructed to call back with worsening symptoms, concerns or questions. Reason for Disposition [1] 23 or more weeks AND [2] baby moving less today by kick count (e.g., kick count < 5 in 1 hour or < 10 in 2 hours) Protocols used: - Decreased or Abnormal [id number] [facility] 02-10-2023 Miscellaneous Notes S: Patient called the clinical access center with complaint of weakness B: 32 weeks , she feels shaky A:Multi , complaint of feeling weak and shaky with decreased movement. She denies abdominal pain , cramping or leaking fluid. R: She is going to L&D for evaluation, Patient instructed to call back with worsening symptoms, concerns or questions. Reason for Disposition [1] 23 or more weeks AND [2] baby moving less today by kick count (e.g., kick count < 5 in 1 hour or < 10 in 2 hours) Protocols used: - Decreased or Abnormal [id number] documented in this encounter [facility] 02-06-2023 Evaluation + Plan note Associated Problem(s): Pelvic pressure in -acute visit for pelvic pressure -cx closed, +FM -+vaginal discharge, swab collected -urine culture sent -triage precautions reviewed -keep next scheduled appt [facility] 02-06-2023 Miscellaneous Notes Associated Problem(s): Pelvic pressure in -acute visit for pelvic pressure -cx closed, +FM -+vaginal discharge, swab collected -urine culture sent -triage precautions reviewed -keep next scheduled appt documented in this encounter [facility] 02-06-2023 Miscellaneous Notes Associated Problem(s): Pelvic pressure in -acute visit for pelvic pressure -cx closed, +FM -+vaginal discharge, swab collected -urine culture sent -triage precautions reviewed -keep next scheduled appt Addended by: YAJAIRA AMOR on: 02/07/2023 03:19 PM Modules accepted: Orders documented in this encounter [facility] 02-06-2023 History of Presen t illness Narrative PLAN: Pelvic pressure in -acute visit for pelvic pressure -cx closed, +FM -+vaginal discharge, swab collected -urine culture sent -triage precautions reviewed -keep next scheduled appt ASSESSESMENT: Diagnosis Plan 1. Pelvic pressure in Sureswab(R) Advanced Vaginitis Plus, TMA ([facility]) Urine dip Urine culture Sureswab(R) Advanced Vaginitis Plus, TMA ([facility]) She is here for 32w1d OB visit. Denies cramping, leaking of fluid, or bleeding PHYSICAL EXAM: BP 124/82 Wt 159 lb (72.1 kg) LMP 06/26/2022 (Exact Date) BMI 29.08 kg/m I have reviewed her pertinent history, lab results, medications and problem list. See episode for any changes. Well appearing, Alert & oriented Skin warm & dry Normal range of motion in all extremities. Abdomen soft nontender Normal resp effort Yajaira Amor MD 02/06/23 Follow up for Next scheduled follow-up. documented in this encounter [facility] 02-06-2023 History of Presen t illness Narrative PLAN: Pelvic pressure in -acute visit for pelvic pressure -cx closed, +FM -+vaginal discharge, swab collected -urine culture sent -triage precautions reviewed -keep next scheduled appt ASSESSESMENT: Diagnosis Plan 1. Pelvic pressure in Sureswab(R) Advanced Vaginitis Plus, TMA ([facility]) Urine dip Urine culture Sureswab(R) Advanced Vaginitis Plus, TMA ([facility]) She is here for 32w1d OB visit. Denies cramping, leaking of fluid, or bleeding PHYSICAL EXAM: BP 124/82 Wt 159 lb (72.1 kg) LMP 06/26/2022 (Exact Date) BMI 29.08 kg/m I have reviewed her pertinent history, lab results, medications and problem list. See episode for any changes. Well appearing, Alert & oriented Skin warm & dry Normal range of motion in all extremities. Abdomen soft nontender Normal resp effort Yajaira Amor MD 02/06/23 Follow up for Next scheduled follow-up. documented in this encounter [facility] 02-06-2023 Note Addended by: Jalen AMOR on: 02/07/2023 03:19 PM Modules accepted: Orders [facility] 01-18-2023 Telephone encounter Note Spoke with patient yesterday. See TE [facility] 01-18-2023 Miscellaneous Notes Spoke with patient yesterday. See TE S: Patient 29 weeks and 2 days called the clinical access center asking if she could have another 1 hour GTT ordered. B:Pt said she drank a 15 gram carb drink with protein just before she had the test drawn. She didn't fast for 1 hour prior. A:pt told the PAL when she called she has headaches. She told me she has headaches than can be severe, daily for the last 2-3 weeks. She said she did tell Stephan Randle about her headaches at her 01/14 visit. She also said she gets dizzy with walking or stairs intermittently. She denies new weakness or numbness other than when the baby presses down in her pelvis/sciatic nerve and causes her left leg to go numb. She said the baby is very active. R: She spoke with office staff earlier and would like called back by Stephan Randle and advised about the glucose tolerance test Home care advise given to patient: Call back with worsening headaches or symptoms. Patient instructed to call back with worsening symptoms, concerns or questions. Reason for Disposition SEVERE headache or neck pain Protocols used: [id number] documented in this encounter [facility] 01-17-2023 Telephone encounter Note Spoke with patient regarding test results and the symptoms she is having. Patient did not feel well after 1 hour and does not think she can tolerate the 3 hour GCT. She would like to trend BS at home. Glucose testing supplies to pharmacy. Patient states neighbor is diabetic and can help her with glucometer. [employer] message with glucometer and BS instructions sent to patient. Patient states she does not eat sugar or sugary foods. States she has had ongoing RUIZ's x 2 weeks. Has not tried Reglan or nag oxide. Advised to take Reglan with tylenol every 6 hours as needed and to increase caffeine use. Drinks tea all day. Unsure if it has caffeine. Take mag oxide daily. RX for Reglan and mag oxide to pharmacy. Contact office if no improvement Has periods of feeling lightheaded and dizzy. H&H WNL. Platelets low at 136,000. Reports she eats 3 meals and snacks throughout the day and sometimes the night. Will check BS when not feeling well to see if related to BS. If not further work-up may be indicated. Advised to contact office with any elevated or low BS, if RUIZ does not resolve or with any questions or concerns prior to next appt. Patient agrees with plan of care. [facility] 01-17-2023 Miscellaneous Notes Spoke with patient regarding test results and the symptoms she is having. Patient did not feel well after 1 hour and does not think she can tolerate the 3 hour GCT. She would like to trend BS at home. Glucose testing supplies to pharmacy. Patient states neighbor is diabetic and can help her with glucometer. [employer] message with glucometer and BS instructions sent to patient. Patient states she does not eat sugar or sugary foods. States she has had ongoing RUIZ's x 2 weeks. Has not tried Reglan or nag oxide. Advised to take Reglan with tylenol every 6 hours as needed and to increase caffeine use. Drinks tea all day. Unsure if it has caffeine. Take mag oxide daily. RX for Reglan and mag oxide to pharmacy. Contact office if no improvement Has periods of feeling lightheaded and dizzy. H&H WNL. Platelets low at 136,000. Reports she eats 3 meals and snacks throughout the day and sometimes the night. Will check BS when not feeling well to see if related to BS. If not further work-up may be indicated. Advised to contact office with any elevated or low BS, if RUIZ does not resolve or with any questions or concerns prior to next appt. Patient agrees with plan of care. Name of caller: Dana Contact phone number: [phone] Relationship to Patient: patient Provider: Celeste Randle Practice: [facility] Chief Complaint/Reason for Call: Pt calling in regards to 3 hour glucose test. Wanting to take the 1 hour glucose due to her weakness this . She states she would not have the fortitude for a three hour test. Pt already exp dizziness, lightheaded, extreme weight loss 162 to 145, baby 4lbs, shortness of breath from short walk, nausea. Please send new order/call and advise. Best time of day caller can be reached: Any Patient advised that office/PCP has 24-48 business hours to return their call: No documented in this encounter [facility] 01-17-2023 Telephone encounter Note S: Patient 29 weeks and 2 days called the clinical access center asking if she could have another 1 hour GTT ordered. B:Pt said she drank a 15 gram carb drink with protein just before she had the test drawn. She didn't fast for 1 hour prior. A:pt told the PAL when she called she has headaches. She told me she has headaches than can be severe, daily for the last 2-3 weeks. She said she did tell Stephan Randle about her headaches at her 01/14 visit. She also said she gets dizzy with walking or stairs intermittently. She denies new weakness or numbness other than when the baby presses down in her pelvis/sciatic nerve and causes her left leg to go numb. She said the baby is very active. R: She spoke with office staff earlier and would like called back by Stephan Randle and advised about the glucose tolerance test Home care advise given to patient: Call back with worsening headaches or symptoms. Patient instructed to call back with worsening symptoms, concerns or questions. Reason for Disposition SEVERE headache or neck pain Protocols used: [id number] [facility] 01-17-2023 Telephone encounter Note Name of caller: Dana Contact phone number: [phone] Relationship to Patient: patient Provider: Celeste Randle Practice: [facility] Chief Complaint/Reason for Call: Pt calling in regards to 3 hour glucose test. Wanting to take the 1 hour glucose due to her weakness this . She states she would not have the fortitude for a three hour test. Pt already exp dizziness, lightheaded, extreme weight loss 162 to 145, baby 4lbs, shortness of breath from short walk, nausea. Please send new order/call and advise. Best time of day caller can be reached: Any Patient advised that office/PCP has 24-48 business hours to return their call: No [facility] 01-14-2023 Evaluation + Plan note Associated Problem(s): Pelvic pressure in , antepartum Intermittent pelvic pressure with movement. Advised belt. Has one but is too big. States she has tried to contact insurance for a different size but cannot reach anyone New RX written [facility] 01-14-2023 Evaluation + Plan note Associated Problem(s): Heartburn during , antepartum Reports worsening heartburn which tums isnt helping. Pepcid sent to pharmacy. [facility] 01-14-2023 Miscellaneous Notes Associated Problem(s): Pelvic pressure in , antepartum Intermittent pelvic pressure with movement. Advised belt. Has one but is too big. States she has tried to contact insurance for a different size but cannot reach anyone New RX written Associated Problem(s): Heartburn during , antepartum Reports worsening heartburn which tums isnt helping. Pepcid sent to pharmacy. Associated Problem(s): Nausea and vomiting of , antepartum Resolved Associated Problem(s): Poor weight gain of , third trimester Poor weight gain but had N/V in beginning of . Has gained weight last couple visits. Recent normal growth US at [facility]. She reports she is eating ok and healthy. Associated Problem(s): care, antepartum Patient advised to call with > 6 contractions in an hour, LOF, bleeding or decreased movement RH+ CBC ordered Patient has not monitored BS. Plans GCT. GCT ordered. Recent normal growth US [facility]. No echogenic bowel noted Discussed TDap. Declined MAUDE documented in this encounter [facility] 01-14-2023 History of Presen t illness Narrative PLAN: care, antepartum Patient advised to call with > 6 contractions in an hour, LOF, bleeding or decreased movement RH+ CBC ordered Patient has not monitored BS. Plans GCT. GCT ordered. Recent normal growth US [facility]. No echogenic bowel noted Discussed TDap. Declined MAUDE Poor weight gain of , third trimester Poor weight gain but had N/V in beginning of . Has gained weight last couple visits. Recent normal growth US at [facility]. She reports she is eating ok and healthy. Nausea and vomiting of , antepartum Resolved Heartburn during , antepartum Reports worsening heartburn which tums isnt helping. Pepcid sent to pharmacy. Pelvic pressure in , antepartum Intermittent pelvic pressure with movement. Advised belt. Has one but is too big. States she has tried to contact insurance for a different size but cannot reach anyone New RX written ASSESSESMENT: Diagnosis Plan 1. High-risk supervision, third trimester CBC Glucose Gestational Screen 50g ([facility]) CBC Glucose Gestational Screen 50g ([facility]) Elastic Bandages & Supports (Futuro Abdominal Support) misc 2. Grand multiparity, antepartum, unspecified trimester Elastic Bandages & Supports (Futuro Abdominal Support) misc 3. Heartburn during , antepartum famotidine (Pepcid) 20 MG tablet 4. Poor weight gain of , third trimester 5. 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 28 weeks gestation of CBC Glucose Gestational Screen 50g ([facility]) CBC Glucose Gestational Screen 50g ([facility]) Elastic Bandages & Supports (Futuro Abdominal Support) [facility] She is here for 28w6d OB visit accompanied by her partner and daughters. Denies cramping, leaking of fluid, or bleeding. Reports worsening heartburn which tums isnt helping. Pepcid sent to pharmacy. Intermittent pelvic pressure with movement. Poor weight gain but had N/V in beginning of . Has gained weight last couple visits. Recent normal growth US. She reports she is eating ok and healthy. PHYSICAL EXAM: BP 103/65 Pulse 67 Wt 158 lb 12.8 oz (72 kg) LMP 06/26/2022 (Exact Date) BMI 29.04 kg/m I have reviewed her pertinent history, lab results, medications and problem list. See episode for any changes. Well appearing, Alert & oriented Skin warm & dry Normal range of motion in all extremities. Abdomen soft nontender Normal resp effort MIGUEL Durant CNP 01/14/23 Follow up in about 2 weeks (around 01/28/2023) for MAUDE. documented in this encounter [facility] 01-14-2023 Evaluation + Plan note Associated Problem(s): Nausea and vomiting of , antepartum Resolved [facility] 01-14-2023 Evaluation + Plan note Associated Problem(s): Poor weight gain of , third trimester Poor weight gain but had N/V in beginning of . Has gained weight last couple visits. Recent normal growth US at [facility]. She reports she is eating ok and healthy. [facility] 01-14-2023 Evaluation + Plan note Associated Problem(s): care, antepartum Patient advised to call with > 6 contractions in an hour, LOF, bleeding or decreased movement RH+ CBC ordered Patient has not monitored BS. Plans GCT. GCT ordered. Recent normal growth US [facility]. No echogenic bowel noted Discussed TDap. Declined MAUDE [facility] 12-07-2022 History of Presen t illness Narrative Pt here for OB visit. The baby is active. No LOF or bleeding. No contractions. History reviewed - see episode report No nausea or vomiting. PE: See vitals Pt A&OX3, NAD Normal affect Non labored breathing Abd - non tender Ext - no edema lower extremities 23 week IUP Sp mfm consult for abnormal ulsd Expanded carrier screen done Fragile x carrier Infection studes done Fu growth and echogenic bowel 28 wks scheduled mfm January 09 Would prefer growth ulsd here if possible after next mfm appt Gct declined would prefer bgts monitoring Acid reflux using tums not pepcid documented in this encounter [facility] 11-06-2022 History of Presen t illness Narrative Pt here for OB visit. No LOF or bleeding. No contractions. History reviewed - see episode report No nausea or vomiting. PE: See vitals Pt A&OX3, NAD Normal affect Non labored breathing Abd - non tender Ext - no edema lower extremities 19 week IUP Ulsd anatomy today ?Short nasal bone Cerebellum small Cp unilateral Echogenic bowel Genetics wnl Mfm referral sent Breast itching and dry with rash getting better Rx sent documented in this encounter [facility] 10-18-2022 Evaluation + Plan note Associated Problem(s): care, antepartum Doing well Anatomy nv [facility] 10-18-2022 Miscellaneous Notes Associated Problem(s): care, antepartum Doing well Anatomy nv documented in this encounter [facility] 10-18-2022 History of Presen t illness Narrative MAUDE @ 16w2d - (+) FM, denies VB/CTX/LOF, RUIZ/CP/SOB PE: NAD, A&Ox3 NCAT, no conjunctival icterus or injection Abd nontender, uterus palpable on exam Skin without rashes or lesions BLE without edema, nontender ASSESSMENT/PLAN: care, antepartum Doing well Anatomy nv documented in this encounter [facility] 06-19-2022 Hospital Discharg e instructions Patient Education 06/19/2022 13:39:21 Pharyngitis, Report Pending Pharyngitis (Sore Throat), Report Pending Pharyngitis (sore throat) is often due to a virus. It can also be caused by streptococcus (strep), bacteria. This is often called strep throat. Both viral and strep infections can cause throat pain that is worse when swallowing, aching all over, headache, and fever. Both types of infections are contagious. They may be spread by coughing, kissing, or touching others after touching your mouth or nose. A test has been done to find out if you or your child have strep throat. Call this facility or your healthcare provider if you were not given your test results. If the test is positive for strep infection, you will need to take antibiotic medicines. A prescription can be called into your pharmacy at that time. If the test is negative, you probably have a viral pharyngitis. This does not need to be treated with antibiotics. Until you receive the results of the strep test, you should stay home from work. If your child is being tested, he or she should stay home from school. Home care Rest at home. Drink plenty of fluids so you won't get dehydrated. If the test is positive for strep, you or your child should not go to work or school for the first 2 days of taking the antibiotics. After this time, you or your child will not be contagious. You or your child can then return to work or school when feeling better. Use the antibiotic medicine for the full 10 days. Do not stop the medicine even if you or your child feel better. This is very important to make sure the infection is fully treated. It is also important to prevent medicine-resistant germs from growing. If you or your child were given an antibiotic shot, no more antibiotics are needed. Use throat lozenges or numbing throat sprays to help reduce pain. Gargling with warm salt water will also help reduce throat pain. Dissolve 1/2 teaspoon of salt in 1 glass of warm water. Children can sip on juice or a popsicle. Children 5 years and older can also suck on a lollipop or hard candy. Don't eat salty or spicy foods or give them to your child. These can irritate the throat. Other medicine for a child: You can give your child acetaminophen for fever, fussiness, or discomfort. In babies over 6 months of age, you may use ibuprofen instead of acetaminophen. If your child has chronic liver or kidney disease or ever had a stomach ulcer or GI bleeding, talk with your child s healthcare provider before giving these medicines. Aspirin should never be used by any child under 18 years of age who has a fever. It may cause severe liver damage. Other medicine for an adult: You may use acetaminophen or ibuprofen to control pain or fever, unless another medicine was prescribed for this. If you have chronic liver or kidney disease or ever had a stomach ulcer or GI bleeding, talk with your healthcare provider before using these medicines. Follow-up care Follow up with your healthcare provider or our staff if you or your child don't get better over the next week. When to seek medical advice Call your healthcare provider right away if any of these occur: Fever as directed by your healthcare provider. For children, seek care if: oYour child is of any age and has repeated fevers above 104 F (40 C). oYour child is younger than 2 years of age and has a fever of 100.4 F (38 C) for more than 1 day. oYour child is 2 years old or older and has a fever of 100.4 F (38 C) for more than 3 days. New or worsening ear pain, sinus pain, or headache Painful lumps in the back of neck Stiff neck Lymph nodes are getting larger Can t swallow liquids, a lot of drooling, or can t open mouth wide due to throat pain Signs of dehydration, such as very dark urine or no urine, sunken eyes, dizziness Trouble breathing or noisy breathing Muffled voice New rash Other symptoms getting worse Prevention Here are steps you can take to help prevent an infection: Keep good hand washing habits. Don t have close contact with people who have sore throats, colds, or other upper respiratory infections. Don t smoke, and stay away from secondhand smoke. Stay up to date with of your vaccines. [id number] [employer]. [address] [place] [id number]. All rights reserved. This information is not intended as a substitute for professional medical care. Always follow your healthcare professional's instructions. Follow Up Care 06/19/2022 12:07:49 With:FELIPE HERNANDEZ DO Address: [address] [place] [address] [phone] When:2-4 days With:Call Physician Referral Address:Unknown When:2-4 days With:Call AMB New Pt. Refferral [phone] Address:Unknown When:2-4 days [facility] 06-19-2022 Note Discharge Instructions Thank you for allowing [facility] to assist you with your healthcare needs. The following is important discharge information regarding your hospital visit. Diagnosis from Today's Visit Pharyngitis Headache What to Do Next Instructions from Your Care Team No qualifying data available. Post Acute Orders No qualifying data available. You Need to Schedule the Following Appointments Follow Up with FELIPE HERNANDEZ DO When Within 2-4 days Where: [address] [place] [address] [phone] Follow Up with Call Physician Referral When Within 2-4 days Follow Up with Call AMB New Pt. Refferral [phone] When Within 2-4 days Allergies [facility] Medications Please ask your primary doctor or pharmacist before taking any other medication not listed, including over the counter drugs, herbal medications, vitamins and or supplements as they may interact with your home medications. What How Much When Why Instructions Last Dose New amoxicillin (amoxicillin 500 mg oral capsule) 1 cap by mouth Two (2) times a day Pharyngitis Duration: 10 Days Printed Prescription New metoclopramide (Reglan 10 mg oral tablet) 1 tab(s) by mouth Three (3) times a day Pharyngitis Duration: 7 Days Printed Prescription Unchanged acetaminophen (Tylenol) by mouth Unchanged ethinyl estradiol-norgestimate (Sprintec 0.25 mg-35 mcg oral tablet) 1 tab(s) by mouth Once a day Unchanged ibuprofen (Motrin) by mouth Unchanged multivitamin, (PNV-DHA oral capsule) Unchanged sertraline (sertraline 100 mg oral tablet) Please take this list to your next doctor s visit. Bring all medications you take, including over the counter medications, herbals and other supplements with you to your doctor s visit. Patients and families are reminded to discard old lists and to update any records with all medication providers or retail pharmacies. Medication Leaflets amoxicillin (am OX i haseeb in) What is the most important information I should know about amoxicillin? You should not use this medicine if you are allergic to any penicillin antibiotic. What is amoxicillin? Amoxicillin is a penicillin antibiotic that is used to treat many different types of infection caused by bacteria, such as tonsillitis, bronchitis, pneumonia, and infections of the ear, nose, throat, skin, or urinary tract. Amoxicillin is also sometimes used together with another antibiotic called clarithromycin (Biaxin) to treat stomach ulcers caused by Helicobacter pylori infection. This combination is sometimes used with a stomach acid stope miner called lansoprazole (Prevacid). Amoxicillin may also be used for purposes not listed in this medication guide. What should I discuss with my healthcare provider before taking amoxicillin? You should not use this medicine if you are allergic to any penicillin antibiotic, such as ampicillin, dicloxacillin, oxacillin, penicillin, or ticarcillin. Tell your doctor if you have ever had: kidney disease; mononucleosis (also called 'mono'); diarrhea caused by taking antibiotics; or food or drug allergies (especially to a cephalosporin antibiotic such as Omnicef, Cefzil, Ceftin, Keflex, and others). It is not known whether this medicine will harm an unborn baby. Tell your doctor if you are or plan to become . Amoxicillin can make control pills less effective. Ask your doctor about using a non-hormonal control (condom, diaphragm, cervical cap, or contraceptive sponge) to prevent . It may not be safe to breastfeed while using this medicine. Ask your doctor about any risk. How should I take amoxicillin? Follow all directions on your prescription label and read all medication guides or instruction sheets. Use the medicine exactly as directed. Take this medicine at the same time each day. Some forms of amoxicillin may be taken with or without food. Check your medicine label to see if you should take your amoxicillin with food or not. Shake the oral suspension (liquid) before you measure a dose. Measure liquid medicine with the dosing syringe provided, or use a medicine dose-measuring device (not a kitchen spoon). You may mix the liquid with water, milk, baby formula, fruit juice, or carleen richard. Drink all of the mixture right away. Do not save for later use. You must chew the chewable tablet before you swallow it. Swallow the regular tablet whole and do not crush, chew, or break it. You will need frequent medical tests. If you are taking amoxicillin with clarithromycin and/or lansoprazole to treat stomach ulcer, use all of your medications as directed. Read the medication guide or patient instructions provided with each medication. Do not change your doses or medication schedule without your doctor's advice. Use this medicine for the full prescribed length of time, even if your symptoms quickly improve. Skipping doses can increase your risk of infection that is resistant to medication. Amoxicillin will not treat a viral infection such as the flu or a common cold. Do not share this medicine with another person, even if they have the same symptoms you have. This medicine can affect the results of certain medical tests. Tell any doctor who treats you that you are using amoxicillin. Store at room temperature away from moisture, heat, and light. You may store liquid amoxicillin in a refrigerator but do not allow it to freeze. Throw away any liquid amoxicillin that is not used within 14 days after it was mixed at the pharmacy. What happens if I miss a dose? Skip the missed dose and use your next dose at the regular time. Do not use two doses at one time. What happens if I overdose? Seek emergency medical attention or call the Poison Help line at . What should I avoid while taking amoxicillin? Antibiotic medicines can cause diarrhea, which may be a sign of a new infection. If you have diarrhea that is watery or bloody, call your doctor before using anti-diarrhea medicine. What are the possible side effects of amoxicillin? Get emergency medical help if you have signs of an allergic reaction (hives, difficult breathing, swelling in your face or throat) or a severe skin reaction (fever, sore throat, burning eyes, skin pain, red or purple skin rash with blistering and peeling). Call your doctor at once if you have: severe stomach pain; or diarrhea that is watery or bloody (even if it occurs months after your last dose). Common side effects may include: nausea, vomiting, diarrhea; or rash. This is not a complete list of side effects and others may occur. Call your doctor for medical advice about side effects. You may report side effects to FDA at 0-778-IQV-6438. What other drugs will affect amoxicillin? Tell your doctor about all your other medicines, especially: any other antibiotics; allopurinol; probenecid; or a blood thinner--warfarin, Coumadin, Jantoven. This list is not complete. Other drugs may affect amoxicillin, including prescription and qfto-kys-sebngyi medicines, vitamins, and herbal products. Not all possible drug interactions are listed here. Where can I get more information? Your pharmacist can provide more information about amoxicillin. Remember, keep this and all other medicines out of the reach of children, never share your medicines with others, and use this medication only for the indication prescribed. Every effort has been made to ensure that the information provided by [employer]. ('[employer]') is accurate, up-to-date, and complete, but no guarantee is made to that effect. Drug information contained herein may be time sensitive. [employer] information has been compiled for use by healthcare practitioners and consumers in the [place] and therefore [employer] does not warrant that uses outside of the [place] are appropriate, unless specifically indicated otherwise. [employer] drug information does not endorse drugs, diagnose patients or recommend therapy. [employer] drug information is an informational resource designed to assist licensed healthcare practitioners in caring for their patients and/or to serve consumers viewing this service as a supplement to, and not a substitute for, the expertise, skill, knowledge and judgment of healthcare practitioners. The absence of a warning for a given drug or drug combination in no way should be construed to indicate that the drug or drug combination is safe, effective or appropriate for any given patient. [facility] does not assume any responsibility for any aspect of healthcare administered with the aid of information [facility] provides. The information contained herein is not intended to cover all possible uses, directions, precautions, warnings, drug interactions, allergic reactions, or adverse effects. If you have questions about the drugs you are taking, check with your doctor, nurse or pharmacist. Copyright 0055-3077 [facility]. Version: 10.. Revision Date: 06/02/2019. metoclopramide (oral/injection) (MET oh KLOE pra mide) Metozolv ODT, Reglan What is the most important information I should know about metoclopramide? Do not use this medicine if you've ever had muscle movement problems after using metoclopramide or similar medicines, or if you've had a movement disorder called tardive dyskinesia. You also should not use metoclopramide if you've had stomach or intestinal problems (a blockage, bleeding, or a hole or tear), epilepsy or other seizure disorder, or an adrenal gland tumor (pheochromocytoma). NEVER USE METOCLOPRAMIDE IN LARGER AMOUNTS THAN RECOMMENDED, OR FOR LONGER THAN 12 WEEKS. High doses or long-term use of metoclopramide can cause a serious movement disorder that may not be reversible. The longer you use metoclopramide, the more likely you are to develop this movement disorder. The risk of this side effect is higher in diabetics and older adults (especially women). Call your doctor at once if you have uncontrollable muscle movements in your lips, tongue, eyes, face, arms, or legs. What is metoclopramide? Metoclopramide increases muscle contractions in the upper digestive tract. This speeds up the rate at which the stomach empties into the intestines. Metoclopramide oral (taken by mouth) is used for 4 to 12 weeks to treat heartburn caused by gastroesophageal reflux in people who have used other medications without relief. Metoclopramide oral is also used to treat gastroparesis (slow stomach emptying) in people with diabetes, which can cause heartburn and stomach discomfort after meals. Metoclopramide injection is used to treat severe diabetic gastroparesis. The injection is also used to prevent nausea and vomiting caused by chemotherapy or surgery, or to aid in certain medical procedures involving the stomach or intestines. Metoclopramide may also be used for purposes not listed in this medication guide. What should I discuss with my healthcare provider before using metoclopramide? You should not use metoclopramide if you are allergic to it, or if you have: tardive dyskinesia (a disorder of involuntary movements); stomach or intestinal problems such as a blockage, bleeding, or perforation (a hole or tear in your stomach or intestines); epilepsy or other seizure disorder; an adrenal gland tumor (pheochromocytoma); or if you've ever had muscle movement problems after using metoclopramide or similar medicines. Tell your doctor if you have ever had: liver or kidney disease; problems with muscle movements; congestive heart failure or a heart rhythm disorder; high blood pressure; seizures; breast cancer; Parkinson's disease; diabetes; or depression or mental illness. This medicine may contain phenylalanine. Check the medication label if you have phenylketonuria (PKU). Tell your doctor if you are . Metoclopramide may harm an unborn baby if you use the medicine during late . It may not be safe to breast-feed a baby while you are using this medicine. Ask your doctor about any risks. Metoclopramide is not approved for use by anyone younger than 18 years old. How should I use metoclopramide? Follow the directions on your prescription label and read all medication guides. Use the medicine exactly as directed. A metoclopramide injection is given into a muscle or as an infusion into a vein. A healthcare provider will give the injection, usually during surgery, chemotherapy, or a medical procedure. Metoclopramide oral is taken for only 4 to 12 weeks. NEVER USE METOCLOPRAMIDE IN LARGER AMOUNTS THAN RECOMMENDED, OR FOR LONGER THAN 12 WEEKS. High doses or long-term use of metoclopramide can cause a serious movement disorder that may not be reversible. The longer you use metoclopramide, the more likely you are to develop this movement disorder. The risk of this side effect is higher in diabetics and older adults (especially women). Metoclopramide is usually taken 30 minutes before meals and at bedtime, or only with meals that usually cause heartburn. Follow your doctor's dosing instructions very carefully. Do not use two different forms of metoclopramide (such as tablets and oral syrup) at the same time. Measure liquid medicine carefully. Use the dosing syringe provided, or use a medicine dose-measuring device (not a kitchen spoon). To take the orally disintegrating tablet (ODT): Remove a tablet from its blister pack only when you are ready to take the tablet. Use dry hands and take care not to damage a tablet while pushing it out of the blister. Place the tablet in your mouth and allow it to dissolve, without chewing or swallowing it whole. You may sip liquid if needed to help swallow the dissolved tablet. Store at room temperature in a tightly-closed container, away from moisture and heat. Keep the bottle tightly closed. After you stop taking metoclopramide, you may have unpleasant withdrawal symptoms such as headache, dizziness, or nervousness. What happens if I miss a dose? Take the medicine as soon as you can, but skip the missed dose if it is almost time for your next dose. Do not take two doses at one time. What happens if I overdose? Seek emergency medical attention or call the Poison Help line at . Overdose symptoms may include drowsiness, confusion, or uncontrolled muscle movements. What should I avoid while taking metoclopramide? Drinking alcohol with this medicine can cause side effects. Avoid driving or hazardous activity until you know how this medicine will affect you. Your reactions could be impaired. What are the possible side effects of metoclopramide? Get emergency medical help if you have signs of an allergic reaction: hives; difficult breathing; swelling of your face, lips, tongue, or throat. Stop taking metoclopramide and call your doctor at once if you have any of these SIGNS OF A SERIOUS MOVEMENT DISORDER, which may occur within the first 2 days of treatment: tremors or shaking in your arms or legs; uncontrolled muscle movements in your face (chewing, lip smacking, frowning, tongue movement, blinking or eye movement); or any new or unusual muscle movements you cannot control. Call your doctor at once if you have: confusion, depression, thoughts of suicide or hurting yourself; slow or jerky muscle movements, problems with balance or walking; mask-like appearance in your face; a seizure; anxiety, agitation, jittery feeling, trouble staying still, trouble sleeping; swelling, feeling short of breath, rapid weight gain; or severe nervous system reaction--very stiff (rigid) muscles, high fever, sweating, confusion, fast or uneven heartbeats, tremors, feeling like you might pass out. Common side effects may include: feeling restless; feeling drowsy or tired; lack of energy; nausea, vomiting; headache, confusion; or sleep problems (insomnia). This is not a complete list of side effects and others may occur. Call your doctor for medical advice about side effects. You may report side effects to FDA at 0-355-XUV-6102. What other drugs will affect metoclopramide? Using metoclopramide with other drugs that make you drowsy can worsen this effect. Ask your doctor before you take opioid pain medication, a sleeping pill, a muscle relaxer, or medicine for anxiety, depression, or seizures. Tell your doctor about all your current medicines. Many drugs can affect metoclopramide, especially: an antidepressant; antipsychotic medication; blood pressure medication; insulin; medicine to treat Parkinson's disease or restless leg syndrome; or an MAO inhibitor--isocarboxazid, linezolid, methylene blue injection, phenelzine, tranylcypromine, and others. This list is not complete and many other drugs may affect metoclopramide. This includes prescription and ndhp-huu-cnmpwua medicines, vitamins, and herbal products. Not all possible drug interactions are listed here. Where can I get more information? Your pharmacist can provide more information about metoclopramide. Remember, keep this and all other medicines out of the reach of children, never share your medicines with others, and use this medication only for the indication prescribed. Every effort has been made to ensure that the information provided by [employer]. ('[employer]') is accurate, up-to-date, and complete, but no guarantee is made to that effect. Drug information contained herein may be time sensitive. [employer] information has been compiled for use by healthcare practitioners and consumers in the [place] and therefore [employer] does not warrant that uses outside of the [place] are appropriate, unless specifically indicated otherwise. [employer] drug information does not endorse drugs, diagnose patients or recommend therapy. [employer] drug information is an informational resource designed to assist licensed healthcare practitioners in caring for their patients and/or to serve consumers viewing this service as a supplement to, and not a substitute for, the expertise, skill, knowledge and judgment of healthcare practitioners. The absence of a warning for a given drug or drug combination in no way should be construed to indicate that the drug or drug combination is safe, effective or appropriate for any given patient. [facility] does not assume any responsibility for any aspect of healthcare administered with the aid of information [facility] provides. The information contained herein is not intended to cover all possible uses, directions, precautions, warnings, drug interactions, allergic reactions, or adverse effects. If you have questions about the drugs you are taking, check with your doctor, nurse or pharmacist. Copyright 1725-6917 [employer]. Version: 12.. Revision Date: 09/12/2017. Education Materials Pharyngitis (Sore Throat), Report Pending Pharyngitis (sore throat) is often due to a virus. It can also be caused by streptococcus (strep), bacteria. This is often called strep throat. Both viral and strep infections can cause throat pain that is worse when swallowing, aching all over, headache, and fever. Both types of infections are contagious. They may be spread by coughing, kissing, or touching others after touching your mouth or nose. A test has been done to find out if you or your child have strep throat. Call this facility or your healthcare provider if you were not given your test results. If the test is positive for strep infection, you will need to take antibiotic medicines. A prescription can be called into your pharmacy at that time. If the test is negative, you probably have a viral pharyngitis. This does not need to be treated with antibiotics. Until you receive the results of the strep test, you should stay home from work. If your child is being tested, he or she should stay home from school. Home care Rest at home. Drink plenty of fluids so you won't get dehydrated. If the test is positive for strep, you or your child should not go to work or school for the first 2 days of taking the antibiotics. After this time, you or your child will not be contagious. You or your child can then return to work or school when feeling better. Use the antibiotic medicine for the full 10 days. Do not stop the medicine even if you or your child feel better. This is very important to make sure the infection is fully treated. It is also important to prevent medicine-resistant germs from growing. If you or your child were given an antibiotic shot, no more antibiotics are needed. Use throat lozenges or numbing throat sprays to help reduce pain. Gargling with warm salt water will also help reduce throat pain. Dissolve 1/2 teaspoon of salt in 1 glass of warm water. Children can sip on juice or a popsicle. Children 5 years and older can also suck on a lollipop or hard candy. Don't eat salty or spicy foods or give them to your child. These can irritate the throat. Other medicine for a child: You can give your child acetaminophen for fever, fussiness, or discomfort. In babies over 6 months of age, you may use ibuprofen instead of acetaminophen. If your child has chronic liver or kidney disease or ever had a stomach ulcer or GI bleeding, talk with your child s healthcare provider before giving these medicines. Aspirin should never be used by any child under 18 years of age who has a fever. It may cause severe liver damage. Other medicine for an adult: You may use acetaminophen or ibuprofen to control pain or fever, unless another medicine was prescribed for this. If you have chronic liver or kidney disease or ever had a stomach ulcer or GI bleeding, talk with your healthcare provider before using these medicines. Follow-up care Follow up with your healthcare provider or our staff if you or your child don't get better over the next week. When to seek medical advice Call your healthcare provider right away if any of these occur: Fever as directed by your healthcare provider. For children, seek care if: oYour child is of any age and has repeated fevers above 104 F (40 C). oYour child is younger than 2 years of age and has a fever of 100.4 F (38 C) for more than 1 day. oYour child is 2 years old or older and has a fever of 100.4 F (38 C) for more than 3 days. New or worsening ear pain, sinus pain, or headache Painful lumps in the back of neck Stiff neck Lymph nodes are getting larger Can t swallow liquids, a lot of drooling, or can t open mouth wide due to throat pain Signs of dehydration, such as very dark urine or no urine, sunken eyes, dizziness Trouble breathing or noisy breathing Muffled voice New rash Other symptoms getting worse Prevention Here are steps you can take to help prevent an infection: Keep good hand washing habits. Don t have close contact with people who have sore throats, colds, or other upper respiratory infections. Don t smoke, and stay away from secondhand smoke. Stay up to date with of your vaccines. 2749-3194 [employer]. [address] [place] [id number]. All rights reserved. This information is not intended as a substitute for professional medical care. Always follow your healthcare professional's instructions. Additional Information VACCINATE! IT SAVES LIVES! Members of the community who have not yet received the COVID-19 vaccine and would like to receive it can visit one of [facility] vaccine clinics. There are many vaccine clinic locations within the [facility]. For locations and available times, please visit [email or web address]. It is important to note that some COVID mobile vaccine clinics are held outdoors and may be canceled in rainy or stormy conditions. To learn more about pediatric vaccinations (ages 5-11), we invite you to visit the [facility] webpage. [email or web address] To learn more about the COVID-19 vaccine, we invite you to visit the [facility] website for a list of frequently asked questions. [email or web address] [facility] Patient Portal Access Instructions: Stay connected with your healthcare team and access your personal medical information anytime with the [facility] Patient Portal. If you would like a full copy of your medical records please contact the [facility] Medical Records Department Saturday through Saturday between 8a.m. and 4:30p.m. Please follow the directions below to access the portal: 1.Access the email account you provided upon registration to the hospital.2.Look for an invitation email from [facility].3.Open the email and access the invitation link: Accept Invitation to [facility]4.Fill in the required alcantar to create your account. Sign into www.[employer] with your username and password that you created in the above steps to stay up to date. You can then view a summary of results, a summary of your visits, and the ability to download your summaries to your computer or send the information securely to a physician. Remember that your healthcare information is confidential, so carefully consider who you will allow to register on the [facility] Patient Portal for access to your information. You can also access the [facility] Patient Portal on the [employer] radha. Simply click on Health Records under Health Data and then click on the [employer] logo. HOW TO SAFELY DISPOSE OF PRESCRIPTION MEDICATIONS Please use one of the following methods to safely dispose of your unused medications. 1.Use a drug disposal kit: the drug disposal pouch allows you to safely discard your old and unused drugs. Ask your nurse to give you one when you are discharged.2.Visit a local take-back location: Many local pharmacies and police departments have programs that collect old and unwanted prescription drugs. Call your local pharmacy or go to [email or web address] to find one close to you.3.Make use of household items: Use cat litter or old coffee grounds to dispose medications if other options are not available. Mix your drugs with these household products, seal them in an airtight container and throw it into the garbage. Call [facility]: [phone] to be sure your drugs can be disposed of in this way. Some medicines may require a different approach.4.Never flush your medications down the toilet. IF YOU HAVE BEEN PRESCRIBED AN OPIOIDS FOR PAIN If you have been prescribed an opioid (such as hydrocodone, oxycodone or morphine), it is critical to understand the possible side effects and risks of opioid pain medications. Even when taken as directed, opioids can have several side effects including: Tolerance, meaning you might need to take more of a medication for the same pain relief. Nausea, vomiting and/or constipation. Sleepiness, dizziness, dry mouth, confusion, depression or itching. Physical dependence, meaning you have withdrawal symptoms when a medication is stopped ? this can develop within a few days. KNOW YOUR RESPONSIBILITIES It is important to know exactly how much and how often to take the opioid pain medications you are prescribed. Never take opioids in higher amounts or more often than prescribed. Do not combine opioids with alcohol or other drugs that cause drowsiness, such as benzodiazepines, also known as benzos, including diazepam and alprazolam, muscle relaxants or sleep aids. Never sell or share prescription opioids. This is illegal. Store opioids in a secure place and out of reach of others (including children, family, friends and visitors). The last page(s) of this document has been signed and retained as a CHART COPY Signatures Patient Education Materials Pharyngitis, Report Pending Medication Leaflets amoxicillin, metoclopramide (oral/injection) My discharge plan and instructions have been reviewed and explained to me and I,ERIC, DANA understand my current condition and have read and understand these discharge instructions. I have received a written copy of the plan/instructions. If I have questions, I am aware that I should contact my doctor. 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 A second-degree burn (partial-thickness burn) is deeper than a first-degree burn (superficial burn). It usually causes a blister to form. The blister may remain intact and gradually go away on its own. Or it may break open. The goal of treatment is to relieve pain and stop infection while the burn heals. Home care Use pain medicine as directed. If no pain medicine was prescribed, you may use wsam-zsz-myqwdro medicine to control pain. If you have chronic liver or kidney disease, talk with your healthcare provider before using acetaminophen or ibuprofen. Also talk with your provider if you've had a stomach ulcer or GI bleeding. General care On the first day, you may put a cool compress on the wound to ease pain. A cool compress is a small towel soaked in cool water. If you were sent home with the blister intact, don't break the blister. The risk for infection is greater if the blister breaks. If a bandage was applied, change it once a day, unless told otherwise. If the bandage becomes wet or soiled, change it as soon as you can. Sometimes an infection may occur even with proper treatment. Check the burn daily for the signs of infection listed below. Eat more calories and protein until your wound is healed. Wear a hat, sunscreen, and long sleeves while in the sun to protect the skin. Don't pick or scratch at the wound. Use jswv-elm-yinnfmh medicines like diphenhydramine for itching. Avoid tight-fitting clothes. To change a bandage: Wash your hands. Take off the old bandage. If the bandage sticks, soak it off under warm running water. Once the bandage is off, gently wash the burn area with mild soap and warm water to remove any cream, ointment, ooze, or scab. You may do this in a sink, under a tub faucet, or in the shower. Rinse off the soap and gently pat dry with a clean towel. Check for signs of infection listed below. Put any prescribed antibiotic cream or ointment on the wound. Cover the burn with nonstick gauze. Then wrap it with the bandage material. Follow-up care Follow up with your healthcare provider, or as advised. When to seek medical advice Call your healthcare provider right away if you have any of these signs of infection: Fever of 100.4 F (38 C) or higher, or as directed by your healthcare provider Pain that gets worse Redness or swelling that gets worse Pus comes from the burn Red streaks in your skin coming from the burn Wound doesn't appear to be healing Nausea or vomiting [phone] [employer]. [address] [place] [address], [place] [address]. All rights reserved. This information is not intended as a substitute for professional medical care. Always follow your healthcare professional's instructions. Follow Up Care 04/22/2021 21:57:32 With:Call Physician Referral Address:Unknown When:3-5 days With:DEJAH WOODALL Address:Unknown When:3-5 days Comments:Schedule appointment for wound check and to establish a local primary care physician.Daily wound care with application of topical antibiotic ointment and dressing changes.Use ibuprofen or naproxen for pain as needed.Watch for signs of infection.Return to the ED if symptoms worsen. [facility] Evaluation + Plan note No data available for this section [facility] documented in this encounter [facility] Work Phone: Evaluation note* Diagnosis Supervision of high risk in first trimester- Primary [facility] Diagnosis with inconclusive viability, not applicable or unspecified- Primary [facility] Diagnosis Encounter for anatomic survey- Primary [facility] Diagnosis Normal in second trimester- Primary 19 weeks gestation of [facility] Diagnosis Screening, , for malformation by ultrasound Encounter for routine screening for malformation using ultrasonics Echogenic bowel of fetus on ultrasound documented in this encounter [facility] note* Diagnosis Supervision of high risk , unspecified, first trimester- Primary Supervision of high risk in first trimester [facility] Diagnosis Normal in second trimester- Primary 23 weeks gestation of [facility] Diagnosis High-risk supervision, third trimester- Primary Grand multiparity, antepartum, unspecified trimester Heartburn during , antepartum Poor weight gain of , third trimester Pelvic pressure in , antepartum Other specified complication, antepartum Carrier of fragile X chromosome 28 weeks gestation of [facility] Diagnosis Abnormal glucose tolerance affecting , antepartum- Primary [facility] Diagnosis Abnormal glucose tolerance affecting , antepartum- Primary Headache in , antepartum Nausea and vomiting of , antepartum 29 weeks gestation of [facility] Diagnosis Pelvic pressure in - Primary Other specified complication, antepartum [facility]* Diagnosis Pelvic pressure in - Primary Other specified complication, antepartum documented in this encounter [facility] note* Diagnosis care, antepartum- Primary Grand multiparity, antepartum, unspecified trimester 33 weeks gestation of Encounter for follow-up ultrasound of anatomy documented in this encounter [facility] note* Diagnosis Grand multiparity, antepartum, unspecified trimester- Primary Thrombocytopenia affecting (HCC) Abnormal glucose tolerance affecting , antepartum Carrier of fragile X chromosome 35 weeks gestation of documented in this encounter [facility] note* Diagnosis Grand multiparity, antepartum, unspecified trimester- Primary Thrombocytopenia affecting (HCC) Abnormal glucose tolerance affecting , antepartum Carrier of fragile X chromosome 35 weeks gestation of documented in this encounter [facility] note* Diagnosis Grand multiparity, antepartum, unspecified trimester- Primary Thrombocytopenia affecting (HCC) Abnormal glucose tolerance affecting , antepartum Poor weight gain of , third trimester Carrier of fragile X chromosome 37 weeks gestation of documented in this encounter [facility] note* Diagnosis High-risk supervision, third trimester- Primary Grand multiparity, antepartum, unspecified trimester Poor weight gain of , third trimester Thrombocytopenia affecting (HCC) Vaginal discharge during in third trimester Abnormal glucose tolerance affecting , antepartum 37 weeks gestation of documented in this encounter [facility] note* Diagnosis 38 weeks gestation of - Primary documented in this encounter [facility] note* Diagnosis care and examination- Primary Thrombocytopenia (HCC) Unspecified thrombocytopenia depression Mental disorders of mother, complicating , childbirth, or the puerperium, unspecified as to episode of care anxiety documented in this encounter [facility] note* Diagnosis Chest wall pain- Primary Painful respiration Anxiety Anxiety state, unspecified documented in this encounter [facility] note* Diagnosis Calculus of gallbladder without cholecystitis without obstruction- Primary Pain of upper abdomen [facility] Attachments The following attachments cannot be sent through Care Everywhere. * Otitis Media (Welsh) documented in this [facility] Work Phone: Hospital Discharge instructions* Attachments The following attachments cannot be sent through Care Everywhere. * Pericarditis Discharge Instructions, Adult ([place]el[place]) * Anxiety Discharge Instructions, Adult ([place]) [facility] Attachments The following attachments cannot be sent through Care Everywhere. * Gallbladder Diet (Welsh) * Gallstones Discharge Instructions ([place]) [facility] Consultation (Routine) - Pending Review Specialty Diagnoses / Procedures Referred By Modesta wakefield Referred To Contact General Surgery Diagnoses Calculus of gallbladder without cholecystitis without obstruction Pain of upper abdomen Procedures AL OFFICE/OUTPATIENT [facility] 60-74 MINUTES Shelley Ferguson MD [facility] [place] [address] Win Ferrer MD [address] [address] Referral ID Status Reason Start Date Expiration Date Visits Requested Visits Authorized [id number] Pending Review Specialty Services Required 3 04/24/2024 1 1 [facility] Summary Purpose Family History No Family History Records FoundNo Family History Records FoundNo Family History Records FoundNo Family History Records FoundNo Family History Records FoundNo Family History Records FoundNo Family History Records FoundNo Family History Records FoundNo Family History Records Found Advance Directives No Advanced Directives Records FoundLatest Code Status on File Code Status Date Activated Date Inactivated Comments Full Code 03/20/2023 2:08 PM 03/22/2023 4:08 PM Latest Code Status on File Code Status Date Activated Date Inactivated Comments Full Code 03/20/2023 2:08 PM 03/22/2023 4:08 PM Reason for Referral Specialty Diagnoses / Procedures Referred By Modesta wakefield Referred To Contact Marta Ceballos MD [address] [place] [address] Referral ID Status Reason Start Date Expiration Date V isits Requested Visits Authorized [id number] Pending Review 1 1 Additional Source Comments INFORMATION SOURCE (unrecogn ized section and content) DATE CREATED AUTHOR AUTHOR'S ORGANIZ ATION 03/04/2018 [facility] DATE CREATED AUTHOR AUTHOR'S ORGANIZ ATION 06/15/2018 [facility] DATE CREATED AUTHOR AUTHOR'S ORGANIZ ATION 08/04/2018 [facility] DATE CREATED AUTHOR AUTHOR'S ORGANIZ ATION 03/24/2019 [facility] DATE CREATED AUTHOR AUTHOR'S ORGANIZ ATION 08/23/2021 [facility] DATE CREATED AUTHOR AUTHOR'S ORGANIZ ATION 06/30/[address] [facility] ([place]) DATE CREATED AUTHOR AUTHOR'S ORGANIZ ATION 03/28/2023 [facility] DATE CREATED AUTHOR AUTHOR'S ORGANIZ ATION 05/29/2023 [facility] Reason for Visit (unrecogniz ed section and content) Reason Comments Routine Visit 19 weeks Reason Comments Routine Visit 23 weeks Reason Comments Routine Visit 28w6d, low back p ain Reason Onset Date Comments Problem 01/17/2023 Reason Onset Date Comments Dizziness 01/17/2023 Results 01/17/2023 Reason Comments Vaginal Discharge Green no odor and ba ck pain Reason Comments Weakness, Gen Reason Onset Date Comments Fatigue 02/10/2023 Reason Comments Routine Visit Reason Comments Decreased Movement Vaginal Bleeding Abd pain Reason Comments Routine Visit 35w3d, had some b right red bleeding over the weekend, was in L&D. Bleeding has since stopped. No questions or concerns Reason Onset Date Comments Problem 03/13/2023 Reason Comments Laboring Reason Comments Routine Visit 37 week robNo ble eding, 8-9/10 pain in cramping, no leakageIncrease in urine frequencyWants to be dilation checked Reason Comments Ultrasound Growth us, 37w6d, p ain low abdominal/back. Fluid leakage Reason Comments Abdominal Pain R/o labor Specialty Diagnoses / Procedures Referred By Contazar t Referred To Contact Diagnoses 38 weeks gestation of Procedures / Cris Adams MD [address] [place] [address] [facility] [address] [place] [address] Referral ID Status Reason Start Date Expiration Date Visits Re quested Visits Authorized [id number] 1 1 Reason Comments Care Vaginal delivery 03/08 10/28. Barely spotting Reason Comments Chest Pain Reason Comments Abdominal Pain Ordered Prescriptions (unrec ognized section and content) Scheduled Active and Recently Administ ered Medications (unrecognized section and content) Scheduled Medication Order 02/08/2023 02/09/2023 02/10/2023 hydrOXYzine pamoate (Vistaril) capsule 25 mg (COMPLETED) 25 mg, Oral, Once, On Sat02/10/23 at 1545, For 1 dose 1610 (Given - Provid er: Марина Multani, DEV) PRN Medication Order 03/11/2023 03/12/2023 03/13/2023 acetaminophen (Tylenol) tablet 1,000 mg 1,000 mg, Oral, Every 6 hours PRN, mild pain (1-3), Starting on Sat03/13/23 at 2056, Maximum dose of acetaminophen is 4000 mg from all sources in 24 hours. 2123 (Given - Provid er: Carmen Glass RN) Scheduled Medication Order 03/20/2023 03/21/2023 03/22/2023 acetaminophen (Tylenol) tablet 650 mg (COMPLETED) 650 mg, Oral, Once, On Sat03/20/23 at 1730, For 1 dose, Maximum dose of acetaminophen is 4000 mg from all sources in 24 hours. 1737 (Given - Provider: Renee Strickland, RN) calcium carbonate (Tums) chewable tablet 500 mg 500 mg, Oral, Daily, First dose on Sat03/21/23 at 0900 0900 (Not Given - Provider: Velia Sinha, RN - Reason: Patient/family refused) 0900 (Not Given - Provider: Dana Scruggs RN - Reason: Patient/family refused) Chlorhexidine Gluconate Cloth 2 % cloth (CANCELED) Topical, Every 6 hours, First dose on Sat03/20/23 at 1415, Pre-Delivery, Apply to the affected area. Clean entire abdomen. 143 (Given - Provider: Renee Strickland, RN)2014 (Not Given - Provider: Veronica Su RN - Reason: Patient/family refused) 214 (Not Given - Provider: Veronica Su RN - Reason: Patient/family refused)0815 (Not Given - Provider: Faina Alba RN - Reason: Order parameters not met) cyclobenzaprine (Flexeril) tablet 5 mg 5 mg, Oral, 3 times daily, First dose on Sat03/21/23 at 1415 1408 (Given - Provider: Velia Sinha, RN)2150 (Given - Provider: Amanda Islas, RN) 0930 (Given - Provider: Dana Scruggs, RN)1400 (Canceled Entry - Provider: Automatic Discharge Provider - Comment: Automatically canceled at discontinue of medication order) famotidine (Pepcid) 20 mg in sodium chloride (PF) 0.9 % 10 mL injection (CANCELED) 20 mg, IntraVENous, Administer over 2 Minutes, Every 12 hours scheduled (2 times per day), First dose on Sat03/20/23 at 2245, IV Push over minimum of 2 minutes - Dilute with 10 mL NS 2253 (Given - Provider: Veronica Su, DEV) ferrous sulfate tablet 325 mg 325 mg, Oral, 2 times daily with meals, First dose on Sat03/21/23 at 0800, , Start if Hgb less than 10. 0800 (Not Given - Provider: Faina Alba RN - Reason: Order parameters not met - Comment: Hgb 11.1 on admission.)1700 (Not Given - Provider: Velia Sinha RN - Reason: Order parameters not met) 0800 (Not Given - Provider: Dana Scruggs RN - Reason: Order parameters not met - Comment: Pt's Hgb 12.7) hydrOXYzine pamoate (Vistaril) capsule 25 mg (COMPLETED) 25 mg, Oral, Once, On Sat03/20/23 at 1915, For 1 dose 1921 (Given - Provider: Veronica Su RN) Lidocaine 4 % patch 3 patch 3 patch, TransDERmal, Administer over 12 Hours, Daily, First dose on Sat03/21/23 at 1800, Apply patch to affected area. Patch may remain in place for up to 12 hours in any 24 hour period. Can use up to three 1818 (Medication Applied - Provider: Velia Sinha RN) 0930 (Medication Removed - Provider: Dana Scruggs, DEV) measles, mumps and rubella (MMR) vaccine 0.5 mL 0.5 mL, SubCUTAneous, Prior to discharge, Starting on Sat03/21/23 at 0641, For 1 dose, , Administer if Rubella non-immune or equivocal Vaccine is a vial of powder. Reconstitute with the available diluent for this vaccine. Barcode scan vaccine vial for Vaccine Record oxyCODONE (Roxicodone) immediate release tablet 10 mg (COMPLETED) 10 mg, Oral, Once, On Rachel 03/21/23 at 1800, For 1 dose 181 (Given - Provider: Velia Sinha, DEV) oxyCODONE (Roxicodone) immediate release tablet 5 mg (COMPLETED) 5 mg, Oral, Once, On Rachel 03/21/23 at 1415, For 1 dose 1408 (Given - Provider: Velia Sinha, DEV) simethicone (Mylicon) chewable tablet 80 mg (COMPLETED) 80 mg, Oral, Once, On Rachel 03/21/23 at 1800, For 1 dose 181 (Given - Provider: Velia Sinha, DEV) Tdap (BoostRIX) vaccine 0.5 mL 0.5 mL, IntraMUSCular, Prior to discharge, Starting on Sat03/21/23 at 0641, For 1 dose, If not previously administered during at 27-36 weeks as recommended by CDC. Tdap. Not to be confused with look-alike/sound-alike product DTaP. Continuous Medication Order 03/20/2023 03/21/2023 03/22/2023 lactated ringers infusion (CANCELED) 125 mL/hr, IntraVENous, Continuous, Starting on Sat03/20/23 at 1415, Pre-Delivery 1434 (New Bag - Provider: Renee Strickland RN) oxytocin (Pitocin) 30 units in 500 mL infusion (CANCELED) 1-20 wallace-units/min (1-20 mL/hr), IntraVENous, Continuous, Starting on Sat03/20/23 at 1445, Begin infusion at 1 wallace-unit/min (1 wallace-unit per min = 1 mL per hour) and increase by 1 wallace-unit/min after 30 minutes. Then increase by 2 wallace-units/min as needed, no faster than every 30 minutes, until labor is achieved. Labor is defined as contractions every 2-3 minutes with cervical changes or Garibaldi units (MVU) greater than 200 in a 10-minute window. Maximum infusion rate: 20 wallace-unit/min. Contact provider if maximum rate does not achieve desired response. Provider may order alternative titration goal or other clinically appropriate goal of titration rate (s). Smaller titration increments of 1 wallace-units/min, not faster than every 30 minutes, may be used when approaching therapeutic goal. 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 Maximum dose of acetaminophen is 4000 mg from all sources in 24 hours. Alternate ibuprofen and acetaminophen every 3 hours. Give ibuprofen first in the sequence. 0818 (Given - Provider: Faina Alba RN)1315 (Given - Provider: Velia Sinha, DEV)1952 (Given - Provider: Amanda Islas, DEV) 0219 (Given - Provider: Amanda Islas, DEV)1207 (Given - Provider: Dana Scruggs, RN) benzocaine 20% containing (Dermoplast) spray Topical, As needed, pain, , Starting on Rachel 03/21/23 at 0641, , Apply to perineal area. Patient is capable and may self administer at bedside. 1004 (Given - Provider: Velia Sinha, DEV) 1207 (Given - Provider: Dana Scruggs, RN) cyclobenzaprine (Flexeril) tablet 5 mg (CANCELED) 5 mg, Oral, 3 times daily PRN, muscle spasms, Starting on Sat03/20/23 at 2307 0036 (Given - Provider: Veronica Su, RN) docusate sodium (Colace) capsule 100 mg 100 mg, Oral, 2 times daily PRN, constipation, Vaginal Delivery, Starting on Sat03/21/23 at 0641, Do not crush or break. 195 (Given - Provider: Amanda Islas, RN) famotidine (Pepcid) tablet 20 mg 20 mg, Oral, 2 times daily PRN, heartburn, Starting on Sat03/21/23 at 0641, , Renal dose per pharmacy for peptic ulcer prophylaxis. ibuprofen tablet 600 mg 600 mg, Oral, Every 6 hours PRN, other, pain (1-10), Starting on Sat03/21/23 at 0641, Alternate ibuprofen and acetaminophen every 3 hours. Give ibuprofen first in the sequence. 0818 (Given - Provider: Faina Alba, RN)131 (Given - Provider: Velia Sinha, DEV)1951 (Given - Provider: Amanda Islas, DEV) 021 (Given - Provider: Amanda Islas, DEV)09 (Given - Provider: Dana Scruggs, RN) lactated Ringer's bolus (CANCELED) 500 mL, IntraVENous, Administer over 61 Minutes, PRN, Intrauterine resuscitation for hypertonus, tachysystole, non-ressuring status, or as prescribed by the physician. Every hour as needed, nurse may repeat bolus., Starting on Sat03/20/23 at 1407, Pre-Delivery 0411 (Bolus from Bag - see pump volume - Provider: Veronica Su, DEV) lanolin (Lansinoh) cream Topical, As needed, dry skin, nipple discomfort, Starting on Sat03/21/23 at 0641, , Apply to affected area. ondansetron (Zofran) injection 4 mg(Linked Group 1) 4 mg, IntraVENous, Every 6 hours PRN, nausea, vomiting, Starting on Sat03/21/23 at 0641, 1st Line. Give IV if patient is unable to take orally. If inadequate response within 60 minutes, proceed to next-line agent or contact provider if no further options ordered. ondansetron ODT (Zofran-ODT) disintegrating tablet 4 mg(Linked Group 1) 4 mg, Oral, Every 8 hours PRN, nausea, vomiting, Starting on Rachel 03/21/23 at 0641, 1st Line. If inadequate response within 60 minutes, proceed to next-line agent or contact provider if no further options ordered. Patient should allow tablet to dissolve on tongue. Do not remove from blister pack until just before administering. oxytocin (Pitocin) 30 units in 500 mL infusion 250-999 wallace-units/min (250-999 mL/hr), IntraVENous, Continuous PRN, bleeding, Starting on Sat03/20/23 at 1407, For Immediate Post Use Only. Give after delivery of placenta. Bag 1 of 2: Bolus for bag to infuse at 999 ml/hour for 15 minutes (15 units in 250cc). After initial bolus then decrease rate to 250cc/hr for 1 hour. Then discontinue 0618 (New Bag - Provider: Veronica Su RN) oxytocin (Pitocin) 30 units in 500 mL infusion 125 wallace-units/min (125 mL/hr), IntraVENous, Continuous PRN, bleeding, Starting on Sat03/21/23 at 0835, For 48 hours, , For Immediate Post Use Only. Give after delivery of placenta and initial 30 unit bolus. Bag 2 of 2: 125cc/hr (125 mu/min) for an additional infusion of 500cc (30 units). 0810 (Stopped - Provider: Faina Alba, DEV) witch karan-glycerin (Tucks) pad Topical, As needed, hemorrhoids, For perineal pain or discomfort, Starting on Sat03/21/23 at 0641, , Apply to perineal area. Patient is capable and may self administer at bedside. 1004 (Given - Provider: Velia Sinha, DEV) 1207 (Given - Provider: Dana Scruggs, RN) Linked Groups Order Group 1: ondansetron ODT (Zofran-ODT) disintegrating tablet 4 mgJump to med 4 mg, Oral, Every 8 hours PRN, nausea, vomiting, Starting on Sat03/21/23 at 0641
1st Line. If inadequate response within 60 minutes, proceed to next-line agent or contact provider if no further options ordered. Patient should allow tablet to dissolve on tongue. Do not remove from blister pack until just before administering.
Or ondansetron (Zofran) injection 4 mgJump to med 4 mg, IntraVENous, Every 6 hours PRN, nausea, vomiting, Starting on Rachel 03/21/23 at 0641
1st Line. Give IV if patient is unable to take orally. If inadequate response within 60 minutes, proceed to next-line agent or contact provider if no further options ordered.
Scheduled Medication Order 04/23/2023 04/24/2023 04/25/2023 aluminum & magnesium hydroxide-simethicone (Mylanta) 200-200-20 MG/5ML oral suspension 10 mL (COMPLETED) 10 mL, Oral, Once, On Rachel 04/25/23 at 0615, For 1 dose 0617 (Given - Provid er: Mehrdad Caballero RN) aspirin chewable tablet 324 mg (COMPLETED) 324 mg, Oral, Once, On Rachel 23 at 0615, For 1 dose 0617 (Given - Provid er: Mehrdad Caballero RN) famotidine (Pepcid) tablet 20 mg (COMPLETED) 20 mg, Oral, Once, On Rachel 04/25/23 at 0615, For 1 dose 0617 (Given - Provid er: Mehrdad Caballero RN) ibuprofen tablet 600 mg (COMPLETED) 600 mg, Oral, Once, On Rachel 04/25/23 at 0710, For 1 dose 0716 (Given - Provid er: Carmita Chamorro RN) LORazepam (Ativan) tablet 1 mg (COMPLETED) 1 mg, Oral, Once, On Rachel 04/25/23 at 0710, For 1 dose 0716 (Given - Provid er: Carmita Chamorro RN) Care Team (unrecognized sect ion and content) Care Team Personnel Name: PHYSICIAN, NONE Position: Physician Member Role: Primary Care Physician Name: NAZARIO MALIK DO Position: ED Physician Member Role: ED Physician Address: Address: [address] [place] [id number]- Name: Viviane Matias RN Position: AO RN Member Role: ED RN Care Team Related Persons Name: YENI BANSAL Address: Home [address] [place] [address] [place] Name: GABINO BANSAL Address: Home [address] [place] [id number] Care Teams (unrecognized sec tion and content) 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 Relationship Specialty Start Date End Date Rambo Avila 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 - [employer] [address] [place] [address] PCP - General 08/08/21 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 Relationship Specialty Start Date End Date Rambo Avila 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 - [employer] [address] [place] [address] PCP - General 08/08/21 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 Relationship Specialty Start Date End Date Rambo Avila 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 - [employer] [address] [place] [phone] PCP - General 08/08/21 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 Relationship Specialty Start Date End Date Rambo Avila 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 [address] [place], [place] [phone] PCP - General Family Medicine 11/07/22 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 Relationship Specialty Start Date End Date Rambo Avila 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 - [employer] [address] [place] [phone] PCP - General 08/08/21 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 Relationship Specialty Start Date End Date Rambo Avila 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 - [employer] [address] [place] [address] [address] [place] [phone] PCP - General 08/08/21 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 Relationship Specialty Start Date End Date Rambo Avila 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 - [employer] [address] [place] [address] [address] [place] [phone] PCP - General 08/08/21 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 Relationship Specialty Start Date End Date Rambo Avila 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 [address] [place] [address] [address] [place] [address] PCP - General 08/08/21 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 Relationship Specialty Start Date End Date Rambo Avila 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 [address] [place] [address] PCP - General 08/08/21 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 Relationship Specialty Start Date End Date Rambo Avila 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 - [employer] [address] [place] [address] [address] [place] [address] PCP - General 08/08/21 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 Relationship Specialty Start Date End Date Rambo Avila 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 - [employer] [address] [place] [address] [address] [place] [address] PCP - General 08/08/21 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 Relationship Specialty Start Date End Date Rambo Avila, 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 - [employer] [facility] [place] [address] PCP - General 08/08/21 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 Relationship Specialty Start Date End Date Rambo Avila 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 - [employer] [address] [place] [address] [address] [place] [address] PCP - General 08/08/21 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 Relationship Specialty Start Date End Date Rambo Avila, 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 - [employer] [address] [place] [address] PCP - General 08/08/21 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 Relationship Specialty Start Date End Date Rambo Avila, 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 - [employer] [address] [place] [address] PCP - General 08/08/21 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 Relationship Specialty Start Date End Date Rambo Avila 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 - [facility] [address] [place] [address] [address] [place] [address] PCP - General 08/08/21 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 Relationship Specialty Start Date End Date Rambo Avila 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 - [facility] [address] [place] [address] [address] [place] [address] PCP - General 08/08/21 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 Relationship Specialty Start Date End Date Rambo Avila 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 - [facility] [address] [place] [address] [address] [place] [address] PCP - General 08/08/21 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 Relationship Specialty Start Date End Date Rambo Avila 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 - [facility] [address] [place] [address] [address] [place] [address] PCP - General 08/08/21 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 Relationship Specialty Start Date End Date Rambo Avila 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 - [employer] [address] [place] [address] [address] [place] [address] PCP - General 08/08/21 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 Relationship Specialty Start Date End Date Rambo Avila 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 - [facility] [address] [place] [address] [address] [place] [address] PCP - General 08/08/21 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 This clinical summary was aggregated from multiple sources. Caution should be exercised in using it in the provision of clinical care. This summary normalizes information from multiple sources, and as a consequence, information in this document may materially change the coding, format and clinical context of patient data. In addition, data may be omitted in some cases. CLINICAL DECISIONS SHOULD BE BASED ON THE PRIMARY CLINICAL RECORDS. [facility] [employer] [facility]. provides no warranty or guarantee of the accuracy or completeness of information in this document.
[2023-09-02] MEDS: Lactated Ringers 1,000 ML 15 ML IV (08:26)
--- NOTE | 2023-09-02 09:28 | HP.PCM_ITS ---
History and Physical Date of Admission: 09/02/23 33 F who presents to the office today for *[facility] hospitalization 05.28.23-05.31.23 for management of cholelithiasis and choledocholithiasis. Treated with IV Zosyn and interventions as below. ? ERCP 05.29.23 main bile duct mildly dilated with stone causing obstruction; choledocholithiasis, sphincterotomy/balloon extraction; temporary stent placed in CBD. No specimens ? Surgery 05.31.23 laparoscopic cholecystectomy, chronic cholecystitis and cholelithiasis. ? Biochemical globulin, [place], BIRD, ANCA, LUDA comp, AMA, ASM, hepatitis WNL OV 08.06.23 continues to have postprandial epigastric pain triggered by certain food (bread/rice), pain lasts 1-2 minutes at the longest, typically just a few seconds occurring daily. ROS Const Constitutional: Positive for fatigue and headache(s) (INCREASED FREQUENCY OF MIGRAINE RUIZ; NEARLY EVERY DAY); No body ache, chills, excessive sweating, fever(s), frequent falls, snoring, weakness, weight change, sleep problems or change in appetite Eyes Eyes: Positive for Light sensitivity; No blurry vision or change in vision ENT ENT: Positive for headache(s) (INCREASED FREQUENCY OF MIGRAINE RUIZ; NEARLY EVERY DAY); No abnormal hearing, ear or mastoid pain, tinnitus, nasal congestion, nasal discharge, neck pain or sore throat Resp Respiratory: No cough, shortness of breath, snoring or wheezing Cardio Cardiology: Positive for lightheadedness and palpitations (occasional); No chest pain at rest, chest pain with exertion, excessive sweating, shortness of breath, dyspnea on exertion, orthopnea or other (no leg swelling) Gastro GI: Positive for abdominal pain (occasional in right side); No change in bowel habits, constipation, cramping, diarrhea, nausea/dyspepsia or vomiting Genitourinary-Female: No difficulty urinating, burning urination, painful urination, urinary incontinence or urinary frequency Musc Musculoskeletal: Positive for back pain (improved), numbness (right leg) and tingling (right leg); No abnormal gait, joint pain, limited range of motion, muscle weakness or neck pain Skin Skin: Positive for other (REPORTS BUMP ON SCALP SINCE BLOW TO HEAD FROM FLYING OBJECT (2011)); No dry skin, redness, lesions, itchy eyes, rash or wounds Neuro Neurology: Positive for headache(s) (INCREASED FREQUENCY OF MIGRAINE RUIZ; NEARLY EVERY DAY), numbness (right leg) and tingling (right leg); No abnormal gait, abnormal hearing, dizziness, weakness, frequent falls, memory loss or fainting Psych Psychiatric: No anxiety, No change in appetite, No depression, No memory loss, No panic attacks and No Thoughts of harming yourself/Others Endo Endocrine: Positive for fatigue; No cold intolerance, excessive sweating, flushing, heat intolerance, increased thirst/drinking, increased hunger or weight change Aller/Imm Allergy/Immunologic: No itchy eyes, seasonal allergy symptoms, hives or wheezing Exam Const General: cooperative, healthy appearing, no acute distress, well developed, not diaphoretic and not ill appearing Nutritional Appearance: well nourished Orientation: alert and oriented x3 Limitations: mental status not altered [facility] Head: normal to inspection, normocephalic and atraumatic Ears: hearing grossly normal bilaterally Face and sinus: normal facial exam Mouth: oral mucosae normal and moist mucous membranes Teeth and gingiva: dentition normal Throat: posterior oropharynx normal and uvula midline Eyes Conjunctivae: conjunctivae normal Sclera: sclerae normal Pupils: PERRL EOM: EOM intact bilaterally Chest Chest palpation & inspection: normal inspection of the chest Resp Effort & Inspection: normal respiratory effort, able to speak in complete sentences, no audible wheezes and no cough Auscultation: Bilateral: Clear to Auscultation Cardio Rate: regular rate Rhythm: regular rhythm Heart Sounds: S1 normal, S2 normal and no murmurs GI Inspection: non-distended Auscultation: normal bowel sounds Palpation: soft, no hepatosplenomegaly and nontender Other: Post operative scars healing well Skin General: no rashes or lesions noted and dry skin Wounds: no wounds Neuro General: patient alert, patient oriented x3, moves all extremities, CN's II-XI intact bilaterally, deep tendon reflexes 2+ bilaterally and not confused Cranial Nerves: CN's II-XI intact bilaterally, PERRL, accommodation normal, EOM intact bilaterally, no nystagmus, facial strength normal, tongue midline, hearing normal, able to rotate head bilaterally and able to elevate shoulders bilaterally Cognition: normal cognition Speech: speech normal Gait: normal gait Motor: strength abnormal Sensory Exam: no sensory deficits noted Coordination: [id number] test normal, [id number] test normal and rapid alternating movement UE normal Other: 3/5 strength in right lower extremity Extrem General: normal to inspection and no edema Psych Appearance: grossly normal Mental Status: mental status grossly normal Affect: normal affect Attitude: cooperative Quality Reporting Tobacco Screening ([facility] 138) Smoking Status: Never smoker Assessment and Plan Assessment and Plan (1) Epigastric abdominal pain: Status: Chronic Plan: She does have mild intermittent abdominal pain with certain foods but it only lasts a couple minutes. No change in bowel or bladder habits. She denies any nausea, chest pain or shortness of breath. Repeat blood work has shown normal LFTs. We will schedule her for repeat ERCP with stent removal or exchange. (2) S/P ERCP: Status: Chronic (3) Choledocholithiasis: Status: Acute I have examined the patient and the H&P has been reviewed. There are no clinical changes since date of exam.
--- NOTE | 2023-09-02 09:50 | RAD_ITS ---
STUDY: ERCP. REASON FOR EXAM: Female, 33 years old. Right upper quadrant pain. Patient is status post cholecystectomy. FLUOROSCOPY TIME (if supplied): ( 35 seconds ) minutes/seconds TECHNIQUE: An ERCP was performed by the pillowcase cutter. Imaging was provided. COMPARISON: None. FINDINGS: The intra and extrahepatic biliary ducts are not dilated. No intraluminal filling defect is seen. A biliary stent has been placed. RAD/ERCP Biliary/Pancreas IMPRESSION: Placement of a biliary stent. Electronically Signed: Niraj Pope MD at 10:59 EST ,
--- NOTE | 2023-09-02 10:13 | OP.CCLET_ITS ---
09/02/2023 Elena Osorio Md Re : ERCP procedure for Dana Bansal Dear Jo This procedure was performed on Saturday, September 02, 2023. My impressions and recommendations are as follows: Impressions : - A single localized biliary stricture was found in the lower third of the main bile duct. The stricture was benign appearing. - The entire main bile duct was mildly dilated, acquired. - Choledocholithiasis was found. Complete removal was accomplished by biliary sphincterotomy and balloon extraction. - A biliary sphincterotomy was performed. - The biliary tree was swept. - Retained food was seen in the stomach. If the patient has not eaten 12 hours consider gastric emptying study Recommendations : Gastric emptying study My findings are described in the full procedure note, which is enclosed. If I can be of further assistance, please feel free to contact me at . Sincerely, John Lei, 09/02/2023 10:13:06 AM This report has been signed electronically.
--- NOTE | 2023-09-02 10:13 | OP.ERCP_ITS ---
Patient Name: Dana Bansal Procedure Date: 09/02/2023 9:36 AM Date of : 1990 Age: 33 Procedure: ERCP Indications: Stent removal Providers: John Lei DO Referring MD: John Lei DO Medicines: Monitored Anesthesia Care Patient Profile: This is a 33 year old female. Refer to note in patient chart for documentation of history and physical. Patient has symptoms of chronic right upper quadrant abdominal pain and acute jaundice. Her most recent ERCP for biliary evaluation, ERCP for stent and ERCP for stone removal was within the past three months. Complications: No immediate complications. Procedure: Pre-Anesthesia Assessment: - Prior to the procedure, a History and Physical was performed, and patient medications and allergies were reviewed. The patient is competent. The risks and benefits of the procedure and the sedation options and risks were discussed with the patient. All questions were answered and informed consent was obtained. Patient identification and proposed procedure were verified by the physician in the pre-procedure area. Mental Status Examination: alert and oriented. Airway Examination: normal oropharyngeal airway and neck mobility. Respiratory Examination: clear to auscultation. CV Examination: normal. Prophylactic Antibiotics: The patient does not require prophylactic antibiotics. Prior Anticoagulants: The patient has taken no anticoagulant or antiplatelet agents. ASA Grade Assessment: II - A patient with mild systemic disease. After reviewing the risks and benefits, the patient was deemed in satisfactory condition to undergo the procedure. The anesthesia plan was to use monitored anesthesia care (MAC). Immediately prior to administration of medications, the patient was re-assessed for adequacy to receive sedatives. The heart rate, respiratory rate, oxygen saturations, blood pressure, adequacy of pulmonary ventilation, and response to care were monitored throughout the procedure. The physical status of the patient was re-assessed after the procedure. After obtaining informed consent, the scope was passed under direct vision. Throughout the procedure, the patient's blood pressure, pulse, and oxygen saturations were monitored continuously. The Duodenoscope was introduced through the mouth, and advanced to the duodenum and used to inject contrast into the bile duct and ventral pancreatic duct. The ERCP was accomplished without difficulty. The patient tolerated the procedure well. Scope In: 9:53:59 AM Scope Out: 10:04:19 AM Total Procedure Duration Time 0 hours 10 minutes 20 seconds Findings: The mechanical engineering coop film was normal. The esophagus was successfully intubated under direct vision. The scope was advanced to a normal major papilla in the descending duodenum without detailed examination of the pharynx, larynx and associated structures, and upper GI tract. The upper GI tract was grossly normal. The bile duct was deeply cannulated with the short-nosed traction sphincterotome. Contrast was injected. I personally interpreted the bile duct and pancreatic duct images. There was brisk flow of contrast through the ducts. Image quality was adequate. Contrast extended to the entire biliary tree. Opacification of the entire biliary tree except for the cystic duct and gallbladder was successful. The maximum diameter of the ducts was 8 mm. The lower third of the main bile duct contained a single localized stenosis 6 mm in length. The common hepatic duct contained one stone, which was 3 mm in diameter. The main bile duct was mildly dilated, acquired. The largest diameter was 8 mm. A straight Roadrunner wire was passed into the biliary tree. A 5 mm biliary sphincterotomy was made with a traction (standard) sphincterotome using ERBE electrocautery. There was no post-sphincterotomy bleeding. The biliary tree was swept with a 12 mm balloon starting at the bifurcation. Sludge was swept from the duct. All stones were removed. One stent was removed from the biliary tree using a snare. Impression: - A single localized biliary stricture was found in the lower third of the main bile duct. The stricture was benign appearing. - The entire main bile duct was mildly dilated, acquired. - Choledocholithiasis was found. Complete removal was accomplished by biliary sphincterotomy and balloon extraction. - A biliary sphincterotomy was performed. - The biliary tree was swept. - Retained food was seen in the stomach. If the patient has not eaten 12 hours consider gastric emptying study Recommendation: Gastric emptying study Procedure Code(s): --- Professional --- 00901, Endoscopic retrograde cholangiopancreatography (ERCP); with removal of foreign body(s) or stent(s) from biliary/pancreatic duct(s) 72214, Endoscopic retrograde cholangiopancreatography (ERCP); with removal of calculi/debris from biliary/pancreatic duct(s) 15396, Endoscopic retrograde cholangiopancreatography (ERCP); with sphincterotomy/papillotomy 45005, 26, Combined endoscopic catheterization of the biliary and pancreatic ductal systems, radiological supervision and interpretation CPT copyright 2021 [employer]. All rights reserved. The codes documented in this report are preliminary and upon braille coder review may be revised to meet current compliance requirements. John Lei DO 09/02/2023 10:13:06 AM This report has been signed electronically. Number of Addenda: 0 Note Initiated On: 09/02/2023 9:36 AM
[2023-09-02] MEDS: Ketorolac 30 MG/ML Syringe IM (11:20)
[2023-09-02] MEDS: oxyCODONE 5 MG Tablet PO (11:59)
== END 2023-09-02 12:39 | disposition home or self-care (01) ==
LOC: EN 07:56 → AC 07:59
PROVIDERS: Anesthesiology; PCP Internal Medicine; Referring Provider Internal Medicine Gastroenterology; Visit Provider Internal Medicine Gastroenterology
PROC: (CPT 43260; principal; 2023-09-02 08:55)
DX: K80.51 Calculus of bile duct without cholangitis or cholecystitis with obstruction (principal); K83.8 Other specified diseases of biliary tract; G43.909 Migraine, unspecified, not intractable, without status migrainosus; Z79.899 Other long term (current) drug therapy
CPT/HCPCS: 43275; 43264; 43262; 74330; 76000; 81025; 93005; J7120; A4216; J2405

== ENCOUNTER 2023-09-04 12:47 | Emergency (ER) | payer MEDICAID, SELFPAY ==
[2023-09-04 12:48] VITALS: BP 111/74; PULSE 120; RESP 22; TEMP 36.8; O2SAT 96
--- NOTE | 2023-09-04 13:20 | ED.VIS.GI ---
HPI <Dr. Pawel Huynh, DO - Last Filed: 09/04/23 16:12> HPI - GI History of Present Illness Chief Complaint: Abd Pain Informant: patient Abdominal Pain/Flank Pain Onset: Days (3) Context: Gradual Onset Timing: Continuous Quality: Stabbing Location: Epigastric Worsened by: Nothing Relieved by: Nothing Nausea/Vomiting/Emesis GI Symptom: Positive for Nausea and Vomiting Onset: Days Quality: Positive for Nonbilious; Negative for Blood streaks, Coffee ground or Hematemesis Diarrhea/Melena/Hematochezia GI Symptom: Negative for Diarrhea, Melena or Hematochezia Associated Symptoms Associated Symptoms: Negative for Dysuria, Frequency or Hematuria Narrative Narrative: Patient presents with epigastric pain and chest pain that has been getting worse over the past 3 days. Patient states she had a recent cholecystectomy in May of last year. Patient states that she had the bile duct stent removed 2 days ago. Patient states that her pain has been getting progressively worse since that time. Patient describes her pain as stabbing. Patient states nothing makes it better and nothing makes it worse. Patient admits to some nausea and vomiting. Patient denies any hematemesis or coffee-ground emesis. Patient denies any diarrhea, melena, or hematochezia. Patient denies any urinary complaints. [facility] <Dr. Pawel Huynh, DO - Last Filed: 09/04/23 16:12> PFS Medical History Abnormal Pap smear of cervix Anxiety Asthma Beta hemolytic streptococcus urinary tract infection affecting Cholecystectomy planned Cholelithiasis Depression Depression Easy bruising Generalized headaches GERD (gastroesophageal reflux disease) History of echocardiogram Migraine headache Non-smoker Home Medications ibuprofen 600 mg tablet 600 mg PO Q6H PRN PAIN OR FEVER 04/16/23 [History Last Taken Unknown] sertraline 50 mg tablet 50 mg PO DAILY #30 tabs 05/23/23 [Rx Last Taken 06/22/23] ondansetron 4 mg disintegrating tablet 4 mg PO Q8H PRN PRN Nausea #10 tabs 06/22/23 [Rx Last Taken Unknown] sumatriptan succinate 25 mg tablet (Imitrex) 25 mg PO Q2H PRN migraine headache #8 tabs 06/22/23 [Rx Last Taken Unknown] docusate sodium 100 mg capsule 100 mg PO BID PRN constipation 07/10/23 [History Last Taken Unknown] esomeprazole magnesium 20 mg capsule,delayed release (Nexium) 20 mg PO DAILY PRN GERD 07/10/23 [History Last Taken Unknown] Allergy/AdvReac Type Severity Reaction Status Date / Time No Known Allergies Allergy Verified 09/04/23 12:48 Family History Grandmother Epileptic Surgical History H/O LEEP History of cholecystectomy Social History household members: spouse and children number of children: 4 current occupational status: other 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 Pawel Huynh DO - Last Filed: 09/04/23 16:12> ROS ED Constitutional Constitutional ED: Reports chills; Denies fever(s) Eyes Eyes: Denies blurry vision or change in vision ENT ENT ED: Denies rhinorrhea or sore throat Cardiovascular Cardiovascular: Reports chest pain; Denies palpitations Respiratory/Chest Respiratory/Chest: Denies cough or dyspnea Gastrointestinal Gastrointestinal: Reports abdominal pain, nausea and vomiting; Denies diarrhea or melena Genitourinary Genitourinary ED: Denies dysuria or hematuria Musculoskeletal Musculoskeletal: Denies back pain or neck pain Integumentary Denies abscess or rash Neurologic Neurologic: Reports headache(s); Denies weakness Allergic/Immunologic Allergic/Immunologic ED: Denies mouth swelling or urticaria EXAM <Dr. Pawel Huynh DO - Last Filed: 09/04/23 16:12> Physical Exam Const Vital Signs: 09/04/23 12:48 Temperature 98.2 F Temperature Source Temporal Pulse Rate 120 H Respiratory Rate 22 H Blood Pressure 111/74 Blood Pressure Mean 86 Pulse Ox 96 Oxygen Delivery Method Room Air Positive well nourished and well developed General Appearance ED: well developed and NAD HEENT Reports moist mucous membranes Neck supple and no JVD Resp normal respiratory effort and clear to auscultation bilaterally Cardio regular rhythm Rate: tachycardic GI non-distended Palpation: soft and tender epigastric, LUQ and RUQ; Negative for guarding or rebound tenderness present Neuro CN's II-XII intact bilaterally, moves all extremities and no sensory deficits noted Sensorium / Orientation: alert Motor Exam: strength 5/5 throughout Psych mental status grossly normal <Dr. Luba Gilbert MD - Last Filed: 09/04/23 17:21> Physical Exam Const Vital Signs: 09/04/23 12:48 Temperature 98.2 F Temperature Source Temporal Pulse Rate 120 H Respiratory Rate 22 H Blood Pressure 111/74 Blood Pressure Mean 86 Pulse Ox 96 Oxygen Delivery Method Room Air MDM <Dr. Pawel Huynh DO - Last Filed: 09/04/23 16:12> [facility] MDM Narrative Medical decision making narrative: Differential diagnosis includes pancreatitis, gastritis, biliary obstruction, peptic ulcer disease, bowel obstruction, perforation, and pyelonephritis. CT scan of the abdomen pelvis will be obtained to assess for bowel obstruction and perforation. CBC will be obtained to assess for leukocytosis and anemia. Comprehensive metabolic profile will be obtained to assess for hepatic function, renal function, and electrolyte abnormality. Lipase will be obtained to assess for pancreatitis. Urinalysis will be obtained to assess for urinary tract infection and hematuria. Lab Data Attestation: I reviewed the patient's lab results. Lab results narrative: CBC was reviewed and was within normal limits. Comprehensive metabolic profile was reviewed. Total bilirubin was elevated at 2.0. The remainder is within normal limits. Lipase was reviewed and was normal at 13. Serum hCG was reviewed and was negative. Labs: Laboratory Results - last 24 hr 09/04/23 09/04/23 13:02 15:57 WBC 10.9 RBC 4.52 Hgb 12.5 Hct 39.1 MCV 86.5 MCH 27.7 MCHC 32.0 RDW Std Deviation 41.7 RDW Coeff of Raúl 13.3 Plt Count 153 MPV 11.2 Immature Gran % (Auto) 0.400 Neut % (Auto) 80.0 H Lymph % (Auto) 8.6 L [place] % (Auto) 10.6 H Eos % (Auto) 0.0 Baso % (Auto) 0.4 Absolute Neuts (auto) 8.7 H Absolute Lymphs (auto) 0.94 Nucleated RBC % 0 Sodium 138 Potassium 3.3 L Chloride 109 H Carbon Dioxide 24.0 Anion Gap 5 BUN 8 Creatinine 0.74 Est GFR (MDRD) Af Amer 118 Est GFR (MDRD) Non-Af 97 BUN/Creatinine Ratio 10.9 Glucose 93 Calcium 8.3 L Total Bilirubin 2.00 H AST 26 ALT 35 Alkaline Phosphatase 89 Total Protein 7.1 Albumin 3.4 Globulin 3.7 Albumin/Globulin Ratio 0.9 Lipase 13 Serum , Qual NEGATIVE Urine Color Yellow Urine Clarity Clear Urine pH 7.0 Ur Specific [place] 1.010 Urine Protein Negative Urine Glucose (UA) Normal Urine Ketones 50 H Urine Occult Blood 10 H Urine Nitrite Negative Urine Bilirubin Negative Urine Urobilinogen Normal Ur Leukocyte Esterase 25 H Urine RBC 0 SEEN Urine WBC 0-5 SEEN Ur Squamous Epith Cells 0-5 SEEN Ur Renal Epithelial Cell 0-5 SEEN Urine Bacteria 0 SEEN Urine Mucus 0 SEEN Radiography Diagnostic Testing: Clinical Impression(s) from Imaging Studies Abdomen/Pelvis CT 09/04/23 13:26 IMPRESSION: Status post cholecystectomy. Focal biliary duct prominence in the right hepatic lobe. Minimal pelvic fluid. Electronically Signed: Rock Ventura DO at 16:48 EST Reading Location ID and State: [facility] / [place] Tel [phone], Service support , Management Discussion w/another healthcare provider: Air Dispatcher (Dr. Lei) Treatment and Re-Evaluation :: Patient was given IV fluids, morphine, and Zofran. Patient was still having pain. Patient was given a repeat dose of morphine. Care of the patient was turned over the oncoming physician pending CT scan. <Dr. Luba Gilbert MD - Last Filed: 09/04/23 17:21> [facility] Lab Data Labs: Laboratory Results - last 24 hr 09/04/23 09/04/23 13:02 15:57 WBC 10.9 RBC 4.52 Hgb 12.5 Hct 39.1 MCV 86.5 MCH 27.7 MCHC 32.0 RDW Std Deviation 41.7 RDW Coeff of Raúl 13.3 Plt Count 153 MPV 11.2 Immature Gran % (Auto) 0.400 Neut % (Auto) 80.0 H Lymph % (Auto) 8.6 L [place] % (Auto) 10.6 H Eos % (Auto) 0.0 Baso % (Auto) 0.4 Absolute Neuts (auto) 8.7 H Absolute Lymphs (auto) 0.94 Nucleated RBC % 0 Sodium 138 Potassium 3.3 L Chloride 109 H Carbon Dioxide 24.0 Anion Gap 5 BUN 8 Creatinine 0.74 Est GFR (MDRD) Af Amer 118 Est GFR (MDRD) Non-Af 97 BUN/Creatinine Ratio 10.9 Glucose 93 Calcium 8.3 L Total Bilirubin 2.00 H AST 26 ALT 35 Alkaline Phosphatase 89 Total Protein 7.1 Albumin 3.4 Globulin 3.7 Albumin/Globulin Ratio 0.9 Lipase 13 Serum , Qual NEGATIVE Urine Color Yellow Urine Clarity Clear Urine pH 7.0 Ur Specific [place] 1.010 Urine Protein Negative Urine Glucose (UA) Normal Urine Ketones 50 H Urine Occult Blood 10 H Urine Nitrite Negative Urine Bilirubin Negative Urine Urobilinogen Normal Ur Leukocyte Esterase 25 H Urine RBC 0 SEEN Urine WBC 0-5 SEEN Ur Squamous Epith Cells 0-5 SEEN Ur Renal Epithelial Cell 0-5 SEEN Urine Bacteria 0 SEEN Urine Mucus 0 SEEN Radiography Diagnostic Testing: Clinical Impression(s) from Imaging Studies Abdomen/Pelvis CT 09/04/23 13:26 IMPRESSION: Status post cholecystectomy. Focal biliary duct prominence in the right hepatic lobe. Minimal pelvic fluid. Electronically Signed: Rock Ventura DO at 16:48 EST Reading Location ID and State: [facility] / [place] Tel [phone], Service support , Treatment and Re-Evaluation :: Patient was given IV fluids, morphine, and Zofran. Patient was still having pain. Patient was given a repeat dose of morphine. Care of the patient was turned over the oncoming physician pending CT scan. Patient signed out to me pending CT scan. CT reveals focal biliary ductal prominence in the right hepatic lobe but no other acute findings. Test results are discussed with Dr. Lei. I did reexamine the patient. She is sleeping comfortably in the room. She has minimal tenderness in the abdomen. No guarding or rebound. She will be discharged home with appropriate follow-up. Discharge Plan Triage Chief Complaint: Abd Pain ED Provider: Pawel Huynh Dx/Rx/DC Orders Clinical Impression: Hyperbilirubinemia, Epigastric abdominal pain Instructions: ED Abdominal Pain Unkn Cause Fem Prescriptions: No Action ibuprofen 600 mg tablet 600 mg PO Q6H PRN (Reason: PAIN OR FEVER) sertraline 50 mg tablet 50 mg PO DAILY Qty: 30 2RF docusate sodium 100 mg capsule 100 mg PO BID PRN (Reason: constipation) esomeprazole magnesium [Nexium] 20 mg capsule,delayed release(DR/EC) 20 mg PO DAILY PRN (Reason: GERD) sumatriptan succinate [Imitrex] 25 mg tablet 25 mg PO Q2H PRN (Reason: migraine headache) Qty: 8 0RF Rx Instructions: do not exceed 8 doses per 24 hrs ondansetron 4 mg tablet,disintegrating 4 mg PO Q8H PRN PRN (Reason: Nausea) Qty: 10 0RF Primary Care Provider: Elena Osoiro Referrals: Elena Osorio MD [Primary Care Provider] - 1 Week if not improving Friend,DO John [Med Staff - Active Staff] - Keep Sandor appointment Disposition Disposition: Home, Self Care
--- NOTE | 2023-09-04 13:26 | CT_ITS ---
STUDY: CT ABDOMEN AND PELVIS WITH CONTRAST REASON FOR EXAM: Female, 33 years old. Abdominal pain RADIATION DOSAGE (If Supplied By Facility): CTDIvol = ( 14.63 ) mGy, DLP = ( 841.24 ) mGycm TECHNIQUE: Transaxial images were obtained from the dome of the diaphragm to the symphysis pubis without oral contrast. Oral and amp; IV Gastrografin and amp; 100mL Isovue-300 was administered. Sagittal and coronal images were reconstructed. Individualized dose optimization techniques were used for this CT. COMPARISON: None. FINDINGS: The visualized lung bases are unremarkable. The visualized portions of the heart are within normal limits. Mild focal biliary prominence in the right lobe of the liver. Status post cholecystectomy. No significant dilatation extrahepatic biliary system. Normal spleen. Normal pancreas. Normal bilateral adrenal glands. Normal right kidney. Normal left kidney. Normal visualized stomach. Normal small intestine. Normal colon. The appendix is visualized and appears normal. Normal abdominal aorta. Normal inferior vena cava. Normal retroperitoneum. Normal urinary bladder. Minimal pelvic fluid. Normal abdominal wall. Normal osseous structures. CT/Abdomen/Pelvis WITH Contrast IMPRESSION: Status post cholecystectomy. Focal biliary duct prominence in the right hepatic lobe. Minimal pelvic fluid. Electronically Signed: Rock Ventura DO at 16:48 [facility] ,
[2023-09-04] MEDS: 0.9% Normal Saline (1000mL) 1,000 ML 1000 ML IV (13:36)
[2023-09-04] MEDS: Ondansetron 4 MG/2 ML Vial IV (13:36)
[2023-09-04] MEDS: Morphine 4 MG/ML Syringe IV ×2 (13:40→16:25)
[2023-09-04 13:43] LABS: Absolute Lymphocyte Count 0.94 X10^3/uL (0.83-4.51); Absolute Neutrophil Count 8.7 X10^3/uL (2.0-7.7); Basophil# 0.04 X10^3/uL; Basophil% 0.4 % (0-1); Hematocrit 39.1 % (37-47); Hemoglobin 12.5 g/dL (12.0-15.0); Lymphocyte # 0.94 X10^3/ul (0.83-4.51); Lymphocyte % 8.6 % (19-41); Mean Corpuscular Hgb 27.7 pg (27.0-32.0); Mean Corpuscular Volume 86.5 fL (81-99); Mean Platelet Vol. 11.2 fl (6.2-12.0); Monocyte# 1.16 X10^3/uL; Monocyte% 10.6 % (0-10); NRBC Flagged by Analyzer 0 % (0-5); Neutrophil # 8.72 X10^3/uL (2.7-7.7); Platelet Count 153 K/mm3 (150-450); RBC Distribution Width CV 13.3 % (11.6-14.6); RBC Distribution Width SD 41.7 fl (35.1-43.9); Red Blood Count 4.52 M/mm3 (4.2-5.4); White Blood Count 10.9 K/mm3 (4.4-11.0)
--- NOTE | 2023-09-04 13:45 | ED.RN ---
Patient asked this RN about risks of receiving morphine while . This RN read to pt. the facts from the pharmacy monorgraph about . Materails also printed and given to patient. Pt. stated she would take the med.
[2023-09-04 13:59] LABS: ALB/GLOB Ratio 0.9 RATIO (0.9-2.4); AST(SGOT) 26 U/L (15-37); Alanine Aminotransfer ALT/SGPT 35 U/L (13-56); Albumin, Serum 3.4 g/dL (3.2-5.0); Alkaline Phosphatase 89 U/L (45-117); Anion Gap 5 (5-15); BUN 8 mg/dL (7-18); BUN/Creat Ratio 10.9 RATIO (10-20); Calcium,Total 8.3 mg/dL (8.5-10.1); Chloride 109 mmol/L (98-107); Creatinine, Serum 0.74 mg/dL (0.55-1.02); EST Glomerular Filtration Rate 97 mL/min (>60); Est Glom Filt Rate - Afr Amer 118 mL/min (>60); Globulin 3.7 g/dL (2.2-4.2); Glucose 93 mg/dL (74-106); Lipase 13 U/L (13-75); Potassium 3.3 mmol/L (3.5-5.1); Protein, Total 7.1 g/dL (6.4-8.2); Sodium Level 138 mmol/L (136-145)
[2023-09-04 14:24] LABS: Internal QC Validated? YES +Cl - CLEAR BKGD; Pregnancy, Serum, hCG Quali. NEGATIVE Negative
[2023-09-04 16:02] LABS: Bacteria 0 SEEN /hpf (None Seen); Mucous, Urine 0 SEEN /hpf (<or=2+); Red Blood Cells-Urine 0 SEEN /hpf (0-5)
[2023-09-04 16:09] LABS: Color, Urine Yellow (Yellow); Glucose, Dipstick Normal (Normal); Ketone-Dipstick 50 mg/dl (Negative); Leukocyte Esterase-Dipstick 25 /ul (Negative); Nitrite-Dipstick Negative (Negative); Occult Blood-Urine 10 /ul (Negative); Protein-Dipstick Negative (Negative); Urine Bilirubin Dipstick Negative (Negative); Urine Clarity Clear (Clear); Urine Urobilinogen Normal (Normal)
[2023-09-04 16:57] LABS: Renal Epithelial Cells 0-5 SEEN /hpf (0-5); Squamous Epithelial Cells - UA 0-5 SEEN /hpf (5-10); White Blood Cells 0-5 SEEN /hpf (0-5)
[2023-09-04 17:29] VITALS: BP 137/89; PULSE 82; RESP 16; TEMP 36.3; O2SAT 98
== END 2023-09-04 17:30 | disposition home or self-care (01) ==
PROVIDERS: Emergency Provider Emergency Medicine; PCP Internal Medicine; Visit Provider Emergency Medicine
DX: E80.6 Other disorders of bilirubin metabolism (principal); R10.13 Epigastric pain
CPT/HCPCS: 74177; 80053; 81001; 83690; 84703; 85025; 96361; 96374; 96375; 96376; 99283; J7030; Q9967; A4216; J2405

== ENCOUNTER 2023-09-05 08:23 | Emergency (ER) | payer MEDICAID, SELFPAY ==
[2023-09-05 08:25] VITALS: BP 123/75; PULSE 111; RESP 18; TEMP 37.2; O2SAT 95; BMI 29.2
--- NOTE | 2023-09-05 08:40 | ED.VIS.GI ---
HPI HPI - GI History of Present Illness Chief Complaint: Abd Pain Informant: patient Abdominal Pain/Flank Pain Onset: Today Context: Sudden Onset Timing: Continuous Quality: Sharp Location: Epigastric Worsened by: Nothing Relieved by: Nothing Nausea/Vomiting/Emesis GI Symptom: Positive for Nausea and Vomiting Quality: Positive for Nonbilious; Negative for Blood streaks, Coffee ground or Hematemesis Diarrhea/Melena/Hematochezia GI Symptom: Positive for Diarrhea; Negative for Melena or Hematochezia Associated Symptoms Associated Symptoms: Negative for Dysuria, Frequency or Hematuria Narrative Narrative: Patient presents with abdominal pain that became worse again today. Patient was seen here yesterday and had lab work and CT scan done. Patient was discharged home when she was feeling better yesterday. Patient states that this morning her pain became severe again. Patient states it is mainly over the epigastric area. Patient describes her pain as sharp. Patient states nothing makes it better nothing makes it worse. Patient admits to some nausea, vomiting, and diarrhea today. Patient denies any hematemesis or coffee-ground emesis. Patient denies any melena or hematochezia. Patient denies any urinary complaints. PFSH PFSH Medical History Abnormal Pap smear of cervix Anxiety Asthma Beta hemolytic streptococcus urinary tract infection affecting Cholecystectomy planned Cholelithiasis Depression Depression Easy bruising Generalized headaches GERD (gastroesophageal reflux disease) History of echocardiogram Migraine headache Non-smoker Home Medications ibuprofen 600 mg tablet 600 mg PO Q6H PRN PAIN OR FEVER 04/16/23 [History Last Taken Unknown] sertraline 50 mg tablet 50 mg PO DAILY #30 tabs 05/23/23 [Rx Last Taken 06/22/23] sumatriptan succinate 25 mg tablet (Imitrex) 25 mg PO Q2H PRN migraine headache #8 tabs 06/22/23 [Rx Last Taken Unknown] docusate sodium 100 mg capsule 100 mg PO BID PRN constipation 07/10/23 [History Last Taken Unknown] esomeprazole magnesium 20 mg capsule,delayed release (Nexium) 20 mg PO DAILY PRN GERD 07/10/23 [History Last Taken Unknown] dicyclomine 10 mg capsule 20 mg (2 x 10 mg) PO TIDAC #20 CAPSULES 09/05/23 [Rx Last Taken Unknown] nitrofurantoin monohydrate/macrocrystals 100 mg capsule 100 mg PO Q12 #10 CAPSULES 09/05/23 [Rx Last Taken Unknown] ondansetron 4 mg disintegrating tablet 4 mg PO Q8H PRN PRN Nausea #10 tabs 09/05/23 [Rx Last Taken Unknown] Allergy/AdvReac Type Severity Reaction Status Date / Time No Known Allergies Allergy Verified 09/05/23 08:24 Family History Grandmother Epileptic Surgical History H/O LEEP History of cholecystectomy Social History household members: spouse and children number of children: 4 current occupational status: other 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 Smoking Status: Never smoker Electronic Cigarette Use: not used alcohol intake: never substance use type: does not use what type of physical activity do you participate in: none seatbelt use: always do you feel safe at home: Yes 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 ED Constitutional Constitutional ED: Reports chills; Denies fever(s) Eyes Eyes: Reports blurry vision ENT ENT ED: Denies rhinorrhea or sore throat Cardiovascular Cardiovascular: Denies chest pain or palpitations Respiratory/Chest Respiratory/Chest: Reports dyspnea; Denies cough Gastrointestinal Gastrointestinal: Reports abdominal pain, diarrhea, nausea and vomiting; Denies melena Genitourinary Genitourinary ED: Denies dysuria or hematuria Musculoskeletal Musculoskeletal: Denies back pain or neck pain Integumentary Denies abscess or rash Neurologic Neurologic: Reports headache(s); Denies weakness Allergic/Immunologic Allergic/Immunologic ED: Denies mouth swelling or urticaria EXAM Physical Exam Const Vital Signs: 09/05/23 08:25 09/05/23 12:00 Temperature 99 F Temperature Source Temporal Pulse Rate 111 H 97 Respiratory Rate 18 18 Blood Pressure 123/75 H 123/70 H Blood Pressure Mean 91 87 Pulse Ox 95 100 Oxygen Delivery Method Room Air Room Air Positive well nourished and well developed General Appearance ED: well developed and NAD HEENT Reports moist mucous membranes Neck supple and no JVD Resp normal respiratory effort and clear to auscultation bilaterally Cardio regular rhythm Rate: tachycardic GI non-distended Palpation: soft and tender epigastric, LUQ and RUQ; Negative for guarding or rebound tenderness present Neuro CN's II-XII intact bilaterally, moves all extremities and no sensory deficits noted Sensorium / Orientation: alert Motor Exam: strength 5/5 throughout Psych mental status grossly normal MDM MDM MDM Narrative Medical decision making narrative: Differential diagnosis includes pancreatitis, gastroenteritis, peptic ulcer disease, duodenal ulcer, and urinary tract infection. CBC will be obtained to assess for leukocytosis and anemia. Comprehensive metabolic profile will be obtained to assess for hepatic function, renal function, and electrolyte abnormality. Urinalysis will be obtained to assess for urinary tract infection and hematuria. Patient had a negative test yesterday. I do not feel this needs to be repeated today. Patient had a normal CT scan of her abdomen and pelvis done yesterday. I do not feel this needs to be repeated today either. Lab Data Attestation: I reviewed the patient's lab results. Lab results narrative: CBC was reviewed and was within normal limits. Comprehensive metabolic profile was reviewed and was within normal limits with the exception of an elevated total bilirubin of 2.6. This was slightly increased from yesterday. Lipase was reviewed and was normal at 12. Urinalysis was reviewed. Leukocyte esterase was 500 with 25-50 white blood cells and 1+ bacteria. Urine ketones were 150. Labs: Laboratory Results - last 24 hr 09/05/23 09/05/23 09:00 10:15 WBC 10.1 RBC 4.78 Hgb 13.3 Hct 41.4 MCV 86.6 MCH 27.8 MCHC 32.1 RDW Std Deviation 42.0 RDW Coeff of Raúl 13.2 Plt Count 102 L MPV 11.5 Immature Gran % (Auto) 0.600 Neut % (Auto) 87.1 H Lymph % (Auto) 4.0 L [place] % (Auto) 8.0 Eos % (Auto) 0.0 Baso % (Auto) 0.3 Absolute Neuts (auto) 8.8 H Absolute Lymphs (auto) 0.41 L Nucleated RBC % 0 Sodium 138 Potassium 3.1 L Chloride 108 H Carbon Dioxide 21.0 Anion Gap 9 BUN 10 Creatinine 0.81 Estim Creat Clear Calc 92.96 Est GFR (MDRD) Af Amer 105 Est GFR (MDRD) Non-Af 87 BUN/Creatinine Ratio 12.3 Glucose 103 Calcium 9.1 Total Bilirubin 2.60 H AST 22 ALT 28 Alkaline Phosphatase 102 Total Protein 8.0 Albumin 3.5 Globulin 4.5 H Albumin/Globulin Ratio 0.8 L Lipase 12 L Urine Color Yellow Urine Clarity Clear Urine pH 6.0 Ur Specific [place] 1.025 Urine Protein 100 H Urine Glucose (UA) Normal Urine Ketones 150 A* Urine Occult Blood 50 H Urine Nitrite Negative Urine Bilirubin Negative Urine Urobilinogen 4 H Ur Leukocyte Esterase 500 H Urine RBC 0 SEEN Urine WBC 25-50 SEEN Ur Squamous Epith Cells 0-5 SEEN Urine Bacteria 1+ Urine Mucus 2+ Treatment and Re-Evaluation :: Patient was given IV fluids, morphine, and Zofran. Patient was given a repeat dose of morphine. Patient was advised of her findings. Patient was given a dose of Rocephin here. Patient was given injection of Bentyl here. Case was discussed with Dr. Lei. He recommended prescribing Bentyl to take regularly until she can follow-up. Patient was also given a prescription for Zofran. Patient was instructed to return if worse in any way. Patient understood and was agreeable with the plan. All questions were answered. Discharge Plan Triage Chief Complaint: Abd Pain ED Provider: Pawel Huynh Dx/Rx/DC Orders Clinical Impression: Urinary tract infection, Epigastric abdominal pain Instructions: ED Cystitis Female Adult, ED Epigastric Pain Uncertain Cause Prescriptions: New dicyclomine 10 mg capsule 20 mg PO TIDAC Qty: 20 0RF nitrofurantoin monohyd/m-cryst [nitrofurantoin monohyd/m-cryst] 100 mg capsule 100 mg PO Q12 Qty: 10 0RF Continued ondansetron 4 mg tablet,disintegrating 4 mg PO Q8H PRN PRN (Reason: Nausea) Qty: 10 0RF No Action ibuprofen 600 mg tablet 600 mg PO Q6H PRN (Reason: PAIN OR FEVER) sertraline 50 mg tablet 50 mg PO DAILY Qty: 30 2RF docusate sodium 100 mg capsule 100 mg PO BID PRN (Reason: constipation) esomeprazole magnesium [Nexium] 20 mg capsule,delayed release(DR/EC) 20 mg PO DAILY PRN (Reason: GERD) sumatriptan succinate [Imitrex] 25 mg tablet 25 mg PO Q2H PRN (Reason: migraine headache) Qty: 8 0RF Rx Instructions: do not exceed 8 doses per 24 hrs Primary Care Provider: Elena Osorio Referrals: Elena Osorio MD [Primary Care Provider] - 3-5 Days Friend,DO John [Med Staff - Active Staff] - 3-5 Days Disposition Disposition: Home, Self Care
[2023-09-05] MEDS: Ondansetron 4 MG/2 ML Vial IV (09:01)
[2023-09-05] MEDS: 0.9% Normal Saline (1000mL) 1,000 ML 1000 ML IV (09:01)
[2023-09-05] MEDS: Morphine 4 MG/ML Syringe IV ×2 (09:02→11:23)
[2023-09-05 09:13] LABS: Absolute Lymphocyte Count 0.41 X10^3/uL (0.83-4.51); Absolute Neutrophil Count 8.8 X10^3/uL (2.0-7.7); Basophil# 0.03 X10^3/uL; Basophil% 0.3 % (0-1); Hematocrit 41.4 % (37-47); Hemoglobin 13.3 g/dL (12.0-15.0); Lymphocyte # 0.41 X10^3/ul (0.83-4.51); Mean Corp Hgb Conc 32.1 g/dL (32-36); Mean Corpuscular Hgb 27.8 pg (27.0-32.0); Mean Corpuscular Volume 86.6 fL (81-99); Mean Platelet Vol. 11.5 fl (6.2-12.0); Monocyte# 0.81 X10^3/uL; NRBC Flagged by Analyzer 0 % (0-5); Neutrophil # 8.82 X10^3/uL (2.7-7.7); Neutrophil % 87.1 % (47-70); POSITIVE DIFFERENTIAL YES; Platelet Count 102 K/mm3 (150-450); RBC Distribution Width CV 13.2 % (11.6-14.6); Red Blood Count 4.78 M/mm3 (4.2-5.4); White Blood Count 10.1 K/mm3 (4.4-11.0)
[2023-09-05 09:32] LABS: ALB/GLOB Ratio 0.8 RATIO (0.9-2.4); AST(SGOT) 22 U/L (15-37); Alanine Aminotransfer ALT/SGPT 28 U/L (13-56); Albumin, Serum 3.5 g/dL (3.2-5.0); Alkaline Phosphatase 102 U/L (45-117); Anion Gap 9 (5-15); BUN 10 mg/dL (7-18); BUN/Creat Ratio 12.3 RATIO (10-20); Calcium,Total 9.1 mg/dL (8.5-10.1); Chloride 108 mmol/L (98-107); Creatinine, Serum 0.81 mg/dL (0.55-1.02); EST Glomerular Filtration Rate 87 mL/min (>60); Est Glom Filt Rate - Afr Amer 105 mL/min (>60); Estimated Creatinine Clearance 92.96 ml/min; Globulin 4.5 g/dL (2.2-4.2); Glucose 103 mg/dL (74-106); Potassium 3.1 mmol/L (3.5-5.1); Sodium Level 138 mmol/L (136-145)
[2023-09-05 09:52] LABS: Lipase 12 U/L (13-75)
[2023-09-05 10:21] LABS: Red Blood Cells-Urine 0 SEEN /hpf (0-5)
[2023-09-05 10:32] LABS: Color, Urine Yellow (Yellow); Glucose, Dipstick Normal (Normal); Leukocyte Esterase-Dipstick 500 /ul (Negative); Nitrite-Dipstick Negative (Negative); Occult Blood-Urine 50 /ul (Negative); Protein-Dipstick 100 mg/dl (Negative); Specific Gravity, Urine 1.025 (1.002-1.030); Urine Bilirubin Dipstick Negative (Negative); Urine Clarity Clear (Clear); Urine Urobilinogen 4 mg/dl (Normal)
[2023-09-05 11:00] LABS: Ketone-Dipstick 150 mg/dl (Negative)
[2023-09-05 11:33] LABS: Bacteria 1+ /hpf (None Seen); Mucous, Urine 2+ /hpf (<or=2+); Squamous Epithelial Cells - UA 0-5 SEEN /hpf (5-10); White Blood Cells 25-50 SEEN /hpf (0-5)
[2023-09-05 12:00] VITALS: BP 123/70; PULSE 97; RESP 18; O2SAT 100
[2023-09-05] MEDS: Ceftriaxone 1 GM/50 ML BAG IV (12:58)
[2023-09-05 13:18] VITALS: BP 127/69; PULSE 90; RESP 18; O2SAT 99
[2023-09-05] MEDS: Dicyclomine 10 MG Capsule 20 MG PO (13:49)
[2023-09-05 13:50] VITALS: BP 133/77; PULSE 90; RESP 18; TEMP 36.6; O2SAT 99
== END 2023-09-05 14:47 | disposition home or self-care (01) ==
PROVIDERS: Emergency Provider Emergency Medicine; PCP Internal Medicine; Visit Provider Emergency Medicine
DX: N39.0 Urinary tract infection, site not specified (principal); R10.13 Epigastric pain
CPT/HCPCS: 80053; 81001; 83690; 85025; 87086; 87088; 96365; 96375; 96376; 99283; J7030; A4216; J2405

== ENCOUNTER → 2023-09-17 | Outpatient (CLI) | payer MEDICAID, SELFPAY ==
[2023-09-17 11:45] LABS: Absolute Neutrophil Count 5.1 X10^3/uL (2.0-7.7); Basophil# 0.06 X10^3/uL; Basophil% 0.7 % (0-1); Eosinophil# 0.12 X10^3/uL; Eosinophils% 1.4 % (0-5); Hematocrit 33.8 % (37-47); Hemoglobin 10.7 g/dL (12.0-15.0); Lymphocyte % 26.3 % (19-41); Mean Corp Hgb Conc 31.7 g/dL (32-36); Mean Corpuscular Hgb 27.6 pg (27.0-32.0); Mean Corpuscular Volume 87.3 fL (81-99); Mean Platelet Vol. 10.4 fl (6.2-12.0); Monocyte# 0.77 X10^3/uL; Monocyte% 9.2 % (0-10); NRBC Flagged by Analyzer 0 % (0-5); Neutrophil # 5.11 X10^3/uL (2.7-7.7); Neutrophil % 61.1 % (47-70); Platelet Count 424 K/mm3 (150-450); RBC Distribution Width CV 13.6 % (11.6-14.6); RBC Distribution Width SD 43.6 fl (35.1-43.9); Red Blood Count 3.87 M/mm3 (4.2-5.4); White Blood Count 8.4 K/mm3 (4.4-11.0)
[2023-09-17 15:44] LABS: ALB/GLOB Ratio 0.6 RATIO (0.9-2.4); AST(SGOT) 38 U/L (15-37); Alanine Aminotransfer ALT/SGPT 43 U/L (13-56); Albumin, Serum 2.9 g/dL (3.2-5.0); Alkaline Phosphatase 121 U/L (45-117); Anion Gap 5 (5-15); BUN 7 mg/dL (7-18); BUN/Creat Ratio 11.5 RATIO (10-20); Bilirubin, Direct 0.18 mg/dL (0.00-0.30); Calcium,Total 9.2 mg/dL (8.5-10.1); Chloride 108 mmol/L (98-107); Creatinine, Serum 0.61 mg/dL (0.55-1.02); EST Glomerular Filtration Rate 121 mL/min (>60); Est Glom Filt Rate - Afr Amer 146 mL/min (>60); Globulin 4.8 g/dL (2.2-4.2); Glucose 94 mg/dL (74-106); Lipase 14 U/L (13-75); Potassium 3.8 mmol/L (3.5-5.1); Protein, Total 7.7 g/dL (6.4-8.2); Sodium Level 140 mmol/L (136-145)
[2023-09-17 19:43] LABS: Xtra Tube EP Lab EXTRA TUBE
== END | disposition home or self-care (01) ==
LOC: PAVLAB 11:21
PROVIDERS: PCP Internal Medicine; Referring Provider Nurse Practitioner; Visit Provider Nurse Practitioner
DX: R10.13 Epigastric pain (principal); K80.50 Calculus of bile duct without cholangitis or cholecystitis without obstruction; Z98.890 Other specified postprocedural states
CPT/HCPCS: 36415; 80053; 82248; 83690; 83735; 85025

== ENCOUNTER → 2023-09-23 | Outpatient (CLI) | payer MEDICAID, SELFPAY ==
--- NOTE | 2023-09-23 15:48 | MRI_ITS ---
ACR Level 3 findings have been noted. An addendum which confirms receipt of the report will follow. Abdominal MRI and MRCP without contrast 09/23/2023 4:33 PM COMPARISON: 09/04/2023 CLINICAL HISTORY: duct evaluation'' TECHNIQUE: Multiplanar and multisequence MR images of the abdomen were obtained with MRCP sequence. Three-dimensional post-processing reconstructions were performed. 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 There is a 2.4 x 2.2 cm T1 hypointense/T2 hyperintense lesion in the dome of the liver with T2 bright perilesional edema. Gallbladder: Surgically absent. Bile Ducts: No intra or extrahepatic biliary ductal dilatation. Pancreas: Unremarkable Spleen: Unremarkable Adrenal Glands: Unremarkable Kidneys: Unremarkable GI Tract: Unremarkable Lymphadenopathy: Absent Ascites: Absent Bones: No suspicious lesions MRI/MRCP Abdomen without Contrast IMPRESSION: No intra or extrahepatic biliary ductal dilatation. 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 2.4 cm round lesion in the dome of the liver with perilesional edema. Differential includes hepatic abscess and infarction. Recommend obtaining additional MRI sequences including postcontrast and DWI/ADC. Electronically Signed: Booker Goins MD at 21:53 EDT ,
== END | disposition home or self-care (01) ==
LOC: MRI 15:47
PROVIDERS: PCP Internal Medicine; Referring Provider Internal Medicine Gastroenterology; Visit Provider Internal Medicine Gastroenterology
DX: R10.13 Epigastric pain (principal); K80.50 Calculus of bile duct without cholangitis or cholecystitis without obstruction
CPT/HCPCS: 74181

== ENCOUNTER 2023-09-24 18:43 | Inpatient (IN) | payer MEDICAID, SELFPAY ==
[2023-09-24 18:44] VITALS: BP 105/82; PULSE 83; RESP 17; TEMP 36.3; O2SAT 100; BMI 27.9
[2023-09-24 19:51] LABS: Absolute Lymphocyte Count 1.55 X10^3/uL (0.83-4.51); Absolute Neutrophil Count 2.7 X10^3/uL (2.0-7.7); Basophil# 0.05 X10^3/uL; Eosinophil# 0.07 X10^3/uL; Eosinophils% 1.4 % (0-5); Hematocrit 37.1 % (37-47); Hemoglobin 11.6 g/dL (12.0-15.0); Lymphocyte # 1.55 X10^3/ul (0.83-4.51); Lymphocyte % 31.4 % (19-41); Mean Corp Hgb Conc 31.3 g/dL (32-36); Mean Corpuscular Hgb 27.4 pg (27.0-32.0); Mean Corpuscular Volume 87.7 fL (81-99); Monocyte# 0.51 X10^3/uL; Monocyte% 10.3 % (0-10); NRBC Flagged by Analyzer 0 % (0-5); Neutrophil # 2.73 X10^3/uL (2.7-7.7); Neutrophil % 55.5 % (47-70); Platelet Count 288 K/mm3 (150-450); RBC Distribution Width CV 13.7 % (11.6-14.6); RBC Distribution Width SD 43.8 fl (35.1-43.9); Red Blood Count 4.23 M/mm3 (4.2-5.4); White Blood Count 4.9 K/mm3 (4.4-11.0)
[2023-09-24 20:06] LABS: Internal QC Validated? YES +Cl - CLEAR BKGD; Pregnancy, Serum, hCG Quali. NEGATIVE Negative
[2023-09-24 20:14] LABS: ALB/GLOB Ratio 0.7 RATIO (0.9-2.4); AST(SGOT) 49 U/L (15-37); Alanine Aminotransfer ALT/SGPT 66 U/L (13-56); Albumin, Serum 3.4 g/dL (3.2-5.0); Alkaline Phosphatase 164 U/L (45-117); Anion Gap 8 (5-15); BUN 7 mg/dL (7-18); BUN/Creat Ratio 11.3 RATIO (10-20); Calcium,Total 8.8 mg/dL (8.5-10.1); Chloride 107 mmol/L (98-107); Creatinine, Serum 0.62 mg/dL (0.55-1.02); EST Glomerular Filtration Rate 119 mL/min (>60); Est Glom Filt Rate - Afr Amer 144 mL/min (>60); Estimated Creatinine Clearance 118.82 ml/min; Globulin 4.8 g/dL (2.2-4.2); Glucose 85 mg/dL (74-106); Potassium 3.4 mmol/L (3.5-5.1); Protein, Total 8.2 g/dL (6.4-8.2); Sodium Level 142 mmol/L (136-145)
--- NOTE | 2023-09-24 20:19 | EX.ED.DYSGE1 ---
HPI History of Present Illness Chief Complaint: Abd Pain Informant: patient Narrative Narrative: Patient presents secondary to abdominal pain. She had an MRCP performed as an outpatient. She states that her friend called her and advised her she needed to come in. She states she was told that she has a blood clot and infection in her liver. Patient reports no fever or chills. She initially developed choledocholithiasis in May of last year. She had a biliary stent placed and a cholecystectomy. She states that her biliary stent was removed in late August and since then she has had increased pain. PFSH PFSH Medical History Abnormal Pap smear of cervix Anxiety Asthma Beta hemolytic streptococcus urinary tract infection affecting Cholecystectomy planned Cholelithiasis Depression Depression Easy bruising Generalized headaches GERD (gastroesophageal reflux disease) History of echocardiogram Migraine headache Non-smoker Home Medications ibuprofen 600 mg tablet 600 mg PO Q6H PRN PAIN OR FEVER 04/16/23 [History Last Taken Unknown] sertraline 50 mg tablet 50 mg PO DAILY #30 tabs 05/23/23 [Rx Last Taken 06/22/23] sumatriptan succinate 25 mg tablet (Imitrex) 25 mg PO Q2H PRN migraine headache #8 tabs 06/22/23 [Rx Last Taken Unknown] docusate sodium 100 mg capsule 100 mg PO BID PRN constipation 07/10/23 [History Last Taken Unknown] baclofen 5 mg tablet 5 mg PO QHS #30 tabs 09/17/23 [Rx Last Taken Unknown] esomeprazole magnesium 20 mg capsule,delayed release (Nexium) 20 mg PO DAILY PRN GERD #60 caps 09/17/23 [Rx Last Taken Unknown] ondansetron 4 mg disintegrating tablet 4 mg PO Q8H PRN PRN Nausea #10 tabs 09/17/23 [Rx Last Taken Unknown] ciprofloxacin HCl 500 mg tablet (Cipro) 500 mg PO BID #30 tabs 09/24/23 [Rx Last Taken Unknown] metronidazole 500 mg tablet 500 mg PO Q8H #30 tabs 09/24/23 [Rx Last Taken Unknown] Allergy/AdvReac Type Severity Reaction Status Date / Time No Known Allergies Allergy Verified 09/24/23 18:46 Family History Grandmother Epileptic Surgical History H/O LEEP History of cholecystectomy Social History household members: spouse and children number of children: 4 current occupational status: other 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 Smoking Status: Never smoker Electronic Cigarette Use: not used alcohol intake: never substance use type: does not use what type of physical activity do you participate in: none seatbelt use: always do you feel safe at home: Yes 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 ROS ROS ED Constitutional Constitutional ED: Denies chills or fever(s) Eyes Eyes: Denies change in vision or discharge from eye(s) ENT ENT ED: Denies discharge from eye(s), rhinorrhea or sore throat Cardiovascular Cardiovascular: Denies chest pain or palpitations Respiratory/Chest Respiratory/Chest: Denies cough or dyspnea Gastrointestinal Gastrointestinal: Reports abdominal pain and nausea; Denies diarrhea or vomiting Musculoskeletal Musculoskeletal: Denies back pain or extremity pain Integumentary Denies Abrasions or rash Neurologic Neurologic: Denies headache(s) or weakness Psychiatric Psychiatric: Denies anxiety or depression Allergic/Immunologic Allergic/Immunologic ED: Denies lip swelling or urticaria EXAM Physical Exam Const Vital Signs: 09/24/23 18:44 Temperature 97.4 F L Temperature Source Temporal Pulse Rate 83 Respiratory Rate 17 Blood Pressure 105/82 H Blood Pressure Mean 89 Pulse Ox 100 Oxygen Delivery Method Room Air Positive well nourished and well developed General Appearance ED: well developed HEENT Reports moist mucous membranes Eyes EOMs intact bilaterally Chest Wall inspection of chest normal and palpation of chest normal Resp normal respiratory effort and clear to auscultation bilaterally Cardio regular rate and regular rhythm GI GI Narrative: Abdomen soft with upper tenderness palpation, primarily epigastrium and right upper quadrant. No guarding or rebound. Extremity normal to inspection Neuro oriented x3 and no sensory deficits noted Motor Exam: strength 5/5 throughout Psych mental status grossly normal Skin no rashes or lesions noted MDM MDM MDM Narrative Medical decision making narrative: I spoke with Dr. Lei who had sent the patient to the emergency room. He asked that the patient be given a dose of Zosyn and made NPO after midnight. He would like her started on a heparin drip. He states this should be stopped at midnight in anticipation of a hepatic biopsy/drain tomorrow. IV line is established. Labwork was obtained via nursing protocol. White count is normal at 4.9 with no left shift. Hemoglobin is 11.6. Chemistry studies are unremarkable. LFTs significant for an AST of 49, ALT of 66, and an alk phos of 164. I will speak with hospitalist regarding admission. Lab Data Labs: Laboratory Results - last 24 hr 09/24/23 19:40 WBC 4.9 RBC 4.23 Hgb 11.6 L Hct 37.1 MCV 87.7 MCH 27.4 MCHC 31.3 L RDW Std Deviation 43.8 RDW Coeff of Raúl 13.7 Plt Count 288 MPV 11.0 Immature Gran % (Auto) 0.400 Neut % (Auto) 55.5 Lymph % (Auto) 31.4 [place] % (Auto) 10.3 H Eos % (Auto) 1.4 Baso % (Auto) 1.0 Absolute Neuts (auto) 2.7 Absolute Lymphs (auto) 1.55 Nucleated RBC % 0 Sodium 142 Potassium 3.4 L Chloride 107 Carbon Dioxide 27.0 Anion Gap 8 BUN 7 Creatinine 0.62 Estim Creat Clear Calc 118.82 Est GFR (MDRD) Af Amer 144 Est GFR (MDRD) Non-Af 119 BUN/Creatinine Ratio 11.3 Glucose 85 Calcium 8.8 Total Bilirubin 0.40 AST 49 H ALT 66 H Alkaline Phosphatase 164 H Total Protein 8.2 Albumin 3.4 Globulin 4.8 H Albumin/Globulin Ratio 0.7 L Serum , Qual NEGATIVE Discharge Plan Triage Chief Complaint: Abd Pain ED Provider: Luba Gilbert Dx/Rx/DC Orders Clinical Impression: Portal vein thrombosis, Abscess, liver Prescriptions: No Action ibuprofen 600 mg tablet 600 mg PO Q6H PRN (Reason: PAIN OR FEVER) sertraline 50 mg tablet 50 mg PO DAILY Qty: 30 2RF docusate sodium 100 mg capsule 100 mg PO BID PRN (Reason: constipation) baclofen 5 mg tablet 5 mg PO QHS Qty: 30 0RF esomeprazole magnesium [Nexium] 20 mg capsule,delayed release(DR/EC) 20 mg PO DAILY PRN (Reason: GERD) Qty: 60 1RF ondansetron 4 mg tablet,disintegrating 4 mg PO Q8H PRN PRN (Reason: Nausea) Qty: 10 0RF sumatriptan succinate [Imitrex] 25 mg tablet 25 mg PO Q2H PRN (Reason: migraine headache) Qty: 8 0RF Rx Instructions: do not exceed 8 doses per 24 hrs ciprofloxacin HCl [Cipro] 500 mg tablet 500 mg PO BID Qty: 30 1RF metronidazole 500 mg tablet 500 mg PO Q8H Qty: 30 0RF Primary Care Provider: Elena Osorio Referrals: Elena Osorio MD [Primary Care Provider] - Disposition Disposition: Home, Self Care
[2023-09-24] MEDS: HEPARIN/D5w 25,000 UNITS 25,000 UNITS/250 ML IV.SOLN. 8 UNITS CONT INF (20:29)
[2023-09-24] MEDS: Heparin Injection (Vial) 5,000 UNIT/ML VIAL 4000 UNIT IV (20:30)
[2023-09-24 20:44] VITALS: BP 105/55; PULSE 61; RESP 16; O2SAT 98
--- NOTE | 2023-09-24 20:45 | PCM.HP.STD ---
HPI - General General Date of Admission: 09/24/23 Date of Service: 09/24/23 Chief Complaint: Abdominal pain, abnormal MCRP findings. HPI Narrative The patient is a 33 y/o F w/ PMHx: Overweight, Anxiety and Depression, Chronic migraines, GERD, Asthma, previous history of choledocholithiasis with noted operative intervention per gastroenterology 09/02/2023 with ERCP with noted single localized biliary stricture in the lower third of the main bile duct benign-appearing, entire main bile duct mildly dilatated, choledocholithiasis found with complete removal accomplished by biliary sphincterotomy and balloon extraction with a tree swept status post prior to this 05/31/[address] Jimenez who presents to the [facility] [place] ED on 09/24/23 with history of persistent abdominal pain ongoing with recent MRCP imaging the day prior with call given image findings and recommendation for presentation to the ED for further evaluation. She denies any associated fevers or chills. She does report that she had a biliary stent and that this was removed in late August and since then she has had continued pain although it has been increasing. She reports her pain up to a 10 out of 10 in severity, currently now with interventions in the ED down to 7 out of 10 in severity. She notes that with the recent addition of Zofran therapy she has had resolution of previous nausea. She describes the abdominal discomfort as sharp stabbing aching however with recent ED intervention she notes it is more dull aching and squeezing in nature. She does report that the abdominal discomfort tends to worsen after certain foods, possibly more fatty. Workup in the ED included T97.4, heart rate 83, BP 105/82, respiratory rate 17, 100% on room air, CBC with WBC 4.9, hemoglobin 11.6 with most recent prior to this 09/17/2023 hemoglobin 10.7 of note, MCV 87.7, platelet 288 without marked shift, CMP with potassium 3.4, T. bili 0.4, AST/LT 49/66, alk phos 164 with most recent CMP prior to this 09/17/2023 with T. bili 0.5, D bili 0.18, AST/ALT 38/43, alk phos 121. 09/23/[address] Lei without contrast with no intra or extrahepatic biliary ductal dilatation, findings concerning for nearly occlusive thrombosis of the right main portal vein, 2.4 cm round lesion in the dome of the liver with perilesional edema with differential including hepatic abscess or possible infarction. In the ED patient ministered heparin bolus with drip as well as IV Zosyn. ED discussed case with gastroenterology who requested continue IV Zosyn, planned IR biopsy, heparin drip with hold at midnight. PFSH Medical History Abnormal Pap smear of cervix Anxiety and depression Asthma Generalized headaches GERD (gastroesophageal reflux disease) History of echocardiogram Migraine headache Non-smoker Home Medications ibuprofen 600 mg tablet 600 mg PO Q6H PRN PAIN OR FEVER 04/16/23 [History Last Taken Unknown] baclofen 5 mg tablet 5 mg PO QHS PAIN #30 tabs 09/17/23 [Rx Last Taken Unknown] ondansetron 4 mg disintegrating tablet 4 mg PO Q8H PRN PRN Nausea #10 tabs 09/17/23 [Rx Last Taken Unknown] Allergy/AdvReac Type Severity Reaction Status Date / Time No Known Allergies Allergy Verified 09/24/23 18:46 Family History (Updated 09/25/23 @ 03:[address] Lian Lin MD) Grandmother Epileptic Sister VTE (venous thromboembolism) Mother No problems noted. Father No problems noted. 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 HEENT: + Chronic headaches. Eyes: No visual loss, blurred vision, double vision or yellow sclerae. Ears, Nose, Throat: No hearing loss, sneezing, congestion, runny nose or sore throat. SKIN: No rash or itching, lesions, wounds. CARDIOVASCULAR: No chest pain, chest pressure or chest discomfort, palpitations, edema, orthopnea, syncopal events. RESPIRATORY: No shortness of breath, cough or sputum, wheezing, hemoptysis. GASTROINTESTINAL: + anorexia, nausea without vomiting, abdominal pain. No diarrhea, constipation, melena, BRBPR. GENITOURINARY: No dysuria, frequency, urgency or retention. NEUROLOGICAL: No headache, dizziness, syncope, paralysis, ataxia, numbness or tingling in the extremities, focal weakness, change in bowel or bladder control, seizure. MUSCULOSKELETAL: No muscle, back pain, joint pain or stiffness. HEMATOLOGIC: + anemia, easy bleeding/bruising. LYMPHATICS: No enlarged nodes. No history of splenectomy. PSYCHIATRIC: + history of depression and anxiety. ENDOCRINOLOGIC: No reports of sweating, cold or heat intolerance. No polyuria or polydipsia. ALLERGIES: + History of hives. Vital Signs Vital Signs Vital Signs: 09/24/23 18:44 Temperature 97.4 F L Temperature Source Temporal Pulse Rate 83 Respiratory Rate 17 Blood Pressure 105/82 H Blood Pressure Mean 89 Pulse Ox 100 Oxygen Delivery Method Room Air Weight Weight: 152 lb 12.485 oz Body Mass Index (BMI) 27.9 Physical Exam Narrative Physical Examination: General: Awake, alert, oriented x 3 and cooperative, seated upright in the ED bed, fatigued, uncomfortable appearing. Skin: Normal color, normal turgor, no icterus, no cyanosis except occasional staged ecchymoses. HEENT: AT/NC, EOMI, PERRLA, moderately dry MM, no carotid bruits or JVD noted. Lungs: Diminished, greater bases, decreased effort with shallow breathing, no rales, ronchi or wheezing. Heart: Regular rate and rhythm; no gallop, rub audible. Abdomen: Soft, discomfort primarily in the epigastric region with no rebound or guarding, no pain to any palpation in the right upper quadrant of note, hyperactive bowel sounds, no appreciated HSM. Extremities: No cyanosis, clubbing, or edema. Neurological: Patient awake, alert, oriented as noted, cognitive function intact; pupils equally reactive to light and accommodation, cranial nerves grossly normal, moving all 4 extremities, no focal deficits, strength moderately globally decreased secondary to acute presentation complaints Psychiatric: Affect appears fatigued, uncomfortable, anxious, no acute evidence of depressive feelings but does have underlying history of anxiety and depression. Results Lab / Micro Data 09/24/23 19:40 09/24/23 19:40 Labs: Laboratory Results - last 24 hr 09/24/23 19:40: WBC 4.9, RBC 4.23, Hgb 11.6 L, Hct 37.1, MCV 87.7, MCH 27.4, MCHC 31.3 L, RDW Std Deviation 43.8, RDW Coeff of Raúl 13.7, Plt Count 288, MPV 11.0, Immature Gran % (Auto) 0.400, Neut % (Auto) 55.5, Lymph % (Auto) 31.4, [place] % (Auto) 10.3 H, Eos % (Auto) 1.4, Baso % (Auto) 1.0, Absolute Neuts (auto) 2.7, Absolute Lymphs (auto) 1.55, Nucleated RBC % 0, Sodium 142, Potassium 3.4 L, Chloride 107, Carbon Dioxide 27.0, Anion Gap 8, BUN 7, Creatinine 0.62, Estim Creat Clear Calc 118.82, Est GFR (MDRD) Af Amer 144, Est GFR (MDRD) Non-Af 119, BUN/Creatinine Ratio 11.3, Glucose 85, Calcium 8.8, Total Bilirubin 0.40, AST 49 H, ALT 66 H, Alkaline Phosphatase 164 H, Total Protein 8.2, Albumin 3.4, Globulin 4.8 H, Albumin/Globulin Ratio 0.7 L, Serum , Qual NEGATIVE Assessment & Plan Assessment/Plan (1) Portal vein thrombosis: PLAN: Plan The patient is a 33 y/o F w/ PMHx: Overweight, Anxiety and Depression, Chronic migraines, GERD, Asthma, previous history of choledocholithiasis with noted operative intervention per gastroenterology 09/02/2023 with ERCP with noted single localized biliary stricture in the lower third of the main bile duct benign-appearing, entire main bile duct mildly dilatated, choledocholithiasis found with complete removal accomplished by biliary sphincterotomy and balloon extraction with a tree swept status post prior to this 05/31/[address] Jimenez who presents to the [facility] [place] ED on 09/24/23 with history of persistent abdominal pain ongoing with recent MRCP imaging the day prior with call given image findings and recommendation for presentation to the ED for further evaluation. #1. Persistent abdominal pain with mild LFT elevation with perilesional edema of the dome of the liver concerning for possible infection versus hepatic abscess as well as concerning findings for nearly occlusive thrombosis of the right main portal vein: Will admit to medical surgical floor, will maintain on IV Zosyn therapy, will continue consultation with GI Dr. Friend, will maintain on heparin drip with hold at midnight for possible liver biopsy, IR consulted with imaging with biopsy request, will obtain procalcitonin as well as ESR and CRP, will have as needed antiemetic and oral/IV pain regimen. #2. Hypokalemia: Admission K+ 3.4, magnesium level requested, supplementation given, repeat level in AM. #3. Anxiety and depression: We will continue patient home sertraline regimen. #4. Chronic migraines: Given presentation especially with possible thrombus we will hold triptan therapies at this time. #5. GERD: We will continue patient on PPI. #6. DVT prophylaxis: Will continue Heparin drip until midnight then hold following per GI recommendation for IR Bx liver. Charges/Coding Visit Charges Inpatient E&M: 13662 Init Hosp L3
[2023-09-24 20:50] LABS: International Normalized Ratio 1.1; Prothrombin Time (Protime)PT. 14.6 SECONDS (11.7-14.9)
[2023-09-24 20:51] LABS: Partial Thromboplast Time 32.8 Seconds (24.1-36.2)
[2023-09-24] MEDS: Piperacil/Tazobactam 3.375 GM in 0.9% Normal Saline (50mL MB+) 50 ML IV (21:10)
[2023-09-24 21:16] LABS: Magnesium 2.2 mg/dL (1.6-2.6)
[2023-09-24 21:28] LABS: Procalcitonin 0.21 ng/mL (0.00-0.09)
[2023-09-24 21:41] VITALS: BP 95/56; PULSE 55; RESP 16; TEMP 36.4; O2SAT 100
[2023-09-24 22:08] VITALS: BMI 28.1
[2023-09-24 22:11] VITALS: BP 108/70; PULSE 53; RESP 17; TEMP 36.1; O2SAT 100
[2023-09-24] MEDS: HEPARIN/D5w 25,000 UNITS 25,000 UNITS/250 ML IV.SOLN. 10 UNITS CONT INF (22:47)
[2023-09-24] MEDS: Baclofen 10 MG Tablet 5 MG PO (22:54)
[2023-09-24] MEDS: 0.9% Normal Saline (1000mL) 1,000 ML 100 ML IV (22:55)
[2023-09-24 23:04] LABS: Erythrocyte Sedimentation Rate 21 mm/hr (0-30)
[2023-09-25] MEDS: Piperacil/Tazobactam 3.375 GM in 0.9% Normal Saline (50mL MB+) 50 ML IV ×3 (05:15→21:55)
[2023-09-25 05:27] VITALS: BP 98/62; PULSE 66; RESP 16; TEMP 36.8; O2SAT 100
--- NOTE | 2023-09-25 06:00 | EKG12_ITS ---
Test Reason : PRE-OP Blood Pressure : / mmHG Vent. Rate : 061 BPM Atrial Rate : 061 BPM P-R Int : 148 ms QRS Dur : 080 ms QT Int : 440 ms P-R-T Axes : 024 053 031 degrees QTc Int : 442 ms Normal sinus rhythm with sinus arrhythmia Normal ECG When compared with ECG of 02-SEP-2023 08:14, No significant change was found Confirmed by Dhaval Arellano ([id number]), social media editor PATSY SCHWAB ([id number]) on 09/26/2023 11:11:54 AM Referred By: XI Confirmed By:Dhaval Arellano
--- NOTE | 2023-09-25 07:15 | PN.HOSP_ITS ---
Reason for Visit Reason for Visit: Diagnoses Portal vein thrombosis (09/24/23) Subjective Subjective Having pain between her boobs. Denies abdominal pain. Objective Data Objective Data Vital Signs: Vital Signs Temp Pulse Resp BP Pulse Ox O2 Del Method 36.8 C 66 16 98/62 100 Room Air 09/25/23 05:27 09/25/23 05:27 09/25/23 05:27 09/25/23 05:27 09/25/23 05:27 09/25/23 05:27 Oxygen Delivery Method Room Air Weight: 69.8 kg Body Mass Index (BMI) 28.1 Intake & Output: Intake and Output for Last 24 Hours 09/23/23 09/24/23 09/25/23 23:59 23:59 23:59 Intake Total 62.13 / 74.30 12.17 / 12.17 Balance 62.13 / 74.30 12. / 12.17 Lab / Micro Data 09/25/23 06:55 09/25/23 06:55 Labs: Laboratory Results - last 24 hr 09/24/23 19:40: WBC 4.9, RBC 4.23, Hgb 11.6 L, Hct 37.1, MCV 87.7, MCH 27.4, MCHC 31.3 L, RDW Std Deviation 43.8, RDW Coeff of Raúl 13.7, Plt Count 288, MPV 11.0, Immature Gran % (Auto) 0.400, Neut % (Auto) 55.5, Lymph % (Auto) 31.4, [place] % (Auto) 10.3 H, Eos % (Auto) 1.4, Baso % (Auto) 1.0, Absolute Neuts (auto) 2.7, Absolute Lymphs (auto) 1.55, Nucleated RBC % 0, ESR 21, PT 14.6, INR 1.1, APTT 32.8, Sodium 142, Potassium 3.4 L, Chloride 107, Carbon Dioxide 27.0, Anion Gap 8, BUN 7, Creatinine 0.62, Estim Creat Clear Calc 118.82, Est GFR (MDRD) Af Amer 144, Est GFR (MDRD) Non-Af 119, BUN/Creatinine Ratio 11.3, Glucose 85, Calcium 8.8, Magnesium 2.2, Total Bilirubin 0.40, AST 49 H, ALT 66 H, Alkaline Phosphatase 164 H, C-React Prot Ext Range 18.30 H, Total Protein 8.2, Albumin 3.4, Globulin 4.8 H, Albumin/Globulin Ratio 0.7 L, Procalcitonin 0.21 H, Serum , Qual NEGATIVE Physical Exam Const alert and no apparent distress HEENT head/scalp atraumatic and moist oral mucous membranes Resp normal respiratory effort, no retractions, no use of accessory muscles and clear to auscultation bilaterally Cardio regular rate, regular rhythm, S1 normal heart sound and S2 normal heart sound GI normal to inspection, nondistended, normoactive bowel sounds, soft to palpation, non-tender and non-distended Assessment & Plan Assessment/Plan (1) Portal vein thrombosis: PLAN: Plan Portal vein occlusion * noted on MRCP * on heparin gtt. * GI consult Liver mass * MRCP: possible nearly occlusive thrombosis of the right main portal vein. 2.4 cm lesion in the dome of the liver w perilesional edema. * on pip/tazo * GI consult * Had ERCP on 09/02 biliary stricture. Choledocholithiasis with removal. Biliary sphincterotomy. * Biopsy ordered. Chronic conditions: * Anxiety and depression: We will continue patient home sertraline regimen. * Chronic migraines: Given presentation especially with possible thrombus we will hold triptan therapies at this time. * GERD: We will continue patient on PPI. DVT prophylaxis: Will continue Heparin drip until midnight then hold following per GI recommendation for IR Bx liver. Dispo: pt asking about being discharged today. I recommended that she stay to find out culture results and how she responds. I told her if she decides to leave I will discharge her, but it is not my recommendation. She did not answer in the affirmative. She says no one is giving her a straight answer. I asked her if it was ok if I spoke openly, she declined to answer. Charges/Coding Visit Charges Inpatient E&M: 95210 Subs Hosp L2
[2023-09-25 07:35] LABS: Absolute Lymphocyte Count 2.09 X10^3/uL (0.83-4.51); Absolute Neutrophil Count 2.2 X10^3/uL (2.0-7.7); Basophil# 0.03 X10^3/uL; Basophil% 0.6 % (0-1); Eosinophil# 0.08 X10^3/uL; Eosinophils% 1.6 % (0-5); Hematocrit 34.6 % (37-47); Hemoglobin 10.6 g/dL (12.0-15.0); Lymphocyte # 2.09 X10^3/ul (0.83-4.51); Mean Corp Hgb Conc 30.6 g/dL (32-36); Mean Corpuscular Hgb 26.9 pg (27.0-32.0); Mean Corpuscular Volume 87.8 fL (81-99); Mean Platelet Vol. 11.2 fl (6.2-12.0); Monocyte# 0.63 X10^3/uL; Monocyte% 12.4 % (0-10); NRBC Flagged by Analyzer 0 % (0-5); Neutrophil # 2.24 X10^3/uL (2.7-7.7); Neutrophil % 43.8 % (47-70); Platelet Count 243 K/mm3 (150-450); RBC Distribution Width CV 13.6 % (11.6-14.6); RBC Distribution Width SD 43.9 fl (35.1-43.9); Red Blood Count 3.94 M/mm3 (4.2-5.4); White Blood Count 5.1 K/mm3 (4.4-11.0)
[2023-09-25 07:39] VITALS: BP 97/55; PULSE 52; RESP 16; TEMP 36.6; O2SAT 98
[2023-09-25 07:40] VITALS: O2SAT 99
[2023-09-25 08:00] LABS: ALB/GLOB Ratio 0.7 RATIO (0.9-2.4); AST(SGOT) 43 U/L (15-37); Alanine Aminotransfer ALT/SGPT 55 U/L (13-56); Alkaline Phosphatase 137 U/L (45-117); Anion Gap 6 (5-15); BUN 8 mg/dL (7-18); BUN/Creat Ratio 14.1 RATIO (10-20); Calcium,Total 8.5 mg/dL (8.5-10.1); Chloride 112 mmol/L (98-107); Creatinine, Serum 0.57 mg/dL (0.55-1.02); EST Glomerular Filtration Rate 131 mL/min (>60); Est Glom Filt Rate - Afr Amer 159 mL/min (>60); Estimated Creatinine Clearance 129.69 ml/min; Globulin 4.1 g/dL (2.2-4.2); Glucose 90 mg/dL (74-106); Potassium 3.7 mmol/L (3.5-5.1); Protein, Total 7.1 g/dL (6.4-8.2); Sodium Level 142 mmol/L (136-145)
--- NOTE | 2023-09-25 09:30 | CASEMGMT ---
RN CM Face to Face with patient for initial transition planning/care coordination assessment. RN CM introduced self and role at [facility]. Patient lying in bed, alert and oriented. Patient willing to participate in assessment and is able to answer all questions appropriately. Care providers, pharmacy, and demographics verified. PCP: Jo Specialists: Friend, GI [facility]erred [facility]acy: [facility] Insurance: [employer] Prescription Benefit: yes Living Will/HPOA: none LNOK: Living Arrangements: Patient lives with in a 1st floor apartment with 2 steps and railing to enter the home. Patient is independent at home. Transportation: self, DME/HHC: Patient denies DME in the home. No previous HHC or SNF. Patient wishes to discharge home, denies need for home health at this time. Patient states he has no further needs or concerns at this time. CM to follow for discharge planning needs that may arise. Disposition Plan: Patient to discharge home with family support and follow-up plans in place. Sherie MO, RN, CM
[2023-09-25] MEDS: 0.9% Normal Saline (1000mL) 1,000 ML 100 ML IV (13:28)
[2023-09-25 13:40] VITALS: BP 101/70; PULSE 58; RESP 18; TEMP 36.8; O2SAT 99
[2023-09-25] MEDS: Acetaminophen 325 MG Tablet 650 MG PO ×2 (15:14→21:31)
--- NOTE | 2023-09-25 15:23 | CASEMGMT ---
Social Work SW met with pt and introduced self and role of SW. Pt sitting up in bed and willing to speak with SW. Pt openly talking about her 6 children Pt has a 6 month old, 4 year old and 6 year old that live with pt and her spouse. Pt's took time off work and is keeping children while pt is hospitalized. Oldest three children live with [facility] . SW and pt discussed pt illness and pt's desire to discharge to return home to her family. Emotional support provided. Pt denies any further needs at this time. ISIDRO Soto
--- NOTE | 2023-09-25 16:17 | NURSING ---
All documentation by nursing assistants teacher Thania Stearns reviewed by nursing program director Luba Ramos RN.
[2023-09-25] MEDS: Enoxaparin 80 MG/0.8 ML Syringe 70 MG SC (17:44)
--- NOTE | 2023-09-25 18:07 | EX.PCM.CON.G ---
HPI Consult Data Date of Consult: 09/25/23 HPI Narrative Reason for Consultation: Abnormal MRCP HPI Narrative: 33 y/o who presents after undergoing MRCP and was discovered to have significant abnormalities on the liver and the portal vein. She has a past medical history of choledocholithiasis with noted operative intervention per gastroenterology 09/02/2023 with ERCP with noted single localized biliary stricture in the lower third of the main bile duct benign-appearing, entire main bile duct mildly dilatated, choledocholithiasis found with complete removal accomplished by biliary sphincterotomy and balloon extraction with a tree swept. On 05/31/2023 she underwent laparoscopic cholecystectomy per Dr. Jimenez who presents to the [facility] ED on 09/24/23 with history of persistent abdominal pain. She underwent ERCP after that and had stones removed. Subsequently she had a stent placed after that and the stent was removed. Recently she started developing worsening abdominal pain with elevated liver function test. Therefore we ordered an MRCP. She denies any associated fevers or chills. She describes the abdominal discomfort as sharp stabbing aching however with recent ED intervention she notes it is more dull aching and squeezing in nature. She does report that the abdominal discomfort tends to worsen after certain foods, possibly more fatty. Workup in the ED included T97.4, heart rate 83, BP 105/82, respiratory rate 17, 100% on room air, CBC with WBC 4.9, hemoglobin 11.6 with most recent prior to this 09/17/2023 hemoglobin 10.7 of note, MCV 87.7, platelet 288 without marked shift, CMP with potassium 3.4, T. bili 0.4, AST/LT 49/66, alk phos 164 with most recent CMP prior to this 09/17/2023 with T. bili 0.5, D bili 0.18, AST/ALT 38/43, alk phos 121. 09/23/2023 MRCP ordered without contrast with no intra or extrahepatic biliary ductal dilatation, findings concerning for nearly occlusive thrombosis of the right main portal vein, 2.4 cm round lesion in the dome of the liver with perilesional edema with differential including hepatic abscess or possible infarction. In the ED patient ministered heparin bolus with drip as well as IV Zosyn. I requested that she be admitted and started on Zosyn therapy along with being started on a heparin drip for possible liver biopsy. [facility] Medical History Abnormal Pap smear of cervix Anxiety and depression Asthma Generalized headaches GERD (gastroesophageal reflux disease) History of echocardiogram Migraine headache Non-smoker Home Medications ibuprofen 600 mg tablet 600 mg PO Q6H PRN PAIN OR FEVER 04/16/23 [History Last Taken Unknown] baclofen 5 mg tablet 5 mg PO QHS PAIN #30 tabs 09/17/23 [Rx Last Taken Unknown] ondansetron 4 mg disintegrating tablet 4 mg PO Q8H PRN PRN Nausea #10 tabs 09/17/23 [Rx Last Taken Unknown] Allergy/AdvReac Type Severity Reaction Status Date / Time No Known Allergies Allergy Verified 09/24/23 18:46 Family History (Updated 09/25/23 @ 03:[address] Lian Lin MD) Grandmother Epileptic Sister VTE (venous thromboembolism) Mother No problems noted. Father No problems noted. 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 HEENT: + Chronic headaches. Eyes: No visual loss, blurred vision, double vision or yellow sclerae. Ears, Nose, Throat: No hearing loss, sneezing, congestion, runny nose or sore throat. SKIN: No rash or itching, lesions, wounds. CARDIOVASCULAR: No chest pain, chest pressure or chest discomfort, palpitations, edema, orthopnea, syncopal events. RESPIRATORY: No shortness of breath, cough or sputum, wheezing, hemoptysis. GASTROINTESTINAL: + anorexia, nausea without vomiting, abdominal pain. No diarrhea, constipation, melena, BRBPR. GENITOURINARY: No dysuria, frequency, urgency or retention. NEUROLOGICAL: No headache, dizziness, syncope, paralysis, ataxia, numbness or tingling in the extremities, focal weakness, change in bowel or bladder control, seizure. MUSCULOSKELETAL: No muscle, back pain, joint pain or stiffness. HEMATOLOGIC: + anemia, easy bleeding/bruising. LYMPHATICS: No enlarged nodes. No history of splenectomy. PSYCHIATRIC: + history of depression and anxiety. ENDOCRINOLOGIC: No reports of sweating, cold or heat intolerance. No polyuria or polydipsia. ALLERGIES: + History of hives. Physical Exam Const alert and no apparent distress HEENT head/scalp atraumatic and moist oral mucous membranes Resp normal respiratory effort, no retractions, no use of accessory muscles and clear to auscultation bilaterally Cardio regular rate, regular rhythm, S1 normal heart sound and S2 normal heart sound GI normal to inspection, nondistended, normoactive bowel sounds, soft to palpation, non-tender and non-distended Lab / Micro Data 09/25/23 06:55 09/25/23 06:55 Labs: Laboratory Results - last 24 hr 09/24/23 19:40: WBC 4.9, RBC 4.23, Hgb 11.6 L, Hct 37.1, MCV 87.7, MCH 27.4, MCHC 31.3 L, RDW Std Deviation 43.8, RDW Coeff of Raúl 13.7, Plt Count 288, MPV 11.0, Immature Gran % (Auto) 0.400, Neut % (Auto) 55.5, Lymph % (Auto) 31.4, [place] % (Auto) 10.3 H, Eos % (Auto) 1.4, Baso % (Auto) 1.0, Absolute Neuts (auto) 2.7, Absolute Lymphs (auto) 1.55, Nucleated RBC % 0, ESR 21, PT 14.6, INR 1.1, APTT 32.8, Sodium 142, Potassium 3.4 L, Chloride 107, Carbon Dioxide 27.0, Anion Gap 8, BUN 7, Creatinine 0.62, Estim Creat Clear Calc 118.82, Est GFR (MDRD) Af Amer 144, Est GFR (MDRD) Non-Af 119, BUN/Creatinine Ratio 11.3, Glucose 85, Calcium 8.8, Magnesium 2.2, Total Bilirubin 0.40, AST 49 H, ALT 66 H, Alkaline Phosphatase 164 H, C-React Prot Ext Range 18.30 H, Total Protein 8.2, Albumin 3.4, Globulin 4.8 H, Albumin/Globulin Ratio 0.7 L, Procalcitonin 0.21 H, Serum , Qual NEGATIVE 09/25/23 06:55: WBC 5.1, RBC 3.94 L, Hgb 10.6 L, Hct 34.6 L, MCV 87.8, MCH 26.9 L, MCHC 30.6 L, RDW Std Deviation 43.9, RDW Coeff of Raúl 13.6, Plt Count 243, MPV 11.2, Immature Gran % (Auto) 0.600, Neut % (Auto) 43.8 L, Lymph % (Auto) 41.0, Page % (Auto) 12.4 H, Eos % (Auto) 1.6, Baso % (Auto) 0.6, Absolute Neuts (auto) 2.2, Absolute Lymphs (auto) 2.09, Nucleated RBC % 0, Sodium 142, Potassium 3.7, Chloride 112 H, Carbon Dioxide 24.0, Anion Gap 6, BUN 8, Creatinine 0.57, Estim Creat Clear Calc 129.69, Est GFR (MDRD) Af Amer 159, Est GFR (MDRD) Non-Af 131, BUN/Creatinine Ratio 14.1, Glucose 90, Calcium 8.5, Total Bilirubin 0.40, AST 43 H, ALT 55, Alkaline Phosphatase 137 H, Total Protein 7.1, Albumin 3.0 L, Globulin 4.1, Albumin/Globulin Ratio 0.7 L Assessment & Plan Assessment/Plan (1) Portal vein thrombosis: PLAN: Plan The patient is a 33 y/o F previous history of choledocholithiasis with noted operative intervention per gastroenterology 09/02/2023 with ERCP with noted single localized biliary stricture in the lower third of the main bile duct benign-appearing, entire main bile duct mildly dilatated, choledocholithiasis found with complete removal accomplished by biliary sphincterotomy and balloon extraction with a tree swept status post prior to this 05/31/2023. She is also laparoscopic cholecystectomy per Dr. Jimenez who presents to the [facility] ED on 09/24/23 with history of persistent abdominal pain ongoing with recent MRCP imaging the day prior with call given image findings and recommendation for presentation to the ED for further evaluation. Persistent abdominal pain with mild LFT elevation with perilesional edema of the dome of the liver concerning for possible infection versus hepatic abscess as well as concerning findings for nearly occlusive thrombosis of the right main portal vein: maintain on IV Zosyn therapy, will continue consultation with GI Dr. Lei, will maintain on heparin drip with hold at midnight for possible liver biopsy, IR consulted with imaging with biopsy request, also recommend infectious disease consultation. Charges/Coding Visit Charges Inpatient E&M: 79272 Init Hosp L3
[2023-09-25 20:00] VITALS: BP 98/64; PULSE 68; RESP 16; TEMP 36.8; O2SAT 100
[2023-09-25] MEDS: Baclofen 10 MG Tablet 5 MG PO (21:31)
[2023-09-26 02:48] VITALS: BP 93/56; PULSE 53; RESP 16; TEMP 36.6; O2SAT 100
[2023-09-26] MEDS: Piperacil/Tazobactam 3.375 GM in 0.9% Normal Saline (50mL MB+) 50 ML IV ×2 (05:04→13:36)
[2023-09-26] MEDS: Enoxaparin 80 MG/0.8 ML Syringe 70 MG SC (05:04)
[2023-09-26 06:00] VITALS: BMI 28.3
--- NOTE | 2023-09-26 07:32 | EX.PCM.PN.GI ---
Subjective Subjective Patient is doing well and her abdominal pain is controlled. She is tolerating a diet. She was seen by infectious disease and recommended repeat imaging in 1 month after completing antibiotic course for 1 month. Objective Data Objective Data Vital Signs: Vital Signs Temp Pulse Resp BP Pulse Ox O2 Del Method 98.2 F 58 L 18 99/61 98 Room Air 09/26/23 14:30 09/26/23 14:30 09/26/23 14:30 09/26/23 14:30 09/26/23 14:30 09/26/23 14:30 Oxygen Delivery Method Room Air Weight: 153 lb 10.595 oz Body Mass Index (BMI) 28.3 Intake & Output: Intake and Output for Last 24 Hours 09/24/23 09/25/23 09/26/23 23:59 23:59 23:59 Intake Total 62.13 / 74.30 1940.50 / 1940.50 119.58 / 119.58 Balance 62.13 / 74.30 1940.50 / 1940.50 119.58 / 119.58 Lab / Micro Data 09/26/23 06:33 09/26/23 06:33 Labs: Laboratory Results - last 24 hr 09/26/23 06:33: WBC 5.6, RBC 3.94 L, Hgb 10.7 L, Hct 34.7 L, MCV 88.1, MCH 27.2, MCHC 30.8 L, RDW Std Deviation 44.2 H, RDW Coeff of Raúl 13.6, Plt Count 212, MPV 12.3 H, Immature Gran % (Auto) 0.400, Neut % (Auto) 57.1, Lymph % (Auto) 32.5, [place] % (Auto) 7.5, Eos % (Auto) 2.0, Baso % (Auto) 0.5, Absolute Neuts (auto) 3.2, Absolute Lymphs (auto) 1.81, Nucleated RBC % 0, Sodium 143, Potassium 3.8, Chloride 112 H, Carbon Dioxide 26.0, Anion Gap 5, BUN 7, Creatinine 0.63, Estim Creat Clear Calc 117.26, Est GFR (MDRD) Af Amer 140, Est GFR (MDRD) Non-Af 116, BUN/Creatinine Ratio 11.1, Glucose 87, Calcium 8.7, Total Bilirubin 0.40, AST 43 H, ALT 57 H, Alkaline Phosphatase 135 H, Total Protein 6.7, Albumin 2.7 L, Globulin 4.0, Albumin/Globulin Ratio 0.7 L 09/26/23 15:15: Urine Color Yellow, Urine Clarity Clear, Urine pH 8.0, Ur Specific [place] 1.010, Urine Protein Negative, Urine Glucose (UA) Normal, Urine Ketones Negative, Urine Occult Blood Negative, Urine Nitrite Negative, Urine Bilirubin Negative, Urine Urobilinogen Normal, Ur Leukocyte Esterase Negative, Urine RBC 0 SEEN, Urine WBC 0 SEEN, Ur Squamous Epith Cells 0 SEEN, Urine Bacteria 0 SEEN, Urine Mucus 0 SEEN Physical Exam Const alert, oriented x3 and no apparent distress General Appearance: cooperative HEENT normocephalic and head/scalp atraumatic Eyes PERRL and EOMs intact bilaterally Neck supple and No nodes Resp normal air movement and clear to auscultation bilaterally Cardio regular rate and regular rhythm GI soft to palpation, non-tender and non-distended Skin no rashes or lesions noted Neuro CN's II-XII intact bilaterally Assessment & Plan Assessment/Plan (1) Portal vein thrombosis: PLAN: Plan Portal vein occlusion noted on MRCP on enoxaparin. No DOACs as pt is currently breast feedling. She plans to breast feed for another 6-months, but is open to using formula if necessary. I told her as long as she can self-administer the enoxaparin, I don't think that would necessary at this point. Recommend hematology outpt follow up. Liver mass MRCP: possible nearly occlusive thrombosis of the right main portal vein. 2.4 cm lesion in the dome of the liver w perilesional edema. on pip/tazo Had ERCP on 09/02 biliary stricture. Choledocholithiasis with removal. Biliary sphincterotomy. Biopsy not able to be safely performed given location. ID consult for Abx recommendations. Chronic conditions: Anxiety and depression: We will continue patient home sertraline regimen. Chronic migraines: Given presentation especially with possible thrombus we will hold triptan therapies at this time. GERD: We will continue patient on PPI. Charges/Coding Visit Charges Inpatient E&M: 84492 [facility] Hosp L3
[2023-09-26 07:33] LABS: Absolute Lymphocyte Count 1.81 X10^3/uL (0.83-4.51); Absolute Neutrophil Count 3.2 X10^3/uL (2.0-7.7); Basophil# 0.03 X10^3/uL; Basophil% 0.5 % (0-1); Eosinophil# 0.11 X10^3/uL; Hematocrit 34.7 % (37-47); Hemoglobin 10.7 g/dL (12.0-15.0); Lymphocyte # 1.81 X10^3/ul (0.83-4.51); Lymphocyte % 32.5 % (19-41); Mean Corp Hgb Conc 30.8 g/dL (32-36); Mean Corpuscular Hgb 27.2 pg (27.0-32.0); Mean Corpuscular Volume 88.1 fL (81-99); Mean Platelet Vol. 12.3 fl (6.2-12.0); Monocyte# 0.42 X10^3/uL; Monocyte% 7.5 % (0-10); NRBC Flagged by Analyzer 0 % (0-5); Neutrophil # 3.18 X10^3/uL (2.7-7.7); Neutrophil % 57.1 % (47-70); Platelet Count 212 K/mm3 (150-450); RBC Distribution Width CV 13.6 % (11.6-14.6); RBC Distribution Width SD 44.2 fl (35.1-43.9); Red Blood Count 3.94 M/mm3 (4.2-5.4); White Blood Count 5.6 K/mm3 (4.4-11.0)
--- NOTE | 2023-09-26 07:37 | PN.HOSP_ITS ---
Reason for Visit Reason for Visit: Diagnoses Portal vein thrombosis (09/24/23) Subjective Subjective No abdominal pain. Objective Data Objective Data Vital Signs: Vital Signs Temp Pulse Resp BP Pulse Ox O2 Del Method 36.6 C 53 L 16 93/56 L 100 Room Air 09/26/23 02:48 09/26/23 02:48 09/26/23 02:48 09/26/23 02:48 09/26/23 02:48 09/26/23 02:48 Oxygen Delivery Method Room Air Weight: 69.7 kg Body Mass Index (BMI) 28.3 Intake & Output: Intake and Output for Last 24 Hours 09/24/23 09/25/23 09/26/23 23:59 23:59 23:59 Intake Total 62.13 / 74.30 1940.50 / 1940.50 50 / 50 Balance 62.13 / 74.30 1940.50 / 1940.50 50 / 50 Lab / Micro Data 09/26/23 06:33 09/26/23 06:33 Labs: Laboratory Results - last 24 hr 09/25/23 06:55: Sodium 142, Potassium 3.7, Chloride 112 H, Carbon Dioxide 24.0, Anion Gap 6, BUN 8, Creatinine 0.57, Estim Creat Clear Calc 129.69, Est GFR (MDRD) Af Amer 159, Est GFR (MDRD) Non-Af 131, BUN/Creatinine Ratio 14.1, Glucose 90, Calcium 8.5, Total Bilirubin 0.40, AST 43 H, ALT 55, Alkaline Phosp hatase 137 H, Total Protein 7.1, Albumin 3.0 L, Globulin 4.1, Albumin/Globulin Ratio 0.7 L 09/26/23 06:33: WBC 5.6, RBC 3.94 L, Hgb 10.7 L, Hct 34.7 L, MCV 88.1, MCH 27.2, MCHC 30.8 L, RDW Std Deviation 44.2 H, RDW Coeff of Raúl 13.6, Plt Count 212, MPV 12.3 H, Immature Gran % (Auto) 0.400, Neut % (Auto) 57.1, Lymph % (Auto) 32.5, [place] % (Auto) 7.5, Eos % (Auto) 2.0, Baso % (Auto) 0.5, Absolute Neuts (auto) 3.2, Absolute Lymphs (auto) 1.81, Nucleated RBC % 0 Physical Exam Const alert and no apparent distress Resp normal respiratory effort, no retractions, no use of accessory muscles and clear to auscultation bilaterally Cardio regular rate, regular rhythm, S1 normal heart sound and S2 normal heart sound GI normal to inspection, nondistended, normoactive bowel sounds, soft to palpation, non-tender and non-distended Assessment & Plan Assessment/Plan (1) Portal vein thrombosis: PLAN: Plan Portal vein occlusion * noted on MRCP * on enoxaparin. No DOACs as pt is currently breast feedling. She plans to breast feed for another 6-months, but is open to using formula if necessary. I told her as long as she can self-administer the enoxaparin, I don't think that would necessary at this point. * GI following. * Recommend hematology outpt follow up. Liver mass * MRCP: possible nearly occlusive thrombosis of the right main portal vein. 2.4 cm lesion in the dome of the liver w perilesional edema. * on pip/tazo * DW Dr. Friend that biopsy could not be performed safely. * Had ERCP on 09/02 biliary stricture. Choledocholithiasis with removal. Biliary sphincterotomy. * Biopsy not able to be safely performed given location. * ID consult for Abx recommendations. Chronic conditions: * Anxiety and depression: We will continue patient home sertraline regimen. * Chronic migraines: Given presentation especially with possible thrombus we will hold triptan therapies at this time. * GERD: We will continue patient on PPI. DVT prophylaxis: Will continue Heparin drip until midnight then hold following per GI recommendation for IR Bx liver. Charges/Coding Visit Charges Inpatient E&M: 15083 Subs Hosp L2
[2023-09-26 08:04] LABS: ALB/GLOB Ratio 0.7 RATIO (0.9-2.4); AST(SGOT) 43 U/L (15-37); Alanine Aminotransfer ALT/SGPT 57 U/L (13-56); Albumin, Serum 2.7 g/dL (3.2-5.0); Alkaline Phosphatase 135 U/L (45-117); Anion Gap 5 (5-15); BUN 7 mg/dL (7-18); BUN/Creat Ratio 11.1 RATIO (10-20); Calcium,Total 8.7 mg/dL (8.5-10.1); Chloride 112 mmol/L (98-107); Creatinine, Serum 0.63 mg/dL (0.55-1.02); EST Glomerular Filtration Rate 116 mL/min (>60); Est Glom Filt Rate - Afr Amer 140 mL/min (>60); Estimated Creatinine Clearance 117.26 ml/min; Glucose 87 mg/dL (74-106); Potassium 3.8 mmol/L (3.5-5.1); Protein, Total 6.7 g/dL (6.4-8.2); Sodium Level 143 mmol/L (136-145)
[2023-09-26 09:42] VITALS: BP 96/57; PULSE 71; RESP 18; TEMP 36.6; O2SAT 100
[2023-09-26] MEDS: Sertraline 50 MG Tablet PO (09:46)
[2023-09-26] MEDS: Mag Hydrox/Al Hydrox/Simeth 30 ML UDC PO (11:16)
[2023-09-26] MEDS: Acetaminophen 325 MG Tablet 650 MG PO (12:17)
[2023-09-26 12:19] VITALS: O2SAT 98
--- NOTE | 2023-09-26 14:14 | CON.PCM.ID_ITS ---
Assessment & Plan Assessment/Plan (1) Abscess, liver: PLAN: suspected liver abscess, but location not amenable for biopsy. Not having focal pain or fever, chills. Recent ERCP with stent placement. On zosyn here, will check bcx. Ok for home with 30 days augmentin, recommend repeat imaging prior to stopping abx. If area is not better/resolved, may be not infectious- related. Will follow, thank you HPI Consult Data Date of Consult: 09/26/23 HPI Narrative Reason for Consultation: liver mass HPI Narrative: PATSY REYES, is a 33 F who had lap won 05/2023, then had ERCP with stent placement. Throughout past few months, some intermittent abd pain and nausea. Has been feeling ok overall, no fever, chills. MRCP done, showed portal vein thrombosis and focal area of enhancement. Admitted to [facility], started on zosyn. Full ROS performed and neg except as noted above. [facility] Medical History Abnormal Pap smear of cervix Anxiety and depression Asthma Generalized headaches GERD (gastroesophageal reflux disease) History of echocardiogram Migraine headache Non-smoker Home Medications ibuprofen 600 mg tablet 600 mg PO Q6H PRN PAIN OR FEVER 04/16/23 [History Last Taken Unknown] baclofen 5 mg tablet 5 mg PO QHS PAIN #30 tabs 09/17/23 [Rx Last Taken Unknown] ondansetron 4 mg disintegrating tablet 4 mg PO Q8H PRN PRN Nausea #10 tabs 09/17/23 [Rx Last Taken Unknown] amoxicillin 875 mg-potassium clavulanate 125 mg tablet 1 tab PO BID #60 tabs 09/26/23 [Rx Last Taken Unknown] Allergy/AdvReac Type Severity Reaction Status Date / Time No Known Allergies Allergy Verified 09/24/23 18:46 Family History Grandmother Epileptic Sister VTE (venous thromboembolism) Mother No problems noted. Father No problems noted. 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 09/26/23 06:33 09/26/23 06:33 Labs: Laboratory Results - last 24 hr 09/26/23 06:33: WBC 5.6, RBC 3.94 L, Hgb 10.7 L, Hct 34.7 L, MCV 88.1, MCH 27.2, MCHC 30.8 L, RDW Std Deviation 44.2 H, RDW Coeff of Raúl 13.6, Plt Count 212, MPV 12.3 H, Immature Gran % (Auto) 0.400, Neut % (Auto) 57.1, Lymph % (Auto) 32.5, [place] % (Auto) 7.5, Eos % (Auto) 2.0, Baso % (Auto) 0.5, Absolute Neuts (auto) 3.2, Absolute Lymphs (auto) 1.81, Nucleated RBC % 0, Sodium 143, Potassium 3.8, Chloride 112 H, Carbon Dioxide 26.0, Anion Gap 5, BUN 7, Creatinine 0.63, Estim Creat Clear Calc 117.26, Est GFR (MDRD) Af Amer 140, Est GFR (MDRD) Non-Af 116, BUN/Creatinine Ratio 11.1, Glucose 87, Calcium 8.7, Total Bilirubin 0.40, AST 43 H, ALT 57 H, Alkaline Phosphatase 135 H, Total Protein 6.7, Albumin 2.7 L, Globulin 4.0, Albumin/Globulin Ratio 0.7 L
--- NOTE | 2023-09-26 14:21 | DS.PCM_ITS ---
Providers Date of Admission: 09/24/23 Primary Care Physician: Dr. Elena Osorio MD Consultations 09/24/23 21:57 Consult: Gastroenterology Routine Consulting Provider: John Lei Reason for Consult: Liver lesion/? abscess, thrombos portain vein EMERGENT Consult: No Notified: Yes Date Notified: 09/24/23 Time Notified: 20:55 Method of Notification: ED Physician Initiated 09/25/23 12:32 Consult: Interventional Radiology Routine Consulting Provider: Niraj Pope Reason for Consult: liver biopsy liver lesion EMERGENT Consult: No Notified: Yes Date Notified: 09/25/23 Time Notified: 12:32 Method of Notification: spoke on phone 09/25/23 13:10 Consult: Infectious Disease Routine Consulting Provider: Abad Billingsley Reason for Consult: possible liver abscess EMERGENT Consult: No Notified: Yes Date Notified: 09/25/23 Time Notified: 15:56 Method of Notification: office Reason For Visit: PORTAL VEIN THROMBUS, LIVER LESION Diagnosis Discharge Diagnosis (1) Abscess, liver: Status: Acute Code(s): K75.0 - Abscess of liver Plan Portal vein occlusion * noted on MRCP * on enoxaparin. No DOACs as pt is currently breast feedling. She plans to br east feed for another 6-months, but is open to using formula if necessary. I told her as long as she can self-administer the enoxaparin, I don't think that would necessary at this point. * GI following. * Recommend hematology outpt follow up. Liver mass * MRCP: possible nearly occlusive thrombosis of the right main portal vein. 2.4 cm lesion in the dome of the liver w perilesional edema. * on pip/tazo * DW Dr. Lei that biopsy could not be performed safely. * Had ERCP on 09/02 biliary stricture. Choledocholithiasis with removal. Biliary sphincterotomy. * Biopsy not able to be safely performed given location. * ID consult for Abx recommendations. Chronic conditions: * Anxiety and depression: We will continue patient home sertraline regimen. * Chronic migraines: Given presentation especially with possible thrombus we will hold triptan therapies at this time. * GERD: We will continue patient on PPI. DVT prophylaxis: Will continue Heparin drip until midnight then hold following per GI recommendation for IR Bx liver. Medications at Discharge Home Medications baclofen 5 mg tablet 5 mg PO QHS PAIN #30 tabs 09/17/23 ondansetron 4 mg disintegrating tablet 4 mg PO Q8H PRN PRN Nausea #10 tabs 09/17/23 acetaminophen 325 mg tablet 1,000 mg (3.0769 x 325 mg) PO Q8H PRN PRN Fever, pain 1-04/16 #0 tabs 09/26/23 amoxicillin 875 mg-potassium clavulanate 125 mg tablet 1 tab PO BID #60 tabs 09/26/23 enoxaparin 80 mg/0.8 mL subcutaneous syringe 70 mg (0.7 mL) subcut Q12@0600,1800 #60 mL 09/26/23 Hospital Course Operations None Procedures None Summary of Care Provided Minutes Spent on Discharge: 40 Hospital Course: Patient presents with abdominal pain. Patient was found to have a portal vein near occlusion plus the mass on her liver. We attempted to biopsy the mass but the radiology did not feel comfortable doing so given its location to the lung and potential for complications. Patient was seen in consultation by gastroenterology as well as infectious disease. Infectious disease is recommending a 30-day course of Augmentin but have repeat imaging of the mass before discontinuing the antibiotics. If it does not show improvement then may be another process altogether rather than infectious and may warrant additional workup. So patient will be on enoxaparin for her portal vein thrombosis. Patient is actively breast-feeding and planning to actually breast-feed for another 6 months till her child is 1-year-old. Therefore, DOACs are unable to be used safely. If patient decides to stop breast-feeding before that time then patient could be changed over to enoxaparin. It is advised the patient to also follow-up with hematology to see if she does have a hypercoagulable state that may explain this portal vein thrombosis. Weight / BMI Weight Weight: 69.7 kg Body Mass Index (BMI) 28.3 ABG / Lab / Microbiology Data 09/26/23 06:33 09/26/23 06:33 Laboratory: Laboratory Results - last 24 hr 09/26/23 06:33: WBC 5.6, RBC 3.94 L, Hgb 10.7 L, Hct 34.7 L, MCV 88.1, MCH 27.2, MCHC 30.8 L, RDW Std Deviation 44.2 H, RDW Coeff of Raúl 13.6, Plt Count 212, MPV 12.3 H, Immature Gran % (Auto) 0.400, Neut % (Auto) 57.1, Lymph % (Auto) 32.5, [place] % (Auto) 7.5, Eos % (Auto) 2.0, Baso % (Auto) 0.5, Absolute Neuts (auto) 3.2, Absolute Lymphs (auto) 1.81, Nucleated RBC % 0, Sodium 143, Potassium 3.8, Chloride 112 H, Carbon Dioxide 26.0, Anion Gap 5, BUN 7, Creatinine 0.63, Estim Creat Clear Calc 117.26, Est GFR (MDRD) Af Amer 140, Est GFR (MDRD) Non-Af 116, BUN/Creatinine Ratio 11.1, Glucose 87, Calcium 8.7, Total Bilirubin 0.40, AST 43 H, ALT 57 H, Alkaline Phosphatase 135 H, Total Protein 6.7, Albumin 2.7 L, Globulin 4.0, Albumin/Globulin Ratio 0.7 L D/C Instructions Discharge Diet: No restrictions Meaningful Use Info Meaningful Use Diagnoses (Choose all that apply): None applicable Discharge Plan Admission Admit Date/Time: 09/24/23 20:52 Primary Reason for Your Visit: Liver mass. Portal vein thrombosis. Attending Provider: Pawel Horowitz Primary Care Provider: Elena Osorio Consulting Providers: Lian Lin; John Lei; Niraj Pope; Abad Billingsley Instructions Additional Instructions / Restrictions: Mass your liver is concerning for infection so you be on 30-day course of antibiotics. Before that is discontinued will need to follow your primary care doctor to see about getting visional imaging such as an ultrasound to see if judith t is improving. If it is not improving then you will need to follow-up with the turpentine distiller, Dr. Lei, to see what the neck step would be. Additionally you had blood clot in your portal vein. The recommendation is for blood thinners. We are using Lovenox (enoxaparin) for that. If you decide to stop breast-feeding in the near future, you could be transition over to an oral medication such as apixaban or rivaroxaban (Eliquis or Xarelto, respectively). I do recommend that you follow-up with aerodynamics teacher to see if you do have an underlying clotting disorder. It is unclear how long he will need to be on blood thinners but least for the time being but may be at least 6 months. Discharge Orders/Prescriptions Prescriptions: New amoxicillin-pot clavulanate 875-125 mg tablet 1 tab PO BID Qty: 60 0RF acetaminophen 325 mg Tablet 1,000 mg PO Q8H PRN PRN (Reason: Fever, pain 1-04/16) Qty: 0 0RF enoxaparin 80 mg/0.8 mL Syringe 70 mg subcut Q12@0600,1800 Qty: 60 2RF Continued baclofen 5 mg tablet 5 mg PO QHS Qty: 30 0RF ondansetron 4 mg tablet,disintegrating 4 mg PO Q8H PRN PRN (Reason: Nausea) Qty: 10 0RF Discontinued ibuprofen 600 mg tablet 600 mg PO Q6H PRN (Reason: PAIN OR FEVER) Referrals / Follow Up: [facility] [Provider Group] - Within 3 Months *[facility] [Provider Group] - Within 1 Month Elena Osorio MD [Primary Care Provider] - Within 2 Weeks Disposition Disposition (needs filled in before D/C Order can be placed): Home, Self Care Charges/Coding Visit Charges Inpatient E&M: 68400 Disch Hosp >30min
[2023-09-26 14:30] VITALS: BP 99/61; PULSE 58; RESP 18; TEMP 36.8; O2SAT 98
--- NOTE | 2023-09-26 14:40 | CASEMGMT ---
DEV CM into pt room, pt sitting up in bed. Pt states that she thinks she will be able to give herself the lovenox at home or her can. She states also that her mother did take some nursing schooling and may be able to assist. Pt is anxious to dc home as she has 2 children and a 6mo baby awaiting her. Pt denies any homegoing needs.
--- NOTE | 2023-09-26 15:33 | CHAPLAIN ---
Type of Pastoral Visit _x__ Initial Visit ___ Follow-up Visit ___ On-call Visit ___ General Patient Visit ___ Spiritual Assessment ___ Family Conference ___ Bereavement ___ Rapid Response ___ Code Blue ___ Other (describe below) Pastoral Care Referral From _x__ Patient ___ Family ___ Nurse ___ Physician ___ Drug Safety Specialist ___ Daytime Caregiver ___ Other (describe below) Sacrament/Intervention ___ Active listening ___ Anointing ___ Zoroastrian ___ Bereavement ___ Communion ___ Brittany exploration ___ ___ Life review ___ Prayer ___ Reconciliation ___ Sacrament of Sick ___ Supportive presence ___ Wedding _x__ Other (describe below) Pastoral Comments patient states that she is in pain, that RN has just given her the meds she wanted for pain, and that it would be better to come another time; two other attempts made to patient who had medical team involved at those times
[2023-09-26 15:43] LABS: Bacteria 0 SEEN /hpf (None Seen); Mucous, Urine 0 SEEN /hpf (<or=2+); Red Blood Cells-Urine 0 SEEN /hpf (0-5); Squamous Epithelial Cells - UA 0 SEEN /hpf (5-10); White Blood Cells 0 SEEN /hpf (0-5)
[2023-09-26 16:01] LABS: Color, Urine Yellow (Yellow); Glucose, Dipstick Normal (Normal); Ketone-Dipstick Negative (Negative); Leukocyte Esterase-Dipstick Negative /ul (Negative); Nitrite-Dipstick Negative (Negative); Occult Blood-Urine Negative /ul (Negative); Protein-Dipstick Negative (Negative); Urine Bilirubin Dipstick Negative (Negative); Urine Clarity Clear (Clear); Urine Urobilinogen Normal (Normal)
== END 2023-09-26 17:22 | disposition home or self-care (01) | DRG 279 ==
LOC: ED 20:24 → MS3 21:04
PROVIDERS: Admitting Provider Family Medicine; Emergency Provider Emergency Medicine; PCP Internal Medicine
DX: K75.0 Abscess of liver (principal); I81 Portal vein thrombosis; F32.A Depression, unspecified; G43.709 Chronic migraine without aura, not intractable, without status migrainosus; K21.9 Gastro-esophageal reflux disease without esophagitis; E87.6 Hypokalemia; F41.9 Anxiety disorder, unspecified; E66.3 Overweight; Z68.27 Body mass index [BMI] 27.0-27.9, adult
CPT/HCPCS: 36415; 74181; 80053; 81001; 83735; 84145; 84703; 85025; 85610; 85652; 85730; 86140; 87040; 93005; 94668; 99284; J7030; J7040; J7050; A4216

== ENCOUNTER → 2023-10-07 | Outpatient (CLI) | payer MEDICAID, SELFPAY ==
[2023-10-07 16:51] LABS: Basophil# 0.05 X10^3/uL; Basophil% 1.1 % (0-1); Eosinophil# 0.13 X10^3/uL; Eosinophils% 2.8 % (0-5); Hematocrit 35.2 % (37-47); Lymphocyte % 44.6 % (19-41); Mean Corp Hgb Conc 31.3 g/dL (32-36); Mean Corpuscular Hgb 27.6 pg (27.0-32.0); Mean Corpuscular Volume 88.2 fL (81-99); Mean Platelet Vol. 13.3 fl (6.2-12.0); Monocyte# 0.47 X10^3/uL; NRBC Flagged by Analyzer 0 % (0-5); Neutrophil # 1.95 X10^3/uL (2.7-7.7); Neutrophil % 41.3 % (47-70); Platelet Count 153 K/mm3 (150-450); RBC Distribution Width CV 14.6 % (11.6-14.6); RBC Distribution Width SD 46.7 fl (35.1-43.9); Red Blood Count 3.99 M/mm3 (4.2-5.4); White Blood Count 4.7 K/mm3 (4.4-11.0)
[2023-10-07 16:59] LABS: ALB/GLOB Ratio 0.9 RATIO (0.9-2.4); AST(SGOT) 58 U/L (15-37); Alanine Aminotransfer ALT/SGPT 76 U/L (13-56); Albumin, Serum 3.4 g/dL (3.2-5.0); Alkaline Phosphatase 112 U/L (45-117); Anion Gap 3 (5-15); BUN 13 mg/dL (7-18); BUN/Creat Ratio 21.4 RATIO (10-20); Calcium,Total 8.7 mg/dL (8.5-10.1); Chloride 111 mmol/L (98-107); Creatinine, Serum 0.61 mg/dL (0.55-1.02); EST Glomerular Filtration Rate 121 mL/min (>60); Est Glom Filt Rate - Afr Amer 147 mL/min (>60); Globulin 3.8 g/dL (2.2-4.2); Glucose 85 mg/dL (74-106); Potassium 3.7 mmol/L (3.5-5.1); Protein, Total 7.2 g/dL (6.4-8.2); Sodium Level 140 mmol/L (136-145); Troponin-I HS 3 pg/mL (3.0-54.0); Vitamin D,25 Hydroxy 16.6 ng/mL
== END | disposition home or self-care (01) ==
LOC: BIMLAB 14:44
PROVIDERS: PCP Internal Medicine; Referring Provider Internal Medicine; Visit Provider Internal Medicine
DX: E55.9 Vitamin D deficiency, unspecified (principal); K75.0 Abscess of liver; I81 Portal vein thrombosis; R07.9 Chest pain, unspecified
CPT/HCPCS: 36415; 80053; 82306; 84484; 85025

== ENCOUNTER → 2023-10-18 | Outpatient (CLI) | payer MEDICAID, SELFPAY ==
--- NOTE | 2023-10-18 15:55 | MRI_ITS ---
STUDY: MRI ABDOMEN WITH AND WITHOUT CONTRAST REASON FOR EXAM: Female, 33 years old. Monitor abscess for improvement TECHNIQUE: Standardized fat and water weighted pulse sequences were obtained in all 3 orthogonal planes post contrast administration. IV 15ml clariscan was administered for the contrast portion of the examination. COMPARISON: 09/23/2023 FINDINGS: The visualized lung bases are unremarkable. The visualized portions of the heart are within normal limits. Interval resolution of the lesion in the dome of the liver. There is no enhancement of the right portal vein consistent with chronic thrombosis. There are surgical clips in the gallbladder fossa consistent with a prior cholecystectomy. Normal spleen. Normal pancreas. Normal bilateral adrenal glands. Normal right kidney. Normal left kidney. Normal visualized stomach. Normal small intestine. Normal colon. There is non-visualization of the appendix. Normal abdominal aorta. Normal inferior vena cava. Normal retroperitoneum. Normal abdominal wall. Normal osseous structures. MRI/MRI Abd WITH and W/O Contrast IMPRESSION: 1. Interval resolution of hepatic abscess. 2. 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 Electronically Signed: Gino Roland MD at 18:12 EDT ,
== END | disposition home or self-care (01) ==
LOC: MRI 15:54
PROVIDERS: PCP Internal Medicine; Referring Provider Internal Medicine Gastroenterology; Visit Provider Internal Medicine Gastroenterology
DX: K75.0 Abscess of liver (principal); I81 Portal vein thrombosis
CPT/HCPCS: 74183; A9575; A4216

== ENCOUNTER → 2024-04-06 | Outpatient (CLI) | payer MEDICAID, SELFPAY ==
--- NOTE | 2024-04-06 12:30 | CT_ITS ---
EXAM: CT ANGIOGRAPHY CHEST WITHOUT AND WITH INTRAVENOUS CONTRAST CLINICAL INDICATION: chest pain TECHNIQUE: Helically acquired angiography images were obtained of the chest without and with intravenous contrast. This CT exam was performed using one or more of the following dose reduction techniques: automated exposure control, adjustment of the mA and/or kV according to patient size, and/or use of iterative reconstruction technique. MIP reconstructed images were created and reviewed. CONTRAST: IV 100mL [id number] RADIATION DOSE: CTDIvol = 5.66 mGy, DLP = 154.78 mGy-cm COMPARISON: No relevant prior studies available. FINDINGS: PULMONARY ARTERIES: Unremarkable. Normal in caliber. No evidence of pulmonary embolism. AORTA: Unremarkable. Normal in caliber. No evidence of dissection. GREAT VESSELS OF AORTIC ARCH: Unremarkable. Normal in caliber. No evidence of dissection. LUNGS AND PLEURAL SPACES: Unremarkable. No mass. No consolidation or edema. No pleural effusion or thickening. No pneumothorax. HEART: Unremarkable. Heart size is normal. No pericardial effusion. No significant coronary artery calcifications. MEDIASTINUM: Unremarkable. No mediastinal or hilar adenopathy. Esophagus is unremarkable. No hiatal hernia. THYROID: Unremarkable. No thyroid lesions. BONES/JOINTS: Unremarkable. No suspicious lytic or blastic abnormality. CT/CTA Chest W/WO Contrast IMPRESSION: Negative CTA chest. Electronically Signed: Parrish Braun MD at 13:10 EDT ,
== END | disposition home or self-care (01) ==
LOC: CT 12:28
PROVIDERS: PCP Internal Medicine; Referring Provider Physician Assistant; Visit Provider Physician Assistant
DX: R07.81 Pleurodynia (principal)
CPT/HCPCS: 71275; Q9967